=== PATIENT | male | born 1975 | race Caucasian/White ===

== ENCOUNTER 2020-09-13 22:38 | Emergency (ER) | payer OTHER, SELFPAY ==
--- NOTE | ~2020-09-13 | XR_ITS ---
EXAMINATION: XR CHEST CLINICAL INFORMATION: Chest pain COMPARISON: Chest CT 12/05/2014, chest x-ray 12/18/2012. TECHNIQUE: 2 views of the chest were obtained. FINDINGS: There is hazy opacity at the left lung base partially obscuring the left hemidiaphragm. There is a prominent epicardial fat pad in this location and some lingular atelectasis on the prior chest CT 12/05/2014. The loss of definition of the heart border is new from the prior chest x-ray 12/18/2012. A subtle pneumonia is possible. No pleural effusion or pneumothorax. Normal heart size. Asymmetric elevation of the right hemidiaphragm, present previously as well. XR/XR chest 2V IMPRESSION: Subtle increased left base opacity could represent a subtle pneumonia.
[2020-09-13 22:42] VITALS: BP 150/84; BP 185/97; PULSE 125; RESP 18; TEMP 37.4; O2SAT 97; O2SAT 99; BMI 26.6
--- NOTE | 2020-09-13 23:08 | ECG_ITS ---
Test Reason : HR ELEVATED Blood Pressure : / mmHG Vent. Rate : 120 BPM Atrial Rate : 120 BPM P-R Int : 130 ms QRS Dur : 084 ms QT Int : 306 ms P-R-T Axes : 058 075 036 degrees QTc Int : 432 ms Sinus tachycardia Possible Left atrial enlargement Borderline ECG When compared with ECG of 02-NOV-2019 00:07, No significant change was found Referred By: Marko Whiting Electronically Signed By:PARK RANDHAWA MD
--- NOTE | 2020-09-13 23:12 | ED_ITS ---
HPI - General Adult General Chief complaint: General Medical Stated complaint: NAUSEA,BLOATING,ETOH Time Seen by Provider: 09/13/20 22:40 Source: patient Mode of arrival: EMS Limitations: no limitations History of Present Illness HPI narrative: 45-year-old male who presents emergency department for evaluation of nausea, vomiting and high blood sugar. The patient states that he ate a bag of potato chips about 1-1/2 hour prior to coming to the emergency department. He states that after eating the potato chips he developed abdominal pain. He to his umbilical area when he describes the pain. States the pain is a burning sensation which is constant and is for of 10 at its worst. The patient had associated nausea but no vomiting. He also states he developed chest pain which again does drives as a burning sensation. Points to his mid sternal area when asked to localize the chest pain. States the pain was constant but has not resolved and was 6/10 at its worst. He denied any pain in his neck, jaw , back or arms. He states that he had shaking chills but did not have a fever. He denied cough, shortness of breath, dyspnea on exertion. The patient's point of care glucose by the paramedics was 444. The patient states that he did drink two 24 oz beers this evening. He states that he drinks 2-3 times per week. The patient has not had a COVID-19 infection . He has not been vaccinated for COVID-19. Please note: The patient was brought to the emergency department by paramedics. The paramedics insert an IV and then flush the IV catheter. 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 I did discuss this with my patient and he has agreed to HIV testing which was ordered as the HIV AV/Ag exposure Related Data Allergies Allergy/AdvReac Type Severity Reaction Status Date / Time No Known Allergies Allergy Unverified 02/07/20 15:03 [No Known Allergies*] Review of Systems Review of Systems: Yes all other systems are reviewed and are negative FOR[facility]LY [facility], LATER [facility] Past Medical History FOR[facility], LAT[facility] Narrative: Patient has a history of diabetes mellitus controlled with oral agents, hypertension not on medications. He denies any abdominal surgical procedures. He is a former smoker and stops 10 years prior, has a a year pack history. He does drink alcohol 2-3 times per week and did drink 24 oz beers x2 prior to coming to the emergency department he denies drug use. Social History Social History Advance Directives: No Physical Exam Vital Signs: Vital Signs: Last Vital Signs Temp 99.4 F 09/13/20 22:42 Pulse 125 H 09/13/20 22:42 Resp 18 09/13/20 22:42 BP 150/84 H 09/13/20 22:42 Pulse Ox 97 09/13/20 22:42 Body Mass Index 26.6 Const: General: cooperative and healthy appearing Nutritional Appearance: overweight Orientation/consciousness: oriented to person and oriented to place Limitations: no limitations HENMT: Head: Yes normal to inspection, Yes normocephalic and Yes atraumatic Ears: external ears normal General nose exam: Normal external nose present Face and sinus: Yes normal facial exam Mouth: Normal oral and palatal mucosa present Throat: Yes posterior oropharynx normal Eyes: Periorbital: periorbital findings normal Eyelids: Yes eyelids normal Conjunctivae: conjunctivae normal Sclerae: sclerae normal Corneas: corneas normal Pupils: Equal, round and reactive pupils present Direct Ophthalmoscopy: normal light reflex Neck: Neck: Yes full ROM, Yes no lymphadenopathy, Yes no meningeal signs, Yes trachea midline and Yes supple Chest: Chest palpation & inspection: normal inspection of the chest and normal palpation of entire chest wall Resp: Effort & Inspection: normal respiratory effort and able to speak in complete sentences Auscultation: clear to auscultation bilaterally Cardio: Rate: regular rate Rhythm: regular rhythm Heart sounds: S1 normal heart sound present, S2 normal heart sound present and no murmurs GI: Inspection: Yes normal to inspection Palpation (GI): Soft to palpation, nontender, no guarding, not rigid and No hepatosplenomegaly present Auscultation: normal bowel sounds : General: Yes no CVA tenderness Back/Spine/Pelvis: Back: no CVA tenderness Cervical Spine: normal cervical lordosis Thoracic/Lumbar Spine: thoracic and lumbar spine normal to inspection Skin: Lesions: no lesions Rashes: no rashes Wounds: no wounds Neuro: General: oriented to person, oriented to place and no meningeal signs Cranial nerves: Yes CN's II-XII intact bilaterally and Yes Equal, round and reactive pupils present Cognition (Neuro): normal cognition Motor exam (neuro): 5/5 motor strength present throughout Extrem: General: Yes normal to inspection and Yes full ROM Psych: Appearance: well kempt Mental Status: mental status grossly normal Speech and movement: Normal speech and movement present Affect: normal affect Attitude: cooperative Thought process: Normal thought process present Thought content: Normal thought content present Course Course Course Narrative: 45-year-old male who presents emergency department for evaluation abdominal pain, nausea, chest pain and elevated glucose. Vital signs revealed elevated glucose 150/84 and an elevated pulse of 125. Patient low-grade fever of 99.4 with a normal respiratory rate and normal O2 saturation. His physical examination revealed no abdominal tenderness and no chest wall tenderness. Point of care glucose in the emergency department was greater than 500. I ordered a CBC, CMP, lipase, urinalysis. Patient was ordered to get normal saline IV x2 L and regular insulin 10 units IV. 0130: The patient's laboratory evaluation revealed a normal CBC. The patient's bicarb was slightly low at 21. Patient's glucose was elevated at 579. Urinalysis was negative, COVID-19 was negative. Chest x-ray was interpreted by the radiologist as patchy infiltrate at the left base. Given the patient's clinical presentation and my review of the x-ray, I do not think that the patient has pneumonia and I did discuss this with him. The patient's glucose did improve with the above treatment and repeat point of care glucose was 242. Patient is feeling better. He will be discharged home. He was advised to stay on a low carb diet, to follow his glucose 3 times a day for the next week and follow-up with his PCP to discuss further management of his diabetes. I did inform him that his HIV test was negative. Medical Decision Making Lab Data Result diagrams: 09/13/20 23:26 09/13/20 23:14 Labs: Lab Results 09/13/20 09/13/20 09/13/20 Range/Units 22:57 23:14 23:14 WBC (4.8-10.8) X10*3/uL RBC (4.60-5.80) X10*6/uL Hgb (14.0-18.0) g/dl Hct (42-52) % MCV (80-98) fL MCH (27.0-33.0) pg MCHC (31.0-36.0) g/dl RDW (11.0-16.0) % Plt Count (160-400) X10*3/uL MPV (9.4-12.4) fL Immature Gran % (Auto) (0.0-0.4) % Neut % (Auto) (45-73) % Lymph % (Auto) (20-40) % [place] % (Auto) (2-11) % Eos % (Auto) (0-4) % Baso % (Auto) (0-2) % Lymph # (Auto) (1.2-4.9) X10*3/uL [place] # (Auto) (0.1-1.2) X10*3/uL Eos # (Auto) (0.0-0.4) X10*3/uL Baso # (Auto) (0.0-0.2) X10*3/uL Abs Immat Gran (auto) (0.00-0.03) X10*3/uL Absolute Neuts (auto) (2.0-8.3) X10*3/uL Absolute Nucleated RBC (0.0-0.012) X10*3/uL Nucleated RBC % (auto) (0.0-0.2) /100WBC Sodium 138 (135-145) mmol/L Potassium 4.8 (3.3-5.1) mmol/L Chloride 101 (96-108) mmol/L Carbon Dioxide 21 L (22-29) mmol/L Anion Gap 21 H (12-20) BUN 11 (9-16) mg/dL Creatinine 1.09 (0.5-1.4) mg/dL Estim Creat Clear Calc 89.2 Estimated GFR > 60 POC Glucose 514 H* (60-115) mg/dL Random Glucose 579 H* (60-115) mg/dL Calcium 9.2 (8.4-10.2) mg/dL Total Bilirubin 1.3 H (0.0-1.0) mg/dL AST 19 (5-37) U/L ALT 32 (0-40) U/L Alkaline Phosphatase 77 (39-117) U/L Troponin I High Sens 3.6 (<3.5-35.0) ng/L Total Protein 7.0 (6.5-8.0) g/dL Albumin 4.2 (3.5-5.0) g/dL Lipase 59 (8-78) U/L Urine Color Urine Appearance Urine pH (5.0-8.0) Ur Specific Henniker (1.005-1.025) Urine Protein (NEG-TRACE) MG/DL Urine Glucose (UA) (NEG) MG/DL Urine Ketones (NEG) MG/DL Urine Blood (NEG) Urine Nitrite (NEG) Ur Leukocyte Esterase (NEG) Urine RBC (0) /HPF Urine WBC (0-4) /HPF Ur Squamous Epith Cells /LPF Urine Bacteria /LPF Urine Mucus /LPF COVID-19 (ARLENE) (Negative) COVID-19 Clin Com HIV 1&2 Ab/P24 Ag 4thGn (Nonreactive) 09/13/20 09/13/20 09/13/20 Range/Units 23:14 23:16 23:26 WBC 5.2 (4.8-10.8) X10*3/uL RBC 5.49 (4.60-5.80) X10*6/uL Hgb 16.4 (14.0-18.0) g/dl Hct 46.0 (42-52) % MCV 83.8 (80-98) fL MCH 29.9 (27.0-33.0) pg MCHC 35.7 (31.0-36.0) g/dl RDW 12.7 (11.0-16.0) % Plt Count 305 (160-400) X10*3/uL MPV 11.0 (9.4-12.4) fL Immature Gran % (Auto) 0.2 (0.0-0.4) % Neut % (Auto) 70.5 (45-73) % Lymph % (Auto) 20.9 (20-40) % [place] % (Auto) 6.6 (2-11) % Eos % (Auto) 1.0 (0-4) % Baso % (Auto) 0.8 (0-2) % Lymph # (Auto) 1.1 L (1.2-4.9) X10*3/uL [place] # (Auto) 0.3 (0.1-1.2) X10*3/uL Eos # (Auto) 0.1 (0.0-0.4) X10*3/uL Baso # (Auto) 0.0 (0.0-0.2) X10*3/uL Abs Immat Gran (auto) 0.01 (0.00-0.03) X10*3/uL Absolute Neuts (auto) 3.6 (2.0-8.3) X10*3/uL Absolute Nucleated RBC 0.000 (0.0-0.012) X10*3/uL Nucleated RBC % (auto) 0.0 (0.0-0.2) /100WBC Sodium (135-145) mmol/L Potassium (3.3-5.1) mmol/L Chloride (96-108) mmol/L Carbon Dioxide (22-29) mmol/L Anion Gap (12-20) BUN (9-16) mg/dL Creatinine (0.5-1.4) mg/dL Estim Creat Clear Calc Estimated GFR POC Glucose (60-115) mg/dL Random Glucose (60-115) mg/dL Calcium (8.4-10.2) mg/dL Total Bilirubin (0.0-1.0) mg/dL AST (5-37) U/L ALT (0-40) U/L Alkaline Phosphatase (39-117) U/L Troponin I High Sens (<3.5-35.0) ng/L Total Protein (6.5-8.0) g/dL Albumin (3.5-5.0) g/dL Lipase (8-78) U/L Urine Color STRAW Urine Appearance CLEAR Urine pH 5.5 (5.0-8.0) Ur Specific Henniker 1.010 (1.005-1.025) Urine Protein NEG (NEG-TRACE) MG/DL Urine Glucose (UA) >=1000 H (NEG) MG/DL Urine Ketones 5 (NEG) MG/DL Urine Blood NEG (NEG) Urine Nitrite NEG (NEG) Ur Leukocyte Esterase NEG (NEG) Urine RBC 0 (0) /HPF Urine WBC 0 (0-4) /HPF Ur Squamous Epith Cells TRACE /LPF Urine Bacteria NONE /LPF Urine Mucus TRACE /LPF COVID-19 (ARLENE) (Negative) COVID-19 Clin Com HIV 1&2 Ab/P24 Ag 4thGn Nonreactive (Nonreactive) 09/13/20 09/14/20 Range/Units 23:45 01:05 WBC (4.8-10.8) X10*3/uL RBC (4.60-5.80) X10*6/uL Hgb (14.0-18.0) g/dl Hct (42-52) % MCV (80-98) fL MCH (27.0-33.0) pg MCHC (31.0-36.0) g/dl RDW (11.0-16.0) % Plt Count (160-400) X10*3/uL MPV (9.4-12.4) fL Immature Gran % (Auto) (0.0-0.4) % Neut % (Auto) (45-73) % Lymph % (Auto) (20-40) % [place] % (Auto) (2-11) % Eos % (Auto) (0-4) % Baso % (Auto) (0-2) % Lymph # (Auto) (1.2-4.9) X10*3/uL [place] # (Auto) (0.1-1.2) X10*3/uL Eos # (Auto) (0.0-0.4) X10*3/uL Baso # (Auto) (0.0-0.2) X10*3/uL Abs Immat Gran (auto) (0.00-0.03) X10*3/uL Absolute Neuts (auto) (2.0-8.3) X10*3/uL Absolute Nucleated RBC (0.0-0.012) X10*3/uL Nucleated RBC % (auto) (0.0-0.2) /100WBC Sodium (135-145) mmol/L Potassium (3.3-5.1) mmol/L Chloride (96-108) mmol/L Carbon Dioxide (22-29) mmol/L Anion Gap (12-20) BUN (9-16) mg/dL Creatinine (0.5-1.4) mg/dL Estim Creat Clear Calc Estimated GFR POC Glucose 242 H (60-115) mg/dL Random Glucose (60-115) mg/dL Calcium (8.4-10.2) mg/dL Total Bilirubin (0.0-1.0) mg/dL AST (5-37) U/L ALT (0-40) U/L Alkaline Phosphatase (39-117) U/L Troponin I High Sens (<3.5-35.0) ng/L Total Protein (6.5-8.0) g/dL Albumin (3.5-5.0) g/dL Lipase (8-78) U/L Urine Color Urine Appearance Urine pH (5.0-8.0) Ur Specific Henniker (1.005-1.025) Urine Protein (NEG-TRACE) MG/DL Urine Glucose (UA) (NEG) MG/DL Urine Ketones (NEG) MG/DL Urine Blood (NEG) Urine Nitrite (NEG) Ur Leukocyte Esterase (NEG) Urine RBC (0) /HPF Urine WBC (0-4) /HPF Ur Squamous Epith Cells /LPF Urine Bacteria /LPF Urine Mucus /LPF COVID-19 (ARLENE) Negative (Negative) COVID-19 Clin Com See Note HIV 1&2 Ab/P24 Ag 4thGn (Nonreactive) Discharge Plan Discharge Clinical Impression: Acute hyperglycemia, Acute dehydration Patient Disposition: Home, Self-Care Instructions: Diabetic Hyperglycemia (ED) Additional Instructions: Your laboratory evaluation was unremarkable except for high glucose (blood sugar) of 579. You received 2 L of normal saline IV and 10 units of regular insulin IV. Your repeat point of care glucose improved to 242. Your HIV test was negative. Your COVID-19 test was negative. You need to stay on a low-carbohydrate diet. Continue taking medications as prescribed by your doctor. You should record your blood sugar/glucose 3 times a day for the next week and discuss these readings with your doctor. Follow-up with your doctor in 2 days. Please return to the emergency department if your symptoms get worse or if you develop any symptoms that are concerning to you.
[2020-09-13] MEDS: 0.9 % Sodium Chloride 1,000 ML 999 ML IV ×2 (23:17→23:32)
[2020-09-13 23:30] LABS: Glucose Urine UA >=1000 MG/DL (NEG); Leukocyte Esterase Urine NEG (NEG); Nitrite Urine NEG (NEG); PH 5.5 (5.0-8.0); Urine Blood NEG (NEG); Urine Ketones 5 MG/DL (NEG); Urine Protein NEG (NEG-TRACE)
[2020-09-13] MEDS: Insulin Regular, Human 100 UNIT/ML 3 ML VIAL 10 UNIT IVPUSH (23:31)
[2020-09-13 23:34] LABS: Basophils Percent Auto 0.8 % (0-2); Eosinophils Absolute Auto 0.1 X10*3/uL (0.0-0.4); Hemoglobin 16.4 g/dl (14.0-18.0); Imm Gran Abs Auto 0.01 X10*3/uL (0.00-0.03); Imm Gran Pct Auto 0.2 % (0.0-0.4); Lymphocytes Absolute Auto 1.1 X10*3/uL (1.2-4.9); Lymphocytes Percent Auto 20.9 % (20-40); Mean Corpuscular HGB Conc 35.7 g/dl (31.0-36.0); Mean Corpuscular Hemoglobin 29.9 pg (27.0-33.0); Mean Corpuscular Volume 83.8 fL (80-98); Monocytes Absolute Auto 0.3 X10*3/uL (0.1-1.2); Monocytes Percent Auto 6.6 % (2-11); Neutrophils Absolute Auto 3.6 X10*3/uL (2.0-8.3); Neutrophils Percent Auto 70.5 % (45-73); Platelet Count 305 X10*3/uL (160-400); Red Blood Count 5.49 X10*6/uL (4.60-5.80); Red Cell Distribution Width 12.7 % (11.0-16.0); White Blood Count 5.2 X10*3/uL (4.8-10.8)
[2020-09-13 23:39] LABS: Appearance Urine CLEAR; Color Urine STRAW
[2020-09-13 23:49] LABS: Mucus Urine TRACE /LPF; RBC Urine 0 /HPF (0); Squamous Epithelial Cell Urine TRACE /LPF; WBC Urine 0 /HPF (0-4)
[2020-09-13 23:49] LABS: Troponin-I High Sensitivity 3.6 ng/L (<3.5-35.0)
[2020-09-13 23:52] LABS: Alanine Aminotransferase 32 U/L (0-40); Albumin Level 4.2 g/dL (3.5-5.0); Alkaline Phosphatase 77 U/L (39-117); Anion Gap 21 (12-20); Aspartate Amino Transferase 19 U/L (5-37); Bilirubin Total 1.3 mg/dL (0.0-1.0); Blood Urea Nitrogen 11 mg/dL (9-16); Calcium 9.2 mg/dL (8.4-10.2); Carbon Dioxide 21 mmol/L (22-29); Chloride 101 mmol/L (96-108); Creatinine Clr Calc Pharmacy 89.2; Estimated Glomerular Filt Rate > 60; Glucose Random 579 mg/dL (60-115); Lipase 59 U/L (8-78); Potassium 4.8 mmol/L (3.3-5.1); Sodium 138 mmol/L (135-145)
[2020-09-14 00:07] LABS: COVID-19 Test Negative (Negative); IDNOW Serial# 9DD0AD1C
[2020-09-14 00:30] LABS: HIV AB/AG Nonreactive (Nonreactive); HIV Num 1 0.07 S/CO (0.00-0.99)
[2020-09-14 00:37] LABS: MANUAL DIFF FLAG NO
--- NOTE | 2020-09-14 01:08 | PC.NURSE ---
RECHECK POC - 242 AWARE.
[2020-09-14 01:10] LABS: Glucose, Whole Blood 242 mg/dL (60-115)
[2020-09-14 01:10] LABS: Glucose, Whole Blood 514 mg/dL (60-115)
== END 2020-09-14 01:48 | disposition home or self-care (01) ==
PROVIDERS: Emergency Provider Emergency Medicine Emergency Medical Services
DX: E11.65 Type 2 diabetes mellitus with hyperglycemia (principal); E86.0 Dehydration; R11.2 Nausea with vomiting, unspecified; Z20.822 Contact with and (suspected) exposure to COVID-19; I10 Essential (primary) hypertension
CPT/HCPCS: 36415; 71046; 80053; 81001; 82947; 83690; 84484; 85025; 87635; 93005; 96361; 96374; 99284

== ENCOUNTER 2020-10-06 18:29 | Emergency (ER) | payer OTHER, SELFPAY ==
[2020-10-06 20:23] VITALS: BP 139/75; PULSE 101; RESP 20; TEMP 37.2; O2SAT 97; BMI 25.8
--- NOTE | 2020-10-06 21:06 | ED.MALEGU ---
HPI - Male Genitourinary General Chief complaint: Urogenital-Male Stated complaint: ? std Time Seen by Provider: 10/06/20 21:05 Source: patient Mode of arrival: ambulatory Limitations: no limitations History of Present Illness MD Complaint: dysuria and possible STD exposure Onset (ago): day(s) (4) Radiation: penis Severity: mild Quality: burning Relieving factors: none Exacerbating factors: urination Context: new sexual partner Associated symptoms: Reports discharge and dysuria Related Data Previous Rx's Medication Instructions Recorded doxycycline hyclate 100 mg PO BID 10 Days #20 cap 10/06/20 mupirocin 1 appl TOPICAL BID 7 Days #15 g 10/06/20 Allergies Allergy/AdvReac Type Severity Reaction Status Date / Time No Known Allergies Allergy Verified 10/06/20 20:22 [No Known Allergies*] Review of Systems Review of Systems: Constitutional : No Fever, No Chills, Cardiovascular : No Chest Pain, No SOB Respiratory : No Dyspnea Gastrointestinal : No abdominal pain : pos discharge, pos dysuria Musculoskeletal : No Joint Swelling Skin : No rash, no skin laceration Neuro : No Weakness, No Numbness Psych : No SI/HI PMFSH Past Medical History Attestation statement: The following information was validated with the patient. Medical History Diabetes Social History Social History (Updated 10/06/20 @ 21:20 by Yareli Garcia DO) Smoking Status: Unknown if ever smoked Use of substances other than those prescribed or required for medical reasons: No Advance Directives: No Advance Directives Information Provided: Yes Physical Exam Vital Signs: Vital Signs: Last Vital Signs Temp 99.0 F 10/06/20 20:23 Pulse 101 H 10/06/20 20:23 Resp 20 10/06/20 20:23 BP 139/75 10/06/20 20:23 Pulse Ox 97 10/06/20 20:23 Body Mass Index 25.8 Appearance: Alert. Oriented X3. No acute distress. Eyes: Pupils equal, round and reactive to light. ENT: Pharynx normal. Neck: Normal inspection. Neck supple. CVS: Normal heart rate and rhythm. Pulses normal. Respiratory: No respiratory distress. Breath sounds normal. Abdomen: Soft and nontender. : no rash noted, yellow drainage noted, no erythema Skin: Skin warm and dry. Normal skin color. Normal skin turgor. Extremities: No lower extremity edema. No calf ttp Neuro: Oriented X 3. No motor deficit. No sensory deficit. MDM - Male Genitourinary MDM Narrative Medical decision making narrative: 45 yo male new sexual partner but used condoms now has dysuria and purulence likely STI - no systemic symptoms, will obtain UA, G+C, give rocephin and doxy PO - follow up with PCP Discharge Plan Discharge Clinical Impression: Possible exposure to STD Patient Disposition: Home, Self-Care Instructions: Sexually Transmitted Diseases (ED) Additional Instructions: return to ED for any worsening symptoms or concerns you are being treated for gonorrhea and chlamydia, no sex x 10 days, contact your partners Prescriptions: New doxycycline hyclate 100 mg capsule 100 mg PO BID 10 Days Qty: 20 RF: 0 mupirocin 2 % ointment 1 appl topical BID 7 Days Qty: 15 RF: 0 Referrals: Physician,Unknown [Primary Care Provider] - 2 days (if not better) Stand Alone Forms: Work/School Release
[2020-10-06 21:30] LABS: Appearance Urine CLEAR; Color Urine YELLOW; Glucose Urine UA >=1000 MG/DL (NEG); Leukocyte Esterase Urine NEG (NEG); Nitrite Urine NEG (NEG); Specific Gravity - Urine 1.015 (1.005-1.025); Urine Blood 2+ (NEG); Urine Ketones NEG (NEG); Urine Protein NEG (NEG-TRACE)
[2020-10-06] MEDS: cefTRIAXone sodium 500 MG, Lidocaine HCl 1 % MPF 1 ML IM (21:37)
[2020-10-06 21:44] LABS: Squamous Epithelial Cell Urine TRACE /LPF
[2020-10-07 05:47] LABS: CT PCR NOT DETECTED (Not Detect.); NG PCR DETECTED (Not Detect.)
== END 2020-10-06 22:13 | disposition home or self-care (01) ==
PROVIDERS: Emergency Provider Emergency Medicine
DX: R30.0 Dysuria (principal); Z20.2 Contact with and (suspected) exposure to infections with a predominantly sexual mode of transmission; Z79.899 Other long term (current) drug therapy
CPT/HCPCS: 81001; 87491; 87591; 99284; J0696

== ENCOUNTER 2021-02-02 04:22 | Emergency (ER) | payer OTHER, SELFPAY ==
[2021-02-02 04:27] VITALS: BP 154/91; PULSE 113; RESP 18; TEMP 37.1; O2SAT 96; BMI 29.8
[2021-02-02 04:59] LABS: MANUAL DIFF FLAG NO
[2021-02-02 05:11] LABS: COVID-19 Test Negative (Negative)
[2021-02-02 05:18] LABS: Basophils Absolute Auto 0.1 X10*3/uL (0.0-0.2); Basophils Percent Auto 0.7 % (0-2); Eosinophils Absolute Auto 0.1 X10*3/uL (0.0-0.4); Eosinophils Percent Auto 1.7 % (0-4); Hematocrit 47.6 % (42-52); Hemoglobin 17.8 g/dl (14.0-18.0); Imm Gran Abs Auto 0.02 X10*3/uL (0.00-0.03); Imm Gran Pct Auto 0.2 % (0.0-0.4); Lymphocytes Absolute Auto 2.9 X10*3/uL (1.2-4.9); Lymphocytes Percent Auto 34.7 % (20-40); Mean Corpuscular HGB Conc 37.4 g/dl (31.0-36.0); Mean Corpuscular Hemoglobin 30.7 pg (27.0-33.0); Mean Corpuscular Volume 82.2 fL (80-98); Mean Platelet Volume 11.2 fL (9.4-12.4); Monocytes Absolute Auto 0.4 X10*3/uL (0.1-1.2); Monocytes Percent Auto 5.2 % (2-11); Neutrophils Absolute Auto 4.8 X10*3/uL (2.0-8.3); Neutrophils Percent Auto 57.5 % (45-73); Platelet Count 285 X10*3/uL (160-400); Red Blood Count 5.79 X10*6/uL (4.60-5.80); Red Cell Distribution Width 12.4 % (11.0-16.0); White Blood Count 8.3 X10*3/uL (4.8-10.8)
[2021-02-02 05:30] LABS: Amphetamine Screen Urine Not Detected (Not Detect); Barbiturates, Urine Not Detected (Not Detect); Benzodiazepines Screen Urine Not Detected (Not Detect); Cannabinoid Screen Urine Not Detected (Not Detect); Cocaine Screen Urine Not Detected (Not Detect); Fentanyl, urine Not Detected (Not Detect); Opiate Screen Urine Not Detected (Not Detect); Phencyclidine Screen Urine Not Detected (Not Detect)
[2021-02-02 05:34] LABS: Anion Gap 25 (12-20); Blood Urea Nitrogen 12 mg/dL (9-16); Calcium 10.2 mg/dL (8.4-10.2); Carbon Dioxide 16 mmol/L (22-29); Chloride 101 mmol/L (96-108); Creatinine Clr Calc Pharmacy 147.8; Estimated Glomerular Filt Rate > 60; Glucose Random 272 mg/dL (60-115); Potassium 4.4 mmol/L (3.3-5.1); Sodium 138 mmol/L (135-145)
[2021-02-02 05:35] LABS: Ethanol 219 mg/dL
--- NOTE | 2021-02-02 05:40 | PC.NURSE ---
Patient in bed appears sleeping, BAL at 0450 was 219, patient is not yet seen by the provider, patient is not on any medication at this time, will continue to monitor.
--- NOTE | 2021-02-02 07:06 | PC.NURSE ---
patient remains asleep at present with even regular respirations. patient appears in no distress.
--- NOTE | 2021-02-02 07:46 | ED.PSYCH ---
HPI - Psych General Chief Complaint: Psychiatric Symptoms <Christine Lowery MD - Last Filed: 02/02/21 07:52> Stated Complaint: SECTION 12 BY CPD FOR SI STATEMENTS <Christine Lowery MD - Last Filed: 02/02/21 07:52> Time Seen by Provider: 02/02/21 07:39 <Christine Lowery MD - Last Filed: 02/02/21 07:52> Source: patient <Christine Lowery MD - Last Filed: 02/02/21 07:52> Mode of arrival: ambulatory <Christine Lowery MD - Last Filed: 02/02/21 07:52> Limitations: no limitations <Christine Lowery MD - Last Filed: 02/02/21 07:52> History of Present Illness HPI Narrative: Patient comes emergency room complaining of suicidal ideation. Patient states that he was drunk earlier this morning, had a strong suicidal thought, no specific plan. Patient was brought to the emergency room on a Section 12, by police. By the time I saw the patient in the morning, the patient states that he is no longer suicidal, states it was something that crosses might while he was intoxicated. At this time, patient denies SI or HI <Christine Lowery MD - Last Filed: 02/02/21 07:52> Related Data Home Medications: Previous Rx's Medication Instructions Recorded doxycycline hyclate 100 mg capsule 100 mg PO BID 10 Days #20 cap 10/06/20 mupirocin 2 % topical ointment 1 appl TOPICAL BID 7 Days #15 g 10/06/20 <Christine Lowery MD - Last Filed: 02/02/21 07:52> Allergies/Adverse Reactions: Allergies Allergy/AdvReac Type Severity Reaction Status Date / Time No Known Allergies Allergy Verified 10/06/20 20:22 [No Known Allergies*] <Christine Lowery MD - Last Filed: 02/02/21 07:52> Review of Systems Review of Systems: Constitutional : No Weight loss, No Fever, No Chills, No Night Sweats, No Fatigue, No Malaise ENT/Mouth : No Hearing loss, No Ear Pain, No Nasal Congestion, No Sinus Pain, No Hoarseness, No sore throat, No Rhinorrhea, No Swallowing Difficulty Eyes: No Eye Pain, No Swelling, No Redness, No Foreign Body, No Discharge, No Vision Changes Cardiovascular : No Chest Pain, No SOB, No Dyspnea on Exertion, No Orthopnea, No Edema, No Palpitations Respiratory : No Cough, No Sputum, No Wheezing, No Smoke Exposure, No Dyspnea Gastrointestinal : No Nausea, No Vomiting, No Diarrhea, No Constipation, No abdominal Pain, No Hematochezia, No Melena Genitourinary : no irregular bleeding, No Dysuria, No Urinary Frequency, No Hematuria, No Urinary Incontinence, No Urgency, No Flank Pain, No Urinary Flow Changes, No Hesitancy Musculoskeletal : No joint pain, No Myalgias, No Joint Swelling Skin : No Skin Lesions, No rash Neuro : No Weakness, No Numbness, No Paresthesias, No Loss of Consciousness, No Dizziness, No Headache Psych : Previously suicidal and intoxicated now sober no longer suicidal or homicidal Heme/Lymph: No Bruising, No Bleeding,No Lymphadenopathy Endocrine : No Polyuria, No Polydipsia, No Temperature Intolerance <Christine Lowery MD - Last Filed: 02/02/21 07:52> [facility] Past Medical History Medical History: Medical History Diabetes <Christine Lowery MD - Last Filed: 02/02/21 07:52> Social History Social History: Social History (Updated 10/06/20 @ 21:20 by Yareli Garcia DO) Advance Directives: No Healthcare Proxy: No Guardian: No <Christine Lowery MD - Last Filed: 02/02/21 07:52> Physical Exam Vital Signs: Vital Signs: Last Vital Signs Temp 98.7 F 02/02/21 04:27 Pulse 113 H 02/02/21 04:27 Resp 18 02/02/21 04:27 BP 154/91 H 02/02/21 04:27 Pulse Ox 96 02/02/21 04:27 Body Mass Index 29.8 <Christine Lowery MD - Last Filed: 02/02/21 07:52> Vital Signs: Last Vital Signs Temp 98.7 F 02/02/21 04:27 Pulse 113 H 02/02/21 04:27 Resp 18 02/02/21 04:27 BP 154/91 H 02/02/21 04:27 Pulse Ox 96 02/02/21 04:27 Body Mass Index 29.8 <CRIS Arana - Last Filed: 02/02/21 11:50> Const: Other: Appearance: Alert. Oriented X3. No acute distress. Eyes: Pupils equal, round and reactive to light. ENT: Pharynx normal. Neck: Normal inspection. Neck supple. No lymph nodes noted. No crepitus CVS: Normal heart rate and rhythm. Pulses normal. Normal S1 and S2 Respiratory: No respiratory distress. Breath sounds normal. No Wheezing. No rales Abdomen: Soft and nontender. No rigidity. No distention. good BS x4 Skin: Skin warm and dry. Normal skin color. Normal skin turgor. Extremities: No lower extremity edema. No Lacerations. No Rash Neuro: Oriented X 3. No motor deficit. No sensory deficit. Moving all extermities. No slurred speech. <Christine Lowery MD - Last Filed: 02/02/21 07:52> Course Course Course Narrative: Patient is stable, physician observation started at 07:50, [facility] consult pending. <Christine Lowery MD - Last Filed: 02/02/21 07:52> Reevaluation(s) Reevaluation #1: Discussed with crisis, patient is safe to go home, will be discharged and given follow-up crisis information. <CRIS Arana - Last Filed: 02/02/21 11:50> MDM - Psych Lab Data Result diagrams: : 02/02/21 04:50 02/02/21 04:50 <Christine Lowery MD - Last Filed: 02/02/21 07:52> Labs: Lab Results 02/02/21 02/02/21 02/02/21 Range/Units 04:50 04:50 04:50 WBC 8.3 (4.8-10.8) X10*3/uL RBC 5.79 (4.60-5.80) X10*6/uL Hgb 17.8 (14.0-18.0) g/dl Hct 47.6 (42-52) % MCV 82.2 (80-98) fL MCH 30.7 (27.0-33.0) pg MCHC 37.4 H (31.0-36.0) g/dl RDW 12.4 (11.0-16.0) % Plt Count 285 (160-400) X10*3/uL MPV 11.2 (9.4-12.4) fL Immature Gran % (Auto) 0.2 (0.0-0.4) % Neut % (Auto) 57.5 (45-73) % Lymph % (Auto) 34.7 (20-40) % [place] % (Auto) 5.2 (2-11) % Eos % (Auto) 1.7 (0-4) % Baso % (Auto) 0.7 (0-2) % Lymph # (Auto) 2.9 (1.2-4.9) X10*3/uL [place] # (Auto) 0.4 (0.1-1.2) X10*3/uL Eos # (Auto) 0.1 (0.0-0.4) X10*3/uL Baso # (Auto) 0.1 (0.0-0.2) X10*3/uL Abs Immat Gran (auto) 0.02 (0.00-0.03) X10*3/uL Absolute Neuts (auto) 4.8 (2.0-8.3) X10*3/uL Absolute Nucleated RBC 0.000 (0.0-0.012) X10*3/uL Nucleated RBC % (auto) 0.0 (0.0-0.2) /100WBC Sodium 138 (135-145) mmol/L Potassium 4.4 (3.3-5.1) mmol/L Chloride 101 (96-108) mmol/L Carbon Dioxide 16 L (22-29) mmol/L Anion Gap 25 H (12-20) BUN 12 (9-16) mg/dL Creatinine 0.78 (0.5-1.4) mg/dL Estim Creat Clear Calc 147.8 Estimated GFR > 60 Random Glucose 272 H D (60-115) mg/dL Calcium 10.2 D (8.4-10.2) mg/dL Urine Color Urine Appearance Urine pH (5.0-8.0) Ur Specific [place] (1.005-1.025) Urine Protein (NEG-TRACE) MG/DL Urine Glucose (UA) (NEG) MG/DL Urine Ketones (NEG) MG/DL Urine Blood (NEG) Urine Nitrite (NEG) Ur Leukocyte Esterase (NEG) Urine RBC (0) /HPF Urine WBC (0-4) /HPF Ur Squamous Epith Cells /LPF Urine Bacteria /LPF Urine Opiates Screen (Not Detect) Urine Fentanyl Screen (Not Detect) Ur Barbiturates Screen (Not Detect) Ur Phencyclidine Scrn (Not Detect) Ur Amphetamines Screen (Not Detect) U Benzodiazepines Scrn (Not Detect) Urine Cocaine Screen (Not Detect) U Marijuana (THC) Screen (Not Detect) Ethyl Alcohol mg/dL COVID-19 (ARLENE) Negative (Negative) COVID-19 Clin Com See Note 02/02/21 02/02/21 02/02/21 Range/Units 04:50 04:50 10:16 WBC (4.8-10.8) X10*3/uL RBC (4.60-5.80) X10*6/uL Hgb (14.0-18.0) g/dl Hct (42-52) % MCV (80-98) fL MCH (27.0-33.0) pg MCHC (31.0-36.0) g/dl RDW (11.0-16.0) % Plt Count (160-400) X10*3/uL MPV (9.4-12.4) fL Immature Gran % (Auto) (0.0-0.4) % Neut % (Auto) (45-73) % Lymph % (Auto) (20-40) % [place] % (Auto) (2-11) % Eos % (Auto) (0-4) % Baso % (Auto) (0-2) % Lymph # (Auto) (1.2-4.9) X10*3/uL [place] # (Auto) (0.1-1.2) X10*3/uL Eos # (Auto) (0.0-0.4) X10*3/uL Baso # (Auto) (0.0-0.2) X10*3/uL Abs Immat Gran (auto) (0.00-0.03) X10*3/uL Absolute Neuts (auto) (2.0-8.3) X10*3/uL Absolute Nucleated RBC (0.0-0.012) X10*3/uL Nucleated RBC % (auto) (0.0-0.2) /100WBC Sodium (135-145) mmol/L Potassium (3.3-5.1) mmol/L Chloride (96-108) mmol/L Carbon Dioxide (22-29) mmol/L Anion Gap (12-20) BUN (9-16) mg/dL Creatinine (0.5-1.4) mg/dL Estim Creat Clear Calc Estimated GFR Random Glucose (60-115) mg/dL Calcium (8.4-10.2) mg/dL Urine Color YELLOW Urine Appearance CLEAR Urine pH 5.5 (5.0-8.0) Ur Specific [place] >= 1.030 H (1.005-1.025) Urine Protein NEG (NEG-TRACE) MG/DL Urine Glucose (UA) >=1000 H (NEG) MG/DL Urine Ketones 40 (NEG) MG/DL Urine Blood NEG (NEG) Urine Nitrite NEG (NEG) Ur Leukocyte Esterase NEG (NEG) Urine RBC 0-2 (0) /HPF Urine WBC 0-2 (0-4) /HPF Ur Squamous Epith Cells TRACE /LPF Urine Bacteria NONE /LPF Urine Opiates Screen Not Detected (Not Detect) Urine Fentanyl Screen Not Detected (Not Detect) Ur Barbiturates Screen Not Detected (Not Detect) Ur Phencyclidine Scrn Not Detected (Not Detect) Ur Amphetamines Screen Not Detected (Not Detect) U Benzodiazepines Scrn Not Detected (Not Detect) Urine Cocaine Screen Not Detected (Not Detect) U Marijuana (THC) Screen Not Detected (Not Detect) Ethyl Alcohol 219 mg/dL COVID-19 (ARLENE) (Negative) COVID-19 Clin Com 02/02/21 Range/Units 10:16 WBC (4.8-10.8) X10*3/uL RBC (4.60-5.80) X10*6/uL Hgb (14.0-18.0) g/dl Hct (42-52) % MCV (80-98) fL MCH (27.0-33.0) pg MCHC (31.0-36.0) g/dl RDW (11.0-16.0) % Plt Count (160-400) X10*3/uL MPV (9.4-12.4) fL Immature Gran % (Auto) (0.0-0.4) % Neut % (Auto) (45-73) % Lymph % (Auto) (20-40) % [place] % (Auto) (2-11) % Eos % (Auto) (0-4) % Baso % (Auto) (0-2) % Lymph # (Auto) (1.2-4.9) X10*3/uL [place] # (Auto) (0.1-1.2) X10*3/uL Eos # (Auto) (0.0-0.4) X10*3/uL Baso # (Auto) (0.0-0.2) X10*3/uL Abs Immat Gran (auto) (0.00-0.03) X10*3/uL Absolute Neuts (auto) (2.0-8.3) X10*3/uL Absolute Nucleated RBC (0.0-0.012) X10*3/uL Nucleated RBC % (auto) (0.0-0.2) /100WBC Sodium (135-145) mmol/L Potassium (3.3-5.1) mmol/L Chloride (96-108) mmol/L Carbon Dioxide (22-29) mmol/L Anion Gap (12-20) BUN (9-16) mg/dL Creatinine (0.5-1.4) mg/dL Estim Creat Clear Calc Estimated GFR Random Glucose (60-115) mg/dL Calcium (8.4-10.2) mg/dL Urine Color Urine Appearance Urine pH (5.0-8.0) Ur Specific [place] (1.005-1.025) Urine Protein (NEG-TRACE) MG/DL Urine Glucose (UA) (NEG) MG/DL Urine Ketones (NEG) MG/DL Urine Blood (NEG) Urine Nitrite (NEG) Ur Leukocyte Esterase (NEG) Urine RBC (0) /HPF Urine WBC (0-4) /HPF Ur Squamous Epith Cells /LPF Urine Bacteria /LPF Urine Opiates Screen Not Detected (Not Detect) Urine Fentanyl Screen Not Detected (Not Detect) Ur Barbiturates Screen Not Detected (Not Detect) Ur Phencyclidine Scrn Not Detected (Not Detect) Ur Amphetamines Screen Not Detected (Not Detect) U Benzodiazepines Scrn Not Detected (Not Detect) Urine Cocaine Screen Not Detected (Not Detect) U Marijuana (THC) Screen Not Detected (Not Detect) Ethyl Alcohol mg/dL COVID-19 ([facility]LENE) (Negative) COVID-19 Clin Com <Christine Lowery, MD - Last Filed: 02/02/21 07:52> Lab Results 02/02/21 02/02/21 02/02/21 Range/Units 04:50 04:50 04:50 WBC 8.3 (4.8-10.8) X10*3/uL RBC 5.79 (4.60-5.80) X10*6/uL Hgb 17.8 (14.0-18.0) g/dl Hct 47.6 (42-52) % MCV 82.2 (80-98) fL MCH 30.7 (27.0-33.0) pg MCHC 37.4 H (31.0-36.0) g/dl RDW 12.4 (11.0-16.0) % Plt Count 285 (160-400) X10*3/uL MPV 11.2 (9.4-12.4) fL Immature Gran % (Auto) 0.2 (0.0-0.4) % Neut % (Auto) 57.5 (45-73) % Lymph % (Auto) 34.7 (20-40) % [place] % (Auto) 5.2 (2-11) % Eos % (Auto) 1.7 (0-4) % Baso % (Auto) 0.7 (0-2) % Lymph # (Auto) 2.9 (1.2-4.9) X10*3/uL [place] # (Auto) 0.4 (0.1-1.2) X10*3/uL Eos # (Auto) 0.1 (0.0-0.4) X10*3/uL Baso # (Auto) 0.1 (0.0-0.2) X10*3/uL Abs Immat Gran (auto) 0.02 (0.00-0.03) X10*3/uL Absolute Neuts (auto) 4.8 (2.0-8.3) X10*3/uL Absolute Nucleated RBC 0.000 (0.0-0.012) X10*3/uL Nucleated RBC % (auto) 0.0 (0.0-0.2) /100WBC Sodium 138 (135-145) mmol/L Potassium 4.4 (3.3-5.1) mmol/L Chloride 101 (96-108) mmol/L Carbon Dioxide 16 L (22-29) mmol/L Anion Gap 25 H (12-20) BUN 12 (9-16) mg/dL Creatinine 0.78 (0.5-1.4) mg/dL Estim Creat Clear Calc 147.8 Estimated GFR > 60 Random Glucose 272 H D (60-115) mg/dL Calcium 10.2 D (8.4-10.2) mg/dL Urine Color Urine Appearance Urine pH (5.0-8.0) Ur Specific [place] (1.005-1.025) Urine Protein (NEG-TRACE) MG/DL Urine Glucose (UA) (NEG) MG/DL Urine Ketones (NEG) MG/DL Urine Blood (NEG) Urine Nitrite (NEG) Ur Leukocyte Esterase (NEG) Urine RBC (0) /HPF Urine WBC (0-4) /HPF Ur Squamous Epith Cells /LPF Urine Bacteria /LPF Urine Opiates Screen (Not Detect) Urine Fentanyl Screen (Not Detect) Ur Barbiturates Screen (Not Detect) Ur Phencyclidine Scrn (Not Detect) Ur Amphetamines Screen (Not Detect) U Benzodiazepines Scrn (Not Detect) Urine Cocaine Screen (Not Detect) U Marijuana (THC) Screen (Not Detect) Ethyl Alcohol mg/dL COVID-19 ([facility]LENE) Negative (Negative) COVID-19 Clin Com See Note 02/02/21 02/02/21 02/02/21 Range/Units 04:50 04:50 10:16 WBC (4.8-10.8) X10*3/uL RBC (4.60-5.80) X10*6/uL Hgb (14.0-18.0) g/dl Hct (42-52) % MCV (80-98) fL MCH (27.0-33.0) pg MCHC (31.0-36.0) g/dl RDW (11.0-16.0) % Plt Count (160-400) X10*3/uL MPV (9.4-12.4) fL Immature Gran % (Auto) (0.0-0.4) % Neut % (Auto) (45-73) % Lymph % (Auto) (20-40) % [place] % (Auto) (2-11) % Eos % (Auto) (0-4) % Baso % (Auto) (0-2) % Lymph # (Auto) (1.2-4.9) X10*3/uL [place] # (Auto) (0.1-1.2) X10*3/uL Eos # (Auto) (0.0-0.4) X10*3/uL Baso # (Auto) (0.0-0.2) X10*3/uL Abs Immat Gran (auto) (0.00-0.03) X10*3/uL Absolute Neuts (auto) (2.0-8.3) X10*3/uL Absolute Nucleated RBC (0.0-0.012) X10*3/uL Nucleated RBC % (auto) (0.0-0.2) /100WBC Sodium (135-145) mmol/L Potassium (3.3-5.1) mmol/L Chloride (96-108) mmol/L Carbon Dioxide (22-29) mmol/L Anion Gap (12-20) BUN (9-16) mg/dL Creatinine (0.5-1.4) mg/dL Estim Creat Clear Calc Estimated GFR Random Glucose (60-115) mg/dL Calcium (8.4-10.2) mg/dL Urine Color YELLOW Urine Appearance CLEAR Urine pH 5.5 (5.0-8.0) Ur Specific [place] >= 1.030 H (1.005-1.025) Urine Protein NEG (NEG-TRACE) MG/DL Urine Glucose (UA) >=1000 H (NEG) MG/DL Urine Ketones 40 (NEG) MG/DL Urine Blood NEG (NEG) Urine Nitrite NEG (NEG) Ur Leukocyte Esterase NEG (NEG) Urine RBC 0-2 (0) /HPF Urine WBC 0-2 (0-4) /HPF Ur Squamous Epith Cells TRACE /LPF Urine Bacteria NONE /LPF Urine Opiates Screen Not Detected (Not Detect) Urine Fentanyl Screen Not Detected (Not Detect) Ur Barbiturates Screen Not Detected (Not Detect) Ur Phencyclidine Scrn Not Detected (Not Detect) Ur Amphetamines Screen Not Detected (Not Detect) U Benzodiazepines Scrn Not Detected (Not Detect) Urine Cocaine Screen Not Detected (Not Detect) U Marijuana (THC) Screen Not Detected (Not Detect) Ethyl Alcohol 219 mg/dL COVID-19 ([facility]LENE) (Negative) COVID-19 Clin Com 02/02/21 Range/Units 10:16 WBC (4.8-10.8) X10*3/uL RBC (4.60-5.80) X10*6/uL Hgb (14.0-18.0) g/dl Hct (42-52) % MCV (80-98) fL MCH (27.0-33.0) pg MCHC (31.0-36.0) g/dl RDW (11.0-16.0) % Plt Count (160-400) X10*3/uL MPV (9.4-12.4) fL Immature Gran % (Auto) (0.0-0.4) % Neut % (Auto) (45-73) % Lymph % (Auto) (20-40) % [place] % (Auto) (2-11) % Eos % (Auto) (0-4) % Baso % (Auto) (0-2) % Lymph # (Auto) (1.2-4.9) X10*3/uL [place] # (Auto) (0.1-1.2) X10*3/uL Eos # (Auto) (0.0-0.4) X10*3/uL Baso # (Auto) (0.0-0.2) X10*3/uL Abs Immat Gran (auto) (0.00-0.03) X10*3/uL Absolute Neuts (auto) (2.0-8.3) X10*3/uL Absolute Nucleated RBC (0.0-0.012) X10*3/uL Nucleated RBC % (auto) (0.0-0.2) /100WBC Sodium (135-145) mmol/L Potassium (3.3-5.1) mmol/L Chloride (96-108) mmol/L Carbon Dioxide (22-29) mmol/L Anion Gap (12-20) BUN (9-16) mg/dL Creatinine (0.5-1.4) mg/dL Estim Creat Clear Calc Estimated GFR Random Glucose (60-115) mg/dL Calcium (8.4-10.2) mg/dL Urine Color Urine Appearance Urine pH (5.0-8.0) Ur Specific [place] (1.005-1.025) Urine Protein (NEG-TRACE) MG/DL Urine Glucose (UA) (NEG) MG/DL Urine Ketones (NEG) MG/DL Urine Blood (NEG) Urine Nitrite (NEG) Ur Leukocyte Esterase (NEG) Urine RBC (0) /HPF Urine WBC (0-4) /HPF Ur Squamous Epith Cells /LPF Urine Bacteria /LPF Urine Opiates Screen Not Detected (Not Detect) Urine Fentanyl Screen Not Detected (Not Detect) Ur Barbiturates Screen Not Detected (Not Detect) Ur Phencyclidine Scrn Not Detected (Not Detect) Ur Amphetamines Screen Not Detected (Not Detect) U Benzodiazepines Scrn Not Detected (Not Detect) Urine Cocaine Screen Not Detected (Not Detect) U Marijuana (THC) Screen Not Detected (Not Detect) Ethyl Alcohol mg/dL COVID-19 ([facility]) (Negative) COVID-19 Clin Com <CRIS Arana - Last Filed: 02/02/21 11:50> Discharge Plan Discharge Clinical Impression: Depression Qualifiers: Depression Type: unspecified Qualified Code(s): F32.9 - Major depressive disorder, single episode, unspecified <Christine Lowery MD - Last Filed: 02/02/21 07:52> Patient Disposition: Home, Self-Care <Christine Lowery MD - Last Filed: 02/02/21 07:52> Instructions: Depression (ED) <Christine Lowery MD - Last Filed: 02/02/21 07:52> Additional Instructions: Please call the crisis information you were given Please return to the emergency room if you have any thoughts of self-harm, any thoughts of suicide, any thoughts of hurting anyone else, any hallucinations. <Christine Lowery MD - Last Filed: 02/02/21 07:52> Prescriptions: No Action doxycycline hyclate 100 mg capsule 100 mg PO BID 10 Days Qty: 20 RF: 0 mupirocin 2 % ointment 1 appl topical BID 7 Days Qty: 15 RF: 0 <Christine Lowery MD - Last Filed: 02/02/21 07:52>
[2021-02-02 10:29] LABS: Appearance Urine CLEAR; Color Urine YELLOW; Glucose Urine UA >=1000 MG/DL (NEG); Leukocyte Esterase Urine NEG (NEG); Nitrite Urine NEG (NEG); PH 5.5 (5.0-8.0); Specific Gravity - Urine >= 1.030 (1.005-1.025); Urine Blood NEG (NEG); Urine Ketones 40 MG/DL (NEG); Urine Protein NEG (NEG-TRACE)
[2021-02-02 10:39] LABS: RBC Urine 0-2 /HPF (0); Squamous Epithelial Cell Urine TRACE /LPF; WBC Urine 0-2 /HPF (0-4)
[2021-02-02 10:47] LABS: Amphetamine Screen Urine Not Detected (Not Detect); Barbiturates, Urine Not Detected (Not Detect); Benzodiazepines Screen Urine Not Detected (Not Detect); Cannabinoid Screen Urine Not Detected (Not Detect); Cocaine Screen Urine Not Detected (Not Detect); Fentanyl, urine Not Detected (Not Detect); Opiate Screen Urine Not Detected (Not Detect); Phencyclidine Screen Urine Not Detected (Not Detect)
== END 2021-02-02 12:12 | disposition home or self-care (01) ==
PROVIDERS: Student in an Organized Health Care Education/Training Program; Emergency Provider Emergency Medicine
DX: F33.1 Major depressive disorder, recurrent, moderate (principal); R45.851 Suicidal ideations; Z20.822 Contact with and (suspected) exposure to COVID-19; Z79.899 Other long term (current) drug therapy
CPT/HCPCS: 36415; 80048; 80307; 81001; 82077; 85025; 87635; 99283; 99284

== ENCOUNTER 2021-07-05 08:42 | Emergency (ER) | payer OTHER, SELFPAY ==
[2021-07-05 08:55] VITALS: BP 123/74; PULSE 110; RESP 19; TEMP 36.1; O2SAT 98
--- NOTE | 2021-07-05 08:59 | ED_ITS ---
HPI - Psych General Chief Complaint: Psychiatric Symptoms Stated Complaint: SI W/PLAN TO HANG SELF FROM TREE W/ROPE Time Seen by Provider: 07/05/21 08:54 Source: patient Mode of arrival: EMS Limitations: no limitations History of Present Illness HPI Narrative: patient comes to the emergency room via ambulance complaining of suicidal ideation. Patient states that he drank more than 6 weeks beers and a pt of vodk a this morning. Patient states that he would either hang himself from a tree with a rope or slash his left wrist. Patient has been evaluated in the emergency room for suicidal ideation. Related Data Previous Rx's Medication Instructions Recorded doxycycline hyclate 100 mg capsule 100 mg PO BID 10 Days #20 cap 10/06/20 mupirocin 2 % topical ointment 1 appl TOPICAL BID 7 Days #15 g 10/06/20 Allergies Allergy/AdvReac Type Severity Reaction Status Date / Time No Known Allergies Allergy Verified 10/06/20 20:22 [No Known Allergies*] Review of Systems Review of Systems: Constitutional : No Weight loss, No Fever, No Chills, No Night Sweats, No Fatigue, No Malaise ENT/Mouth : No Hearing loss, No Ear Pain, No Nasal Congestion, No Sinus Pain, No Hoarseness, No sore throat, No Rhinorrhea, No Swallowing Difficulty Eyes: No Eye Pain, No Swelling, No Redness, No Foreign Body, No Discharge, No Vision Changes Cardiovascular : No Chest Pain, No SOB, No Dyspnea on Exertion, No Orthopnea, No Edema, No Palpitations Respiratory : No Cough, No Sputum, No Wheezing, No Smoke Exposure, No Dyspnea Gastrointestinal : No Nausea, No Vomiting, No Diarrhea, No Constipation, No abdominal Pain, No Hematochezia, No Melena Genitourinary : no irregular bleeding, No Dysuria, No Urinary Frequency, No Hematuria, No Urinary Incontinence, No Urgency, No Flank Pain, No Urinary Flow Changes, No Hesitancy Musculoskeletal : No joint pain, No Myalgias, No Joint Swelling Skin : No Skin Lesions, No rash Neuro : No Weakness, No Numbness, No Paresthesias, No Loss of Consciousness, No Dizziness, No Headache Psych : Complaining of suicidal ideation Heme/Lymph: No Bruising, No Bleeding,No Lymphadenopathy Endocrine : No Polyuria, No Polydipsia, No Temperature Intolerance [facility] Past Medical History Medical History (Updated 07/05/21 @ 13:39 by Christine Lowery MD) Alcohol abuse Diabetes Suicidal ideation Social History Social History (Updated 10/06/20 @ 21:20 by Yareli Garcia DO) Alcohol intake: current Patient Tobacco Use Status: Never used Tobacco Use of substances other than those prescribed or required for medical reasons: No Advance Directives: No Advance Directives Information Provided: No Physical Exam Vital Signs: Vital Signs: Last Vital Signs Temp 97 F 07/05/21 08:55 Pulse 110 H 07/05/21 11:02 Resp 18 07/05/21 11:02 BP 128/68 07/05/21 11:02 Pulse Ox 95 07/05/21 11:02 BMI result Body Mass Index 30.0 Const: Other: Appearance: Alert. Oriented X3. No acute distress. patient is intoxicated but still able to talk and function. Eyes: Pupils equal, round and reactive to light. ENT: Pharynx normal. Neck: Normal inspection. Neck supple. No lymph nodes noted. No crepitus CVS: Normal heart rate and rhythm. Pulses normal. Normal S1 and S2 Respiratory: No respiratory distress. Breath sounds normal. No Wheezing. No rales Abdomen: Soft and nontender. No rigidity. No distention. Skin: Skin warm and dry. Normal skin color. Normal skin turgor. Extremities: No lower extremity edema. Moves all extremities Neuro: cranial nerves 2-12 grossly intact,Oriented X 3. No motor deficit. No sensory deficit. Moving all extermities. slurred/ stuttering speech psych: Calm, cooperative, intoxicated Course Course Course Narrative: patient remains awake, alert, very talkative. Labs pending. when the alcohol levels are appropriate, [facility] come to evaluate the patient. Physician Observation started at 09:36 patient declined to be seen by our recovery manager or being sent to detox. 13:38 patient was evaluated by [facility]. Patient states that he is not suicidal, not homicidal. Patient states that he was intoxicated this morning and made those statements but patient would not hurt himself. Patient has had similar presentations in the past where in he is suicidal only while he is intoxicated. At this time, patient is sober, ambulates by himself, steady gait, clinically sober. MDM - Psych Lab Data Result diagrams: 07/05/21 09:22 02/13/22 09:22 Labs: Lab Results 07/05/21 07/05/21 07/05/21 Range/Units 09:22 09:22 09:22 WBC 7.0 (4.8-10.8) X10*3/uL RBC 6.02 H (4.60-5.80) X10*6/uL Hgb 18.3 H (14.0-18.0) g/dl Hct 50.8 (42.0-52.0) % MCV 84.4 (80.0-98.0) fL MCH 30.4 (27.0-33.0) pg MCHC 36.0 (31.0-36.0) g/dl RDW 13.7 (11.0-16.0) % Plt Count 292 (160-400) X10*3/uL MPV 10.8 (9.4-12.4) fL Immature Gran % (Auto) 0.4 (0.0-0.4) % Neut % (Auto) 60.3 (45-73) % Lymph % (Auto) 31.3 (20-40) % [place] % (Auto) 5.4 (2-11) % Eos % (Auto) 2.0 (0-4) % Baso % (Auto) 0.6 (0-2) % Lymph # (Auto) 2.2 (1.2-4.9) X10*3/uL [place] # (Auto) 0.4 (0.1-1.2) X10*3/uL Eos # (Auto) 0.1 (0.0-0.4) X10*3/uL Baso # (Auto) 0.0 (0.0-0.2) X10*3/uL Abs Immat Gran (auto) 0.03 (0.00-0.03) X10*3/uL Absolute Neuts (auto) 4.2 (2.0-8.3) x10*3/uL Absolute Nucleated RBC 0.000 (0.0-0.012) X10*3/uL Nucleated RBC % (auto) 0.0 (0.0-0.2) /100WBC Sodium 141 (135-145) mmol/L Potassium 4.4 (3.3-5.1) mmol/L Chloride 105 (96-108) mmol/L Carbon Dioxide 19 L (22-29) mmol/L Anion Gap 21 H (12-20) BUN 10 (9-16) mg/dL Creatinine 0.72 (0.5-1.4) mg/dL Estim Creat Clear Calc 149.9 Estimated GFR > 60 Random Glucose 120 H D (60-115) mg/dL Calcium 9.6 (8.4-10.2) mg/dL Total Bilirubin 1.4 H (0.0-1.0) mg/dL Direct Bilirubin 0.4 (0.0-0.5) mg/dL AST 22 (5-37) U/L ALT 38 (0-40) U/L Alkaline Phosphatase 55 D (39-117) U/L Total Protein 7.8 (6.5-8.0) g/dL Albumin 4.7 (3.5-5.0) g/dL Ethyl Alcohol 231 mg/dL Discharge Plan Discharge Clinical Impression: Alcohol intoxication Patient Disposition: Home, Self-Care Instructions: Alcohol Intoxication (ED) Additional Instructions: Please follow-up with your primary care physician tomorrow. If you have any worsening or new symptoms, please return to the emergency room or call 911 Prescriptions: No Action doxycycline hyclate 100 mg capsule 100 mg PO BID 10 Days Qty: 20 0RF mupirocin 2 % ointment 1 appl topical BID 7 Days Qty: 15 0RF
[2021-07-05 09:27] LABS: MANUAL DIFF FLAG NO
[2021-07-05 09:30] LABS: Basophils Percent Auto 0.6 % (0-2); Eosinophils Absolute Auto 0.1 X10*3/uL (0.0-0.4); Hematocrit 50.8 % (42.0-52.0); Hemoglobin 18.3 g/dl (14.0-18.0); Imm Gran Abs Auto 0.03 X10*3/uL (0.00-0.03); Imm Gran Pct Auto 0.4 % (0.0-0.4); Lymphocytes Absolute Auto 2.2 X10*3/uL (1.2-4.9); Lymphocytes Percent Auto 31.3 % (20-40); Mean Corpuscular Hemoglobin 30.4 pg (27.0-33.0); Mean Corpuscular Volume 84.4 fL (80.0-98.0); Mean Platelet Volume 10.8 fL (9.4-12.4); Monocytes Absolute Auto 0.4 X10*3/uL (0.1-1.2); Monocytes Percent Auto 5.4 % (2-11); Neutrophils Absolute Auto 4.2 x10*3/uL (2.0-8.3); Neutrophils Percent Auto 60.3 % (45-73); Platelet Count 292 X10*3/uL (160-400); Red Blood Count 6.02 X10*6/uL (4.60-5.80); Red Cell Distribution Width 13.7 % (11.0-16.0)
[2021-07-05 09:47] LABS: Alanine Aminotransferase 38 U/L (0-40); Albumin Level 4.7 g/dL (3.5-5.0); Alkaline Phosphatase 55 U/L (39-117); Anion Gap 21 (12-20); Aspartate Amino Transferase 22 U/L (5-37); Bilirubin Direct 0.4 mg/dL (0.0-0.5); Bilirubin Total 1.4 mg/dL (0.0-1.0); Blood Urea Nitrogen 10 mg/dL (9-16); Calcium 9.6 mg/dL (8.4-10.2); Carbon Dioxide 19 mmol/L (22-29); Chloride 105 mmol/L (96-108); Creatinine Clr Calc Pharmacy 149.9; Estimated Glomerular Filt Rate > 60; Glucose Random 120 mg/dL (60-115); Potassium 4.4 mmol/L (3.3-5.1); Sodium 141 mmol/L (135-145); Total Protein 7.8 g/dL (6.5-8.0)
[2021-07-05 09:50] LABS: Ethanol 231 mg/dL
--- NOTE | 2021-07-05 10:44 | MHC.CARE ---
Pt will be clinically appropriate for assessment and/or consult at 1pm.
[2021-07-05 11:02] VITALS: BP 128/68; PULSE 110; RESP 18; O2SAT 95
--- NOTE | 2021-07-05 11:06 | PC.NURSE ---
pt is calm and cooperative, reports drinking 6 beers and a couple shots today, but states that he does not drink daily, denies si/hi at this time Milly will refer the pt to sergei electronically for this rn
--- NOTE | 2021-07-05 11:44 | MHC.CARE ---
Carlos Eduardo brito
[2021-07-05 13:53] VITALS: BP 138/69; PULSE 110; RESP 15; TEMP 36.1; O2SAT 94
--- NOTE | 2021-07-05 14:17 | PC.NURSE ---
bhn at bedside
[2021-07-05 14:47] VITALS: BP 138/74; PULSE 109; RESP 18; TEMP 35.9; O2SAT 92
== END 2021-07-05 14:59 | disposition home or self-care (01) ==
PROVIDERS: Emergency Provider Emergency Medicine
DX: F33.1 Major depressive disorder, recurrent, moderate (principal); R45.851 Suicidal ideations; F10.129 Alcohol abuse with intoxication, unspecified; Y90.7 Blood alcohol level of 200-239 mg/100 ml; Z79.899 Other long term (current) drug therapy; Z71.41 Alcohol abuse counseling and surveillance of alcoholic
CPT/HCPCS: 36415; 80048; 80076; 82077; 85025; 99284

== ENCOUNTER 2021-07-17 19:20 | Inpatient (IN) | payer OTHER, SELFPAY ==
--- NOTE | 2021-07-17 | ECG_ITS ---
Test Reason : OVERDOSE Blood Pressure : / mmHG Vent. Rate : 093 BPM Atrial Rate : 093 BPM P-R Int : 146 ms QRS Dur : 090 ms QT Int : 340 ms P-R-T Axes : 057 071 032 degrees QTc Int : 422 ms Normal sinus rhythm Normal ECG When compared with ECG of 13-SEP-2020 23:26, No significant change was found Referred By: Jami Andrews Electronically Signed By:BO PERDOMO
[2021-07-17 19:27] VITALS: BP 145/83; PULSE 113; RESP 18; TEMP 37.4; O2SAT 97; BMI 25.8
--- NOTE | 2021-07-17 19:42 | ED.PSYCH ---
HPI - Psych General Chief Complaint: Psychiatric Symptoms Stated Complaint: SI Time Seen by Provider: 07/17/21 23:36 Source: patient and EMS Mode of arrival: EMS Limitations: no limitations History of Present Illness HPI Narrative: 46-year-old male presents via EMS for suicidal ideation and worsening depression. Reports to have drank large quantities of alcohol and took an unknown amount of Jardiance. MD complaint: suicidal ideation and alcohol abuse Onset (ago): unknown Duration: constant History of same: Yes Relieving factors: none Exacerbating factors: alcohol Context: recent alcohol abuse Associated psychiatric symptoms: depression and suicidal ideation Associated symptoms: denies other symptoms Treatments prior to arrival: placed on mental health hold If self harm: admits thoughts of self harm Related Data Home Medications Medication Instructions Recorded Confirmed atorvastatin 20 mg tablet 1 tab PO DAILY 07/17/21 07/17/21 citalopram 40 mg tablet 1 tab PO DAILY 07/17/21 07/17/21 empagliflozin 10 mg tablet 1 tab PO QAM 07/17/21 07/17/21 (Jardiance) Allergies Allergy/AdvReac Type Severity Reaction Status Date / Time No Known Allergies Allergy Verified 10/06/20 20:22 [No Known Allergies*] Review of Systems Review of Systems: Constitutional: No Fever, No Chills ENT/Mouth: No Ear Pain, No Nasal Congestion, No sore throat Eyes: No Eye Pain, No Swelling, No Redness Cardiovascular: No Chest Pain, No SOB Respiratory: No Cough, No Sputum, No Dyspnea Gastrointestinal: No Nausea, No Vomiting, No Diarrhea, No Hematochezia, No Melena Genitourinary: No Dysuria, No Urinary Frequency, No Hematuria Musculoskeletal: No Myalgias Skin: No Skin Lesions, No rash Neuro: No Weakness, No Numbness, No Paresthesias, No Dizziness, No Headache Psych: positive Anxiety, positive Depression, positive SI Heme/Lymph: No Lymphadenopathy Endocrine: No Polyuria, No Polydipsia Yes all other systems are reviewed and are negative [facility] Past Medical History Attestation statement: The following information was validated with the patient. Source: old records reviewed Medical History Alcohol abuse Diabetes Suicidal ideation Social History Social History Alcohol intake: current Patient Tobacco Use Status: Never used Tobacco Advance Directives: No Advance Directives Information Provided: No Physical Exam Vital Signs: Vital Signs: Last Vital Signs Temp 98.6 F 07/17/21 21:44 Pulse 97 07/17/21 22:49 Resp 18 07/17/21 22:49 BP 110/76 07/17/21 22:49 Pulse Ox 98 07/17/21 22:49 BMI result Body Mass Index 25.8 Appearance: Alert. Oriented X3. Moderate emotional distress. Acute alcohol intoxication Eyes: Pupils equal, round and reactive to light. EOMI. No nystagmus. Sclerae nonicteric. ENT: Pharynx normal. Moist mucous membranes. Neck: Normal inspection. Neck supple. CVS: Normal heart rate and rhythm. Pulses normal. Respiratory: No respiratory distress. Breath sounds normal. Abdomen: Soft and nontender. Skin: Skin warm and dry. Normal skin color. Normal skin turgor. Extremities: No lower extremity edema. Gait well-balanced well coordinated. Neuro: No motor deficit. No sensory deficit. Cranial nerves 2-12 intact. Course Course Course Narrative: 46-year-old male presents via EMS for alcohol intoxication, suicidal ideation, and ingestion of unknown amount of Jardiance. Patient is on a Section 12. Last Jardiance refill was May of 2021, and patient still had multiple tablets of Jardiance left in his prescription bottle. Will call out to poison for suspected Jardiance overdose. Will order labs, and crisis consult. 23:19 section 12 bed search. ETOH 253. Blood sugars continue to remain stable. Medically cleared. Physician observation started at this time. MDM - Psych Differential Diagnosis Differential diagnosis: Likely acute psychosis, suicidal ideation, depression, drug-induced psychotic disorder, substance abuse and alcohol intoxication Medical Records Attestation: I reviewed the patient's medical records. Lab Data Attestation: I reviewed the patient's lab results. Result diagrams: 07/17/21 20:07 07/17/21 20:07 Labs: Lab Results 07/17/21 07/17/21 07/17/21 Range/Units 19:39 19:40 19:40 WBC (4.8-10.8) X10*3/uL RBC (4.60-5.80) X10*6/uL Hgb (14.0-18.0) g/dl Hct (42.0-52.0) % MCV (80.0-98.0) fL MCH (27.0-33.0) pg MCHC (31.0-36.0) g/dl RDW (11.0-16.0) % Plt Count (160-400) X10*3/uL MPV (9.4-12.4) fL Immature Gran % (Auto) (0.0-0.4) % Neut % (Auto) (45-73) % Lymph % (Auto) (20-40) % [place] % (Auto) (2-11) % Eos % (Auto) (0-4) % Baso % (Auto) (0-2) % Lymph # (Auto) (1.2-4.9) X10*3/uL [place] # (Auto) (0.1-1.2) X10*3/uL Eos # (Auto) (0.0-0.4) X10*3/uL Baso # (Auto) (0.0-0.2) X10*3/uL Abs Immat Gran (auto) (0.00-0.03) X10*3/uL Absolute Neuts (auto) (2.0-8.3) x10*3/uL Absolute Nucleated RBC (0.0-0.012) X10*3/uL Nucleated RBC % (auto) (0.0-0.2) /100WBC Sodium (135-145) mmol/L Potassium (3.3-5.1) mmol/L Chloride (96-108) mmol/L Carbon Dioxide (22-29) mmol/L Anion Gap (12-20) BUN (9-16) mg/dL Creatinine (0.5-1.4) mg/dL Estim Creat Clear Calc Estimated GFR POC Glucose (60-115) mg/dL Random Glucose (60-115) mg/dL Calcium (8.4-10.2) mg/dL Magnesium (1.6-2.6) mg/dL Total Bilirubin (0.0-1.0) mg/dL Direct Bilirubin (0.0-0.5) mg/dL AST (5-37) U/L ALT (0-40) U/L Alkaline Phosphatase (39-117) U/L Troponin I High Sens (<3.5-35.0) ng/L Total Protein (6.5-8.0) g/dL Albumin (3.5-5.0) g/dL Urine Color YELLOW Urine Appearance CLEAR Urine pH 5.5 (5.0-8.0) Ur Specific [place] <= 1.005 (1.005-1.025) Urine Protein NEG (NEG-TRACE) MG/DL Urine Glucose (UA) >=1000 H (NEG) MG/DL Urine Ketones 5 (NEG) MG/DL Urine Blood NEG (NEG) Urine Nitrite NEG (NEG) Ur Leukocyte Esterase NEG (NEG) Urine RBC 0 (0) /HPF Urine WBC 0-2 (0-4) /HPF Ur Squamous Epith Cells TRACE /LPF Urine Bacteria NONE /LPF Salicylates (15-30) mg/dL Urine Opiates Screen Not Detected (Not Detect) Urine Fentanyl Screen Not Detected (Not Detect) Acetaminophen (<30) mcg/mL Ur Barbiturates Screen Not Detected (Not Detect) Ur Phencyclidine Scrn Not Detected (Not Detect) Ur Amphetamines Screen Not Detected (Not Detect) U Benzodiazepines Scrn Not Detected (Not Detect) Urine Cocaine Screen Not Detected (Not Detect) U Marijuana (THC) Screen Not Detected (Not Detect) Ethyl Alcohol mg/dL COVID-19 (ARLENE) Negative (Negative) COVID-19 Clin Com See Note 07/17/21 07/17/21 07/17/21 Range/Units 19:40 20:07 20:07 WBC 7.6 (4.8-10.8) X10*3/uL RBC 5.90 H (4.60-5.80) X10*6/uL Hgb 17.9 (14.0-18.0) g/dl Hct 49.7 (42.0-52.0) % MCV 84.2 (80.0-98.0) fL MCH 30.3 (27.0-33.0) pg MCHC 36.0 (31.0-36.0) g/dl RDW 13.4 (11.0-16.0) % Plt Count 313 (160-400) X10*3/uL MPV 10.7 (9.4-12.4) fL Immature Gran % (Auto) 0.4 (0.0-0.4) % Neut % (Auto) 64.2 (45-73) % Lymph % (Auto) 27.5 (20-40) % [place] % (Auto) 5.9 (2-11) % Eos % (Auto) 1.5 (0-4) % Baso % (Auto) 0.5 (0-2) % Lymph # (Auto) 2.1 (1.2-4.9) X10*3/uL [place] # (Auto) 0.5 (0.1-1.2) X10*3/uL Eos # (Auto) 0.1 (0.0-0.4) X10*3/uL Baso # (Auto) 0.0 (0.0-0.2) X10*3/uL Abs Immat Gran (auto) 0.03 (0.00-0.03) X10*3/uL Absolute Neuts (auto) 4.9 (2.0-8.3) x10*3/uL Absolute Nucleated RBC 0.000 (0.0-0.012) X10*3/uL Nucleated RBC % (auto) 0.0 (0.0-0.2) /100WBC Sodium (135-145) mmol/L Potassium (3.3-5.1) mmol/L Chloride (96-108) mmol/L Carbon Dioxide (22-29) mmol/L Anion Gap (12-20) BUN (9-16) mg/dL Creatinine (0.5-1.4) mg/dL Estim Creat Clear Calc Estimated GFR POC Glucose 175 H (60-115) mg/dL Random Glucose (60-115) mg/dL Calcium (8.4-10.2) mg/dL Magnesium (1.6-2.6) mg/dL Total Bilirubin (0.0-1.0) mg/dL Direct Bilirubin (0.0-0.5) mg/dL AST (5-37) U/L ALT (0-40) U/L Alkaline Phosphatase (39-117) U/L Troponin I High Sens < 3.5 (<3.5-35.0) ng/L Total Protein (6.5-8.0) g/dL Albumin (3.5-5.0) g/dL Urine Color Urine Appearance Urine pH (5.0-8.0) Ur Specific [place] (1.005-1.025) Urine Protein (NEG-TRACE) MG/DL Urine Glucose (UA) (NEG) MG/DL Urine Ketones (NEG) MG/DL Urine Blood (NEG) Urine Nitrite (NEG) Ur Leukocyte Esterase (NEG) Urine RBC (0) /HPF Urine WBC (0-4) /HPF Ur Squamous Epith Cells /LPF Urine Bacteria /LPF Salicylates (15-30) mg/dL Urine Opiates Screen (Not Detect) Urine Fentanyl Screen (Not Detect) Acetaminophen (<30) mcg/mL Ur Barbiturates Screen (Not Detect) Ur Phencyclidine Scrn (Not Detect) Ur Amphetamines Screen (Not Detect) U Benzodiazepines Scrn (Not Detect) Urine Cocaine Screen (Not Detect) U Marijuana (THC) Screen (Not Detect) Ethyl Alcohol mg/dL COVID-19 (ARLENE) (Negative) COVID-19 Clin Com 07/17/21 07/17/21 07/17/21 Range/Units 20:07 20:07 21:54 WBC (4.8-10.8) X10*3/uL RBC (4.60-5.80) X10*6/uL Hgb (14.0-18.0) g/dl Hct (42.0-52.0) % MCV (80.0-98.0) fL MCH (27.0-33.0) pg MCHC (31.0-36.0) g/dl RDW (11.0-16.0) % Plt Count (160-400) X10*3/uL MPV (9.4-12.4) fL Immature Gran % (Auto) (0.0-0.4) % Neut % (Auto) (45-73) % Lymph % (Auto) (20-40) % [place] % (Auto) (2-11) % Eos % (Auto) (0-4) % Baso % (Auto) (0-2) % Lymph # (Auto) (1.2-4.9) X10*3/uL [place] # (Auto) (0.1-1.2) X10*3/uL Eos # (Auto) (0.0-0.4) X10*3/uL Baso # (Auto) (0.0-0.2) X10*3/uL Abs Immat Gran (auto) (0.00-0.03) X10*3/uL Absolute Neuts (auto) (2.0-8.3) x10*3/uL Absolute Nucleated RBC (0.0-0.012) X10*3/uL Nucleated RBC % (auto) (0.0-0.2) /100WBC Sodium 142 (135-145) mmol/L Potassium 4.1 (3.3-5.1) mmol/L Chloride 105 (96-108) mmol/L Carbon Dioxide 21 L (22-29) mmol/L Anion Gap 20 (12-20) BUN 10 (9-16) mg/dL Creatinine 0.83 (0.5-1.4) mg/dL Estim Creat Clear Calc 116.0 Estimated GFR > 60 POC Glucose 141 H (60-115) mg/dL Random Glucose 157 H (60-115) mg/dL Calcium 9.6 (8.4-10.2) mg/dL Magnesium 2.1 (1.6-2.6) mg/dL Total Bilirubin 2.1 H (0.0-1.0) mg/dL Direct Bilirubin 0.6 H (0.0-0.5) mg/dL AST 16 (5-37) U/L ALT 36 (0-40) U/L Alkaline Phosphatase 56 (39-117) U/L Troponin I High Sens (<3.5-35.0) ng/L Total Protein 7.5 (6.5-8.0) g/dL Albumin 4.7 (3.5-5.0) g/dL Urine Color Urine Appearance Urine pH (5.0-8.0) Ur Specific [place] (1.005-1.025) Urine Protein (NEG-TRACE) MG/DL Urine Glucose (UA) (NEG) MG/DL Urine Ketones (NEG) MG/DL Urine Blood (NEG) Urine Nitrite (NEG) Ur Leukocyte Esterase (NEG) Urine RBC (0) /HPF Urine WBC (0-4) /HPF Ur Squamous Epith Cells /LPF Urine Bacteria /LPF Salicylates < 5.0 L (15-30) mg/dL Urine Opiates Screen (Not Detect) Urine Fentanyl Screen (Not Detect) Acetaminophen < 1 (<30) mcg/mL Ur Barbiturates Screen (Not Detect) Ur Phencyclidine Scrn (Not Detect) Ur Amphetamines Screen (Not Detect) U Benzodiazepines Scrn (Not Detect) Urine Cocaine Screen (Not Detect) U Marijuana (THC) Screen (Not Detect) Ethyl Alcohol 253 mg/dL COVID-19 (ARLENE) (Negative) COVID-19 Clin Com 07/17/21 Range/Units 23:55 WBC (4.8-10.8) X10*3/uL RBC (4.60-5.80) X10*6/uL Hgb (14.0-18.0) g/dl Hct (42.0-52.0) % MCV (80.0-98.0) fL MCH (27.0-33.0) pg MCHC (31.0-36.0) g/dl RDW (11.0-16.0) % Plt Count (160-400) X10*3/uL MPV (9.4-12.4) fL Immature Gran % (Auto) (0.0-0.4) % Neut % (Auto) (45-73) % Lymph % (Auto) (20-40) % [place] % (Auto) (2-11) % Eos % (Auto) (0-4) % Baso % (Auto) (0-2) % Lymph # (Auto) (1.2-4.9) X10*3/uL [place] # (Auto) (0.1-1.2) X10*3/uL Eos # (Auto) (0.0-0.4) X10*3/uL Baso # (Auto) (0.0-0.2) X10*3/uL Abs Immat Gran (auto) (0.00-0.03) X10*3/uL Absolute Neuts (auto) (2.0-8.3) x10*3/uL Absolute Nucleated RBC (0.0-0.012) X10*3/uL Nucleated RBC % (auto) (0.0-0.2) /100WBC Sodium (135-145) mmol/L Potassium (3.3-5.1) mmol/L Chloride (96-108) mmol/L Carbon Dioxide (22-29) mmol/L Anion Gap (12-20) BUN (9-16) mg/dL Creatinine (0.5-1.4) mg/dL Estim Creat Clear Calc Estimated GFR POC Glucose 174 H (60-115) mg/dL Random Glucose (60-115) mg/dL Calcium (8.4-10.2) mg/dL Magnesium (1.6-2.6) mg/dL Total Bilirubin (0.0-1.0) mg/dL Direct Bilirubin (0.0-0.5) mg/dL AST (5-37) U/L ALT (0-40) U/L Alkaline Phosphatase (39-117) U/L Troponin I High Sens (<3.5-35.0) ng/L Total Protein (6.5-8.0) g/dL Albumin (3.5-5.0) g/dL Urine Color Urine Appearance Urine pH (5.0-8.0) Ur Specific [place] (1.005-1.025) Urine Protein (NEG-TRACE) MG/DL Urine Glucose (UA) (NEG) MG/DL Urine Ketones (NEG) MG/DL Urine Blood (NEG) Urine Nitrite (NEG) Ur Leukocyte Esterase (NEG) Urine RBC (0) /HPF Urine WBC (0-4) /HPF Ur Squamous Epith Cells /LPF Urine Bacteria /LPF Salicylates (15-30) mg/dL Urine Opiates Screen (Not Detect) Urine Fentanyl Screen (Not Detect) Acetaminophen (<30) mcg/mL Ur Barbiturates Screen (Not Detect) Ur Phencyclidine Scrn (Not Detect) Ur Amphetamines Screen (Not Detect) U Benzodiazepines Scrn (Not Detect) Urine Cocaine Screen (Not Detect) U Marijuana (THC) Screen (Not Detect) Ethyl Alcohol mg/dL COVID-19 (ARLENE) (Negative) COVID-19 Clin Com ECG Data Attestation: I personally reviewed and interpreted this ECG as follows: ECG interpretation date: 07/17/21 ECG interpretation time: 19:59 Prior ECG tracings: available for review Interpretation: Vent. rate 93 BPM SC interval 146 ms QRS duration 90 ms QT/QTc 340/422 ms P-R-T axes 57 71 32 Normal sinus rhythm Normal ECG When compared with ECG of 13-SEP-2020 23:26, No significant change was found Discharge Plan Discharge Clinical Impression: Suicidal ideation, Alcohol intoxication Patient Disposition: Still a Patient Prescriptions: No Action atorvastatin 20 mg tablet 1 tab PO DAILY 0RF citalopram 40 mg tablet 1 tab PO DAILY 0RF Jardiance 10 mg tablet 1 tab PO QAM 0RF
[2021-07-17 19:44] LABS: Glucose, Whole Blood 175 mg/dL (60-115)
[2021-07-17 19:48] LABS: Appearance Urine CLEAR; Color Urine YELLOW; Glucose Urine UA >=1000 MG/DL (NEG); Leukocyte Esterase Urine NEG (NEG); Nitrite Urine NEG (NEG); PH 5.5 (5.0-8.0); Specific Gravity - Urine <= 1.005 (1.005-1.025); Urine Blood NEG (NEG); Urine Ketones 5 MG/DL (NEG); Urine Protein NEG (NEG-TRACE)
[2021-07-17 19:57] LABS: RBC Urine 0 /HPF (0); Squamous Epithelial Cell Urine TRACE /LPF; WBC Urine 0-2 /HPF (0-4)
[2021-07-17 20:03] LABS: Amphetamine Screen Urine Not Detected (Not Detect); Barbiturates, Urine Not Detected (Not Detect); Benzodiazepines Screen Urine Not Detected (Not Detect); Cannabinoid Screen Urine Not Detected (Not Detect); Cocaine Screen Urine Not Detected (Not Detect); Fentanyl, urine Not Detected (Not Detect); Opiate Screen Urine Not Detected (Not Detect); Phencyclidine Screen Urine Not Detected (Not Detect)
[2021-07-17 20:03] LABS: COVID-19 Test Negative (Negative); IDNOW Serial# 16C4AD1C
[2021-07-17 20:15] LABS: MANUAL DIFF FLAG NO
[2021-07-17 20:16] LABS: Basophils Percent Auto 0.5 % (0-2); Eosinophils Absolute Auto 0.1 X10*3/uL (0.0-0.4); Eosinophils Percent Auto 1.5 % (0-4); Hematocrit 49.7 % (42.0-52.0); Hemoglobin 17.9 g/dl (14.0-18.0); Imm Gran Abs Auto 0.03 X10*3/uL (0.00-0.03); Imm Gran Pct Auto 0.4 % (0.0-0.4); Lymphocytes Absolute Auto 2.1 X10*3/uL (1.2-4.9); Lymphocytes Percent Auto 27.5 % (20-40); Mean Corpuscular Hemoglobin 30.3 pg (27.0-33.0); Mean Corpuscular Volume 84.2 fL (80.0-98.0); Mean Platelet Volume 10.7 fL (9.4-12.4); Monocytes Absolute Auto 0.5 X10*3/uL (0.1-1.2); Monocytes Percent Auto 5.9 % (2-11); Neutrophils Absolute Auto 4.9 x10*3/uL (2.0-8.3); Neutrophils Percent Auto 64.2 % (45-73); Platelet Count 313 X10*3/uL (160-400); Red Cell Distribution Width 13.4 % (11.0-16.0); White Blood Count 7.6 X10*3/uL (4.8-10.8)
[2021-07-17 20:41] LABS: Troponin-I High Sensitivity < 3.5 ng/L (<3.5-35.0)
[2021-07-17 21:44] VITALS: BP 92/52; PULSE 87; RESP 16; TEMP 37; O2SAT 98
[2021-07-17 21:47] LABS: Ethanol 253 mg/dL
[2021-07-17 21:59] LABS: Glucose, Whole Blood 141 mg/dL (60-115)
[2021-07-17 22:25] LABS: Acetaminophen LAB < 1 mcg/mL (<30); Alanine Aminotransferase 36 U/L (0-40); Albumin Level 4.7 g/dL (3.5-5.0); Alkaline Phosphatase 56 U/L (39-117); Anion Gap 20 (12-20); Aspartate Amino Transferase 16 U/L (5-37); Bilirubin Direct 0.6 mg/dL (0.0-0.5); Bilirubin Total 2.1 mg/dL (0.0-1.0); Blood Urea Nitrogen 10 mg/dL (9-16); Calcium 9.6 mg/dL (8.4-10.2); Carbon Dioxide 21 mmol/L (22-29); Chloride 105 mmol/L (96-108); Estimated Glomerular Filt Rate > 60; Glucose Random 157 mg/dL (60-115); Magnesium 2.1 mg/dL (1.6-2.6); Potassium 4.1 mmol/L (3.3-5.1); Salicylate < 5.0 mg/dL (15-30); Sodium 142 mmol/L (135-145); Total Protein 7.5 g/dL (6.5-8.0)
[2021-07-17 22:49] VITALS: BP 110/76; PULSE 97; RESP 18; O2SAT 98
--- NOTE | 2021-07-17 23:09 | PC.NURSE ---
Patient is currently sleeping, poison control called two times, updated lab results and EKG, POC was 175 @ 1940 and was 141 @ 2154, provider updated, VSS, coherent, hydrating well, [facility] referral completed/confirmed pending evaluation, will continue to monitor.
[2021-07-18] LABS: Glucose, Whole Blood 174 mg/dL (60-115)
--- NOTE | 2021-07-18 05:50 | PC.NURSE ---
Patient slept though the night, no distress observed/reported, VSS, behavior appropriate, med rec completed/provider approved/MAR updated, N referral completed/confirmed, pending evaluation in AM, poison control informed/cleared, will continue to monitor.
[2021-07-18 06:04] VITALS: BP 126/75; PULSE 89; RESP 17; TEMP 37; O2SAT 97
[2021-07-18 06:09] LABS: Glucose, Whole Blood 131 mg/dL (60-115)
--- NOTE | 2021-07-18 07:10 | PC.NURSE ---
patient appears to remain asleep at present respirations are even and unlabored patient appears in no distress.
[2021-07-18] MEDS: Escitalopram Oxalate 20 MG TABLET PO (10:25)
[2021-07-18] MEDS: Atorvastatin Calcium 20 MG TABLET PO (10:25)
[2021-07-18 16:02] VITALS: BP 145/87; PULSE 91; RESP 18; TEMP 37.1; O2SAT 97
[2021-07-19 02:00] VITALS: BP 113/72; PULSE 69; RESP 17; TEMP 36.9; O2SAT 98
--- NOTE | 2021-07-19 06:04 | PC.NURSE ---
Patient slept though the night, no distress observed/reported, VSS, behavior appropriate, medication compliant, disposition section 12 inpatient bed search, will continue to monitor.
--- NOTE | 2021-07-19 07:18 | PC.NURSE ---
patient appears to remain asleep respirations are even and unlabored, patient appears in no distress
[2021-07-19] MEDS: Escitalopram Oxalate 20 MG TABLET PO (11:12)
[2021-07-19] MEDS: Atorvastatin Calcium 20 MG TABLET PO (11:12)
--- NOTE | 2021-07-19 14:28 | HE.PHANOTE ---
PT OWN MED - JARDIANCE Asked Tasneem if patient has own Jardiance with him as this medication is not on formulary. Patient does not have his medication with him and unsure if he even has any left. Patient states noone has a sanchez to his apartment.
[2021-07-19 17:20] VITALS: BP 151/95; PULSE 95; RESP 18; TEMP 36.9; O2SAT 96
[2021-07-20 03:25] VITALS: BP 119/75; PULSE 75; RESP 17; TEMP 36; O2SAT 97
--- NOTE | 2021-07-20 05:50 | PC.NURSE ---
Patient slept though the night, no distress observed/reported, VSS, behavior appropriate, medication compliant, disposition section 12 inpatient bed search, no update on bed search, will continue to monitor
--- NOTE | 2021-07-20 07:02 | PC.NURSE ---
patient at beginning of shift appeared to remain asleep now awake eating breakfast, respirations are even and unlabored patient appears in no distress.
[2021-07-20] MEDS: Atorvastatin Calcium 20 MG TABLET PO (11:39)
[2021-07-20] MEDS: Escitalopram Oxalate 20 MG TABLET PO (11:39)
[2021-07-20 11:58] LABS: COVID-19 Test Negative (Negative)
[2021-07-20 12:37] LABS: Glucose, Whole Blood 306 mg/dL (60-115)
--- NOTE | 2021-07-20 15:09 | PC.NURSE ---
Nurse to nurse given to m3 RN patient being transferred to room 324-2.
--- NOTE | 2021-07-20 15:27 | PC.NURSE ---
PATIENT ALERT AND ORIENTED X 4 VERBALIZED UNDERSTANDING OF NEED FOR ADMISSION ESCORTED TO M3 VIA WHEELCHAIR AND M3 AND [facility] POD STAFF. PATIENT WAS ESCORTED WITH BELONGINGS AND PAPERWORK.
[2021-07-20 15:30] VITALS: BP 128/77; PULSE 90; RESP 17; TEMP 36.2; O2SAT 97
--- NOTE | 2021-07-20 17:02 | PC.ADMIT ---
PT admitted [place] [facility] [place] conditional voluntary with a diagnosis of major depressive disorder. PT reports that he was drinking more than usual and overdosed on his diabetic medication. Per crisis eval pt took at least 10 tabs of juardiance with the intent of killing himself. Pt reports feeling happy at this time that the suicide attempt was unsuccessful. Pt reports that he usually only drinks 1-2x per month and does not usually drink as much as he did on the day he attempted to overdose. Pt reports a recent stressor is that he has a court date for next month, pt declined to discuss court date. Per crisis eval pt attempted to cut his wrists with a plastic utensil and was seen in the emergency room prior to that for SI. During admission pt is calm and cooperative, denies SI and states that he is unsure of why he is inpatient. Pt tox screen was negative, bal was 253. 15 minute safety checks initiated for safety.
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
[2021-07-20 22:37] VITALS: BP 118/74; PULSE 89; RESP 18; TEMP 36.2; O2SAT 96
[2021-07-21 07:50] LABS: Alanine Aminotransferase 30 U/L (0-40); Albumin Level 4.3 g/dL (3.5-5.0); Alkaline Phosphatase 52 U/L (39-117); Anion Gap 13 (12-20); Aspartate Amino Transferase 13 U/L (5-37); Bilirubin Total 2.4 mg/dL (0.0-1.0); Blood Urea Nitrogen 14 mg/dL (9-16); Calcium 9.7 mg/dL (8.4-10.2); Carbon Dioxide 30 mmol/L (22-29); Chloride 101 mmol/L (96-108); Cholesterol 193 mg/dL; Creatinine Clr Calc Pharmacy 117.4; Estimated Glomerular Filt Rate > 60; Glucose Fasting 233 mg/dL (60-99); HDL Cholesterol 42 mg/dL; LDL Cholesterol Calculated 121 mg/dl; Potassium 4.2 mmol/L (3.3-5.1); Sodium 140 mmol/L (135-145); Total Protein 6.9 g/dL (6.5-8.0); Triglycerides 153 mg/dL
[2021-07-21 07:58] LABS: Estimated Average Glucose 157 mg/dL; Hemoglobin A1c % 7.1 %
[2021-07-21 08:48] VITALS: BP 117/60; PULSE 73; RESP 18; TEMP 35.8; O2SAT 98
[2021-07-21 08:51] LABS: Glucose, Whole Blood 247 mg/dL (60-115)
[2021-07-21] MEDS: Escitalopram Oxalate 20 MG TABLET PO (09:20)
[2021-07-21] MEDS: Atorvastatin Calcium 20 MG TABLET PO (09:20)
[2021-07-21 20:10] VITALS: BP 129/72; PULSE 99; RESP 18; TEMP 36.9; O2SAT 96
[2021-07-21 21:14] LABS: Glucose, Whole Blood 364 mg/dL (60-115)
[2021-07-21] MEDS: Insulin Lispro 100 UNIT/ML 3 ML VIAL SUBCUT (21:55)
--- NOTE | 2021-07-21 22:32 | HO.PSYCHPN ---
Subjective Subjective Date of Service: 07/21/21 Reason For Visit: Suicide attempt Interim History: pt reports he is feeling better with medication changes. he is not interested in any additional medications presently. he was encouraged to consider neuroleptics to address paranoia/delusions. he reported he would consider such medications; haldol was specifically mentioned to pt. he states he is eating well, sleeping well, and getting along with others well. good mood, no complaints, no safety concerns. per staff, no notable issues since admission. Mental Status Exam Mental Status Exam Narrative: A&O. In hospital attire, hair unkempt despite showering, overweight. Good eye contact, attentive. No Tics or Tremors. No abnormal involuntary movements. Calm, cooperative, engaged. Non-pressured speech, spontaneous with regular rate and rhythm, normal volume and prosody. No prolonged speech latency or dysarthria. Mood is ?good,? affect is euthymic/congruent. Currently denies SI/SIB/HI upon inquiry (reports MRE of SI was about 6 days ago). Denies A/VH. presents with paranoid, persecutory delusional thought content. Thoughts are concrete, rigid. Appears to have cognitive impairment/ possible TBI/ developmental delay. Insight/ Judgment limited. Diagnostics Vital Signs (24Hr): Vital Signs - 24 hr 07/20/21 22:37 07/21/21 08:48 07/21/21 20:10 Temperature 97.2 F 96.5 F L 98.5 F Pulse Rate 89 73 99 Respiratory Rate 18 18 18 Blood Pressure 118/74 117/60 129/72 Pulse Oximetry 96 98 96 BMI result Body Mass Index 25.8 Labs Results: 07/17/21 20:07 07/21/21 07:20 Labs: Laboratory Results - last 48 hr 07/20/21 07/20/21 07/21/21 11:30 12:33 07:20 Sodium 140 Potassium 4.2 Chloride 101 Carbon Dioxide 30 H Anion Gap 13 BUN 14 Creatinine 0.82 Estim Creat Clear Calc 117.4 Estimated GFR > 60 POC Glucose 306 H Fasting Glucose 233 H Estimat Average Glucose Hemoglobin A1c % Calcium 9.7 Total Bilirubin 2.4 H AST 13 ALT 30 Alkaline Phosphatase 52 Total Protein 6.9 Albumin 4.3 Triglycerides 153 Cholesterol 193 LDL Cholesterol, Calc 121 HDL Cholesterol 42 COVID-19 (ARLENE) Negative COVID-19 Clin Com See Note 03/01/22 03/01/22 03/01/22 07:20 08:47 21:09 Sodium Potassium Chloride Carbon Dioxide Anion Gap BUN Creatinine Estim Creat Clear Calc Estimated GFR POC Glucose 247 H 364 H* Fasting Glucose Estimat Average Glucose 157 Hemoglobin A1c % 7.1 Calcium Total Bilirubin AST ALT Alkaline Phosphatase Total Protein Albumin Triglycerides Cholesterol LDL Cholesterol, Calc HDL Cholesterol COVID-19 (ARLENE) COVID-19 Clin Com Medications Medications Current Medications Acetaminophen (Acetaminophen 325 Mg Tablet) 650 mg PO Q6H PRN PRN Reason: Headache/Pain Mild Scale (1-3) Al Hydroxide/Mg Hydroxide (Magnesium Hydrox/Alum Hydrox 30 Ml Oral.Susp) 30 ml PO Q6H PRN PRN Reason: Heartburn/Nausea Atorvastatin Calcium (Atorvastatin Calcium 20 Mg Tablet) 20 mg PO DAILY [facility] Last Admin: 07/21/21 09:20 Dose: 20 mg Documented by: Dextrose (Dextrose 50 % 25 Gm/50 Ml Syringe) 25 gm IVPUSH Q15M PRN; Protocol PRN Reason: per Hypoglycemia Standing Ord. Escitalopram Oxalate (Escitalopram Oxalate 20 Mg Tablet) 20 mg PO DAILY [facility] Last Admin: 07/21/21 09:20 Dose: 20 mg Documented by: Glucose (Glucose Gel 15 Gm Gel..Gram.) 15 gm PO Q15M PRN; Protocol PRN Reason: per Hypoglycemia Standing Ord. Hydroxyzine HCl (Hydroxyzine Hcl 25 Mg Tablet) 25 mg PO BEDTIME PRN PRN Reason: Anxiety Insulin Human Lispro (Insulin Lispro 100 Unit/Ml 3 Ml Vial) 0 unit SUBCUT QIDACHS [facility]; Protocol Stop: 07/22/21 21:25 Magnesium Hydroxide (Milk Of Magnesia 30 Ml Oral.Susp) 30 ml PO DAILY PRN PRN Reason: Constipation Non-Formulary Medication (Empagliflozin [Jardiance]) 1 tab PO QAM [facility] Trazodone HCl (Trazodone Hcl 50 Mg Tablet) 50 mg PO BEDTIME PRN PRN Reason: Insomnia Allergies Allergies Allergy/AdvReac Type Severity Reaction Status Date / Time No Known Allergies Allergy Verified 10/06/20 20:22 [No Known Allergies*] Assessment & Plan Assessment & Plan (1) Alcohol use disorder, mild, abuse: Status: Acute Code(s): F10.10 - Alcohol abuse, uncomplicated (2) MDD (major depressive disorder), recurrent episode, moderate: Status: Acute Code(s): F33.1 - Major depressive disorder, recurrent, moderate (3) TBI (traumatic brain injury): Status: Acute Code(s): S06.9X9A - Unspecified intracranial injury with loss of consciousness of unspecified duration, initial encounter Plan Amos is a 46 y.o. male who carries a dx of MDD, recurrent, I would also add AUD, TBI. He presented to [facility] 07/17/21 via EMS due to SI, OD attempt on unknown amount of his own Jardiance (at least 10 tabs), and alcohol intoxication. Pt has a hx of presenting to crisis multiple times with similar presentation, however often recants SI and is sent back home to f/u with OP providers. He is endorsing persecutory paranoid thought process against [place] housing, neighbor, and police- unclear if this is due to cognitive impairment/ TBI vs psychotic process. Plan: Pt was switched to lexapro 20 mg from celexa 40 mg while in the ED. He reports he feels this medication is more effective for him and he does not want further med adjustments. Would benefit from OP med management, as he has a therapist but not a psych provider. May also benefit from mood stabilizing medication. Would also benefit from recovery team services, as he is minimizing binge drinking behavior. Monitor response to medications. Monitor for safety in the milieu. Discharge on stabilization. Patient seen. Chart reviewed. Discussed with team. Obtain collateral contact info?as needed I spent __25____ minutes with the patient and/or on the patient floor today, greater than?50% of which was spent counseling/coordinating care. Reason for contiued inpatient stay Substantial Risk for: harm to self, inability to function and rapid decompensation
[2021-07-22 08:40] VITALS: BP 120/66; PULSE 79; RESP 16; O2SAT 97
[2021-07-22] MEDS: Escitalopram Oxalate 20 MG TABLET PO (08:41)
[2021-07-22] MEDS: Atorvastatin Calcium 20 MG TABLET PO (08:41)
[2021-07-22 08:57] LABS: Glucose, Whole Blood 238 mg/dL (60-115)
[2021-07-22] MEDS: Insulin Lispro 100 UNIT/ML 3 ML VIAL SUBCUT ×3 (09:01→18:14)
[2021-07-22 13:00] LABS: Glucose, Whole Blood 257 mg/dL (60-115)
--- NOTE | 2021-07-22 17:25 | HO.PSYCHPN ---
Subjective Subjective Date of Service: 07/22/21 Reason For Visit: Suicide attempt Interim History: Patient seen and discussed with team. Pt started on insulin protocol, jardiance not on formularly. Patient evaluated this today and upon interview he reports lexapro seems to be working, I might as well go with it. Does not want further med adjustments or trial on neuroleptic, saying if it aint broken, dont fix it. He attributes his depression to situational stress, built up stress. Discussed eviction and says he is not sure where he will go, wants to put in applications for other subsidized housing. Sleeping well, eating well. Says he feels safe. Denies alcohol cravings. Denies paranoid thoughts, saying there's only one person who doesnt like me, and i'm trying to get away from her. In the milieu, patient is safe and appropriate in behavior. Denies SI/SIB/HI upon inquiry. Denies irritability or assaultive ideation. Says he feels safe. Medication Compliance: Yes Side effects from medications: No Attending Groups: Yes Review of Systems Acute medical concerns: No Medical Review of Systems: unchanged Mental Status Exam Mental Status Exam Narrative: A&O. In hospital attire, hair unkempt despite showering, overweight. Good eye contact, attentive. No Tics or Tremors. No abnormal involuntary movements. Calm, cooperative, engaged. Non-pressured speech, spontaneous with regular rate and rhythm, normal volume and prosody. No prolonged speech latency or dysarthria. Mood is ?better,? affect is euthymic/congruent. Currently denies SI/SIB/HI upon inquiry (reports MRE of SI was about 6 days ago). Denies A/VH.? presents with paranoid, persecutory delusional thought content. Thoughts are concrete, rigid. Appears to have cognitive impairment/ possible TBI/ developmental delay. Insight/ Judgment limited. Diagnostics Vital Signs (24Hr): Vital Signs - 24 hr 07/21/21 20:10 07/22/21 08:40 Temperature 98.5 F Pulse Rate 99 79 Respiratory Rate 18 16 Blood Pressure 129/72 120/66 Pulse Oximetry 96 97 BMI result Body Mass Index 25.8 Labs Results: 07/17/21 20:07 07/21/21 07:20 Labs: Laboratory Results - last 48 hr 03/06/1307/21/21 07/21/21 07:20 07:20 08:47 Sodium 140 Potassium 4.2 Chloride 101 Carbon Dioxide 30 H Anion Gap 13 BUN 14 Creatinine 0.82 Estim Creat Clear Calc 117.4 Estimated GFR > 60 POC Glucose 247 H Fasting Glucose 233 H Estimat Average Glucose 157 Hemoglobin A1c % 7.1 Calcium 9.7 Total Bilirubin 2.4 H AST 13 ALT 30 Alkaline Phosphatase 52 Total Protein 6.9 Albumin 4.3 Triglycerides 153 Cholesterol 193 LDL Cholesterol, Calc 121 HDL Cholesterol 42 07/21/21 07/22/21 07/22/21 21:09 08:54 12:56 Sodium Potassium Chloride Carbon Dioxide Anion Gap BUN Creatinine Estim Creat Clear Calc Estimated GFR POC Glucose 364 H* 238 H 257 H Fasting Glucose Estimat Average Glucose Hemoglobin A1c % Calcium Total Bilirubin AST ALT Alkaline Phosphatase Total Protein Albumin Triglycerides Cholesterol LDL Cholesterol, Calc HDL Cholesterol Medications Medications Current Medications Acetaminophen (Acetaminophen 325 Mg Tablet) 650 mg PO Q6H PRN PRN Reason: Headache/Pain Mild Scale (1-3) Al Hydroxide/Mg Hydroxide (Magnesium Hydrox/Alum Hydrox 30 Ml Oral.Susp) 30 ml PO Q6H PRN PRN Reason: Heartburn/Nausea Atorvastatin Calcium (Atorvastatin Calcium 20 Mg Tablet) 20 mg PO DAILY [facility] Last Admin: 07/22/21 08:41 Dose: 20 mg Documented by: Dextrose (Dextrose 50 % 25 Gm/50 Ml Syringe) 25 gm IVPUSH Q15M PRN; Protocol PRN Reason: per Hypoglycemia Standing Ord. Escitalopram Oxalate (Escitalopram Oxalate 20 Mg Tablet) 20 mg PO DAILY [facility] Last Admin: 07/22/21 08:41 Dose: 20 mg Documented by: Glucose (Glucose Gel 15 Gm Gel..Gram.) 15 gm PO Q15M PRN; Protocol PRN Reason: per Hypoglycemia Standing Ord. Hydroxyzine HCl (Hydroxyzine Hcl 25 Mg Tablet) 25 mg PO BEDTIME PRN PRN Reason: Anxiety Insulin Human Lispro (Insulin Lispro 100 Unit/Ml 3 Ml Vial) 0 unit SUBCUT QIDACHS [facility]; Protocol Stop: 07/22/21 21:25 Last Admin: 07/22/21 13:04 Dose: 8 unit Documented by: Magnesium Hydroxide (Milk Of Magnesia 30 Ml Oral.Susp) 30 ml PO DAILY PRN PRN Reason: Constipation Non-Formulary Medication (Empagliflozin [Jardiance]) 1 tab PO QAM [facility]JWINDER Trazodone HCl (Trazodone Hcl 50 Mg Tablet) 50 mg PO BEDTIME PRN PRN Reason: Insomnia Allergies Allergies Allergy/AdvReac Type Severity Reaction Status Date / Time No Known Allergies Allergy Verified 10/06/20 20:22 [No Known Allergies*] Assessment & Plan Assessment & Plan (1) Alcohol use disorder, mild, abuse: Status: Acute Code(s): F10.10 - Alcohol abuse, uncomplicated (2) MDD (major depressive disorder), recurrent episode, moderate: Status: Acute Code(s): F33.1 - Major depressive disorder, recurrent, moderate (3) TBI (traumatic brain injury): Status: Acute Code(s): S06.9X9A - Unspecified intracranial injury with loss of consciousness of unspecified duration, initial encounter Plan Amos is a 46 y.o. male who carries a dx of MDD, recurrent, I would also add AUD, TBI. He presented to [facility] 07/17/21 via EMS due to SI, OD attempt on unknown amount of his own Jardiance (at least 10 tabs), and alcohol intoxication. Pt has a hx of presenting to crisis multiple times with similar presentation, however often recants SI and is sent back home to f/u with OP providers. He is endorsing persecutory paranoid thought process against [place] housing, neighbor, and police- unclear if this is due to cognitive impairment/ TBI vs psychotic process. Plan: Pt was switched to lexapro 20 mg from celexa 40 mg while in the ED. He reports he feels this medication is more effective for him and he does not want further med adjustments. Would benefit from OP med management, as he has a therapist but not a psych provider. May also benefit from mood stabilizing medication. Would also benefit from recovery team services, as he is minimizing binge drinking behavior. 07/22: No medication changes, pt is reporting benefit and says he feels safe, denies having questions or concerns. Monitor response to medications. Monitor for safety in the milieu. Discharge on stabilization. Patient seen. Chart reviewed. Discussed with team. Obtain collateral contact info?as needed I spent minutes with the patient and/or on the patient floor today, greater than?50% of which was spent counseling/coordinating care. Patient educated on: diagnosis, medication risk/benefits and therapeutic strategies Reason for contiued inpatient stay Substantial Risk for: med/psych decompensation
[2021-07-22 18:10] LABS: Glucose, Whole Blood 393 mg/dL (60-115)
--- NOTE | 2021-07-22 18:15 | PC.NURSE ---
PT POC 393, provider notified. Pt given 12 units per sliding scale. Will recheck POC in 1 hour
[2021-07-22 20:04] LABS: Glucose, Whole Blood 464 mg/dL (60-115)
[2021-07-22] MEDS: Insulin Lispro 100 UNIT/ML 3 ML VIAL 10 UNIT SUBCUT (20:13)
[2021-07-22 20:53] VITALS: BP 126/72; PULSE 105; RESP 18; TEMP 35.9; O2SAT 95
--- NOTE | 2021-07-22 20:55 | PC.NURSE ---
Patient given 1 time dose of Lispro insulin.
[2021-07-22 22:03] LABS: Glucose, Whole Blood 268 mg/dL (60-115)
[2021-07-23 08:45] VITALS: BP 121/73; PULSE 91; RESP 17; TEMP 36.4; O2SAT 98
[2021-07-23] MEDS: Atorvastatin Calcium 20 MG TABLET PO (08:47)
[2021-07-23] MEDS: Escitalopram Oxalate 20 MG TABLET PO (08:47)
[2021-07-23 09:02] LABS: Glucose, Whole Blood 260 mg/dL (60-115)
[2021-07-23 12:54] LABS: Glucose, Whole Blood 284 mg/dL (60-115)
[2021-07-23] MEDS: metFORMIN HCl 1,000 MG TABLET 1000 MG PO ×2 (13:07→17:55)
[2021-07-23 14:44] VITALS: BMI 28.6
[2021-07-23 17:50] LABS: Glucose, Whole Blood 238 mg/dL (60-115)
[2021-07-23] MEDS: glipiZIDE XL 5 MG TAB.ER.24 PO (17:55)
[2021-07-23] MEDS: Insulin Lispro 100 UNIT/ML 3 ML VIAL SUBCUT ×2 (17:56→22:35)
--- NOTE | 2021-07-23 21:36 | HO.PSYCHPN ---
Subjective Subjective Date of Service: 07/23/21 Reason For Visit: Suicide attempt Interim History: Patient seen and discussed with team. Patient evaluated this today and upon interview he reports he has plans to return to his apartment. Today he went to groups, kept busy. Continues to report positive benefit on lexapro, its definitely working. Mood is better. Sleep is always good. Denies SI/SIB. He is future oriented, has date scheduled with his gf. In the milieu, patient is safe and appropriate in behavior. Denies SI/SIB/HI upon inquiry. Denies irritability or assaultive ideation. Says he feels safe. Medication Compliance: Yes Side effects from medications: No Attending Groups: Yes Review of Systems Acute medical concerns: No Medical Review of Systems: unchanged Mental Status Exam Mental Status Exam Narrative: A&O. In hospital attire, hair unkempt despite showering, overweight. Good eye contact, attentive. No Tics or Tremors. No abnormal involuntary movements. Calm, cooperative, engaged. Non-pressured speech, spontaneous with regular rate and rhythm, normal volume and prosody. No prolonged speech latency or dysarthria. Mood is ?good,? affect is euthymic/congruent. Currently denies SI/SIB/HI upon inquiry (reports MRE of SI was about 6 days ago). Denies A/VH.? presents with paranoid, persecutory delusional thought content. Thoughts are concrete, rigid. Appears to have cognitive impairment/ possible TBI/ developmental delay. Insight/ Judgment limited. Diagnostics Vital Signs (24Hr): Vital Signs - 24 hr 07/23/21 08:45 Temperature 97.6 F Pulse Rate 91 Respiratory Rate 17 Blood Pressure 121/73 Pulse Oximetry 98 BMI result Body Mass Index 28.6 Labs Results: 07/17/21 20:07 07/21/21 07:20 Labs: Laboratory Results - last 48 hr 07/22/21 07/22/21 07/22/21 08:54 12:56 18:06 POC Glucose 238 H 257 H 393 H* 07/22/21 07/22/21 07/23/21 19:58 21:59 08:58 POC Glucose 464 H* 268 H 260 H 07/23/21 07/23/21 12:48 17:47 POC Glucose 284 H 238 H Medications Medications Current Medications Acetaminophen (Acetaminophen 325 Mg Tablet) 650 mg PO Q6H PRN PRN Reason: Headache/Pain Mild Scale (1-3) Al Hydroxide/Mg Hydroxide (Magnesium Hydrox/Alum Hydrox 30 Ml Oral.Susp) 30 ml PO Q6H PRN PRN Reason: Heartburn/Nausea Atorvastatin Calcium (Atorvastatin Calcium 20 Mg Tablet) 20 mg PO DAILY [facility] Last Admin: 07/23/21 08:47 Dose: 20 mg Documented by: Dextrose (Dextrose 50 % 25 Gm/50 Ml Syringe) 25 gm IVPUSH Q15M PRN; Protocol PRN Reason: per Hypoglycemia Standing Ord. Escitalopram Oxalate (Escitalopram Oxalate 20 Mg Tablet) 20 mg PO DAILY [facility] Last Admin: 07/23/21 08:47 Dose: 20 mg Documented by: Glipizide (Glipizide Xl 5 Mg Tab.Er.24) 5 mg PO DAILY@1700 [facility] Last Admin: 07/23/21 17:55 Dose: 5 mg Documented by: Glucose (Glucose Gel 15 Gm Gel..Gram.) 15 gm PO Q15M PRN; Protocol PRN Reason: per Hypoglycemia Standing Ord. Hydroxyzine HCl (Hydroxyzine Hcl 25 Mg Tablet) 25 mg PO BEDTIME PRN PRN Reason: Anxiety Insulin Human Lispro (Insulin Lispro 100 Unit/Ml 3 Ml Vial) 0 unit SUBCUT QIDACHS [facility]; Protocol Last Admin: 07/23/21 17:56 Dose: 4 unit Documented by: Magnesium Hydroxide (Milk Of Magnesia 30 Ml Oral.Susp) 30 ml PO DAILY PRN PRN Reason: Constipation Metformin HCl (Metformin Hcl 1,000 Mg Tablet) 1,000 mg PO BIDWM [facility] Last Admin: 07/23/21 17:55 Dose: 1,000 mg Documented by: Trazodone HCl (Trazodone Hcl 50 Mg Tablet) 50 mg PO BEDTIME PRN PRN Reason: Insomnia Allergies Allergies Allergy/AdvReac Type Severity Reaction Status Date / Time No Known Allergies Allergy Verified 10/06/20 20:22 [No Known Allergies*] Assessment & Plan Assessment & Plan (1) Alcohol use disorder, mild, abuse: Status: Acute Code(s): F10.10 - Alcohol abuse, uncomplicated (2) MDD (major depressive disorder), recurrent episode, moderate: Status: Acute Code(s): F33.1 - Major depressive disorder, recurrent, moderate (3) TBI (traumatic brain injury): Status: Acute Code(s): S06.9X9A - Unspecified intracranial injury with loss of consciousness of unspecified duration, initial encounter Plan Amos is a 46 y.o. male who carries a dx of MDD, recurrent, I would also add AUD, TBI. He presented to [facility] ED 07/17/21 via EMS due to SI, OD attempt on unknown amount of his own Jardiance (at least 10 tabs), and alcohol intoxication. Pt has a hx of presenting to crisis multiple times with similar presentation, however often recants SI and is sent back home to f/u with OP providers. He is endorsing persecutory paranoid thought process against [place] housing, neighbor, and police- unclear if this is due to cognitive impairment/ TBI vs psychotic process. Plan: Pt was switched to lexapro 20 mg from celexa 40 mg while in the ED. He reports he feels this medication is more effective for him and he does not want further med adjustments. Would benefit from OP med management, as he has a therapist but not a psych provider. May also benefit from mood stabilizing medication. Would also benefit from recovery team services, as he is minimizing binge drinking behavior. 07/22: No medication changes, pt is reporting benefit and says he feels safe, denies having questions or concerns. 07/23: Pt reports mood stability, future oriented and preparing for discharge Monitor response to medications. Monitor for safety in the milieu. Discharge on stabilization. Patient seen. Chart reviewed. Discussed with team. Obtain collateral contact info?as needed I spent minutes with the patient and/or on the patient floor today, greater than?50% of which was spent counseling/coordinating care. Patient educated on: diagnosis, medication risk/benefits and therapeutic strategies Reason for contiued inpatient stay Substantial Risk for: med/psych decompensation
[2021-07-23 22:00] VITALS: BP 132/76; PULSE 100; RESP 16; TEMP 36.4; O2SAT 98
[2021-07-24 04:47] LABS: Glucose, Whole Blood 335 mg/dL (60-115)
[2021-07-24 06:26] LABS: Glucose, Whole Blood 225 mg/dL (60-115)
[2021-07-24 08:59] LABS: Glucose, Whole Blood 220 mg/dL (60-115)
[2021-07-24] MEDS: Insulin Lispro 100 UNIT/ML 3 ML VIAL SUBCUT ×2 (09:11→13:02)
[2021-07-24] MEDS: Atorvastatin Calcium 20 MG TABLET PO (09:12)
[2021-07-24] MEDS: metFORMIN HCl 1,000 MG TABLET 1000 MG PO (09:12)
[2021-07-24] MEDS: Escitalopram Oxalate 20 MG TABLET PO (09:12)
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
[2021-07-24 11:58] LABS: Glucose, Whole Blood 292 mg/dL (60-115)
== END 2021-07-24 13:48 | disposition home or self-care (01) | DRG 885 ==
LOC: HO.ED 07-18 13:49 → HO.PADLT16 07-20 14:58
PROVIDERS: Nurse Practitioner Family; Physician Assistant Medical; Admitting Provider Psychiatry & Neurology Psychiatry; Emergency Provider Internal Medicine; Visit Provider Psychiatry & Neurology Psychiatry
DX: F33.1 Major depressive disorder, recurrent, moderate (principal); R45.851 Suicidal ideations; E11.9 Type 2 diabetes mellitus without complications; F10.129 Alcohol abuse with intoxication, unspecified; Y90.8 Blood alcohol level of 240 mg/100 ml or more; Z20.822 Contact with and (suspected) exposure to COVID-19; Z87.820 Personal history of traumatic brain injury; Z79.84 Long term (current) use of oral hypoglycemic drugs; Z79.899 Other long term (current) drug therapy
CPT/HCPCS: 36415; 80048; 80053; 80061; 80076; 80143; 80179; 80307; 81001; 82077; 82947; 83036; 83735; 84484; 85025; 87635; 93005; 99285

== ENCOUNTER 2021-09-27 02:42 | Emergency (ER) | payer OTHER, SELFPAY ==
[2021-09-27 02:50] VITALS: BP 178/99; PULSE 116; RESP 20; TEMP 36.8; O2SAT 98; BMI 29.5
[2021-09-27 03:25] LABS: Appearance Urine CLEAR; Color Urine YELLOW; Glucose Urine UA >=1000 MG/DL (NEG); Leukocyte Esterase Urine NEG (NEG); Nitrite Urine NEG (NEG); Specific Gravity - Urine <= 1.005 (1.005-1.025); Urine Blood NEG (NEG); Urine Ketones 15 MG/DL (NEG); Urine Protein NEG (NEG-TRACE)
--- NOTE | 2021-09-27 03:28 | ED_ITS ---
HPI - Psych General Chief Complaint: ETOH/Substance Use Stated Complaint: Crisis Time Seen by Provider: 09/27/21 03:16 Source: patient Mode of arrival: EMS Limitations: no limitations History of Present Illness HPI Narrative: 46-year-old male who was brought to emergency department by ambulance for evaluation of alcohol intoxication and suicidal ideation. The patient states that he was drinking beer this evening. He states the drink at least 7 beers. The patient states that he then had a sudden thought to hurt himself. He states that he wanted to injure himself with scissors or by hanging himself. He dec ided not to act on this are urge and called the police for help. The patient was then transported to the emergency department for evaluation. The patient was recently treated for major depression by our psychiatric service and discharged on 07/24/2021. He was discharged on Lexapro. The patient believes that this medication was helping him but he states that he has run out of this medication and has not been taking it for at least 2 weeks. He states that he has been compliant with his diabetes medicines. He denied being ill in any way prior to coming to the emergency department today. Related Data Home Medications Medication Instructions Recorded Confirmed empagliflozin 10 mg tablet 1 tab PO QAM 07/17/21 09/27/21 (Jardiance) sildenafil 100 mg tablet 0.5 tab PO DAILY PRN 09/27/21 09/27/21 Previous Rx's Medication Instructions Recorded atorvastatin 20 mg tablet 1 tab PO DAILY 30 Days #30 tab 07/24/21 escitalopram oxalate 20 mg tablet 20 mg PO DAILY 30 Days #30 tab 07/24/21 (Lexapro) glipizide 5 mg tablet, extended 5 mg PO DAILY@1700 30 Days #30 tab 07/24/21 release 24 hr metformin 1,000 mg tablet 1,000 mg PO BIDWM 30 Days #60 tab 07/24/21 Allergies Allergy/AdvReac Type Severity Reaction Status Date / Time No Known Allergies Allergy Verified 10/06/20 20:22 [No Known Allergies*] Review of Systems Review of Systems: Yes all other systems are reviewed and are negative PMFSH Past Medical History PMFSH Narrative: Social history. The patient states that he is a former tobacco user and quit 20 years prior. He does drink alcohol and he states that he drinks at least once a week. He does admit to drinking 7 beers today prior to coming to the emergency department. He denies drug use. Medical History Alcohol abuse Alcohol use disorder, mild, abuse Diabetes MDD (major depressive disorder), recurrent episode, moderate Suicidal ideation TBI (traumatic brain injury) Social History Social History Household Members: None Housing: Apartment Do you presently have visiting nurse or other home services: No Alcohol intake: current Patient Tobacco Use Status: Former Tobacco user Advance Directives: No service: No Sexual orientation: Don't Know Physical Exam Vital Signs: Vital Signs: Last Vital Signs Temp 98.2 F 09/27/21 02:50 Pulse 116 H 09/27/21 02:50 Resp 20 09/27/21 02:50 BP 178/99 H 09/27/21 02:50 Pulse Ox 98 09/27/21 02:50 BMI result Body Mass Index 29.5 Const: Other: Awake, alert, male patient, he does appear to be acutely intoxicated, he is cooperative, he answers all questions appropriately. HEENT: Head: Yes normal to inspection, Yes normocephalic and Yes atraumatic Ears: external ears normal General nose exam: Normal external nose present Face and sinus: Yes normal facial exam Mouth: Normal oral and palatal mucosa present Throat: Yes posterior oropharynx normal Eyes: General: appearance normal, both eyes and all related structures Pupils: Equal, round and reactive pupils present Neck: Neck: Yes normal visual inspection, Yes no lymphadenopathy, Yes trachea midline and Yes supple Chest: Chest palpation & inspection: normal inspection of the chest and normal palpation of entire chest wall Resp: Effort & Inspection: normal respiratory effort and able to speak in complete sentences Auscultation: clear to auscultation bilaterally Cardio: Rate: regular rate Rhythm: regular rhythm Heart sounds: S1 normal heart sound present, S2 normal heart sound present and no murmurs GI: Inspection: Yes normal to inspection Palpation (GI): Soft to palpation, nontender and no guarding Auscultation: normal bowel sounds : General: Yes no CVA tenderness Back/Spine/Pelvis: Back: no CVA tenderness Skin: General skin exam: no rashes or lesions noted Neuro: Cranial nerves: Yes CN's II-XII intact bilaterally and Yes Equal, round and reactive pupils present Cognition (Neuro): normal cognition Motor exam (neuro): 5/5 motor strength present throughout Extrem: General: Yes normal to inspection Psych: Appearance: grossly normal Speech and movement: Normal speech and movement present Affect: normal affect Attitude: cooperative Thought process: Normal thought process present Thought content: Suicidality present and no homicidality Course Course Course Narrative: 46-year-old male with a history of depression and diabetes [facility] acute alcohol intoxication and suicidal ideation. The patient states that he wanted to either hang himself or injure himself with scissors but did not act on these urges. Instead, he called the police who then had the patient was transferred on a Section 12 for psychiatric evaluation. Patient's vital signs revealed hypertension with a blood pressure of 178/99 and tachycardia with a pulse of 116. I did order laboratory evaluation to include CBC, BMP, liver panel, blood alcohol level, urine drug screen, magnesium, Tylenol salicylate levels, urinalysis and COVID-19. The patient will need to be evaluated by our Behavioral crisis team. 0634: Laboratory evaluation: CBC was normal. Serum glucose elevated 428. UA normal. Urine toxicology negative for salicylates and acetaminophen. Blood ETOH elevated 197. COVID-19 negative. The patient's elevated glucose is most likely secondary to noncompliance withhis medications and dehydration. Patient was treated with normal saline IV x2 L and regular insulin 5 units IV. I will order the [facility]'s outpatient medication regimen which includes glipizide, Jardiance, and metformin . We will check point of care glucose t.i.d. before meals and at night. At this time I believe the patient is medically cleared for crisis evaluation. 0634: Start physician observation: The patient needs observation for management of his blood glucose and monitoring for his suicidal ideation until he can be evaluated by our crisis team. The patient's examination revealed awake alert male who is in no distress, lungs clear to auscultation, heart regular rate rhythm, abdomen soft nontender, neurologic exam nonfocal MDM - Psych Lab Data Result diagrams: 09/27/21 03:27 09/27/21 03:27 Labs: Lab Results 05/08/22 05/08/22 05/08/22 Range/Units 03:11 03:11 03:14 WBC (4.8-10.8) X10*3/uL RBC (4.60-5.80) X10*6/uL Hgb (14.0-18.0) g/dl Hct (42.0-52.0) % MCV (80.0-98.0) fL MCH (27.0-33.0) pg MCHC (31.0-36.0) g/dl RDW (11.0-16.0) % Plt Count (160-400) X10*3/uL MPV (9.4-12.4) fL Immature Gran % (Auto) (0.0-0.4) % Neut % (Auto) (45-73) % Lymph % (Auto) (20-40) % [place] % (Auto) (2-11) % Eos % (Auto) (0-4) % Baso % (Auto) (0-2) % Lymph # (Auto) (1.2-4.9) X10*3/uL [place] # (Auto) (0.1-1.2) X10*3/uL Eos # (Auto) (0.0-0.4) X10*3/uL Baso # (Auto) (0.0-0.2) X10*3/uL Abs Immat Gran (auto) (0.00-0.03) X10*3/uL Absolute Neuts (auto) (2.0-8.3) x10*3/uL Absolute Nucleated RBC (0.0-0.012) X10*3/uL Nucleated RBC % (auto) (0.0-0.2) /100WBC Sodium (135-145) mmol/L Potassium (3.3-5.1) mmol/L Chloride (96-108) mmol/L Carbon Dioxide (22-29) mmol/L Anion Gap (12-20) BUN (9-16) mg/dL Creatinine (0.5-1.4) mg/dL Estim Creat Clear Calc Estimated GFR POC Glucose (60-115) mg/dL Random Glucose (60-115) mg/dL Calcium (8.4-10.2) mg/dL Magnesium (1.6-2.6) mg/dL Total Bilirubin (0.0-1.0) mg/dL Direct Bilirubin (0.0-0.5) mg/dL AST (5-37) U/L ALT (0-40) U/L Alkaline Phosphatase (39-117) U/L Total Protein (6.5-8.0) g/dL Albumin (3.5-5.0) g/dL Urine Color YELLOW Urine Appearance CLEAR Urine pH 6.0 (5.0-8.0) Ur Specific [place] <= 1.005 (1.005-1.025) Urine Protein NEG (NEG-TRACE) MG/DL Urine Glucose (UA) >=1000 H (NEG) MG/DL Urine Ketones 15 (NEG) MG/DL Urine Blood NEG (NEG) Urine Nitrite NEG (NEG) Ur Leukocyte Esterase NEG (NEG) Urine RBC 0-2 (0) /HPF Urine WBC 0-2 (0-4) /HPF Ur Squamous Epith Cells TRACE /LPF Urine Bacteria TRACE /LPF Salicylates (15-30) mg/dL Urine Opiates Screen Not Detected (Not Detect) Urine Fentanyl Screen Not Detected (Not Detect) Acetaminophen (<30) mcg/mL Ur Barbiturates Screen Not Detected (Not Detect) Ur Phencyclidine Scrn Not Detected (Not Detect) Ur Amphetamines Screen Not Detected (Not Detect) U Benzodiazepines Scrn Not Detected (Not Detect) Urine Cocaine Screen Not Detected (Not Detect) U Marijuana (THC) Screen Not Detected (Not Detect) Ethyl Alcohol mg/dL COVID-19 (ARLENE) Negative (Negative) COVID-19 Clin Com See Note 09/27/21 09/27/21 09/27/21 Range/Units 03:27 03:27 03:27 WBC 7.2 (4.8-10.8) X10*3/uL RBC 5.81 H (4.60-5.80) X10*6/uL Hgb 17.5 (14.0-18.0) g/dl Hct 48.5 (42.0-52.0) % MCV 83.5 (80.0-98.0) fL MCH 30.1 (27.0-33.0) pg MCHC 36.1 H (31.0-36.0) g/dl RDW 12.5 (11.0-16.0) % Plt Count 287 (160-400) X10*3/uL MPV 10.6 (9.4-12.4) fL Immature Gran % (Auto) 0.3 (0.0-0.4) % Neut % (Auto) 69.7 (45-73) % Lymph % (Auto) 21.7 (20-40) % [place] % (Auto) 5.4 (2-11) % Eos % (Auto) 2.2 (0-4) % Baso % (Auto) 0.7 (0-2) % Lymph # (Auto) 1.6 (1.2-4.9) X10*3/uL [place] # (Auto) 0.4 (0.1-1.2) X10*3/uL Eos # (Auto) 0.2 (0.0-0.4) X10*3/uL Baso # (Auto) 0.1 (0.0-0.2) X10*3/uL Abs Immat Gran (auto) 0.02 (0.00-0.03) X10*3/uL Absolute Neuts (auto) 5.0 (2.0-8.3) x10*3/uL Absolute Nucleated RBC 0.000 (0.0-0.012) X10*3/uL Nucleated RBC % (auto) 0.0 (0.0-0.2) /100WBC Sodium 136 (135-145) mmol/L Potassium 4.3 (3.3-5.1) mmol/L Chloride 104 (96-108) mmol/L Carbon Dioxide 16 L (22-29) mmol/L Anion Gap 20 (12-20) BUN 10 (9-16) mg/dL Creatinine 0.85 (0.5-1.4) mg/dL Estim Creat Clear Calc 122.1 Estimated GFR > 60 POC Glucose (60-115) mg/dL Random Glucose 428 H* (60-115) mg/dL Calcium 9.6 (8.4-10.2) mg/dL Magnesium 1.9 (1.6-2.6) mg/dL Total Bilirubin 1.0 (0.0-1.0) mg/dL Direct Bilirubin 0.3 (0.0-0.5) mg/dL AST 14 (5-37) U/L ALT 27 (0-40) U/L Alkaline Phosphatase 76 D (39-117) U/L Total Protein 7.8 (6.5-8.0) g/dL Albumin 4.5 (3.5-5.0) g/dL Urine Color Urine Appearance Urine pH (5.0-8.0) Ur Specific [place] (1.005-1.025) Urine Protein (NEG-TRACE) MG/DL Urine Glucose (UA) (NEG) MG/DL Urine Ketones (NEG) MG/DL Urine Blood (NEG) Urine Nitrite (NEG) Ur Leukocyte Esterase (NEG) Urine RBC (0) /HPF Urine WBC (0-4) /HPF Ur Squamous Epith Cells /LPF Urine Bacteria /LPF Salicylates < 5.0 L (15-30) mg/dL Urine Opiates Screen (Not Detect) Urine Fentanyl Screen (Not Detect) Acetaminophen < 1 (<30) mcg/mL Ur Barbiturates Screen (Not Detect) Ur Phencyclidine Scrn (Not Detect) Ur Amphetamines Screen (Not Detect) U Benzodiazepines Scrn (Not Detect) Urine Cocaine Screen (Not Detect) U Marijuana (THC) Screen (Not Detect) Ethyl Alcohol 197 mg/dL COVID-19 (ARLENE) (Negative) COVID-19 Clin Com 09/27/21 Range/Units 05:19 WBC (4.8-10.8) X10*3/uL RBC (4.60-5.80) X10*6/uL Hgb (14.0-18.0) g/dl Hct (42.0-52.0) % MCV (80.0-98.0) fL MCH (27.0-33.0) pg MCHC (31.0-36.0) g/dl RDW (11.0-16.0) % Plt Count (160-400) X10*3/uL MPV (9.4-12.4) fL Immature Gran % (Auto) (0.0-0.4) % Neut % (Auto) (45-73) % Lymph % (Auto) (20-40) % [place] % (Auto) (2-11) % Eos % (Auto) (0-4) % Baso % (Auto) (0-2) % Lymph # (Auto) (1.2-4.9) X10*3/uL [place] # (Auto) (0.1-1.2) X10*3/uL Eos # (Auto) (0.0-0.4) X10*3/uL Baso # (Auto) (0.0-0.2) X10*3/uL Abs Immat Gran (auto) (0.00-0.03) X10*3/uL Absolute Neuts (auto) (2.0-8.3) x10*3/uL Absolute Nucleated RBC (0.0-0.012) X10*3/uL Nucleated RBC % (auto) (0.0-0.2) /100WBC Sodium (135-145) mmol/L Potassium (3.3-5.1) mmol/L Chloride (96-108) mmol/L Carbon Dioxide (22-29) mmol/L Anion Gap (12-20) BUN (9-16) mg/dL Creatinine (0.5-1.4) mg/dL Estim Creat Clear Calc Estimated GFR POC Glucose 380 H* (60-115) mg/dL Random Glucose (60-115) mg/dL Calcium (8.4-10.2) mg/dL Magnesium (1.6-2.6) mg/dL Total Bilirubin (0.0-1.0) mg/dL Direct Bilirubin (0.0-0.5) mg/dL AST (5-37) U/L ALT (0-40) U/L Alkaline Phosphatase (39-117) U/L Total Protein (6.5-8.0) g/dL Albumin (3.5-5.0) g/dL Urine Color Urine Appearance Urine pH (5.0-8.0) Ur Specific [place] (1.005-1.025) Urine Protein (NEG-TRACE) MG/DL Urine Glucose (UA) (NEG) MG/DL Urine Ketones (NEG) MG/DL Urine Blood (NEG) Urine Nitrite (NEG) Ur Leukocyte Esterase (NEG) Urine RBC (0) /HPF Urine WBC (0-4) /HPF Ur Squamous Epith Cells /LPF Urine Bacteria /LPF Salicylates (15-30) mg/dL Urine Opiates Screen (Not Detect) Urine Fentanyl Screen (Not Detect) Acetaminophen (<30) mcg/mL Ur Barbiturates Screen (Not Detect) Ur Phencyclidine Scrn (Not Detect) Ur Amphetamines Screen (Not Detect) U Benzodiazepines Scrn (Not Detect) Urine Cocaine Screen (Not Detect) U Marijuana (THC) Screen (Not Detect) Ethyl Alcohol mg/dL COVID-19 (ARLENE) (Negative) COVID-19 Clin Com Discharge Plan Discharge Clinical Impression: Depression, Alcohol intoxication, Depression with suicidal ideation, Acute hyperglycemia, Noncompliance Patient Disposition: Still a Patient Prescriptions: No Action Jardiance 10 mg tablet 1 tab PO QAM 0RF glipizide 5 mg Tablet Extended Release 24 Hr 5 mg PO DAILY@1700 30 Days Qty: 30 0RF metformin 1,000 mg Tablet 1,000 mg PO BIDWM 30 Days Qty: 60 0RF escitalopram oxalate [Lexapro] 20 mg tablet 20 mg PO DAILY 30 Days Qty: 30 0RF atorvastatin 20 mg tablet 1 tab PO DAILY 30 Days Qty: 30 0RF sildenafil 100 mg tablet 0.5 tab PO DAILY PRN (Reason: Sexual Activity) 0RF
[2021-09-27 03:31] LABS: Bacteria Urine TRACE /LPF; RBC Urine 0-2 /HPF (0); Squamous Epithelial Cell Urine TRACE /LPF; WBC Urine 0-2 /HPF (0-4)
[2021-09-27 03:31] LABS: MANUAL DIFF FLAG NO
[2021-09-27 03:33] LABS: Basophils Absolute Auto 0.1 X10*3/uL (0.0-0.2); Basophils Percent Auto 0.7 % (0-2); Eosinophils Absolute Auto 0.2 X10*3/uL (0.0-0.4); Eosinophils Percent Auto 2.2 % (0-4); Hematocrit 48.5 % (42.0-52.0); Hemoglobin 17.5 g/dl (14.0-18.0); Imm Gran Abs Auto 0.02 X10*3/uL (0.00-0.03); Imm Gran Pct Auto 0.3 % (0.0-0.4); Lymphocytes Absolute Auto 1.6 X10*3/uL (1.2-4.9); Lymphocytes Percent Auto 21.7 % (20-40); Mean Corpuscular HGB Conc 36.1 g/dl (31.0-36.0); Mean Corpuscular Hemoglobin 30.1 pg (27.0-33.0); Mean Corpuscular Volume 83.5 fL (80.0-98.0); Mean Platelet Volume 10.6 fL (9.4-12.4); Monocytes Absolute Auto 0.4 X10*3/uL (0.1-1.2); Monocytes Percent Auto 5.4 % (2-11); Neutrophils Percent Auto 69.7 % (45-73); Platelet Count 287 X10*3/uL (160-400); Red Blood Count 5.81 X10*6/uL (4.60-5.80); Red Cell Distribution Width 12.5 % (11.0-16.0); White Blood Count 7.2 X10*3/uL (4.8-10.8)
[2021-09-27 03:40] LABS: Amphetamine Screen Urine Not Detected (Not Detect); Barbiturates, Urine Not Detected (Not Detect); Benzodiazepines Screen Urine Not Detected (Not Detect); Cannabinoid Screen Urine Not Detected (Not Detect); Cocaine Screen Urine Not Detected (Not Detect); Fentanyl, urine Not Detected (Not Detect); Opiate Screen Urine Not Detected (Not Detect); Phencyclidine Screen Urine Not Detected (Not Detect)
[2021-09-27 03:45] LABS: COVID-19 Test Negative (Negative)
[2021-09-27 04:01] LABS: Ethanol 197 mg/dL
[2021-09-27 04:09] LABS: Alanine Aminotransferase 27 U/L (0-40); Albumin Level 4.5 g/dL (3.5-5.0); Alkaline Phosphatase 76 U/L (39-117); Anion Gap 20 (12-20); Aspartate Amino Transferase 14 U/L (5-37); Bilirubin Direct 0.3 mg/dL (0.0-0.5); Blood Urea Nitrogen 10 mg/dL (9-16); Calcium 9.6 mg/dL (8.4-10.2); Carbon Dioxide 16 mmol/L (22-29); Chloride 104 mmol/L (96-108); Creatinine Clr Calc Pharmacy 122.1; Estimated Glomerular Filt Rate > 60; Glucose Random 428 mg/dL (60-115); Magnesium 1.9 mg/dL (1.6-2.6); Potassium 4.3 mmol/L (3.3-5.1); Sodium 136 mmol/L (135-145); Total Protein 7.8 g/dL (6.5-8.0)
[2021-09-27 04:17] LABS: Acetaminophen LAB < 1 mcg/mL (<30); Salicylate < 5.0 mg/dL (15-30)
[2021-09-27] MEDS: 0.9 % Sodium Chloride 1,000 ML 999 ML IV ×2 (04:35→05:31)
[2021-09-27 05:22] LABS: Glucose, Whole Blood 380 mg/dL (60-115)
--- NOTE | 2021-09-27 05:25 | PC.NURSE ---
RN was notify of PT POC of 380
[2021-09-27] MEDS: Insulin Regular, Human 100 UNIT/ML 3 ML VIAL IVPUSH (05:31)
--- NOTE | 2021-09-27 05:34 | PC.NURSE ---
Patient blood sugar was 428 at 0327, provider notified/ordered NS 1000 ml x 2, administered as ordered, F/U POC at 0519 was 380, humalin 5 units administered intravenously, patient tolerated well, patient slept well, N referral completed/confirmed/pending ETA, no distress observed/reported, behavior appropriate and non concerning, med rec completed/pending provider's approval, will continue to monitor.
--- NOTE | 2021-09-27 06:18 | PC.NURSE ---
Patient slept through the night, no distress observed/reported, patient is not a crises patient, denied SI/HI/AVH, behavior pleasant, plan for patient is to discharge in the morning when marie out, VSS, will continue to monitor
--- NOTE | 2021-09-27 07:05 | PC.NURSE ---
patient appears to remain asleep at present respirations are even and unlabored patient appears in no distress
--- NOTE | 2021-09-27 08:07 | PC.NURSE ---
patient appears to remain at rest at present respirations are even and unlabored patient appears in no distress.
[2021-09-27] MEDS: metFORMIN HCl 1,000 MG TABLET 1000 MG PO (09:24)
[2021-09-27] MEDS: Empagliflozin 10 MG TABLET PO (09:24)
[2021-09-27] MEDS: Escitalopram Oxalate 20 MG TABLET PO (09:24)
[2021-09-27] MEDS: Atorvastatin Calcium 20 MG TABLET PO (09:24)
[2021-09-27 10:33] VITALS: BP 127/64; PULSE 81; TEMP 36.7; O2SAT 97
== END 2021-09-27 10:52 | disposition home or self-care (01) ==
PROVIDERS: Emergency Provider Emergency Medicine Emergency Medical Services
DX: F33.1 Major depressive disorder, recurrent, moderate (principal); R45.851 Suicidal ideations; F10.129 Alcohol abuse with intoxication, unspecified; Y90.6 Blood alcohol level of 120-199 mg/100 ml; Z79.899 Other long term (current) drug therapy; Z20.822 Contact with and (suspected) exposure to COVID-19; Z71.41 Alcohol abuse counseling and surveillance of alcoholic; Z87.891 Personal history of nicotine dependence
CPT/HCPCS: 36415; 80048; 80076; 80143; 80179; 80307; 81001; 82077; 82947; 83735; 85025; 87635; 96361; 96374; 99284

== ENCOUNTER 2021-11-27 01:07 | Emergency (ER) | payer OTHER, SELFPAY ==
[2021-11-27 01:13] VITALS: BP 133/76; PULSE 102; RESP 18; TEMP 36.8; O2SAT 92; BMI 26.5
[2021-11-27 01:26] VITALS: BP 133/76; PULSE 102; RESP 18; TEMP 36.8; O2SAT 92
[2021-11-27 01:35] LABS: Glucose, Whole Blood 260 mg/dL (60-115)
--- NOTE | 2021-11-27 01:46 | ED.PSYCH ---
HPI - Psych General Chief Complaint: Psychiatric Symptoms Stated Complaint: SECT 12,SI Time Seen by Provider: 11/27/21 01:46 Source: patient Mode of arrival: EMS History of Present Illness HPI Narrative: 46-year-old male with history of diabetes, depression who states he missed a couple doses of his antidepressant medications as well as decided to drink some alcohol. Patient states he then began having suicidal thoughts but denies any specific plan at this time. Patient otherwise denies any fever, chills, nausea, vomiting. Patient denies AVH. Related Data Home Medications Medication Instructions Recorded Confirmed empagliflozin 10 mg tablet 1 tab PO QAM 07/17/21 11/27/21 (Jardiance) Previous Rx's Medication Instructions Recorded atorvastatin 20 mg tablet 1 tab PO DAILY 30 days #30 tabs 07/24/21 escitalopram oxalate 20 mg tablet 20 mg PO DAILY 30 days #30 tabs 07/24/21 (Lexapro) glipizide 5 mg tablet, extended 5 mg PO DAILY@1700 30 days #30 tabs 07/24/21 release 24 hr metformin 1,000 mg tablet 1,000 mg PO BIDWM 30 days #60 tabs 07/24/21 Allergies Allergy/AdvReac Type Severity Reaction Status Date / Time No Known Allergies Allergy Verified 10/06/20 20:22 [No Known Allergies*] Review of Systems Review of Systems: Pertinent positives and negatives as stated in HPI 10 point review of systems is otherwise negative. COUNTS INCLUDE 234 BEDS AT THE [facility] Past Medical History Source: nursing notes reviewed Medical History Alcohol abuse Alcohol use disorder, mild, abuse Diabetes MDD (major depressive disorder), recurrent episode, moderate Suicidal ideation TBI (traumatic brain injury) Social History Social History Household Members: None Housing: Apartment Do you presently have visiting nurse or other home services: No Alcohol intake: current Patient Tobacco Use Status: Former Tobacco user service: No Sexual orientation: Don't Know Physical Exam Vital Signs: Vital Signs: Last Vital Signs Temp 98.2 F 11/27/21 01:26 Pulse 102 H 11/27/21 01:26 Resp 18 11/27/21 01:26 BP 133/76 11/27/21 01:26 Pulse Ox 92 11/27/21 01:26 O2 Del Method 07/08/22 01:26 BMI result Body Mass Index 26.5 VITAL SIGNS: Reviewed. GENERAL: Well developed, well nourished, in no acute distress. HEAD: Normocephalic/atraumatic EYES: PERRLA, EOMI EARS: Ext canals without abnormality NOSE: Nares patent bilateral OROPHARYNX: no oral lesions noted, posterior pharynx clear LUNGS: Normal breath sounds. No adventitious sounds or accessory muscle use. SpO2<92> CARDIOVASCULAR: Regular rate and rhythm without noted murmurs ABDOMEN: Soft, non-tender, non-distended with bowel sounds. NEUROLOGIC: Alert and oriented x 4. Strength and sensation to light touch were grossly intact x 4, cranial nerves 2-12 are grossly intact. PSYCH: Depressed affect Course Course Course Narrative: 46-year-old male with history and clinical presentation consistent with poor recent medication compliance in combination with alcohol intoxication which is likely led him to feel depressed and exhibit suicidal ideation without a specific plan. Patient reports good compliance with his diabetic medications and POC-260 without clinical evidence to suggest DKA. Awaiting lab work, although patient is otherwise medically cleared for further evaluation by the behavioral team. Reevaluation(s) Reevaluation #1: Patient placed in physician observation because the patient needed more time for completion of lab work and evaluation by the behavioral team. At the time observation was started the patient's vital signs were stable, patient is alert and oriented but slightly agitated, neuro: Nonfocal, CV RRR, lungs clear Time: 02:10 [facility] - Psych Lab Data Labs: Lab Results 11/27/21 11/27/21 Range/Units 01:23 01:48 POC Glucose 260 H (60-115) mg/dL Urine Color YELLOW Urine Appearance CLEAR Urine pH 5.5 (5.0-8.0) Ur Specific [place] 1.020 (1.005-1.025) Urine Protein 2+ H (NEG-TRACE) MG/DL Urine Glucose (UA) >=1000 H (NEG) MG/DL Urine Ketones 15 (NEG) MG/DL Urine Blood NEG (NEG) Urine Nitrite NEG (NEG) Ur Leukocyte Esterase NEG (NEG) Discharge Plan Discharge Clinical Impression: Depression, Suicidal ideation, Diabetes Patient Disposition: Still a Patient Prescriptions: No Action Jardiance 10 mg tablet 1 tab PO QAM glipizide 5 mg Tablet Extended Release 24 Hr 5 mg PO DAILY@1700 30 Days Qty: 30 0RF metformin 1,000 mg Tablet 1,000 mg PO BIDWM 30 Days Qty: 60 0RF escitalopram oxalate [Lexapro] 20 mg tablet 20 mg PO DAILY 30 Days Qty: 30 0RF atorvastatin 20 mg tablet 1 tab PO DAILY 30 Days Qty: 30 0RF
[2021-11-27 01:56] LABS: Appearance Urine CLEAR; Color Urine YELLOW; Glucose Urine UA >=1000 MG/DL (NEG); Leukocyte Esterase Urine NEG (NEG); Nitrite Urine NEG (NEG); PH 5.5 (5.0-8.0); Urine Blood NEG (NEG); Urine Ketones 15 MG/DL (NEG); Urine Protein 2+ MG/DL (NEG-TRACE)
[2021-11-27 02:07] LABS: Amphetamine Screen Urine Not Detected (Not Detect); Barbiturates, Urine Not Detected (Not Detect); Benzodiazepines Screen Urine Not Detected (Not Detect); Cannabinoid Screen Urine Not Detected (Not Detect); Cocaine Screen Urine Not Detected (Not Detect); Fentanyl, urine Not Detected (Not Detect); Mucus Urine TRACE /LPF; Opiate Screen Urine Not Detected (Not Detect); Phencyclidine Screen Urine Not Detected (Not Detect); RBC Urine 0 /HPF (0); Squamous Epithelial Cell Urine TRACE /LPF; WBC Urine 0-2 /HPF (0-4)
[2021-11-27 02:10] LABS: COVID-19 Test Negative (Negative)
[2021-11-27 02:17] LABS: MANUAL DIFF FLAG NO
[2021-11-27 02:18] LABS: Basophils Percent Auto 0.5 % (0-2); Eosinophils Absolute Auto 0.1 X10*3/uL (0.0-0.4); Eosinophils Percent Auto 1.8 % (0-4); Hematocrit 48.6 % (42.0-52.0); Hemoglobin 17.6 g/dl (14.0-18.0); Imm Gran Abs Auto 0.02 X10*3/uL (0.00-0.03); Imm Gran Pct Auto 0.3 % (0.0-0.4); Lymphocytes Absolute Auto 1.9 X10*3/uL (1.2-4.9); Mean Corpuscular HGB Conc 36.2 g/dl (31.0-36.0); Mean Corpuscular Hemoglobin 30.1 pg (27.0-33.0); Mean Corpuscular Volume 83.1 fL (80.0-98.0); Mean Platelet Volume 10.6 fL (9.4-12.4); Monocytes Absolute Auto 0.4 X10*3/uL (0.1-1.2); Monocytes Percent Auto 5.2 % (2-11); Neutrophils Absolute Auto 4.8 x10*3/uL (2.0-8.3); Neutrophils Percent Auto 66.2 % (45-73); Platelet Count 254 X10*3/uL (160-400); Red Blood Count 5.85 X10*6/uL (4.60-5.80); Red Cell Distribution Width 12.2 % (11.0-16.0); White Blood Count 7.3 X10*3/uL (4.8-10.8)
[2021-11-27 02:39] LABS: Anion Gap 19 (12-20); Blood Urea Nitrogen 11 mg/dL (9-16); Calcium 8.9 mg/dL (8.4-10.2); Carbon Dioxide 19 mmol/L (22-29); Chloride 104 mmol/L (96-108); Creatinine Clr Calc Pharmacy 121.9; Estimated Glomerular Filt Rate > 60; Ethanol 166 mg/dL; Glucose Random 293 mg/dL (60-115); Sodium 138 mmol/L (135-145)
[2021-11-27 03:17] LABS: Acetone, serum QL Negative (Negative)
--- NOTE | 2021-11-27 06:21 | PC.NURSE ---
Patient slept through the night, no distress observed/reported, behavior appropriate, engaged well with BHN, disposition follow with current provider, patient agreed, med rec completed?mar active, VSS, will continue to monitor.
--- NOTE | 2021-11-27 07:09 | PC.NURSE ---
patient appears to remain asleep at present resapirations are even and unlabored patient appears in no distress
[2021-11-27] MEDS: Escitalopram Oxalate 20 MG TABLET PO (09:12)
[2021-11-27] MEDS: metFORMIN HCl 1,000 MG TABLET 1000 MG PO (09:12)
[2021-11-27] MEDS: Empagliflozin 10 MG TABLET PO (09:13)
== END 2021-11-27 09:42 | disposition home or self-care (01) ==
PROVIDERS: Emergency Provider Student in an Organized Health Care Education/Training Program
DX: F32.A Depression, unspecified (principal); R45.851 Suicidal ideations; E11.9 Type 2 diabetes mellitus without complications; Z87.820 Personal history of traumatic brain injury; Z79.899 Other long term (current) drug therapy
CPT/HCPCS: 36415; 80048; 80307; 81001; 82009; 82077; 82947; 85025; 87635; 99284

== ENCOUNTER 2022-06-03 07:57 | Emergency (ER) | payer OTHER, SELFPAY ==
[2022-06-03 08:03] VITALS: BP 144/88; PULSE 115; RESP 20; TEMP 36.7; O2SAT 95; BMI 28.7
[2022-06-03 09:03] LABS: MANUAL DIFF FLAG NO
[2022-06-03 09:08] LABS: Basophils Absolute Auto 0.1 X10*3/uL (0.0-0.2); Basophils Percent Auto 0.6 % (0-2); Eosinophils Absolute Auto 0.1 X10*3/uL (0.0-0.4); Eosinophils Percent Auto 1.2 % (0-4); Hematocrit 51.9 % (42.0-52.0); Hemoglobin 18.4 g/dl (14.0-18.0); Imm Gran Abs Auto 0.02 X10*3/uL (0.00-0.03); Imm Gran Pct Auto 0.2 % (0.0-0.4); Lymphocytes Absolute Auto 2.6 X10*3/uL (1.2-4.9); Lymphocytes Percent Auto 32.2 % (20-40); Mean Corpuscular HGB Conc 35.5 g/dl (31.0-36.0); Mean Corpuscular Hemoglobin 29.7 pg (27.0-33.0); Mean Corpuscular Volume 83.8 fL (80.0-98.0); Mean Platelet Volume 10.4 fL (9.4-12.4); Monocytes Absolute Auto 0.3 X10*3/uL (0.1-1.2); Neutrophils Absolute Auto 4.9 x10*3/uL (2.0-8.3); Neutrophils Percent Auto 61.8 % (45-73); Platelet Count 327 X10*3/uL (160-400); Red Blood Count 6.19 X10*6/uL (4.60-5.80); Red Cell Distribution Width 12.8 % (11.0-16.0)
[2022-06-03 09:14] LABS: Appearance Urine Clear; Color Urine Yellow; Glucose Urine UA >=1000 mg/dL (Negative); Leukocyte Esterase Urine Negative (Negative); Nitrite Urine Negative (Negative); PH 5.5 (5.0-9.0); Specific Gravity - Urine 1.015 (1.005-1.025); UMIC TRIGGER UACC YES; Urine Blood Negative (Negative); Urine Ketones 15 mg/dL (Negative); Urine Protein Trace mg/dL (Neg-Trace)
[2022-06-03 09:21] LABS: Alanine Aminotransferase 42 U/L (0-40); Albumin Level 4.4 g/dL (3.5-5.0); Alkaline Phosphatase 85 U/L (39-117); Anion Gap 18 (12-20); Aspartate Amino Transferase 19 U/L (5-37); Bilirubin Total 1.2 mg/dL (0.0-1.0); Blood Urea Nitrogen 12 mg/dL (9-16); Calcium 10.2 mg/dL (8.4-10.2); Carbon Dioxide 23 mmol/L (22-29); Chloride 102 mmol/L (96-108); Creatinine Clr Calc Pharmacy 122.8; Estimated Glomerular Filt Rate > 60; Ethanol 238 mg/dL; Glucose Random 247 mg/dL (60-115); Potassium 3.9 mmol/L (3.3-5.1); Sodium 139 mmol/L (135-145); Total Protein 7.6 g/dL (6.5-8.0)
[2022-06-03 09:22] LABS: Bacteria Urine None Seen (None Seen); RBC Urine 0-2 /HPF (0-2); Squamous Epithelial Cell Urine 0-2 /HPF (0-2); WBC Urine 0-5 /HPF (0-5)
[2022-06-03 09:22] LABS: COVID-19 Test Negative (Negative); IDNOW Serial# 55D5AD1C; IDNOW Serial# 9DB6401D; Influenza A Negative (Negative); Influenza B2 Negative (Negative)
[2022-06-03 09:23] LABS: Amphetamine Screen Urine Not Detected (Not Detect); Barbiturates, Urine Not Detected (Not Detect); Benzodiazepines Screen Urine Not Detected (Not Detect); Cannabinoid Screen Urine Not Detected (Not Detect); Cocaine Screen Urine Not Detected (Not Detect); Fentanyl, urine Not Detected (Not Detect); Opiate Screen Urine Not Detected (Not Detect); Phencyclidine Screen Urine Not Detected (Not Detect)
--- NOTE | 2022-06-03 09:51 | ED_ITS ---
HPI - Alcohol General Chief Complaint: ETOH/Substance Use Stated Complaint: ETOH USE,ABD PAIN,AMB ON SCENE PER EMS Time Seen by Provider: 06/03/22 08:00 Source: patient Mode of arrival: EMS History of Present Illness HPI narrative: 46-year-old male brought in by EMS at his request ever he consumed half a pt of vodka but denies drinking every day and does not think that he is an alcoholic but states that when he drinks alcohol he has a tendency to have increased feelings of wanting to harm himself by cutting his wrists. He denies any overt feelings of suicidal ideation at this time, has not seen his therapist in 10 days but states he has a very good relationship with his therapist and says that she helps a lot. Related Data Home Medications Medication Instructions Recorded Confirmed empagliflozin 10 mg tablet 1 tab PO QAM 07/17/21 11/27/21 (Jardiance) Previous Rx's Medication Instructions Recorded atorvastatin 20 mg tablet 1 tab PO DAILY 30 days #30 tabs 07/24/21 escitalopram oxalate 20 mg tablet 20 mg PO DAILY 30 days #30 tabs 07/24/21 (Lexapro) glipizide 5 mg tablet, extended 5 mg PO DAILY@1700 30 days #30 tabs 07/24/21 release 24 hr metformin 1,000 mg tablet 1,000 mg PO BIDWM 30 days #60 tabs 07/24/21 Allergies Allergy/AdvReac Type Severity Reaction Status Date / Time No Known Allergies Allergy Verified 10/06/20 20:22 [No Known Allergies*] Review of Systems Review of Systems: Pertinent positives and negatives as stated in HPI PMFSH Past Medical History Source: nursing notes reviewed Medical History Alcohol abuse Alcohol use disorder, mild, abuse Diabetes MDD (major depressive disorder), recurrent episode, moderate Suicidal ideation TBI (traumatic brain injury) Social History Social History Household Members: None Housing: Apartment Do you presently have visiting nurse or other home services: No Alcohol intake: current Alcohol type: hard liquor Patient Tobacco Use Status: Former Tobacco user Advance Directives: No Advance Directives Information Provided: No service: No Sexual orientation: Don't Know Physical Exam ED Vital Signs: Vital Signs - 24 hr 06/03/22 08:03 06/03/22 11:12 Temperature 98.0 F 97.6 F Pulse Rate 115 H 99 Respiratory Rate 20 13 Blood Pressure 144/88 H 134/63 Pulse Oximetry 95 93 Oxygen Delivery Method Room Air Room Air BMI result Body Mass Index 28.7 VITAL SIGNS: Reviewed. GENERAL: Well developed, well nourished, in no acute distress. HEAD: Normocephalic/atraumatic EYES: PERRLA, EOMI EARS: Ext canals without abnormality OROPHARYNX: no oral lesions noted, posterior pharynx clear LUNGS: Normal breath sounds. No adventitious sounds or accessory muscle use. SpO2<95> CARDIOVASCULAR: Regular rate and rhythm without noted murmurs ABDOMEN: Soft, non-tender, non-distended with bowel sounds. MUSCULOSKELETAL: No tenderness, deformities, or effusions noted on gross inspection. EXTREMITIES: No cyanosis, clubbing or edema. SKIN: Inspection of the skin reveals no rashes NEUROLOGIC: Alert and oriented x 4. Strength and sensation to light touch were grossly intact x 4, slurred speech secondary to alcohol intoxication. PSYCH: Vague suicidal thoughts Medical Decision Making Medical Decision Making MDM Narrative: 46-year-old male who comes in with alcohol intoxication and had good insight as he understands that typically when he is drinking significant amounts of alcohol he begins to have increased thoughts of suicidal ideation with stronger inclination to follow through with cutting his wrists. Patient states that he knows this and so he called EMS. He otherwise has no acute constitutional complaints. 1000: I reviewed the workup and my interpretation is this patient has alcohol intoxication without history of withdrawal symptoms such as seizures, although he does have vague SI he denies intent to follow through and that is 1 of the reasons which brought him to the emergency room. On review of electrolyte/renal function there are no acute findings and patient will be observed until clinically stable for discharge and will be re-evaluated for any SI at that time. 1630: I consulted the care team who evaluated the patient and agrees that patient is safe for discharge to home, he does exhibit good insight and no longer is having any feelings of suicidal ideation or thoughts of self-harm. He continues to declined detox and has good outpatient resources. He is clinically sober and ambulates with a steady gait and is otherwise safe for discharge to home. Differential Diagnosis Differential Diagnoses: The differential diagnosis associated with the presentation includes Please see the discussion above Consult Healthcare Provider Management of the patient was discussed with: Intelligence Operations Specialist 1452: I consult with the care team for evaluation of patient and his vague SI symptoms. Lab Data MDM Lab Attestation statement: I reviewed the patient's lab results. See the discussion above 06/03/22 08:57 06/03/22 08:57 Labs: Lab Results 06/03/22 06/03/22 06/03/22 Range/Units 08:57 08:57 08:57 WBC 8.0 (4.8-10.8) X10*3/uL RBC 6.19 H (4.60-5.80) X10*6/uL Hgb 18.4 H (14.0-18.0) g/dl Hct 51.9 (42.0-52.0) % MCV 83.8 (80.0-98.0) fL MCH 29.7 (27.0-33.0) pg MCHC 35.5 (31.0-36.0) g/dl RDW 12.8 (11.0-16.0) % Plt Count 327 D (160-400) X10*3/uL MPV 10.4 (9.4-12.4) fL Immature Gran % (Auto) 0.2 (0.0-0.4) % Neut % (Auto) 61.8 (45-73) % Lymph % (Auto) 32.2 (20-40) % [place] % (Auto) 4.0 (2-11) % Eos % (Auto) 1.2 (0-4) % Baso % (Auto) 0.6 (0-2) % Lymph # (Auto) 2.6 (1.2-4.9) X10*3/uL [place] # (Auto) 0.3 (0.1-1.2) X10*3/uL Eos # (Auto) 0.1 (0.0-0.4) X10*3/uL Baso # (Auto) 0.1 (0.0-0.2) X10*3/uL Abs Immat Gran (auto) 0.02 (0.00-0.03) X10*3/uL Absolute Neuts (auto) 4.9 (2.0-8.3) x10*3/uL Absolute Nucleated RBC 0.000 (0.0-0.012) X10*3/uL Nucleated RBC % (auto) 0.0 (0.0-0.2) /100WBC Sodium 139 (135-145) mmol/L Potassium 3.9 (3.3-5.1) mmol/L Chloride 102 (96-108) mmol/L Carbon Dioxide 23 (22-29) mmol/L Anion Gap 18 (12-20) BUN 12 (9-16) mg/dL Creatinine 0.86 (0.5-1.4) mg/dL Estim Creat Clear Calc 122.8 Estimated GFR > 60 Random Glucose 247 H (60-115) mg/dL Calcium 10.2 D (8.4-10.2) mg/dL Total Bilirubin 1.2 H (0.0-1.0) mg/dL AST 19 (5-37) U/L ALT 42 H (0-40) U/L Alkaline Phosphatase 85 (39-117) U/L Total Protein 7.6 (6.5-8.0) g/dL Albumin 4.4 (3.5-5.0) g/dL Urine Color Urine Appearance Urine pH (5.0-9.0) Ur Specific [place] (1.005-1.025) Urine Protein (Neg-Trace) mg/dL Urine Glucose (UA) (Negative) mg/dL Urine Ketones (Negative) mg/dL Urine Blood (Negative) Urine Nitrite (Negative) Ur Leukocyte Esterase (Negative) Urine RBC (0-2) /HPF Urine WBC (0-5) /HPF Ur Squamous Epith Cells (0-2) /HPF Urine Bacteria (None Seen) Hyaline Casts (0-2) /LPF Urine Opiates Screen (Not Detect) Urine Fentanyl Screen (Not Detect) Ur Barbiturates Screen (Not Detect) Ur Phencyclidine Scrn (Not Detect) Ur Amphetamines Screen (Not Detect) U Benzodiazepines Scrn (Not Detect) Urine Cocaine Screen (Not Detect) U Marijuana (THC) Screen (Not Detect) Ethyl Alcohol 238 mg/dL COVID-19 (ARLENE) Negative (Negative) COVID-19 Clin Com See Note Influenza Type A (FANTA) (Negative) Influenza Type B (FANTA) (Negative) Influenza A & B Note 06/03/22 06/03/22 06/03/22 Range/Units 08:57 09:05 09:05 WBC (4.8-10.8) X10*3/uL RBC (4.60-5.80) X10*6/uL Hgb (14.0-18.0) g/dl Hct (42.0-52.0) % MCV (80.0-98.0) fL MCH (27.0-33.0) pg MCHC (31.0-36.0) g/dl RDW (11.0-16.0) % Plt Count (160-400) X10*3/uL MPV (9.4-12.4) fL Immature Gran % (Auto) (0.0-0.4) % Neut % (Auto) (45-73) % Lymph % (Auto) (20-40) % [place] % (Auto) (2-11) % Eos % (Auto) (0-4) % Baso % (Auto) (0-2) % Lymph # (Auto) (1.2-4.9) X10*3/uL [place] # (Auto) (0.1-1.2) X10*3/uL Eos # (Auto) (0.0-0.4) X10*3/uL Baso # (Auto) (0.0-0.2) X10*3/uL Abs Immat Gran (auto) (0.00-0.03) X10*3/uL Absolute Neuts (auto) (2.0-8.3) x10*3/uL Absolute Nucleated RBC (0.0-0.012) X10*3/uL Nucleated RBC % (auto) (0.0-0.2) /100WBC Sodium (135-145) mmol/L Potassium (3.3-5.1) mmol/L Chloride (96-108) mmol/L Carbon Dioxide (22-29) mmol/L Anion Gap (12-20) BUN (9-16) mg/dL Creatinine (0.5-1.4) mg/dL Estim Creat Clear Calc Estimated GFR Random Glucose (60-115) mg/dL Calcium (8.4-10.2) mg/dL Total Bilirubin (0.0-1.0) mg/dL AST (5-37) U/L ALT (0-40) U/L Alkaline Phosphatase (39-117) U/L Total Protein (6.5-8.0) g/dL Albumin (3.5-5.0) g/dL Urine Color Yellow Urine Appearance Clear Urine pH 5.5 (5.0-9.0) Ur Specific [place] 1.015 (1.005-1.025) Urine Protein Trace (Neg-Trace) mg/dL Urine Glucose (UA) >=1000 H (Negative) mg/dL Urine Ketones 15 (Negative) mg/dL Urine Blood Negative (Negative) Urine Nitrite Negative (Negative) Ur Leukocyte Esterase Negative (Negative) Urine RBC 0-2 (0-2) /HPF Urine WBC 0-5 (0-5) /HPF Ur Squamous Epith Cells 0-2 (0-2) /HPF Urine Bacteria None Seen (None Seen) Hyaline Casts 3-5 (0-2) /LPF Urine Opiates Screen Not Detected (Not Detect) Urine Fentanyl Screen Not Detected (Not Detect) Ur Barbiturates Screen Not Detected (Not Detect) Ur Phencyclidine Scrn Not Detected (Not Detect) Ur Amphetamines Screen Not Detected (Not Detect) U Benzodiazepines Scrn Not Detected (Not Detect) Urine Cocaine Screen Not Detected (Not Detect) U Marijuana (THC) Screen Not Detected (Not Detect) Ethyl Alcohol mg/dL COVID-19 (ARLENE) (Negative) COVID-19 Clin Com Influenza Type A (FANTA) Negative (Negative) Influenza Type B (FANTA) Negative (Negative) Influenza A & B Note See Note External Record Review External record reviewed: Outpatient record and Prior outpatient labs Discharge Plan Discharge Clinical Impression: Alcoholic intoxication, Depression Patient Disposition: Home, Self-Care Instructions: Alcohol Intoxication (ED), Depression (ED) Additional Instructions: 1. Resume all home medications as prescribed. 2. Please follow-up with your therapist at your earliest convenience and do not hesitate to return to the emergency room if you have any thoughts of self-harm. Return to the ER for any worsening symptoms. Prescriptions: No Action Jardiance 10 mg tablet 1 tab PO QAM glipizide 5 mg Tablet Extended Release 24 Hr 5 mg PO DAILY@1700 30 Days Qty: 30 0RF metformin 1,000 mg Tablet 1,000 mg PO BIDWM 30 Days Qty: 60 0RF escitalopram oxalate [Lexapro] 20 mg tablet 20 mg PO DAILY 30 Days Qty: 30 0RF atorvastatin 20 mg tablet 1 tab PO DAILY 30 Days Qty: 30 0RF Interventions: [place]-Suicide Risk Severity Scale Last Done: 06/03/22 08:09
[2022-06-03 11:12] VITALS: BP 134/63; PULSE 99; RESP 13; TEMP 36.4; O2SAT 93
--- NOTE | 2022-06-03 11:51 | MHC.RECOVRN ---
Late entry- Briefly met with pt this morning (0815) in ED22 to inquire regarding desire for ATS. Pt difficult to engage regarding substance use due to intoxication, however, declines ATS at this time. Pt denied SI to t/w.
--- NOTE | 2022-06-04 10:02 | HO.SUDE ---
CARE team called [facility] for follow, message left on voice mail and waiting for return phone call.
--- NOTE | 2022-06-04 18:48 | MHC.CARE ---
CARE Team spoke with pt to check in and see how he is doing today. Pt reports that he is doing much better today He declined additional support.
== END 2022-06-03 18:20 | disposition home or self-care (01) ==
PROVIDERS: Emergency Provider Student in an Organized Health Care Education/Training Program
DX: F10.220 Alcohol dependence with intoxication, uncomplicated (principal); Y90.7 Blood alcohol level of 200-239 mg/100 ml; F33.9 Major depressive disorder, recurrent, unspecified; Z20.822 Contact with and (suspected) exposure to COVID-19; Z87.891 Personal history of nicotine dependence; Z87.820 Personal history of traumatic brain injury; Z79.84 Long term (current) use of oral hypoglycemic drugs; Z79.899 Other long term (current) drug therapy; Z79.02 Long term (current) use of antithrombotics/antiplatelets
CPT/HCPCS: 36415; 80053; 80307; 81001; 82077; 85025; 87502; 87635; 99284; S9485

== ENCOUNTER 2022-07-10 17:05 | Emergency (ER) | payer OTHER, SELFPAY ==
[2022-07-10 17:13] VITALS: BP 155/95; PULSE 102; RESP 16; TEMP 36.9; O2SAT 97; BMI 39.4
--- NOTE | 2022-07-10 17:27 | ED.ALCOHOL ---
HPI - Alcohol General Chief Complaint: ETOH/Substance Use Stated Complaint: SI/ ETOH Time Seen by Provider: 07/10/22 17:18 Source: patient and EMS Mode of arrival: EMS Limitations: no limitations History of Present Illness HPI narrative: 47-year-old male history of alcohol abuse patient admitted to drinking alcohol today appear to be intoxicated during the interview, patient feel suicidal by cutting his wrist, patient during the interview with pleasant and cooperative and talkative. Declined any visual or auditory hallucination. Related Data Home Medications Medication Instructions Recorded Confirmed empagliflozin 10 mg tablet 1 tab PO QAM 07/17/21 11/27/21 (Jardiance) Previous Rx's Medication Instructions Recorded atorvastatin 20 mg tablet 1 tab PO DAILY 30 days #30 tabs 07/24/21 escitalopram oxalate 20 mg tablet 20 mg PO DAILY 30 days #30 tabs 07/24/21 (Lexapro) glipizide 5 mg tablet, extended 5 mg PO DAILY@1700 30 days #30 tabs 07/24/21 release 24 hr metformin 1,000 mg tablet 1,000 mg PO BIDWM 30 days #60 tabs 07/24/21 Allergies Allergy/AdvReac Type Severity Reaction Status Date / Time No Known Allergies Allergy Verified 10/06/20 20:22 [No Known Allergies*] Review of Systems Review of Systems: All other systems are reviewed and are negative Constitutional: Reports as per HPI and Reports no additional constitutional complaints Eyes: Reports as per HPI and Reports no additional eye complaints Reports system reviewed and no additional complaints, except as documented Cardiovascular: Reports as per HPI and Reports no additional cardiovascular complaints Respiratory: Reports as per HPI and Reports no additional respiratory complaints Gastrointestinal: Reports as per HPI and Reports no additional gastrointestinal complaints Genitourinary: Reports no additional female genitourinary complaints Musculoskeletal: Reports no additional musculoskeletal complaints Skin/Breast: Reports system reviewed and no additional complaints, except as docu Psychiatric: Reports no additional psychiatric complaints Endocrine: Reports no additional endocrine complaints Hematologic/Lymphatic: Reports no additional hematologic/lymphatic complaints Allergic/Immunologic: Reports no additional allergic/immunologic complaints Reports system reviewed and no additional complaints, except as documented and Reports Abnormal speech present [facility] Past Medical History Medical History Alcohol abuse Alcohol use disorder, mild, abuse Diabetes MDD (major depressive disorder), recurrent episode, moderate Suicidal ideation TBI (traumatic brain injury) Social History Social History Household Members: None Housing: Apartment Do you presently have visiting nurse or other home services: No Alcohol intake: current Alcohol type: hard liquor Patient Tobacco Use Status: Former Tobacco user Advance Directives: No Advance Directives Information Provided: No service: No Sexual orientation: Don't Know Physical Exam ED Vital Signs: Vital Signs - 24 hr 07/10/22 17:13 07/10/22 17:59 07/10/22 21:37 Temperature 98.4 F 98.0 F Pulse Rate 102 H 89 Respiratory Rate 16 16 16 Blood Pressure 155/95 H 116/59 L Pulse Oximetry 97 95 Oxygen Delivery Method Room Air Room Air BMI result Body Mass Index 39.4 Vital signs have been reviewed as appeared to be correct. Blood pressure elevated. Heart rate elevated. Respiration rate normal. Temperature normal. Oxygen saturation normal. Appearance: Alert. Oriented X3. No acute distress. Head: Normal external exam. Normocephalic. Atraumatic. No Wolf signs noted. No raccoon eyes noted Eyes: PERRLA. EOMI. Conjunctiva and sclera normal. Eyelids normal. ENT: TM's Normal. Pharynx normal. Uvula midline. Moist mucous membranes. No trismus noted. No drooling noted. No muffled voice noted. Neck: Normal inspection. Neck supple. FROM. No adenopathy. Thyroid Normal. No meningeal signs. No neck mass noted. CVS: Normal heart rate and rhythm. Heart sound normal. No murmurs noted. Pulses normal throughout. Respiratory: No respiratory distress. Painless inspiration. Breath sounds normal. No wheezes/rales/rhonchi noted. Chest nontender. No accessory muscle usage noted or decreased air movement noted. Abdomen: Soft and nontender. Bowel sounds normal in all 4 quadrants. No distention noted. No organomegaly noted. No visible injury noted. Back: No CVA tenderness. Full range of motion noted. Skin: Skin warm and dry. Normal skin color. Normal skin turgor. No rashes/lesions/lacerations noted. Extremities: No lower extremity edema. Extremities exhibit normal range of motion. Extremities nontender. Neuro: Oriented X 3. Cranial nerve exam: II-XII are grossly intact No motor deficit. No sensory deficit. Reflexes normal. Patient Orientation: Person, Place, Time and Situation, okay hygiene and grooming. Fair eye contact, attentive, no tics or tremors. Level of Consciousness: Awake, Appropriate and Alert Patient Behavior: Appropriate, Guarded, Cooperative and Anxious Mood Description: Constricted, Blunted and Apprehensive Affect Description: Constricted, Blunted and Apprehensive Patient Cognition Impaired: No Ability to Follow Directions: Excellent Speech Pattern: Clear, Appropriate and Spontaneous Speech, nonpressured, spontaneous with regular rate and rhythm, normal volume and prosody. No dysarthria. Memory Description: Intact, Immediate Intact and Short Term Intact Hallucinations: None Delusions: Not Present Thought Process: Intact Thought Content: positive for Intact, positive for Logical, report feeling Suicidal Ideation by cutting his wrist. and denies Homicidal Ideation. Depressive Symptoms: Not present. Judgement and Insight: Limited but adequate. Course Reevaluation(s) Reevaluation #1: Physician observation started now awaiting for care team evaluation and dispo accordingly. Time: 00:56 Medical Decision Making Differential Diagnosis Differential Diagnoses: The differential diagnosis associated with the presentation includes (Alcohol intoxication, depression, SI, medical clearance.) Lab Data MDM Lab Attestation statement: I reviewed the patient's lab results. 07/10/22 17:51 07/10/22 17:51 Labs: Lab Results 07/10/22 07/10/22 07/10/22 Range/Units 17:22 17:51 17:51 WBC 8.0 (4.8-10.8) X10*3/uL RBC 5.93 H (4.60-5.80) X10*6/uL Hgb 17.9 (14.0-18.0) g/dl Hct 49.3 (42.0-52.0) % MCV 83.1 (80.0-98.0) fL MCH 30.2 (27.0-33.0) pg MCHC 36.3 H (31.0-36.0) g/dl RDW 12.2 (11.0-16.0) % Plt Count 254 (160-400) X10*3/uL MPV 11.3 (9.4-12.4) fL Immature Gran % (Auto) 0.5 H (0.0-0.4) % Neut % (Auto) 66.5 (45-73) % Lymph % (Auto) 26.1 (20-40) % [place] % (Auto) 5.1 (2-11) % Eos % (Auto) 1.3 (0-4) % Baso % (Auto) 0.5 (0-2) % Lymph # (Auto) 2.1 (1.2-4.9) X10*3/uL [place] # (Auto) 0.4 (0.1-1.2) X10*3/uL Eos # (Auto) 0.1 (0.0-0.4) X10*3/uL Baso # (Auto) 0.0 (0.0-0.2) X10*3/uL Abs Immat Gran (auto) 0.04 H (0.00-0.03) X10*3/uL Absolute Neuts (auto) 5.3 (2.0-8.3) x10*3/uL Absolute Nucleated RBC 0.000 (0.0-0.012) X10*3/uL Nucleated RBC % (auto) 0.0 (0.0-0.2) /100WBC Sodium 141 (135-145) mmol/L Potassium 3.9 (3.3-5.1) mmol/L Chloride 108 (96-108) mmol/L Carbon Dioxide 15 L (22-29) mmol/L Anion Gap 22 H (12-20) BUN 11 (9-16) mg/dL Creatinine 0.76 (0.5-1.4) mg/dL Estim Creat Clear Calc 160.9 Estimated GFR > 60 Random Glucose 187 H (60-115) mg/dL Calcium 8.8 D (8.4-10.2) mg/dL Total Bilirubin 1.9 H (0.0-1.0) mg/dL Direct Bilirubin 0.3 (0.0-0.5) mg/dL AST 17 (5-37) U/L ALT 29 (0-40) U/L Alkaline Phosphatase 69 (39-117) U/L Total Protein 7.2 (6.5-8.0) g/dL Albumin 4.5 (3.5-5.0) g/dL Lipase 24 (8-78) U/L Urine Color Yellow Urine Appearance Clear Urine pH 5.5 (5.0-9.0) Ur Specific [place] <= 1.005 (1.005-1.025) Urine Protein Negative (Neg-Trace) mg/dL Urine Glucose (UA) >=1000 H (Negative) mg/dL Urine Ketones Trace (Negative) mg/dL Urine Blood Negative (Negative) Urine Nitrite Negative (Negative) Ur Leukocyte Esterase Negative (Negative) Urine RBC 0-2 (0-2) /HPF Urine WBC 0-5 (0-5) /HPF Ur Squamous Epith Cells 0-2 (0-2) /HPF Urine Bacteria None Seen (None Seen) Hyaline Casts 0-2 (0-2) /LPF Ethyl Alcohol mg/dL 07/10/22 Range/Units 17:51 WBC (4.8-10.8) X10*3/uL RBC (4.60-5.80) X10*6/uL Hgb (14.0-18.0) g/dl Hct (42.0-52.0) % MCV (80.0-98.0) fL MCH (27.0-33.0) pg MCHC (31.0-36.0) g/dl RDW (11.0-16.0) % Plt Count (160-400) X10*3/uL MPV (9.4-12.4) fL Immature Gran % (Auto) (0.0-0.4) % Neut % (Auto) (45-73) % Lymph % (Auto) (20-40) % [place] % (Auto) (2-11) % Eos % (Auto) (0-4) % Baso % (Auto) (0-2) % Lymph # (Auto) (1.2-4.9) X10*3/uL [place] # (Auto) (0.1-1.2) X10*3/uL Eos # (Auto) (0.0-0.4) X10*3/uL Baso # (Auto) (0.0-0.2) X10*3/uL Abs Immat Gran (auto) (0.00-0.03) X10*3/uL Absolute Neuts (auto) (2.0-8.3) x10*3/uL Absolute Nucleated RBC (0.0-0.012) X10*3/uL Nucleated RBC % (auto) (0.0-0.2) /100WBC Sodium (135-145) mmol/L Potassium (3.3-5.1) mmol/L Chloride (96-108) mmol/L Carbon Dioxide (22-29) mmol/L Anion Gap (12-20) BUN (9-16) mg/dL Creatinine (0.5-1.4) mg/dL Estim Creat Clear Calc Estimated GFR Random Glucose (60-115) mg/dL Calcium (8.4-10.2) mg/dL Total Bilirubin (0.0-1.0) mg/dL Direct Bilirubin (0.0-0.5) mg/dL AST (5-37) U/L ALT (0-40) U/L Alkaline Phosphatase (39-117) U/L Total Protein (6.5-8.0) g/dL Albumin (3.5-5.0) g/dL Lipase (8-78) U/L Urine Color Urine Appearance Urine pH (5.0-9.0) Ur Specific [place] (1.005-1.025) Urine Protein (Neg-Trace) mg/dL Urine Glucose (UA) (Negative) mg/dL Urine Ketones (Negative) mg/dL Urine Blood (Negative) Urine Nitrite (Negative) Ur Leukocyte Esterase (Negative) Urine RBC (0-2) /HPF Urine WBC (0-5) /HPF Ur Squamous Epith Cells (0-2) /HPF Urine Bacteria (None Seen) Hyaline Casts (0-2) /LPF Ethyl Alcohol 235 mg/dL Discharge Plan Discharge Clinical Impression: Alcoholic intoxication, Depression Patient Disposition: Still a Patient Prescriptions: No Action Jardiance 10 mg tablet 1 tab PO QAM glipizide 5 mg Tablet Extended Release 24 Hr 5 mg PO DAILY@1700 30 Days Qty: 30 0RF metformin 1,000 mg Tablet 1,000 mg PO BIDWM 30 Days Qty: 60 0RF escitalopram oxalate [Lexapro] 20 mg tablet 20 mg PO DAILY 30 Days Qty: 30 0RF atorvastatin 20 mg tablet 1 tab PO DAILY 30 Days Qty: 30 0RF Interventions: [place]-Suicide Risk Severity Scale Last Done: 07/10/22 17:59
[2022-07-10 17:31] LABS: Appearance Urine Clear; Color Urine Yellow; Glucose Urine UA >=1000 mg/dL (Negative); Leukocyte Esterase Urine Negative (Negative); Nitrite Urine Negative (Negative); PH 5.5 (5.0-9.0); Specific Gravity - Urine <= 1.005 (1.005-1.025); UMIC TRIGGER UACC YES; Urine Blood Negative (Negative); Urine Ketones Trace mg/dL (Negative); Urine Protein Negative (Neg-Trace)
[2022-07-10 17:59] VITALS: RESP 16
[2022-07-10 17:59] LABS: MANUAL DIFF FLAG NO
[2022-07-10 18:09] LABS: Basophils Percent Auto 0.5 % (0-2); Eosinophils Absolute Auto 0.1 X10*3/uL (0.0-0.4); Eosinophils Percent Auto 1.3 % (0-4); Hematocrit 49.3 % (42.0-52.0); Hemoglobin 17.9 g/dl (14.0-18.0); Imm Gran Abs Auto 0.04 X10*3/uL (0.00-0.03); Imm Gran Pct Auto 0.5 % (0.0-0.4); Lymphocytes Absolute Auto 2.1 X10*3/uL (1.2-4.9); Lymphocytes Percent Auto 26.1 % (20-40); Mean Corpuscular HGB Conc 36.3 g/dl (31.0-36.0); Mean Corpuscular Hemoglobin 30.2 pg (27.0-33.0); Mean Corpuscular Volume 83.1 fL (80.0-98.0); Mean Platelet Volume 11.3 fL (9.4-12.4); Monocytes Absolute Auto 0.4 X10*3/uL (0.1-1.2); Monocytes Percent Auto 5.1 % (2-11); Neutrophils Absolute Auto 5.3 x10*3/uL (2.0-8.3); Neutrophils Percent Auto 66.5 % (45-73); Platelet Count 254 X10*3/uL (160-400); Red Blood Count 5.93 X10*6/uL (4.60-5.80); Red Cell Distribution Width 12.2 % (11.0-16.0)
[2022-07-10 18:10] LABS: Bacteria Urine None Seen (None Seen); Hyaline Casts Urine 0-2 /LPF (0-2); RBC Urine 0-2 /HPF (0-2); Squamous Epithelial Cell Urine 0-2 /HPF (0-2); WBC Urine 0-5 /HPF (0-5)
[2022-07-10 18:14] LABS: Ethanol 235 mg/dL
--- NOTE | 2022-07-10 18:24 | PC.NURSE ---
Alert and oriented, resp even and unlabored. Pt reports feeling depressed over the loss of his cat who passed around [place] last year. States he has a therapist that he regularly follows up with and has an appointment with her this coming Tuesday. Resting comfortably in bed, offering no complaints.
[2022-07-10 18:31] LABS: Alanine Aminotransferase 29 U/L (0-40); Albumin Level 4.5 g/dL (3.5-5.0); Alkaline Phosphatase 69 U/L (39-117); Anion Gap 22 (12-20); Aspartate Amino Transferase 17 U/L (5-37); Bilirubin Direct 0.3 mg/dL (0.0-0.5); Bilirubin Total 1.9 mg/dL (0.0-1.0); Blood Urea Nitrogen 11 mg/dL (9-16); Calcium 8.8 mg/dL (8.4-10.2); Carbon Dioxide 15 mmol/L (22-29); Chloride 108 mmol/L (96-108); Creatinine Clr Calc Pharmacy 160.9; Estimated Glomerular Filt Rate > 60; Glucose Random 187 mg/dL (60-115); Lipase 24 U/L (8-78); Potassium 3.9 mmol/L (3.3-5.1); Sodium 141 mmol/L (135-145); Total Protein 7.2 g/dL (6.5-8.0)
--- NOTE | 2022-07-10 18:32 | PC.NURSE ---
Dinner tray provided for pt.
--- NOTE | 2022-07-10 18:58 | MHC.RECOVSUP ---
? Reason for consult:Recovery Support o Current location: ED6 o Identified substance use concern:Possible AUD ? ? Additional information: Consult with Provider before entry. Pt. states he doesn't have any issues with alcohol at this time.
--- NOTE | 2022-07-10 19:08 | PC.NURSE ---
assumed care of pt no apparent distress resting quietly while watching tv
[2022-07-10 21:37] VITALS: BP 116/59; PULSE 89; RESP 16; TEMP 36.7; O2SAT 95
--- NOTE | 2022-07-11 01:20 | PC.NURSE ---
notified Dr Jurado of [facility] score 0
[2022-07-11 01:52] LABS: Amphetamine Screen Urine Not Detected (Not Detect); Barbiturates, Urine Not Detected (Not Detect); Benzodiazepines Screen Urine Not Detected (Not Detect); Cannabinoid Screen Urine Not Detected (Not Detect); Cocaine Screen Urine Not Detected (Not Detect); Fentanyl, urine Not Detected (Not Detect); Opiate Screen Urine Not Detected (Not Detect); Phencyclidine Screen Urine Not Detected (Not Detect)
[2022-07-11 06:32] VITALS: BP 122/64; PULSE 72; RESP 14; TEMP 36.4; O2SAT 94
--- NOTE | 2022-07-11 06:37 | PC.NURSE ---
pt resting quietly while watching tv, requested a sandwich and denisse afshan- provided
--- NOTE | 2022-07-11 07:57 | PC.NURSE ---
CIWA assessed on pt. pt at this time denies SI/HI. asked about AVH - pt stating If I say yes do I get to stay here longer? . pt reports having services at home that he uses when he needs . he appears superficially bright, sarcastic. he is cooperative and alert and oriented. resting in bed at this time, waiting to see CARE team.
[2022-07-11 12:40] VITALS: BP 154/91; PULSE 85; RESP 16; TEMP 36.7; O2SAT 97
[2022-07-11 15:02] VITALS: BP 145/81; PULSE 78; RESP 16; TEMP 36.7; O2SAT 96
== END 2022-07-11 16:04 | disposition home or self-care (01) ==
PROVIDERS: Emergency Provider Emergency Medicine
DX: F10.220 Alcohol dependence with intoxication, uncomplicated (principal); Y90.7 Blood alcohol level of 200-239 mg/100 ml; F32.9 Major depressive disorder, single episode, unspecified; R45.851 Suicidal ideations; E11.9 Type 2 diabetes mellitus without complications; Z87.820 Personal history of traumatic brain injury; Z79.84 Long term (current) use of oral hypoglycemic drugs; Z79.02 Long term (current) use of antithrombotics/antiplatelets; Z79.899 Other long term (current) drug therapy
CPT/HCPCS: 36415; 80048; 80076; 80307; 81001; 82077; 83690; 85025; 99285

== ENCOUNTER 2022-08-02 04:36 | Emergency (ER) | payer OTHER, SELFPAY ==
[2022-08-02 04:45] VITALS: BP 110/69; BP 142/78; PULSE 114; PULSE 130; RESP 16; TEMP 37.2; O2SAT 95; BMI 25.8
--- NOTE | 2022-08-02 04:55 | PC.NURSE ---
Security at bedside for changeover.
--- NOTE | 2022-08-02 05:25 | ED_ITS ---
HPI - Psych General Chief Complaint: Psychiatric Symptoms Stated Complaint: SEC 12,SI,CALM/COOP,ETOH USE PER EMS Time Seen by Provider: 08/02/22 05:20 Source: patient and EMS Mode of arrival: EMS Limitations: other (Intoxication) History of Present Illness HPI Narrative: Patient comes to the emergency room complaining sessile ideation. Patient states that he would hang himself. Patient reported that he drank alcohol prior to arrival. Patient was Section 12 by police department and patient was brought to the emergency room. Patient denies any chest pain shortness of breath, no URI or UTI symptoms. Patient states that he ran out of medications 2 days ago. Patient states that he was supposed to follow-up with his therapist and he overslept for his appointment Related Data Home Medications Medication Instructions Recorded Confirmed empagliflozin 10 mg tablet 1 tab PO QAM 07/17/21 11/27/21 (Jardiance) Previous Rx's Medication Instructions Recorded atorvastatin 20 mg tablet 1 tab PO DAILY 30 days #30 tabs 07/24/21 escitalopram oxalate 20 mg tablet 20 mg PO DAILY 30 days #30 tabs 07/24/21 (Lexapro) glipizide 5 mg tablet, extended 5 mg PO DAILY@1700 30 days #30 tabs 07/24/21 release 24 hr metformin 1,000 mg tablet 1,000 mg PO BIDWM 30 days #60 tabs 07/24/21 Allergies Allergy/AdvReac Type Severity Reaction Status Date / Time No Known Allergies Allergy Verified 10/06/20 20:22 [No Known Allergies*] Review of Systems Review of Systems: Constitutional : No Weight loss, No Fever, No Chills, No Night Sweats, No Fatigue, No Malaise ENT/Mouth : No Hearing loss, No Ear Pain, No Nasal Congestion, No Sinus Pain, No Hoarseness, No sore throat, No Rhinorrhea, No Swallowing Difficulty Eyes: No Eye Pain, No Swelling, No Redness, No Foreign Body, No Discharge, No Vision Changes Cardiovascular : No Chest Pain, No SOB, No Dyspnea on Exertion, No Orthopnea, No Edema, No Palpitations Respiratory : No Cough, No Sputum, No Wheezing, No Smoke Exposure, No Dyspnea Gastrointestinal : No Nausea, No Vomiting, No Diarrhea, No Constipation, No abdominal Pain, No Hematochezia, No Melena Genitourinary : no irregular bleeding, No Dysuria, No Urinary Frequency, No Hematuria, No Urinary Incontinence, No Urgency, No Flank Pain, No Urinary Flow Changes, No Hesitancy Musculoskeletal : No joint pain, No Myalgias, No Joint Swelling Skin : No Skin Lesions, No rash Neuro : No Weakness, No Numbness, No Paresthesias, No Loss of Consciousness, No Dizziness, No Headache Psych : No anxiety, complaining of depression, suicidal ideation, no homicidal ideation, admits to drinking alcohol prior to arrival Heme/Lymph: No Bruising, No Bleeding,No Lymphadenopathy Endocrine : No Polyuria, No Polydipsia, No Temperature Intolerance [facility] Past Medical History Medical History Alcohol abuse Alcohol use disorder, mild, abuse Diabetes MDD (major depressive disorder), recurrent episode, moderate Suicidal ideation TBI (traumatic brain injury) Social History Social History Household Members: None Housing: Apartment Do you presently have visiting nurse or other home services: No Alcohol intake: current Alcohol type: hard liquor Patient Tobacco Use Status: Former Tobacco user service: No Sexual orientation: Don't Know Physical Exam Vital Signs: Vital Signs: Last Vital Signs Temp 99.0 F 08/02/22 04:45 Pulse 114 H 08/02/22 04:45 Resp 16 08/02/22 04:45 BP 110/69 08/02/22 04:45 Pulse Ox 95 08/02/22 04:45 O2 Del Method 08/02/22 04:45 BMI result Body Mass Index 25.8 Const: Other: Appearance: Alert. Oriented X3. No acute distress. Intoxicated but coherent Eyes: Pupils equal, round and reactive to light. ENT: Pharynx normal. Neck: Normal inspection. Neck supple. No lymph nodes noted. No crepitus CVS: Normal heart rate and rhythm. Pulses normal. Normal S1 and S2 Respiratory: No respiratory distress. Breath sounds normal. No Wheezing. No rales Abdomen: Soft and nontender. No rigidity. No distention. Skin: Skin warm and dry. Normal skin color. Normal skin turgor. Extremities: No lower extremity edema. No Lacerations. No Rash Neuro: Oriented X 3. No motor deficit. No sensory deficit. Moving all extremities. No slurred speech. CN 2 through 12 grossly intact Psych: calm, cooperative, normal affect Course Course Course Narrative: -basic labs pending -care team consult pending -physician observation started at 05:30 -sign-out given to Dr. Gar Discharge Plan Discharge Clinical Impression: Alcohol intoxication, Suicidal ideation Patient Disposition: Still a Patient Prescriptions: No Action Jardiance 10 mg tablet 1 tab PO QAM glipizide 5 mg Tablet Extended Release 24 Hr 5 mg PO DAILY@1700 30 Days Qty: 30 0RF metformin 1,000 mg Tablet 1,000 mg PO BIDWM 30 Days Qty: 60 0RF escitalopram oxalate [Lexapro] 20 mg tablet 20 mg PO DAILY 30 Days Qty: 30 0RF atorvastatin 20 mg tablet 1 tab PO DAILY 30 Days Qty: 30 0RF
[2022-08-02 06:10] LABS: MANUAL DIFF FLAG NO
[2022-08-02 06:14] LABS: Glucose, Whole Blood 269 mg/dL (60-115)
[2022-08-02 06:14] LABS: Basophils Percent Auto 0.5 % (0-2); Eosinophils Absolute Auto 0.1 X10*3/uL (0.0-0.4); Eosinophils Percent Auto 2.1 % (0-4); Hematocrit 46.5 % (42.0-52.0); Hemoglobin 17.1 g/dl (14.0-18.0); Imm Gran Abs Auto 0.02 X10*3/uL (0.00-0.03); Imm Gran Pct Auto 0.3 % (0.0-0.4); Lymphocytes Absolute Auto 1.9 X10*3/uL (1.2-4.9); Lymphocytes Percent Auto 31.3 % (20-40); Mean Corpuscular HGB Conc 36.8 g/dl (31.0-36.0); Mean Corpuscular Hemoglobin 30.6 pg (27.0-33.0); Mean Corpuscular Volume 83.2 fL (80.0-98.0); Mean Platelet Volume 10.7 fL (9.4-12.4); Monocytes Absolute Auto 0.3 X10*3/uL (0.1-1.2); Monocytes Percent Auto 4.7 % (2-11); Neutrophils Absolute Auto 3.7 x10*3/uL (2.0-8.3); Neutrophils Percent Auto 61.1 % (45-73); Platelet Count 288 X10*3/uL (160-400); Red Blood Count 5.59 X10*6/uL (4.60-5.80); Red Cell Distribution Width 12.5 % (11.0-16.0); White Blood Count 6.1 X10*3/uL (4.8-10.8)
[2022-08-02 06:16] VITALS: BP 110/54; PULSE 105; RESP 18; TEMP 36.8; O2SAT 93
[2022-08-02 06:25] LABS: COVID-19 Test Negative (Negative); IDNOW Serial# 6674DD1D
[2022-08-02 06:31] LABS: Alanine Aminotransferase 32 U/L (0-40); Albumin Level 4.1 g/dL (3.5-5.0); Alkaline Phosphatase 65 U/L (39-117); Anion Gap 23 (12-20); Aspartate Amino Transferase 15 U/L (5-37); Bilirubin Direct 0.4 mg/dL (0.0-0.5); Bilirubin Total 2.1 mg/dL (0.0-1.0); Blood Urea Nitrogen 8 mg/dL (9-16); Calcium 9.1 mg/dL (8.4-10.2); Carbon Dioxide 18 mmol/L (22-29); Chloride 101 mmol/L (96-108); Creatinine Clr Calc Pharmacy 136.1; Estimated Glomerular Filt Rate > 60; Ethanol 181 mg/dL; Sodium 138 mmol/L (135-145)
[2022-08-02 06:35] LABS: Glucose Random 359 mg/dL (60-115)
[2022-08-02 07:17] VITALS: BP 114/60; PULSE 97; RESP 16; TEMP 37.4; O2SAT 95
[2022-08-02 07:18] LABS: Glucose, Whole Blood 329 mg/dL (60-115)
--- NOTE | 2022-08-02 07:38 | PC.NURSE ---
pt is a/o x 4 no sob/yevgeniy noted speaks in full sentences. denies any si/hi. 1:1 sitter at bedside. pt aware of plan of care.
[2022-08-02 09:15] VITALS: BP 132/67; PULSE 102; RESP 13; TEMP 37.6; O2SAT 94
[2022-08-02 09:42] LABS: Amphetamine Screen Urine Not Detected (Not Detect); Barbiturates, Urine Not Detected (Not Detect); Benzodiazepines Screen Urine Not Detected (Not Detect); Cannabinoid Screen Urine Not Detected (Not Detect); Cocaine Screen Urine Not Detected (Not Detect); Fentanyl, urine Not Detected (Not Detect); Opiate Screen Urine Not Detected (Not Detect); Phencyclidine Screen Urine Not Detected (Not Detect)
--- NOTE | 2022-08-02 10:36 | PHA.MEDREC ---
Pharmacy Consult ? Medication Reconciliation Pharmacy has completed the medication reconciliation. Pt poor historian, he was able to name some meds but I asked about them not being filled for quite some time. Admits to being nonadherent. Will continue as patient stated
[2022-08-02 11:39] VITALS: BP 128/72; PULSE 90; RESP 12; TEMP 37.1; O2SAT 97
[2022-08-02] MEDS: metFORMIN HCl 1,000 MG TABLET 1000 MG PO (11:41)
[2022-08-02] MEDS: Escitalopram Oxalate 20 MG TABLET PO (11:41)
[2022-08-02] MEDS: Atorvastatin Calcium 20 MG TABLET PO (11:41)
[2022-08-02] MEDS: Empagliflozin 10 MG TABLET PO (11:41)
[2022-08-02 13:30] VITALS: BP 133/85; PULSE 106; RESP 12; O2SAT 98
== END 2022-08-02 13:33 | disposition home or self-care (01) ==
PROVIDERS: Emergency Provider Emergency Medicine
DX: F33.1 Major depressive disorder, recurrent, moderate (principal); F10.229 Alcohol dependence with intoxication, unspecified; R45.851 Suicidal ideations; E11.9 Type 2 diabetes mellitus without complications; Y90.8 Blood alcohol level of 240 mg/100 ml or more; Z87.891 Personal history of nicotine dependence; Z20.822 Contact with and (suspected) exposure to COVID-19; Z20.828 Contact with and (suspected) exposure to other viral communicable diseases; Z79.899 Other long term (current) drug therapy; Z79.4 Long term (current) use of insulin
CPT/HCPCS: 80048; 80076; 80307; 82077; 82947; 85025; 87635; 99285; S9485

== ENCOUNTER 2022-10-15 03:33 | Emergency (ER) | payer OTHER, SELFPAY ==
[2022-10-15 03:40] VITALS: BP 157/83; PULSE 107; RESP 18; TEMP 36.8; O2SAT 96; BMI 28.7
--- NOTE | 2022-10-15 03:49 | PC.NURSE ---
Pt changed into hospital attire, and sitter initiated.
--- NOTE | 2022-10-15 03:50 | ED.PSYCH ---
HPI - Psych General Chief Complaint: Psychiatric Symptoms Stated Complaint: SI Time Seen by Provider: 10/15/22 03:36 Source: patient and EMS Mode of arrival: EMS Limitations: other (Intoxicated) History of Present Illness HPI Narrative: Patient comes to the emergency room via ambulance for alcohol intoxication, suicidal ideation. Patient was Section 12 by police department, patient said to the police that he wanted to cut his wrist to end his life. Related Data Home Medications Medication Instructions Recorded Confirmed empagliflozin 10 mg tablet 1 tab PO QAM 07/17/21 10/15/22 (Jardiance) bupropion HCl 150 mg 24 hr tablet, 150 mg PO QAM 10/15/22 10/15/22 extended release Previous Rx's Medication Instructions Recorded atorvastatin 20 mg tablet 1 tab PO DAILY 30 days #30 tabs 07/24/21 escitalopram oxalate 20 mg tablet 20 mg PO DAILY 30 days #30 tabs 07/24/21 (Lexapro) glipizide 5 mg tablet, extended 5 mg PO DAILY@1700 30 days #30 tabs 07/24/21 release 24 hr metformin 1,000 mg tablet 1,000 mg PO BIDWM 30 days #60 tabs 07/24/21 Allergies Allergy/AdvReac Type Severity Reaction Status Date / Time No Known Allergies Allergy Verified 10/15/22 03:40 [No Known Allergies*] Review of Systems Review of Systems: Constitutional : No Weight loss, No Fever, No Chills, No Night Sweats, No Fatigue, No Malaise ENT/Mouth : No Hearing loss, No Ear Pain, No Nasal Congestion, No Sinus Pain, No Hoarseness, No sore throat, No Rhinorrhea, No Swallowing Difficulty Eyes: No Eye Pain, No Swelling, No Redness, No Foreign Body, No Discharge, No Vision Changes Cardiovascular : No Chest Pain, No SOB, No Dyspnea on Exertion, No Orthopnea, No Edema, No Palpitations Respiratory : No Cough, No Sputum, No Wheezing, No Smoke Exposure, No Dyspnea Gastrointestinal : No Nausea, No Vomiting, No Diarrhea, No Constipation, No abdominal Pain, No Hematochezia, No Melena Genitourinary : no irregular bleeding, No Dysuria, No Urinary Frequency, No Hematuria, No Urinary Incontinence, No Urgency, No Flank Pain, No Urinary Flow Changes, No Hesitancy Musculoskeletal : No joint pain, No Myalgias, No Joint Swelling Skin : No Skin Lesions, No rash Neuro : No Weakness, No Numbness, No Paresthesias, No Loss of Consciousness, No Dizziness, No Headache Psych : Complaining of suicidal ideation, admits to drinking alcohol Heme/Lymph: No Bruising, No Bleeding,No Lymphadenopathy Endocrine : No Polyuria, No Polydipsia, No Temperature Intolerance PMFSH Past Medical History Medical History Alcohol abuse Alcohol use disorder, mild, abuse Diabetes MDD (major depressive disorder), recurrent episode, moderate Suicidal ideation TBI (traumatic brain injury) Social History Social History Household Members: None Housing: Apartment Do you presently have visiting nurse or other home services: No Alcohol intake: never Patient Tobacco Use Status: Former Tobacco user Advance Directives: No Advance Directives Information Provided: Yes service: No Sexual orientation: Don't Know Physical Exam Vital Signs: Vital Signs: Last Vital Signs Temp 97.9 F 10/15/22 07:20 Pulse 103 H 10/15/22 13:50 Resp 16 10/15/22 13:50 BP 137/71 10/15/22 13:50 Pulse Ox 94 10/15/22 13:50 O2 Del Method Room Air 10/15/22 13:50 BMI result Body Mass Index 28.7 Const: Other: Appearance: Alert. Oriented X3. No acute distress. Intoxicated Eyes: Pupils equal, round and reactive to light. ENT: Pharynx normal. Neck: Normal inspection. Neck supple. No lymph nodes noted. No crepitus CVS: Normal heart rate and rhythm. Pulses normal. Normal S1 and S2 Respiratory: No respiratory distress. Breath sounds normal. No Wheezing. No rales Abdomen: Soft and nontender. No rigidity. No distention. Skin: Skin warm and dry. Normal skin color. Normal skin turgor. Extremities: No lower extremity edema. No Lacerations. No Rash Neuro: Oriented X 3. No motor deficit. No sensory deficit. Moving all extremities. No slurred speech. CN 2 through 12 grossly intact Psych: calm, cooperative, intoxicated, very talkative Course Course Course Narrative: -intoxicated, calm and cooperative -labs pending -care team consult pending -patient on a Section 12 it was started by police department -Physician observations started at 03:50 10/15/22--0709--physician observation continued. Mildly tachycardic. Labs reviewed. Pending CARE team evaluation -[id number]--patient was evaluated by CARE team and cleared for discharge. No evidence of ETOH withdrawal at this time, ambulating steady, tolerating p.o. Medical Decision Making Lab Data 10/15/22 10:44 10/15/22 10:44 Labs: Lab Results 10/15/22 10/15/22 10/15/22 Range/Units 04:01 04:01 04:02 WBC (4.8-10.8) X10*3/uL RBC (4.60-5.80) X10*6/uL Hgb (14.0-18.0) g/dl Hct (42.0-52.0) % MCV (80.0-98.0) fL MCH (27.0-33.0) pg MCHC (31.0-36.0) g/dl RDW (11.0-16.0) % Plt Count (160-400) X10*3/uL MPV (9.4-12.4) fL Immature Gran % (Auto) (0.0-0.4) % Neut % (Auto) (45-73) % Lymph % (Auto) (20-40) % [place] % (Auto) (2-11) % Eos % (Auto) (0-4) % Baso % (Auto) (0-2) % Lymph # (Auto) (1.2-4.9) X10*3/uL [place] # (Auto) (0.1-1.2) X10*3/uL Eos # (Auto) (0.0-0.4) X10*3/uL Baso # (Auto) (0.0-0.2) X10*3/uL Abs Immat Gran (auto) (0.00-0.03) X10*3/uL Absolute Neuts (auto) (2.0-8.3) x10*3/uL Absolute Nucleated RBC (0.0-0.012) X10*3/uL Nucleated RBC % (auto) (0.0-0.2) /100WBC Sodium (135-145) mmol/L Potassium (3.3-5.1) mmol/L Chloride (96-108) mmol/L Carbon Dioxide (22-29) mmol/L Anion Gap (12-20) BUN (9-16) mg/dL Creatinine (0.5-1.4) mg/dL Estim Creat Clear Calc Estimated GFR Random Glucose (60-115) mg/dL Calcium (8.4-10.2) mg/dL Total Bilirubin (0.0-1.0) mg/dL AST (5-37) U/L ALT (0-40) U/L Alkaline Phosphatase (39-117) U/L Total Protein (6.5-8.0) g/dL Albumin (3.5-5.0) g/dL Urine Color Urine Appearance Urine pH (5.0-9.0) Ur Specific [place] (1.005-1.025) Urine Protein (Neg-Trace) mg/dL Urine Glucose (UA) (Negative) mg/dL Urine Ketones (Negative) mg/dL Urine Blood (Negative) Urine Nitrite (Negative) Ur Leukocyte Esterase (Negative) Urine RBC (0-2) /HPF Urine WBC (0-5) /HPF Ur Squamous Epith Cells (0-2) /HPF Urine Bacteria (None Seen) Hyaline Casts (0-2) /LPF Urine Opiates Screen Not Detected (Not Detect) Urine Fentanyl Screen Not Detected (Not Detect) Ur Barbiturates Screen Not Detected (Not Detect) Ur Phencyclidine Scrn Not Detected (Not Detect) Ur Amphetamines Screen Not Detected (Not Detect) U Benzodiazepines Scrn Not Detected (Not Detect) Urine Cocaine Screen Not Detected (Not Detect) U Marijuana (THC) Screen Not Detected (Not Detect) Ethyl Alcohol 275 mg/dL COVID-19 (ARLENE) Negative (Negative) COVID-19 Clin Com See Note 10/15/22 10/15/22 10/15/22 Range/Units 08:06 10:44 10:44 WBC 5.1 (4.8-10.8) X10*3/uL RBC 5.69 (4.60-5.80) X10*6/uL Hgb 17.4 (14.0-18.0) g/dl Hct 48.0 (42.0-52.0) % MCV 84.4 (80.0-98.0) fL MCH 30.6 (27.0-33.0) pg MCHC 36.3 H (31.0-36.0) g/dl RDW 12.3 (11.0-16.0) % Plt Count 276 (160-400) X10*3/uL MPV 10.5 (9.4-12.4) fL Immature Gran % (Auto) 0.2 (0.0-0.4) % Neut % (Auto) 60.6 (45-73) % Lymph % (Auto) 29.8 (20-40) % [place] % (Auto) 7.2 (2-11) % Eos % (Auto) 1.4 (0-4) % Baso % (Auto) 0.8 (0-2) % Lymph # (Auto) 1.5 (1.2-4.9) X10*3/uL [place] # (Auto) 0.4 (0.1-1.2) X10*3/uL Eos # (Auto) 0.1 (0.0-0.4) X10*3/uL Baso # (Auto) 0.0 (0.0-0.2) X10*3/uL Abs Immat Gran (auto) 0.01 (0.00-0.03) X10*3/uL Absolute Neuts (auto) 3.1 (2.0-8.3) x10*3/uL Absolute Nucleated RBC 0.000 (0.0-0.012) X10*3/uL Nucleated RBC % (auto) 0.0 (0.0-0.2) /100WBC Sodium 139 (135-145) mmol/L Potassium 4.4 (3.3-5.1) mmol/L Chloride 105 (96-108) mmol/L Carbon Dioxide 19 L (22-29) mmol/L Anion Gap 19 (12-20) BUN 9 (9-16) mg/dL Creatinine 0.77 (0.5-1.4) mg/dL Estim Creat Clear Calc 135.7 Estimated GFR > 60 Random Glucose 332 H (60-115) mg/dL Calcium 9.4 (8.4-10.2) mg/dL Total Bilirubin 2.4 H (0.0-1.0) mg/dL AST 15 (5-37) U/L ALT 30 (0-40) U/L Alkaline Phosphatase 60 (39-117) U/L Total Protein 7.1 (6.5-8.0) g/dL Albumin 4.2 (3.5-5.0) g/dL Urine Color Yellow Urine Appearance Clear Urine pH 5.5 (5.0-9.0) Ur Specific [place] >= 1.030 H (1.005-1.025) Urine Protein Negative (Neg-Trace) mg/dL Urine Glucose (UA) >=1000 H (Negative) mg/dL Urine Ketones 15 (Negative) mg/dL Urine Blood Negative (Negative) Urine Nitrite Negative (Negative) Ur Leukocyte Esterase Negative (Negative) Urine RBC 0-2 (0-2) /HPF Urine WBC 6-10 (0-5) /HPF Ur Squamous Epith Cells 0-2 (0-2) /HPF Urine Bacteria None Seen (None Seen) Hyaline Casts 0-2 (0-2) /LPF Urine Opiates Screen (Not Detect) Urine Fentanyl Screen (Not Detect) Ur Barbiturates Screen (Not Detect) Ur Phencyclidine Scrn (Not Detect) Ur Amphetamines Screen (Not Detect) U Benzodiazepines Scrn (Not Detect) Urine Cocaine Screen (Not Detect) U Marijuana (THC) Screen (Not Detect) Ethyl Alcohol mg/dL COVID-19 (ARLENE) (Negative) COVID-19 Clin Com Discharge Plan Discharge Clinical Impression: Suicidal ideation, Alcohol intoxication Patient Disposition: Still a Patient Prescriptions: No Action Jardiance 10 mg tablet 1 tab PO QAM glipizide 5 mg Tablet Extended Release 24 Hr 5 mg PO DAILY@1700 30 Days Qty: 30 0RF metformin 1,000 mg Tablet 1,000 mg PO BIDWM 30 Days Qty: 60 0RF escitalopram oxalate [Lexapro] 20 mg tablet 20 mg PO DAILY 30 Days Qty: 30 0RF atorvastatin 20 mg tablet 1 tab PO DAILY 30 Days Qty: 30 0RF bupropion HCl 150 mg tablet extended release 24 hr 150 mg PO QAM Interventions: [place]-Suicide Risk Severity Scale Last Done: 10/15/22 05:24
[2022-10-15 04:22] LABS: COVID-19 Test Negative (Negative); IDNOW Serial# 6674DD1D
[2022-10-15 04:23] LABS: Amphetamine Screen Urine Not Detected (Not Detect); Barbiturates, Urine Not Detected (Not Detect); Benzodiazepines Screen Urine Not Detected (Not Detect); Cannabinoid Screen Urine Not Detected (Not Detect); Cocaine Screen Urine Not Detected (Not Detect); Fentanyl, urine Not Detected (Not Detect); Opiate Screen Urine Not Detected (Not Detect); Phencyclidine Screen Urine Not Detected (Not Detect)
[2022-10-15 04:28] LABS: Ethanol 275 mg/dL
[2022-10-15 05:53] VITALS: RESP 18
[2022-10-15 07:20] VITALS: BP 128/76; PULSE 96; RESP 18; TEMP 36.6; O2SAT 94
--- NOTE | 2022-10-15 07:22 | PC.NURSE ---
Resumed care of this patient, he denies having thoughts are cutting this morning, stating he has had SI thoughts before but never had a plan, 1:[address], pharmacy at bedside to review medications
--- NOTE | 2022-10-15 07:32 | PHA.MEDREC ---
Pharmacy Consult ? Medication Reconciliation Pharmacy has completed the medication reconciliation. patient states he is still taking the glipizide, Jardiance, and metformin but doesn't match claim history
[2022-10-15 08:14] LABS: Appearance Urine Clear; Color Urine Yellow; Glucose Urine UA >=1000 mg/dL (Negative); Leukocyte Esterase Urine Negative (Negative); Nitrite Urine Negative (Negative); PH 5.5 (5.0-9.0); Specific Gravity - Urine >= 1.030 (1.005-1.025); UMIC TRIGGER UA YES; Urine Blood Negative (Negative); Urine Ketones 15 mg/dL (Negative); Urine Protein Negative (Neg-Trace)
[2022-10-15 08:27] LABS: Bacteria Urine None Seen (None Seen); Hyaline Casts Urine 0-2 /LPF (0-2); RBC Urine 0-2 /HPF (0-2); Squamous Epithelial Cell Urine 0-2 /HPF (0-2)
[2022-10-15 09:36] VITALS: BP 129/69; PULSE 91; RESP 16; O2SAT 93
[2022-10-15 10:47] LABS: MANUAL DIFF FLAG NO
[2022-10-15 10:51] LABS: Basophils Percent Auto 0.8 % (0-2); Eosinophils Absolute Auto 0.1 X10*3/uL (0.0-0.4); Eosinophils Percent Auto 1.4 % (0-4); Hemoglobin 17.4 g/dl (14.0-18.0); Imm Gran Abs Auto 0.01 X10*3/uL (0.00-0.03); Imm Gran Pct Auto 0.2 % (0.0-0.4); Lymphocytes Absolute Auto 1.5 X10*3/uL (1.2-4.9); Lymphocytes Percent Auto 29.8 % (20-40); Mean Corpuscular HGB Conc 36.3 g/dl (31.0-36.0); Mean Corpuscular Hemoglobin 30.6 pg (27.0-33.0); Mean Corpuscular Volume 84.4 fL (80.0-98.0); Mean Platelet Volume 10.5 fL (9.4-12.4); Monocytes Absolute Auto 0.4 X10*3/uL (0.1-1.2); Monocytes Percent Auto 7.2 % (2-11); Neutrophils Absolute Auto 3.1 x10*3/uL (2.0-8.3); Neutrophils Percent Auto 60.6 % (45-73); Platelet Count 276 X10*3/uL (160-400); Red Blood Count 5.69 X10*6/uL (4.60-5.80); Red Cell Distribution Width 12.3 % (11.0-16.0); White Blood Count 5.1 X10*3/uL (4.8-10.8)
[2022-10-15 11:06] LABS: Alanine Aminotransferase 30 U/L (0-40); Albumin Level 4.2 g/dL (3.5-5.0); Alkaline Phosphatase 60 U/L (39-117); Anion Gap 19 (12-20); Aspartate Amino Transferase 15 U/L (5-37); Bilirubin Total 2.4 mg/dL (0.0-1.0); Blood Urea Nitrogen 9 mg/dL (9-16); Calcium 9.4 mg/dL (8.4-10.2); Carbon Dioxide 19 mmol/L (22-29); Chloride 105 mmol/L (96-108); Creatinine Clr Calc Pharmacy 135.7; Estimated Glomerular Filt Rate > 60; Glucose Random 332 mg/dL (60-115); Potassium 4.4 mmol/L (3.3-5.1); Sodium 139 mmol/L (135-145); Total Protein 7.1 g/dL (6.5-8.0)
[2022-10-15 13:50] VITALS: BP 137/71; PULSE 103; RESP 16; O2SAT 94
== END 2022-10-15 14:28 | disposition home or self-care (01) ==
PROVIDERS: Emergency Provider Emergency Medicine
DX: R45.851 Suicidal ideations (principal); F10.120 Alcohol abuse with intoxication, uncomplicated; Y90.8 Blood alcohol level of 240 mg/100 ml or more; R00.0 Tachycardia, unspecified; Z20.822 Contact with and (suspected) exposure to COVID-19; E11.9 Type 2 diabetes mellitus without complications; F32.9 Major depressive disorder, single episode, unspecified; Z87.820 Personal history of traumatic brain injury; Z87.891 Personal history of nicotine dependence; Z79.02 Long term (current) use of antithrombotics/antiplatelets; Z79.84 Long term (current) use of oral hypoglycemic drugs; Z79.899 Other long term (current) drug therapy
CPT/HCPCS: 36415; 80053; 80307; 81001; 85025; 87635; 99285; S9485

== ENCOUNTER 2022-10-19 14:05 | Inpatient (IN) | payer OTHER, SELFPAY ==
[2022-10-19 14:18] VITALS: BP 126/88; BP 142/80; PULSE 108; PULSE 120; RESP 18; TEMP 35.8; O2SAT 100; O2SAT 97; BMI 25.8
--- NOTE | 2022-10-19 14:32 | ED_ITS ---
HPI - Psych General Chief Complaint: Psychiatric Symptoms Stated Complaint: CRISIS,SI Time Seen by Provider: 10/19/22 14:27 Source: patient Mode of arrival: EMS Limitations: no limitations History of Present Illness HPI Narrative: Patient comes to the emergency room via ambulance. Patient states that he called 911 because he is feeling like he is having ?psychotic break down? patient states that he is feeling suicidal, decided to come to the hospital before feeling truly suicidal. Patient states that he would like to be admitted for a few days. Denies homicidal ideation. Jesus complaints. Related Data Home Medications Medication Instructions Recorded Confirmed empagliflozin 10 mg tablet 1 tab PO QAM 07/17/21 10/19/22 (Jardiance) bupropion HCl 150 mg 24 hr tablet, 150 mg PO QAM 10/15/22 10/19/22 extended release glipizide 5 mg tablet, extended 5 mg PO DAILY@1200 10/19/22 10/19/22 release 24 hr metformin 1,000 mg tablet 1,000 mg PO BID 10/19/22 10/19/22 Previous Rx's Medication Instructions Recorded atorvastatin 20 mg tablet 1 tab PO DAILY 30 days #30 tabs 07/24/21 escitalopram oxalate 20 mg tablet 20 mg PO DAILY 30 days #30 tabs 07/24/21 (Lexapro) Allergies Allergy/AdvReac Type Severity Reaction Status Date / Time No Known Allergies Allergy Verified 10/19/22 15:48 [No Known Allergies*] Review of Systems Review of Systems: Constitutional : No Weight loss, No Fever, No Chills, No Night Sweats, No Fatigue, No Malaise ENT/Mouth : No Hearing loss, No Ear Pain, No Nasal Congestion, No Sinus Pain, No Hoarseness, No sore throat, No Rhinorrhea, No Swallowing Difficulty Eyes: No Eye Pain, No Swelling, No Redness, No Foreign Body, No Discharge, No Vision Changes Cardiovascular : No Chest Pain, No SOB, No Dyspnea on Exertion, No Orthopnea, No Edema, No Palpitations Respiratory : No Cough, No Sputum, No Wheezing, No Smoke Exposure, No Dyspnea Gastrointestinal : No Nausea, No Vomiting, No Diarrhea, No Constipation, No abdominal Pain, No Hematochezia, No Melena Genitourinary : no irregular bleeding, No Dysuria, No Urinary Frequency, No Hematuria, No Urinary Incontinence, No Urgency, No Flank Pain, No Urinary Flow Changes, No Hesitancy Musculoskeletal : No joint pain, No Myalgias, No Joint Swelling Skin : No Skin Lesions, No rash Neuro : No Weakness, No Numbness, No Paresthesias, No Loss of Consciousness, No Dizziness, No Headache Psych : No Anxiety/Panic, complaining of suicidal thoughts, admits to drinking alcohol, denies HI Heme/Lymph: No Bruising, No Bleeding,No Lymphadenopathy Endocrine : No Polyuria, No Polydipsia, No Temperature Intolerance [facility] Past Medical History Medical History Alcohol abuse Alcohol use disorder, mild, abuse Diabetes MDD (major depressive disorder), recurrent episode, moderate Suicidal ideation TBI (traumatic brain injury) Social History Social History Household Members: None Housing: Apartment Do you presently have visiting nurse or other home services: No Alcohol intake: current Alcohol intake frequency: a few times a month Alcohol type: other Patient Tobacco Use Status: Former Tobacco user Smoked in Last 30 Days: No Use of substances other than those prescribed or required for medical reasons: Yes Substance Use Type: Marijuana Substance Use Frequency: Chronic Longstanding Last Used Substance: Unknown Any prior treatment program specific to substance use: No Advance Directives: No Advance Directives Information Provided: No service: No Sexual orientation: Don't Know Physical Exam Vital Signs: Vital Signs: Last Vital Signs Temp 96.4 F L 10/19/22 14:18 Pulse 120 H 10/19/22 14:18 Resp 18 10/19/22 14:18 BP 126/88 10/19/22 14:18 Pulse Ox 97 10/19/22 14:18 O2 Del Method Room Air 10/19/22 16:29 BMI result Body Mass Index 25.8 Const: Other: Appearance: Alert. Oriented X3. No acute distress. Eyes: Pupils equal, round and reactive to light. ENT: Pharynx normal. Neck: Normal inspection. Neck supple. No lymph nodes noted. No crepitus CVS: Normal heart rate and rhythm. Pulses normal. Normal S1 and S2 Respiratory: No respiratory distress. Breath sounds normal. No Wheezing. No rales Abdomen: Soft and nontender. No rigidity. No distention. Skin: Skin warm and dry. Normal skin color. Normal skin turgor. Extremities: No lower extremity edema. No Lacerations. No Rash Neuro: Oriented X 3. No motor deficit. No sensory deficit. Moving all extremities. No slurred speech. CN 2 through 12 grossly intact Psych: calm, cooperative, normal affect Course Course Course Narrative: -labs pending -care team consult pending -physician observations started at 14:33 Medical Decision Making Medical Decision Making MDM Narrative: -patient's glucose 392 Lab Data 10/19/22 15:39 10/19/22 15:39 Labs: Lab Results 10/19/22 10/19/22 Range/Units 14:37 15:39 WBC 6.2 (4.8-10.8) X10*3/uL RBC 5.84 H (4.60-5.80) X10*6/uL Hgb 18.4 H (14.0-18.0) g/dl Hct 49.7 (42.0-52.0) % MCV 85.1 (80.0-98.0) fL MCH 31.5 (27.0-33.0) pg MCHC 37.0 H (31.0-36.0) g/dl RDW 12.0 (11.0-16.0) % Plt Count 301 (160-400) X10*3/uL MPV 10.7 (9.4-12.4) fL Immature Gran % (Auto) 0.3 (0.0-0.4) % Neut % (Auto) 61.1 (45-73) % Lymph % (Auto) 30.0 (20-40) % [place] % (Auto) 6.9 (2-11) % Eos % (Auto) 1.1 (0-4) % Baso % (Auto) 0.6 (0-2) % Lymph # (Auto) 1.9 (1.2-4.9) X10*3/uL [place] # (Auto) 0.4 (0.1-1.2) X10*3/uL Eos # (Auto) 0.1 (0.0-0.4) X10*3/uL Baso # (Auto) 0.0 (0.0-0.2) X10*3/uL Abs Immat Gran (auto) 0.02 (0.00-0.03) X10*3/uL Absolute Neuts (auto) 3.8 (2.0-8.3) x10*3/uL Absolute Nucleated RBC 0.000 (0.0-0.012) X10*3/uL Nucleated RBC % (auto) 0.0 (0.0-0.2) /100WBC Urine Opiates Screen Not Detected (Not Detect) Urine Fentanyl Screen Not Detected (Not Detect) Ur Barbiturates Screen Not Detected (Not Detect) Ur Phencyclidine Scrn Not Detected (Not Detect) Ur Amphetamines Screen Not Detected (Not Detect) U Benzodiazepines Scrn Not Detected (Not Detect) Urine Cocaine Screen Not Detected (Not Detect) U Marijuana (THC) Screen Not Detected (Not Detect) Discharge Plan Discharge Clinical Impression: Suicidal ideation, Alcohol abuse Patient Disposition: Still a Patient Prescriptions: No Action Jardiance 10 mg tablet 1 tab PO QAM escitalopram oxalate [Lexapro] 20 mg tablet 20 mg PO DAILY 30 Days Qty: 30 0RF atorvastatin 20 mg tablet 1 tab PO DAILY 30 Days Qty: 30 0RF glipizide 5 mg tablet extended release 24hr 5 mg PO DAILY@1200 metformin 1,000 mg tablet 1,000 mg PO BID bupropion HCl 150 mg tablet extended release 24 hr 150 mg PO QAM Interventions: [place]-Suicide Risk Severity Scale Last Done: 10/19/22 16:26
[2022-10-19 15:18] LABS: Amphetamine Screen Urine Not Detected (Not Detect); Barbiturates, Urine Not Detected (Not Detect); Benzodiazepines Screen Urine Not Detected (Not Detect); Cannabinoid Screen Urine Not Detected (Not Detect); Cocaine Screen Urine Not Detected (Not Detect); Fentanyl, urine Not Detected (Not Detect); Opiate Screen Urine Not Detected (Not Detect); Phencyclidine Screen Urine Not Detected (Not Detect)
[2022-10-19 15:52] LABS: MANUAL DIFF FLAG NO
[2022-10-19 15:56] LABS: Basophils Percent Auto 0.6 % (0-2); Eosinophils Absolute Auto 0.1 X10*3/uL (0.0-0.4); Eosinophils Percent Auto 1.1 % (0-4); Hematocrit 49.7 % (42.0-52.0); Hemoglobin 18.4 g/dl (14.0-18.0); Imm Gran Abs Auto 0.02 X10*3/uL (0.00-0.03); Imm Gran Pct Auto 0.3 % (0.0-0.4); Lymphocytes Absolute Auto 1.9 X10*3/uL (1.2-4.9); Mean Corpuscular Hemoglobin 31.5 pg (27.0-33.0); Mean Corpuscular Volume 85.1 fL (80.0-98.0); Mean Platelet Volume 10.7 fL (9.4-12.4); Monocytes Absolute Auto 0.4 X10*3/uL (0.1-1.2); Monocytes Percent Auto 6.9 % (2-11); Neutrophils Absolute Auto 3.8 x10*3/uL (2.0-8.3); Neutrophils Percent Auto 61.1 % (45-73); Platelet Count 301 X10*3/uL (160-400); Red Blood Count 5.84 X10*6/uL (4.60-5.80); White Blood Count 6.2 X10*3/uL (4.8-10.8)
[2022-10-19 16:33] LABS: Alanine Aminotransferase 35 U/L (0-40); Albumin Level 4.8 g/dL (3.5-5.0); Alkaline Phosphatase 65 U/L (39-117); Anion Gap 19 (12-20); Aspartate Amino Transferase 19 U/L (5-37); Bilirubin Direct 0.7 mg/dL (0.0-0.5); Bilirubin Total 3.5 mg/dL (0.0-1.0); Blood Urea Nitrogen 7 mg/dL (9-16); Calcium 9.8 mg/dL (8.4-10.2); Carbon Dioxide 23 mmol/L (22-29); Chloride 101 mmol/L (96-108); Creatinine Clr Calc Pharmacy 98.2; Estimated Glomerular Filt Rate > 60; Ethanol 151 mg/dL; Glucose Random 392 mg/dL (60-115); Magnesium 1.9 mg/dL (1.6-2.6); Potassium 4.5 mmol/L (3.3-5.1); Sodium 138 mmol/L (135-145); Total Protein 7.8 g/dL (6.5-8.0)
[2022-10-19 17:18] LABS: COVID-19 Test Negative (Negative); IDNOW Serial# 08D9AD1C
[2022-10-19] MEDS: Atorvastatin Calcium 20 MG TABLET PO (19:18)
[2022-10-19] MEDS: metFORMIN HCl 1,000 MG TABLET 1000 MG PO (19:18)
[2022-10-19] MEDS: Escitalopram Oxalate 20 MG TABLET PO (19:18)
[2022-10-19 19:22] LABS: Glucose, Whole Blood 357 mg/dL (60-115)
[2022-10-19] MEDS: Empagliflozin 10 MG TABLET PO (19:40)
[2022-10-19] MEDS: glipiZIDE XL 5 MG TAB.ER.24 PO (19:40)
[2022-10-20 03:30] VITALS: BP 152/93; PULSE 87; RESP 18; TEMP 36.8; O2SAT 97
--- NOTE | 2022-10-20 05:14 | PC.NURSE ---
Patient's repeat POC was 357 @ 1853, patient is not on any insulin but PO antidiabetic meds/med rec completed/ provider notified/ ordered to administer po meds/Metformin 1000 mg + Jardiance 10 mg + Glipizide 5 mg administered at 1940, patient slept through the night, no distress observed/reported, encourage PO fluids, patient engaged well with care team, disposition is section 12 inpatient bed search, behavior non concerning, medication compliant, VSS, will continue to monitor.
[2022-10-20 05:56] LABS: Glucose, Whole Blood 289 mg/dL (60-115)
--- NOTE | 2022-10-20 07:00 | PC.NURSE ---
patient appears to remain asleep at present respirations are even and unlabored patient appears in no distress
[2022-10-20] MEDS: Atorvastatin Calcium 20 MG TABLET PO (08:14)
[2022-10-20] MEDS: metFORMIN HCl 1,000 MG TABLET 1000 MG PO ×2 (08:14→18:22)
[2022-10-20] MEDS: buPROPion HCl XL 150 MG TAB.ER.24H PO (08:14)
[2022-10-20] MEDS: Escitalopram Oxalate 20 MG TABLET PO (08:14)
--- NOTE | 2022-10-20 14:17 | PC.NURSE ---
Nurse to Nurse given to ANJALI JAY on M3.
[2022-10-20 14:19] VITALS: BP 127/78; PULSE 81; RESP 16; TEMP 36.3; O2SAT 99
[2022-10-20 17:20] VITALS: BP 134/76; PULSE 83; RESP 18; TEMP 36.3; O2SAT 98
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
--- NOTE | 2022-10-20 22:53 | PC.NURSE ---
review of ER documentation-has elevated POC. no POC oredered at this time. refused when request to have POC taken. is on metformin.
[2022-10-21 08:39] LABS: Glucose, Whole Blood 365 mg/dL (60-115)
[2022-10-21] MEDS: buPROPion HCl XL 150 MG TAB.ER.24H PO (08:44)
[2022-10-21] MEDS: Escitalopram Oxalate 20 MG TABLET PO (08:45)
[2022-10-21] MEDS: metFORMIN HCl 1,000 MG TABLET 1000 MG PO ×2 (08:45→16:08)
[2022-10-21] MEDS: Atorvastatin Calcium 20 MG TABLET PO (08:45)
[2022-10-21] MEDS: Empagliflozin 10 MG TABLET PO (08:45)
[2022-10-21 10:00] VITALS: BP 154/77; PULSE 97; RESP 18; TEMP 36.7; O2SAT 98
[2022-10-21 10:09] LABS: Estimated Average Glucose 186 mg/dL; Hemoglobin A1c % 8.1 %
[2022-10-21 12:06] LABS: Alanine Aminotransferase 29 U/L (0-40); Albumin Level 4.4 g/dL (3.5-5.0); Alkaline Phosphatase 63 U/L (39-117); Anion Gap 18 (12-20); Aspartate Amino Transferase 11 U/L (5-37); Bilirubin Total 2.2 mg/dL (0.0-1.0); Blood Urea Nitrogen 12 mg/dL (9-16); Calcium 9.7 mg/dL (8.4-10.2); Carbon Dioxide 25 mmol/L (22-29); Chloride 95 mmol/L (96-108); Cholesterol 216 mg/dL; Creatinine Clr Calc Pharmacy 105.8; Estimated Glomerular Filt Rate > 60; Glucose Fasting 393 mg/dL (60-99); HDL Cholesterol 39 mg/dL; LDL Cholesterol Calculated 130 mg/dl; Potassium 4.8 mmol/L (3.3-5.1); Sodium 133 mmol/L (135-145); Total Protein 7.2 g/dL (6.5-8.0); Triglycerides 236 mg/dL
[2022-10-21] MEDS: glipiZIDE XL 5 MG TAB.ER.24 PO (12:20)
[2022-10-21 12:33] LABS: Folate 16.5 ng/mL (> or = 4.0); Free T4 (Free Thyroxine) 0.97 ng/dL (0.71-1.85); Thyroid Stimulating Hormone 1.34 uIU/mL (0.32-4.0); Vitamin B12 358 pg/mL (200-900)
[2022-10-21 13:15] VITALS: BMI 27.9
[2022-10-21 13:30] VITALS: BP 145/71; PULSE 93; O2SAT 99
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
[2022-10-21 21:45] VITALS: BP 122/75; PULSE 80; RESP 18; TEMP 36.2; O2SAT 97
[2022-10-21 21:50] LABS: Glucose, Whole Blood 247 mg/dL (60-115)
[2022-10-22 08:00] VITALS: BP 135/99; PULSE 75; RESP 16; TEMP 36.3; O2SAT 99
[2022-10-22 08:21] LABS: Glucose, Whole Blood 315 mg/dL (60-115)
[2022-10-22] MEDS: Atorvastatin Calcium 20 MG TABLET PO (09:30)
[2022-10-22] MEDS: buPROPion HCl XL 150 MG TAB.ER.24H PO (09:30)
[2022-10-22] MEDS: metFORMIN HCl 1,000 MG TABLET 1000 MG PO ×2 (09:30→17:06)
[2022-10-22] MEDS: Escitalopram Oxalate 20 MG TABLET PO (09:30)
[2022-10-22] MEDS: Empagliflozin 10 MG TABLET PO (09:31)
--- NOTE | 2022-10-22 10:51 | P.PNPSI_ITS ---
Subjective Subjective Date of Service: 10/22/22 Reason For Visit: psychiatric emergency Interim History: calm, cooperative. feeling generally improved. planning for discharge on tuesday. denies safety issues. per staff, 3-day notice in. no groups. dep 2, denies anxiety. slept eves. slept until 299, then up and about. FSBS 247 at HS. 2, 1, 1 for CIWAs. Mental Status Exam Mental Status Exam Narrative: A&O. In hospital attire, hair unkempt, overweight. Good eye contact, attentive. No Tics or Tremors. No abnormal involuntary movements. Calm, cooperative, engaged. speech incr rate and amount, nml loudness and latency. No dysarthria. Mood is ?a lot better,? affect is euthymic/congruent. Currently denies SI/SIB/HI/AVH. Thoughts are concrete, rigid. Appears to have cognitive impairment/developmental delay. Insight/ Judgment limited. Diagnostics Vital Signs (24Hr): Vital Signs - 24 hr 10/21/22 13:30 10/21/22 21:45 10/22/22 08:00 Temperature 97.2 F 97.4 F Pulse Rate 93 80 75 Respiratory Rate 18 16 Blood Pressure 145/71 H 122/75 135/99 H Pulse Oximetry 99 97 99 Oxygen Delivery Method Room Air Room Air BMI result Body Mass Index 27.9 Labs 10/19/22 15:39 10/21/22 09:03 Labs: Laboratory Results - last 48 hr 10/21/22 10/21/22 10/21/22 08:35 09:03 09:03 Sodium 133 L Potassium 4.8 Chloride 95 L Carbon Dioxide 25 Anion Gap 18 BUN 12 Creatinine 0.90 Estim Creat Clear Calc 105.8 Estimated GFR > 60 POC Glucose 365 H* Fasting Glucose 393 H* Estimat Average Glucose 186 Hemoglobin A1c % 8.1 Calcium 9.7 Total Bilirubin 2.2 H AST 11 ALT 29 Alkaline Phosphatase 63 Total Protein 7.2 Albumin 4.4 Triglycerides 236 Cholesterol 216 LDL Cholesterol, Calc 130 HDL Cholesterol 39 Vitamin B12 358 Folate 16.5 TSH 1.34 Free T4 0.97 10/21/22 10/22/22 21:45 08:18 Sodium Potassium Chloride Carbon Dioxide Anion Gap BUN Creatinine Estim Creat Clear Calc Estimated GFR POC Glucose 247 H 315 H Fasting Glucose Estimat Average Glucose Hemoglobin A1c % Calcium Total Bilirubin AST ALT Alkaline Phosphatase Total Protein Albumin Triglycerides Cholesterol LDL Cholesterol, Calc HDL Cholesterol Vitamin B12 Folate TSH Free T4 Medications Medications Current Medications Acetaminophen (Acetaminophen 325 Mg Tablet) 650 mg PO Q6H PRN PRN Reason: Headache/Pain Mild Scale (1-3) Al Hydroxide/Mg Hydroxide (Magnesium Hydrox/Alum Hydrox 30 Ml Oral.Susp) 30 ml PO Q6H PRN PRN Reason: Heartburn/Nausea Atorvastatin Calcium (Atorvastatin Calcium 20 Mg Tablet) 20 mg PO DAILY [facility] Last Admin: 10/22/22 09:30 Dose: 20 mg Bupropion HCl (Bupropion Hcl Xl 150 Mg Tab.Er.24h) 150 mg PO DAILY [facility] Last Admin: 10/22/22 09:30 Dose: 150 mg Empagliflozin (Empagliflozin 10 Mg Tablet) 10 mg PO DAILY [facility] Last Admin: 10/22/22 09:31 Dose: 10 mg Escitalopram Oxalate (Escitalopram Oxalate 20 Mg Tablet) 20 mg PO DAILY [facility] Last Admin: 10/22/22 09:30 Dose: 20 mg Glipizide (Glipizide Xl 5 Mg Tab.Er.24) 5 mg PO DAILY@1200 [facility] Last Admin: 10/21/22 12:20 Dose: 5 mg Hydroxyzine HCl (Hydroxyzine Hcl 25 Mg Tablet) 25 mg PO Q6H PRN PRN Reason: Anxiety Lorazepam (Lorazepam 1 Mg Tablet) 1 mg PO Q2H PRN PRN Reason: CIWA 8-11 Lorazepam (Lorazepam 1 Mg Tablet) 2 mg PO Q2H PRN PRN Reason: CIWA 12-15 Lorazepam (Lorazepam 1 Mg Tablet) 3 mg PO Q2H PRN PRN Reason: CIWA > 15; and call Magnesium Hydroxide (Milk Of Magnesia 30 Ml Oral.Susp) 30 ml PO DAILY PRN PRN Reason: Constipation Metformin HCl (Metformin Hcl 1,000 Mg Tablet) 1,000 mg PO BIDWM [facility] Last Admin: 10/22/22 09:30 Dose: 1,000 mg Nicotine Polacrilex (Nicotine Polacrilex 2 Mg Gum) 4 mg BUCCAL Q2H PRN PRN Reason: Nicotine Cravings Trazodone HCl (Trazodone Hcl 50 Mg Tablet) 50 mg PO BEDTIME MRX1 PRN PRN Reason: Insomnia Allergies Allergies Allergy/AdvReac Type Severity Reaction Status Date / Time No Known Allergies Allergy Verified 10/19/22 15:48 [No Known Allergies*] Assessment & Plan Assessment & Plan (1) Alcohol abuse: Status: Acute Code(s): F10.10 - Alcohol abuse, uncomplicated (2) Depression: Qualifiers: Depression Type: unspecified Qualified Code(s): F32.A - Depression, unspecified Status: Inactive Code(s): F32.A - Depression, unspecified Plan 10/21: continue current medications, per pt request. allow several days respite, for reconstitution. discharge to outpt care tuesday per pt request. ativan per CIWA in the meantime as a precaution. 10/22: stable, improved. discharge tuesday. discharge instructions and order are completed. CARE team to order [employer] for pt on tuesday morning. Reason for continued inpatient stay Substantial Risk for: inability to function and rapid decompensation Time Spent With Patient Time: Total time managing care of this patient today _35___ minutes.
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
[2022-10-22 12:46] LABS: Glucose, Whole Blood 211 mg/dL (60-115)
[2022-10-22] MEDS: glipiZIDE XL 5 MG TAB.ER.24 PO (12:52)
[2022-10-22 17:13] LABS: Glucose, Whole Blood 272 mg/dL (60-115)
[2022-10-22 21:55] LABS: Glucose, Whole Blood 241 mg/dL (60-115)
[2022-10-22 22:12] VITALS: BP 122/70; PULSE 92; TEMP 36.1; O2SAT 96
[2022-10-23 08:01] VITALS: BP 154/76; PULSE 96; RESP 18; TEMP 36.3; O2SAT 98
[2022-10-23 08:14] LABS: Glucose, Whole Blood 343 mg/dL (60-115)
[2022-10-23] MEDS: metFORMIN HCl 1,000 MG TABLET 1000 MG PO ×2 (09:00→17:42)
[2022-10-23] MEDS: Atorvastatin Calcium 20 MG TABLET PO (09:00)
[2022-10-23] MEDS: buPROPion HCl XL 150 MG TAB.ER.24H PO (09:00)
[2022-10-23] MEDS: Escitalopram Oxalate 20 MG TABLET PO (09:01)
[2022-10-23] MEDS: Empagliflozin 10 MG TABLET PO (09:01)
[2022-10-23] MEDS: glipiZIDE XL 5 MG TAB.ER.24 PO (12:24)
--- NOTE | 2022-10-23 13:34 | HO.PSYCHPN ---
Subjective Subjective Date of Service: 10/23/22 Reason For Visit: psychiatric emergency Subjective Notes: Conditional Voluntary Interim History: The nursing staff reported the patient has been pleasant and cooperative, he scored 0 on the CIWA for today's in a row. He had been social but with poor hygiene. On interview the patient denies new symptoms he is excited that he is going to be discharged tomorrow. Mental Status Exam Mental Status Exam Patient Appearance: Appropriate Patient Orientation: Person and Situation Level of Consciousness: Awake and Appropriate Patient Behavior: Guarded and Passive Mood Description: Withdrawn Affect Description: Constricted Patient Cognition Impaired: Yes Ability to Follow Directions: Good Speech Pattern: Clear Hallucinations: None Delusions: Not Present Thought Process: Linear Thought Content: positive for Circumstantial Judgement: Fair Diagnostics Vital Signs (24Hr): Vital Signs - 24 hr 10/22/22 22:12 10/23/22 08:01 Temperature 96.9 F 97.4 F Pulse Rate 92 96 Respiratory Rate 18 Blood Pressure 122/70 154/76 H Pulse Oximetry 96 98 Oxygen Delivery Method Room Air Room Air BMI result Body Mass Index 27.9 Labs 10/19/22 15:39 10/21/22 09:03 Labs: Laboratory Results - last 48 hr 10/21/22 10/22/22 10/22/22 21:45 08:18 12:42 POC Glucose 247 H 315 H 211 H 10/22/22 10/22/22 10/23/22 17:05 21:49 08:11 POC Glucose 272 H 241 H 343 H Medications Medications Current Medications Acetaminophen (Acetaminophen 325 Mg Tablet) 650 mg PO Q6H PRN PRN Reason: Headache/Pain Mild Scale (1-3) Al Hydroxide/Mg Hydroxide (Magnesium Hydrox/Alum Hydrox 30 Ml Oral.Susp) 30 ml PO Q6H PRN PRN Reason: Heartburn/Nausea Atorvastatin Calcium (Atorvastatin Calcium 20 Mg Tablet) 20 mg PO DAILY [facility] Last Admin: 10/23/22 09:00 Dose: 20 mg Bupropion HCl (Bupropion Hcl Xl 150 Mg Tab.Er.24h) 150 mg PO DAILY [facility] Last Admin: 10/23/22 09:00 Dose: 150 mg Empagliflozin (Empagliflozin 10 Mg Tablet) 10 mg PO DAILY [facility] Last Admin: 10/23/22 09:01 Dose: 10 mg Escitalopram Oxalate (Escitalopram Oxalate 20 Mg Tablet) 20 mg PO DAILY [facility] Last Admin: 10/23/22 09:01 Dose: 20 mg Glipizide (Glipizide Xl 5 Mg Tab.Er.24) 5 mg PO DAILY@1200 [facility] Last Admin: 10/23/22 12:24 Dose: 5 mg Hydroxyzine HCl (Hydroxyzine Hcl 25 Mg Tablet) 25 mg PO Q6H PRN PRN Reason: Anxiety Lorazepam (Lorazepam 1 Mg Tablet) 1 mg PO Q2H PRN PRN Reason: CIWA 8-11 Lorazepam (Lorazepam 1 Mg Tablet) 2 mg PO Q2H PRN PRN Reason: CIWA 12-15 Lorazepam (Lorazepam 1 Mg Tablet) 3 mg PO Q2H PRN PRN Reason: CIWA > 15; and call Magnesium Hydroxide (Milk Of Magnesia 30 Ml Oral.Susp) 30 ml PO DAILY PRN PRN Reason: Constipation Metformin HCl (Metformin Hcl 1,000 Mg Tablet) 1,000 mg PO BIDWM [facility] Last Admin: 10/23/22 09:00 Dose: 1,000 mg Nicotine Polacrilex (Nicotine Polacrilex 2 Mg Gum) 4 mg BUCCAL Q2H PRN PRN Reason: Nicotine Cravings Trazodone HCl (Trazodone Hcl 50 Mg Tablet) 50 mg PO BEDTIME MRX1 PRN PRN Reason: Insomnia Allergies Allergies Allergy/AdvReac Type Severity Reaction Status Date / Time No Known Allergies Allergy Verified 10/19/22 15:48 [No Known Allergies*] Assessment & Plan Assessment & Plan (1) Alcohol abuse: Status: Acute Code(s): F10.10 - Alcohol abuse, uncomplicated (2) Depression: Qualifiers: Depression Type: unspecified Qualified Code(s): F32.A - Depression, unspecified Status: Inactive Code(s): F32.A - Depression, unspecified Plan 10/21: continue current medications, per pt request. allow several days respite, for reconstitution. discharge to outpt care tuesday per pt request. ativan per CIWA in the meantime as a precaution. 10/22: stable, improved. discharge tuesday. discharge instructions and order are completed. CARE team to order Lyft for pt on tuesday. 10/23 no changes, discharge tomorrow Reason for continued inpatient stay Substantial Risk for: inability to function, rapid decompensation and med/psych decompensation Time Spent With Patient Time: Total time managing care of this patient today __20__ minutes.
[2022-10-23 21:42] VITALS: BP 131/95; PULSE 91; TEMP 36.6; O2SAT 98
[2022-10-23 21:43] LABS: Glucose, Whole Blood 230 mg/dL (60-115)
[2022-10-24 08:49] LABS: Glucose, Whole Blood 198 mg/dL (60-115)
[2022-10-24 09:00] VITALS: BP 137/77; PULSE 85; RESP 16; TEMP 36.7; O2SAT 99
[2022-10-24] MEDS: buPROPion HCl XL 150 MG TAB.ER.24H PO (09:14)
[2022-10-24] MEDS: metFORMIN HCl 1,000 MG TABLET 1000 MG PO (09:14)
[2022-10-24] MEDS: Empagliflozin 10 MG TABLET PO (09:14)
[2022-10-24] MEDS: Atorvastatin Calcium 20 MG TABLET PO (09:14)
[2022-10-24] MEDS: Escitalopram Oxalate 20 MG TABLET PO (09:14)
[2022-10-24] MEDS: glipiZIDE XL 5 MG TAB.ER.24 PO (11:55)
--- NOTE | 2022-10-24 12:24 | PC.NURSE ---
Amos is alert, fully oriented, pleasant and cooperative with discharge process. He denies hallucinations and did not voice delusional thought content. He denies ideation, plan or intent to harm self or others. He verbalizes understanding that he should refrain from using alcohol to maximize benefit of prescribed medications. He verbalizes understanding of prescribed medications and upcoming appointments. He denies current physical complaint.
== END 2022-10-24 12:05 | disposition home or self-care (01) | DRG 881 ==
LOC: HO.ED 15:12 → HO.PADLT16 10-20 15:26
PROVIDERS: Admitting Provider Psychiatry & Neurology Psychiatry; Emergency Provider Emergency Medicine; Visit Provider Psychiatry & Neurology Psychiatry
DX: F32.A Depression, unspecified (principal); R45.851 Suicidal ideations; E11.9 Type 2 diabetes mellitus without complications; Y90.6 Blood alcohol level of 120-199 mg/100 ml; F10.129 Alcohol abuse with intoxication, unspecified; E66.3 Overweight; Z20.822 Contact with and (suspected) exposure to COVID-19; Z87.820 Personal history of traumatic brain injury; Z68.27 Body mass index [BMI] 27.0-27.9, adult; Z87.891 Personal history of nicotine dependence; Z79.84 Long term (current) use of oral hypoglycemic drugs; Z79.899 Other long term (current) drug therapy
CPT/HCPCS: 36415; 80048; 80053; 80061; 80076; 80307; 82607; 82746; 82947; 83036; 83735; 84439; 84443; 85025; 87635; 99285; S9485

== ENCOUNTER 2022-12-08 00:56 | Emergency (ER) | payer OTHER, SELFPAY ==
[2022-12-08 01:00] VITALS: BP 148/87; PULSE 123; RESP 18; TEMP 37.2; O2SAT 95; BMI 29.5
[2022-12-08 01:36] LABS: Appearance Urine Clear; Color Urine Yellow; Glucose Urine UA >=1000 mg/dL (Negative); Leukocyte Esterase Urine Negative (Negative); Nitrite Urine Negative (Negative); PH 5.5 (5.0-9.0); Specific Gravity - Urine 1.025 (1.005-1.025); UMIC TRIGGER UA YES; Urine Blood Negative (Negative); Urine Ketones 15 mg/dL (Negative); Urine Protein Trace mg/dL (Neg-Trace)
[2022-12-08 01:42] LABS: Bacteria Urine None Seen (None Seen); Hyaline Casts Urine 0-2 /LPF (0-2); RBC Urine 0-2 /HPF (0-2); Squamous Epithelial Cell Urine 0-2 /HPF (0-2); WBC Urine 0-5 /HPF (0-5)
[2022-12-08 01:46] LABS: Amphetamine Screen Urine Not Detected (Not Detect); Barbiturates, Urine Not Detected (Not Detect); Benzodiazepines Screen Urine Not Detected (Not Detect); Cannabinoid Screen Urine Not Detected (Not Detect); Cocaine Screen Urine Not Detected (Not Detect); Fentanyl, urine Not Detected (Not Detect); Opiate Screen Urine Not Detected (Not Detect); Phencyclidine Screen Urine Not Detected (Not Detect)
[2022-12-08 01:55] LABS: Basophils Percent Auto 0.4 % (0-2); Eosinophils Absolute Auto 0.1 X10*3/uL (0.0-0.4); Eosinophils Percent Auto 1.3 % (0-4); Hematocrit 47.8 % (42.0-52.0); Hemoglobin 17.4 g/dl (14.0-18.0); Imm Gran Abs Auto 0.03 X10*3/uL (0.00-0.03); Imm Gran Pct Auto 0.4 % (0.0-0.4); Lymphocytes Absolute Auto 1.9 X10*3/uL (1.2-4.9); Lymphocytes Percent Auto 24.9 % (20-40); MANUAL DIFF FLAG NO; Mean Corpuscular HGB Conc 36.4 g/dl (31.0-36.0); Mean Corpuscular Hemoglobin 30.9 pg (27.0-33.0); Mean Corpuscular Volume 84.8 fL (80.0-98.0); Mean Platelet Volume 11.2 fL (9.4-12.4); Monocytes Absolute Auto 0.4 X10*3/uL (0.1-1.2); Monocytes Percent Auto 4.6 % (2-11); Neutrophils Absolute Auto 5.2 x10*3/uL (2.0-8.3); Neutrophils Percent Auto 68.4 % (45-73); Platelet Count 279 X10*3/uL (160-400); Red Blood Count 5.64 X10*6/uL (4.60-5.80); Red Cell Distribution Width 12.1 % (11.0-16.0); White Blood Count 7.6 X10*3/uL (4.8-10.8)
[2022-12-08 02:12] LABS: Acetaminophen LAB < 17 mcg/mL (<30); Salicylate < 5.0 mg/dL (15-30)
--- NOTE | 2022-12-08 02:12 | ED_ITS ---
HPI - Psych General Chief Complaint: Psychiatric Symptoms Stated Complaint: ETOH and SI Time Seen by Provider: 12/08/22 01:48 Source: patient Mode of arrival: ambulatory Limitations: no limitations History of Present Illness HPI Narrative: 47-year-old male history of depression and prior inpatient psych admission for SI and alcohol intoxication. Patient drink alcohol last night typically when he drinks alcohol he feel suicidal and usually he recants his SI once he is sober. Patient has no plan to hurt himself. Patient also complaining of rash started 2 days ago on his chest and bilateral shoulder with itching, decline using any new medication or do drugs. Related Data Home Medications Medication Instructions Recorded Confirmed bupropion HCl 150 mg 24 hr tablet, 150 mg PO QAM 10/15/22 12/08/22 extended release atorvastatin 20 mg tablet 20 mg PO DAILY 12/08/22 12/08/22 empagliflozin 10 mg tablet 10 mg PO QAM 12/08/22 12/08/22 (Jardiance) glipizide 5 mg tablet, extended 5 mg PO DAILY@1200 12/08/22 12/08/22 release 24 hr metformin 1,000 mg tablet 1,000 mg PO BID 12/08/22 12/08/22 Previous Rx's Medication Instructions Recorded escitalopram oxalate 20 mg tablet 20 mg PO DAILY 30 days #30 tabs 07/24/21 (Lexapro) Allergies Allergy/AdvReac Type Severity Reaction Status Date / Time No Known Allergies Allergy Verified 10/19/22 15:48 [No Known Allergies*] Review of Systems Review of Systems: All other systems are reviewed and are negative Constitutional: Reports as per HPI and Reports no additional constitutional complaints Eyes: Reports as per HPI and Reports no additional eye complaints Reports system reviewed and no additional complaints, except as documented Cardiovascular: Reports as per HPI and Reports no additional cardiovascular complaints Respiratory: Reports as per HPI and Reports no additional respiratory complaints Gastrointestinal: Reports as per HPI and Reports no additional gastrointestinal complaints Genitourinary: Reports no additional female genitourinary complaints Musculoskeletal: Reports no additional musculoskeletal complaints Skin/Breast: Reports system reviewed and no additional complaints, except as docu Psychiatric: Reports no additional psychiatric complaints Endocrine: Reports no additional endocrine complaints Hematologic/Lymphatic: Reports no additional hematologic/lymphatic complaints Allergic/Immunologic: Reports no additional allergic/immunologic complaints Reports system reviewed and no additional complaints, except as documented and Reports Abnormal speech present PMFSH Past Medical History Medical History Alcohol abuse Alcohol use disorder, mild, abuse Depression Diabetes MDD (major depressive disorder), recurrent episode, moderate Suicidal ideation TBI (traumatic brain injury) Social History Social History Household Members: None Housing: Apartment Do you presently have visiting nurse or other home services: No Alcohol intake: current Alcohol intake frequency: a few times a month Alcohol type: other Patient Tobacco Use Status: Former Tobacco user Tobacco use type: Cigarette e-Cigarette/Vaping Use: Never Used Second Hand Smoke Exposure: No Substance Use Type: Marijuana Advance Directives: No Advance Directives Information Provided: Yes service: No Sexual orientation: Straight/Heterosexual Physical Exam Vital Signs: Vital Signs: Last Vital Signs Temp 98.9 F 12/08/22 01:00 Pulse 123 H 12/08/22 01:00 Resp 18 12/08/22 01:00 BP 148/87 H 12/08/22 01:00 Pulse Ox 95 12/08/22 01:00 O2 Del Method Room Air 12/08/22 01:00 BMI result Body Mass Index 29.5 Vital signs have been reviewed as appeared to be correct. Blood pressure normal. Heart rate normal. Respiration rate normal. Temperature normal. Oxygen saturation normal. Appearance: Alert. Oriented X3. No acute distress. Head: Normal external exam. Normocephalic. Atraumatic. No Wolf signs noted. No raccoon eyes noted Eyes: PERRLA. EOMI. Conjunctiva and sclera normal. Eyelids normal. ENT: TM's Normal. Pharynx normal. Uvula midline. Moist mucous membranes. No trismus noted. No drooling noted. No muffled voice noted. Neck: Normal inspection. Neck supple. FROM. No adenopathy. Thyroid Normal. No meningeal signs. No neck mass noted. CVS: Normal heart rate and rhythm. Heart sound normal. No murmurs noted. Pulses normal throughout. Respiratory: No respiratory distress. Painless inspiration. Breath sounds normal. No wheezes/rales/rhonchi noted. Chest nontender. No accessory muscle usage noted or decreased air movement noted. Abdomen: Soft and nontender. Bowel sounds normal in all 4 quadrants. No distention noted. No organomegaly noted. No visible injury noted. Back: No CVA tenderness. Full range of motion noted. Skin: Skin warm and dry. Normal skin color. Normal skin turgor. No rashes/lesions/lacerations noted. Extremities: No lower extremity edema. Extremities exhibit normal range of motion. Extremities nontender. Neuro: Oriented X 3. Cranial nerve exam: II-XII are grossly intact No motor deficit. No sensory deficit. Reflexes normal. Patient Orientation: Person, Place, Time and Situation, okay hygiene and grooming. Fair eye contact, attentive, no tics or tremors. Level of Consciousness: Awake, Appropriate and Alert Patient Behavior: Appropriate, Guarded, Cooperative and Anxious Mood Description: Constricted, Blunted and Apprehensive Affect Description: Constricted, Blunted and Apprehensive Patient Cognition Impaired: No Ability to Follow Directions: Excellent Speech Pattern: Clear, Appropriate and Spontaneous Speech, nonpressured, spontaneous with regular rate and rhythm, normal volume and prosody. No dys arthria. Memory Description: Intact, Immediate Intact and Short Term Intact Hallucinations: None Delusions: Not Present Thought Process: Intact Thought Content: positive for Intact, positive for Logical, admit to SI with no specific plan, denies Homicidal Ideation. Depressive Symptoms: Not present. Judgement and Insight: Limited but adequate. Course Reevaluation(s) Reevaluation #1: Feel suicidal after drinking alcohol, nonspecific rash and itching on the chest appears to be allergic, patient has type 2 diabetes on metformin/glipizide blood sugar is 300's will give extra dose of med from [place]/glipizide. I will start the patient on Benadryl p.r.n. and medical clearance to see care team. Will start physician observation in the ED. Time: 02:17 Medical Decision Making Differential Diagnosis Differential Diagnoses: The differential diagnosis associated with the presentation includes (Depression, SI, alcohol intoxication, substance abuse, allergic rashes, medical clearance.) Admission/Observation Consideration of admission/observation: Escalation of care including admission/observation considered Lab Data MDM Lab Attestation statement: I reviewed the patient's lab results. 12/08/22 01:50 12/08/22 01:50 Labs: Lab Results 12/08/22 12/08/22 12/08/22 Range/Units 01:27 01:29 01:50 WBC 7.6 (4.8-10.8) X10*3/uL RBC 5.64 (4.60-5.80) X10*6/uL Hgb 17.4 (14.0-18.0) g/dl Hct 47.8 (42.0-52.0) % MCV 84.8 (80.0-98.0) fL MCH 30.9 (27.0-33.0) pg MCHC 36.4 H (31.0-36.0) g/dl RDW 12.1 (11.0-16.0) % Plt Count 279 (160-400) X10*3/uL MPV 11.2 (9.4-12.4) fL Immature Gran % (Auto) 0.4 (0.0-0.4) % Neut % (Auto) 68.4 (45-73) % Lymph % (Auto) 24.9 (20-40) % [place] % (Auto) 4.6 (2-11) % Eos % (Auto) 1.3 (0-4) % Baso % (Auto) 0.4 (0-2) % Lymph # (Auto) 1.9 (1.2-4.9) X10*3/uL [place] # (Auto) 0.4 (0.1-1.2) X10*3/uL Eos # (Auto) 0.1 (0.0-0.4) X10*3/uL Baso # (Auto) 0.0 (0.0-0.2) X10*3/uL Abs Immat Gran (auto) 0.03 (0.00-0.03) X10*3/uL Absolute Neuts (auto) 5.2 (2.0-8.3) x10*3/uL Absolute Nucleated RBC 0.000 (0.0-0.012) X10*3/uL Nucleated RBC % (auto) 0.0 (0.0-0.2) /100WBC Urine Color Yellow Urine Appearance Clear Urine pH 5.5 (5.0-9.0) Ur Specific [place] 1.025 (1.005-1.025) Urine Protein Trace (Neg-Trace) mg/dL Urine Glucose (UA) >=1000 H (Negative) mg/dL Urine Ketones 15 (Negative) mg/dL Urine Blood Negative (Negative) Urine Nitrite Negative (Negative) Ur Leukocyte Esterase Negative (Negative) Urine RBC 0-2 (0-2) /HPF Urine WBC 0-5 (0-5) /HPF Ur Squamous Epith Cells 0-2 (0-2) /HPF Urine Bacteria None Seen (None Seen) Hyaline Casts 0-2 (0-2) /LPF Urine Opiates Screen Not Detected (Not Detect) Urine Fentanyl Screen Not Detected (Not Detect) Ur Barbiturates Screen Not Detected (Not Detect) Ur Phencyclidine Scrn Not Detected (Not Detect) Ur Amphetamines Screen Not Detected (Not Detect) U Benzodiazepines Scrn Not Detected (Not Detect) Urine Cocaine Screen Not Detected (Not Detect) U Marijuana (THC) Screen Not Detected (Not Detect) Discharge Plan Discharge Clinical Impression: Alcohol intoxication, Suicidal ideation, Hyperglycemia Patient Disposition: Still a Patient Prescriptions: No Action escitalopram oxalate [Lexapro] 20 mg tablet 20 mg PO DAILY 30 Days Qty: 30 0RF bupropion HCl 150 mg tablet extended release 24 hr 150 mg PO QAM atorvastatin 20 mg tablet 20 mg PO DAILY glipizide 5 mg Tablet Extended Release 24hr 5 mg PO DAILY@1200 metformin 1,000 mg Tablet 1,000 mg PO BID Jardiance 10 mg Tablet 10 mg PO QAM
[2022-12-08 02:14] LABS: Alanine Aminotransferase 26 U/L (0-40); Albumin Level 4.4 g/dL (3.5-5.0); Anion Gap 20 (12-20); Aspartate Amino Transferase 14 U/L (5-37); Bilirubin Total 1.4 mg/dL (0.0-1.0); Blood Urea Nitrogen 10 mg/dL (9-16); Calcium 9.8 mg/dL (8.4-10.2); Carbon Dioxide 19 mmol/L (22-29); Chloride 103 mmol/L (96-108); Creatinine Clr Calc Pharmacy 131.7; Estimated Glomerular Filt Rate > 60; Ethanol 178 mg/dL; Glucose Random 377 mg/dL (60-115); Sodium 138 mmol/L (135-145); Total Protein 7.7 g/dL (6.5-8.0)
[2022-12-08 02:23] LABS: Alkaline Phosphatase 67 U/L (39-117)
[2022-12-08] MEDS: glipiZIDE 5 MG TABLET PO (02:45)
[2022-12-08] MEDS: diphenhydrAMINE HCL 25 MG CAPSULE 50 MG PO (02:45)
[2022-12-08] MEDS: metFORMIN HCl 1,000 MG TABLET 1000 MG PO ×3 (02:45→21:28)
--- NOTE | 2022-12-08 06:29 | PC.NURSE ---
Patient slept through the night, no distress observed/reported, behavior non concerning, Blood sugar @ 0150 317, provider notified ordered Glipizide 5 mg and Metformin 1000 mg administered as ordered at 0245, patient is not on insulin, med rec completed/pending provider's approval, care consult ordered/pending evaluation, VSS, will continue to monitor.
[2022-12-08] MEDS: buPROPion HCl XL 150 MG TAB.ER.24H PO (08:47)
[2022-12-08] MEDS: Escitalopram Oxalate 20 MG TABLET PO (08:47)
[2022-12-08] MEDS: Empagliflozin 10 MG TABLET PO (09:58)
[2022-12-08] MEDS: glipiZIDE XL 5 MG TAB.ER.24 PO (13:06)
[2022-12-08 16:37] LABS: Glucose, Whole Blood 290 mg/dL (60-115)
[2022-12-08 20:30] VITALS: BP 147/76; PULSE 91; RESP 20; TEMP 37.3; O2SAT 96
[2022-12-08] MEDS: Atorvastatin Calcium 20 MG TABLET PO (21:28)
[2022-12-08 21:53] LABS: Glucose, Whole Blood 380 mg/dL (60-115)
--- NOTE | 2022-12-09 06:21 | PC.NURSE ---
Patient slept intermittently, periodically requesting for food, patient is hyperglycemic who has been refusing take insulin, compliant with diabetic PO medication, medication compliant, behavior non concerning, pending care consult, labs completed/resulted, VSS, will continue to monitor.
[2022-12-09 06:24] VITALS: RESP 17
[2022-12-09 08:01] LABS: Glucose, Whole Blood 267 mg/dL (60-115)
[2022-12-09] MEDS: metFORMIN HCl 1,000 MG TABLET 1000 MG PO (08:09)
[2022-12-09] MEDS: Empagliflozin 10 MG TABLET PO (08:09)
[2022-12-09] MEDS: Escitalopram Oxalate 20 MG TABLET PO (08:09)
[2022-12-09] MEDS: buPROPion HCl XL 150 MG TAB.ER.24H PO (08:09)
--- NOTE | 2022-12-09 14:32 | MHC.RECOVRN ---
This business writer met with patient, patient in ED for ETOH use/SI. Pt denies SI. This business writer reviewed addiction/recovery supports. Pt declined, pt reports does not identify as an alcoholic, pt reports drinks approximately 6 beers 1x weekly. Pt denies cravings, withdrawal. Reviewed findings with CM.
== END 2022-12-09 10:21 | disposition home or self-care (01) ==
PROVIDERS: Emergency Provider Emergency Medicine
DX: R45.851 Suicidal ideations (principal); F10.120 Alcohol abuse with intoxication, uncomplicated; Y90.6 Blood alcohol level of 120-199 mg/100 ml; F32.A Depression, unspecified; E11.65 Type 2 diabetes mellitus with hyperglycemia; F12.90 Cannabis use, unspecified, uncomplicated; Z87.820 Personal history of traumatic brain injury; Z87.891 Personal history of nicotine dependence; Z79.899 Other long term (current) drug therapy; Z79.84 Long term (current) use of oral hypoglycemic drugs
CPT/HCPCS: 36415; 80053; 80143; 80179; 80307; 81001; 82947; 85025; 99284; S9485

== ENCOUNTER 2022-12-26 22:59 | Emergency (ER) | payer OTHER, SELFPAY ==
[2022-12-26 23:11] VITALS: BP 128/85; BP 160/100; PULSE 110; PULSE 112; RESP 17; TEMP 36.7; O2SAT 98; BMI 25.8
[2022-12-26 23:57] LABS: Glucose, Whole Blood 334 mg/dL (60-115)
--- NOTE | 2022-12-27 00:33 | ED_ITS ---
HPI - Psych General Chief Complaint: Psychiatric Symptoms Stated Complaint: etoh crisis Time Seen by Provider: 12/26/22 23:30 Source: patient Mode of arrival: ambulatory Limitations: no limitations History of Present Illness HPI Narrative: 47-year-old male presents to the ED for 3 minutes for evaluation after drinking alcohol. Patient has no plan. Patient wants somewhere to stay. Related Data Home Medications Medication Instructions Recorded Confirmed bupropion HCl 150 mg 24 hr tablet, 150 mg PO QAM 10/15/22 12/27/22 extended release atorvastatin 20 mg tablet 20 mg PO DAILY 12/08/22 12/27/22 empagliflozin 10 mg tablet 10 mg PO QAM 12/08/22 12/27/22 (Jardiance) glipizide 5 mg tablet, extended 5 mg PO DAILY@1200 12/08/22 12/27/22 release 24 hr metformin 1,000 mg tablet 1,000 mg PO BID 12/08/22 12/27/22 Previous Rx's Medication Instructions Recorded escitalopram oxalate 20 mg tablet 20 mg PO DAILY 30 days #30 tabs 07/24/21 (Lexapro) Allergies Allergy/AdvReac Type Severity Reaction Status Date / Time No Known Allergies Allergy Verified 10/19/22 15:48 [No Known Allergies*] Review of Systems Review of Systems: Alcohol drinking. Suicidal Yes all other systems are reviewed and are negative PMFSH Past Medical History Medical History Alcohol abuse Alcohol use disorder, mild, abuse Depression Diabetes MDD (major depressive disorder), recurrent episode, moderate Suicidal ideation TBI (traumatic brain injury) Social History Social History Household Members: None Housing: Apartment Do you presently have visiting nurse or other home services: No Alcohol intake: current Alcohol intake frequency: a few times a month Alcohol type: other Patient Tobacco Use Status: Former Tobacco user Tobacco use type: Cigarette e-Cigarette/Vaping Use: Never Used Second Hand Smoke Exposure: No Use of substances other than those prescribed or required for medical reasons: Unknown Substance Use Type: Marijuana Advance Directives: No Advance Directives Information Provided: Yes Healthcare Proxy: No Guardian: No service: No Sexual orientation: Straight/Heterosexual Physical Exam Vital Signs: Vital Signs: Last Vital Signs Temp 98.1 F 12/26/22 23:11 Pulse 112 H 12/26/22 23:11 Resp 17 12/26/22 23:11 BP 128/85 12/26/22 23:11 O2 Del Method Room Air 12/26/22 23:11 BMI result Body Mass Index 25.8 Const: General: cooperative, healthy appearing, comfortable, no acute distress, well developed, alert, awake and Physically active Orientation/consciousness: oriented to person, oriented to place, oriented to time and patient oriented x3 HEENT: Head: Yes normal to inspection, Yes No palpable skull fracture present, Yes normocephalic, Yes atraumatic and No abrasion Eyes: General: appearance normal, both eyes and all related structures Neck: Neck: Yes normal visual inspection, Yes full ROM, Yes no lymphadenopathy, Yes no meningeal signs, Yes trachea midline, Yes supple, No anterior neck swelling and No tender Chest: Chest palpation & inspection: normal inspection of the chest and normal palpation of entire chest wall Resp: Effort & Inspection: normal respiratory effort and able to speak in complete sentences Auscultation: clear to auscultation bilaterally Cardio: Jugular venous distension: no JVD Heart sounds: S1 normal heart sound present and S2 normal heart sound present GI: Inspection: Yes normal to inspection and No abdominal wall ecchymosis Palpation (GI): Soft to palpation, not firm, nontender, no guarding and not rigid : General: No CVA tenderness and Yes no CVA tenderness Back/Spine/Pelvis: Back: no CVA tenderness, No CVA tenderness and No back tenderness Skin: General skin exam: no rashes or lesions noted, elasticity normal and turgor normal Neuro: General: oriented to person, oriented to place, oriented to time, patient oriented x3, gait normal, tone normal, moves all extremities, Normal light touch and pain sensation, no meningeal signs, no focal motor deficits, CN's II-XI intact bilaterally and normal sensation to monofilament Extrem: General: Yes normal to inspection and Yes full ROM Psych: Appearance: grossly normal, well kempt and not disheveled Course Reevaluation(s) Reevaluation #1: 12/27/2022 7 AM signed out to me by Dr Gar here for SI and alcohol abuse waiting for care team eval Time: 07:05 Reevaluation #2: 12/27/2022 1:11 PM seen by crisis cleared for d/c Time: 13:12 Medical Decision Making Medical Decision Making [facility] Narrative: 47-year-old male brought to the ED for suicide ideation after drinking alcohol. Patient has no plan. Patient will have labs drawn and be evaluated by care team in the morning. Patient pleasant. Differential Diagnosis Differential Diagnoses: The differential diagnosis associated with the presentation includes (Suicidal ideation, depression, anxiety, alcohol abuse) Admission/Observation Consideration of admission/observation: Escalation of care including admission/observation considered Consult Healthcare Provider Management of the patient was discussed with: Shelf Drier Operator (Care team) Lab Data [facility] Lab Attestation statement: I reviewed the patient's lab results. 12/27/22 01:39 12/27/22 01:39 Labs: Lab Results 12/26/22 12/27/22 12/27/22 Range/Units 23:52 01:39 01:39 WBC 6.8 (4.8-10.8) X10*3/uL RBC 5.44 (4.60-5.80) X10*6/uL Hgb 16.5 (14.0-18.0) g/dl Hct 45.5 (42.0-52.0) % MCV 83.6 (80.0-98.0) fL MCH 30.3 (27.0-33.0) pg MCHC 36.3 H (31.0-36.0) g/dl RDW 12.1 (11.0-16.0) % Plt Count 332 (160-400) X10*3/uL MPV 10.4 (9.4-12.4) fL Immature Gran % (Auto) 0.3 (0.0-0.4) % Neut % (Auto) 63.0 (45-73) % Lymph % (Auto) 30.7 (20-40) % [place] % (Auto) 3.5 (2-11) % Eos % (Auto) 1.6 (0-4) % Baso % (Auto) 0.9 (0-2) % Lymph # (Auto) 2.1 (1.2-4.9) X10*3/uL [place] # (Auto) 0.2 (0.1-1.2) X10*3/uL Eos # (Auto) 0.1 (0.0-0.4) X10*3/uL Baso # (Auto) 0.1 (0.0-0.2) X10*3/uL Abs Immat Gran (auto) 0.02 (0.00-0.03) X10*3/uL Absolute Neuts (auto) 4.3 (2.0-8.3) x10*3/uL Absolute Nucleated RBC 0.000 (0.0-0.012) X10*3/uL Nucleated RBC % (auto) 0.0 (0.0-0.2) /100WBC Sodium 141 (135-145) mmol/L Potassium 3.5 (3.3-5.1) mmol/L Chloride 105 (96-108) mmol/L Carbon Dioxide 17 L (22-29) mmol/L Anion Gap 23 H (12-20) BUN 9 (9-16) mg/dL Creatinine 0.81 (0.5-1.4) mg/dL Estim Creat Clear Calc 117.6 Estimated GFR > 60 POC Glucose 334 H (60-115) mg/dL Random Glucose 349 H (60-115) mg/dL Calcium 8.8 D (8.4-10.2) mg/dL Total Bilirubin 1.0 (0.0-1.0) mg/dL AST 14 (5-37) U/L ALT 29 (0-40) U/L Alkaline Phosphatase 62 (39-117) U/L Total Protein 7.1 (6.5-8.0) g/dL Albumin 4.1 (3.5-5.0) g/dL Urine Color Urine Appearance Urine pH (5.0-9.0) Ur Specific [place] (1.005-1.025) Urine Protein (Neg-Trace) mg/dL Urine Glucose (UA) (Negative) mg/dL Urine Ketones (Negative) mg/dL Urine Blood (Negative) Urine Nitrite (Negative) Ur Leukocyte Esterase (Negative) Urine RBC (0-2) /HPF Urine WBC (0-5) /HPF Ur Squamous Epith Cells (0-2) /HPF Urine Bacteria (None Seen) Hyaline Casts (0-2) /LPF Urine Opiates Screen (Not Detect) Urine Fentanyl Screen (Not Detect) Ur Barbiturates Screen (Not Detect) Ur Phencyclidine Scrn (Not Detect) Ur Amphetamines Screen (Not Detect) U Benzodiazepines Scrn (Not Detect) Urine Cocaine Screen (Not Detect) U Marijuana (THC) Screen (Not Detect) Ethyl Alcohol 219 mg/dL 12/27/22 12/27/22 Range/Units 09:38 09:38 WBC (4.8-10.8) X10*3/uL RBC (4.60-5.80) X10*6/uL Hgb (14.0-18.0) g/dl Hct (42.0-52.0) % MCV (80.0-98.0) fL MCH (27.0-33.0) pg MCHC (31.0-36.0) g/dl RDW (11.0-16.0) % Plt Count (160-400) X10*3/uL MPV (9.4-12.4) fL Immature Gran % (Auto) (0.0-0.4) % Neut % (Auto) (45-73) % Lymph % (Auto) (20-40) % [place] % (Auto) (2-11) % Eos % (Auto) (0-4) % Baso % (Auto) (0-2) % Lymph # (Auto) (1.2-4.9) X10*3/uL [place] # (Auto) (0.1-1.2) X10*3/uL Eos # (Auto) (0.0-0.4) X10*3/uL Baso # (Auto) (0.0-0.2) X10*3/uL Abs Immat Gran (auto) (0.00-0.03) X10*3/uL Absolute Neuts (auto) (2.0-8.3) x10*3/uL Absolute Nucleated RBC (0.0-0.012) X10*3/uL Nucleated RBC % (auto) (0.0-0.2) /100WBC Sodium (135-145) mmol/L Potassium (3.3-5.1) mmol/L Chloride (96-108) mmol/L Carbon Dioxide (22-29) mmol/L Anion Gap (12-20) BUN (9-16) mg/dL Creatinine (0.5-1.4) mg/dL Estim Creat Clear Calc Estimated GFR POC Glucose (60-115) mg/dL Random Glucose (60-115) mg/dL Calcium (8.4-10.2) mg/dL Total Bilirubin (0.0-1.0) mg/dL AST (5-37) U/L ALT (0-40) U/L Alkaline Phosphatase (39-117) U/L Total Protein (6.5-8.0) g/dL Albumin (3.5-5.0) g/dL Urine Color Yellow Urine Appearance Clear Urine pH 5.5 (5.0-9.0) Ur Specific [place] >= 1.030 H (1.005-1.025) Urine Protein Negative (Neg-Trace) mg/dL Urine Glucose (UA) >=1000 H (Negative) mg/dL Urine Ketones 40 (Negative) mg/dL Urine Blood Negative (Negative) Urine Nitrite Negative (Negative) Ur Leukocyte Esterase Negative (Negative) Urine RBC 0-2 (0-2) /HPF Urine WBC 0-5 (0-5) /HPF Ur Squamous Epith Cells 0-2 (0-2) /HPF Urine Bacteria None Seen (None Seen) Hyaline Casts 0-2 (0-2) /LPF Urine Opiates Screen Not Detected (Not Detect) Urine Fentanyl Screen Not Detected (Not Detect) Ur Barbiturates Screen Not Detected (Not Detect) Ur Phencyclidine Scrn Not Detected (Not Detect) Ur Amphetamines Screen Not Detected (Not Detect) U Benzodiazepines Scrn Not Detected (Not Detect) Urine Cocaine Screen Not Detected (Not Detect) U Marijuana (THC) Screen Not Detected (Not Detect) Ethyl Alcohol mg/dL Independent Historian Clinical information obtained from an independent historian. History obtained from or confirmed by: EMS External Record Review External record reviewed: Other (Prior ED) Discharge Plan Discharge Clinical Impression: Alcohol abuse, Depression Patient Disposition: Home, Self-Care Instructions: Depression (DC) Prescriptions: No Action escitalopram oxalate [Lexapro] 20 mg tablet 20 mg PO DAILY 30 Days Qty: 30 0RF bupropion HCl 150 mg tablet extended release 24 hr 150 mg PO QAM atorvastatin 20 mg tablet 20 mg PO DAILY glipizide 5 mg Tablet Extended Release 24hr 5 mg PO DAILY@1200 metformin 1,000 mg Tablet 1,000 mg PO BID Jardiance 10 mg Tablet 10 mg PO QAM Interventions: [place]-Suicide Risk Severity Scale Last Done: 12/27/22 08:00 Discharge Date/Time: 12/27/22 13:39
--- NOTE | 2022-12-27 00:47 | PC.NURSE ---
Pt is a 47 y/o male who presents for evaluation of SI with ETOH. Per report from EMS, pt was found at home with girlfriend and reportedly been drinking vodka all day. With PD and EMS, pt expressed SI with no specific plan, but no HI. No other complaints of pain or discomfort at this time and no reported falls/injuries. Pt is calm and cooperative on arrival at ED and pleasant and cooperative with staff. Denies any thoughts of harming himself at present. No illicit drug use today, just alcohol.
[2022-12-27 01:45] LABS: Basophils Absolute Auto 0.1 X10*3/uL (0.0-0.2); Basophils Percent Auto 0.9 % (0-2); Eosinophils Absolute Auto 0.1 X10*3/uL (0.0-0.4); Eosinophils Percent Auto 1.6 % (0-4); Hematocrit 45.5 % (42.0-52.0); Hemoglobin 16.5 g/dl (14.0-18.0); Imm Gran Abs Auto 0.02 X10*3/uL (0.00-0.03); Imm Gran Pct Auto 0.3 % (0.0-0.4); Lymphocytes Absolute Auto 2.1 X10*3/uL (1.2-4.9); Lymphocytes Percent Auto 30.7 % (20-40); MANUAL DIFF FLAG NO; Mean Corpuscular HGB Conc 36.3 g/dl (31.0-36.0); Mean Corpuscular Hemoglobin 30.3 pg (27.0-33.0); Mean Corpuscular Volume 83.6 fL (80.0-98.0); Mean Platelet Volume 10.4 fL (9.4-12.4); Monocytes Absolute Auto 0.2 X10*3/uL (0.1-1.2); Monocytes Percent Auto 3.5 % (2-11); Neutrophils Absolute Auto 4.3 x10*3/uL (2.0-8.3); Platelet Count 332 X10*3/uL (160-400); Red Blood Count 5.44 X10*6/uL (4.60-5.80); Red Cell Distribution Width 12.1 % (11.0-16.0); White Blood Count 6.8 X10*3/uL (4.8-10.8)
[2022-12-27 02:08] LABS: Alanine Aminotransferase 29 U/L (0-40); Albumin Level 4.1 g/dL (3.5-5.0); Alkaline Phosphatase 62 U/L (39-117); Anion Gap 23 (12-20); Aspartate Amino Transferase 14 U/L (5-37); Blood Urea Nitrogen 9 mg/dL (9-16); Calcium 8.8 mg/dL (8.4-10.2); Carbon Dioxide 17 mmol/L (22-29); Chloride 105 mmol/L (96-108); Creatinine Clr Calc Pharmacy 117.6; Estimated Glomerular Filt Rate > 60; Ethanol 219 mg/dL; Glucose Random 349 mg/dL (60-115); Potassium 3.5 mmol/L (3.3-5.1); Sodium 141 mmol/L (135-145); Total Protein 7.1 g/dL (6.5-8.0)
--- NOTE | 2022-12-27 04:11 | PC.NURSE ---
Pt is sleeping, appear comfortable. Easily arousable with verbal stimuli. Changes position independently in bed as desired. Will continue to monitor.
--- NOTE | 2022-12-27 07:53 | PC.NURSE ---
Alert and oriented, calm and cooperative. Ate well for breakfast. Denies pain, SI, or HI, was just having a bad night and he is feeling much better than last night. Patient aware that a urine sample is needed, does not have to go to the bathroom yet.
[2022-12-27 09:57] LABS: Amphetamine Screen Urine Not Detected (Not Detect); Barbiturates, Urine Not Detected (Not Detect); Benzodiazepines Screen Urine Not Detected (Not Detect); Cannabinoid Screen Urine Not Detected (Not Detect); Cocaine Screen Urine Not Detected (Not Detect); Fentanyl, urine Not Detected (Not Detect); Opiate Screen Urine Not Detected (Not Detect); Phencyclidine Screen Urine Not Detected (Not Detect)
[2022-12-27 10:10] LABS: Appearance Urine Clear; Color Urine Yellow; Glucose Urine UA >=1000 mg/dL (Negative); Leukocyte Esterase Urine Negative (Negative); Nitrite Urine Negative (Negative); PH 5.5 (5.0-9.0); Specific Gravity - Urine >= 1.030 (1.005-1.025); UMIC TRIGGER UACC YES; Urine Blood Negative (Negative); Urine Ketones 40 mg/dL (Negative); Urine Protein Negative (Neg-Trace)
[2022-12-27 10:32] LABS: Bacteria Urine None Seen (None Seen); Hyaline Casts Urine 0-2 /LPF (0-2); RBC Urine 0-2 /HPF (0-2); Squamous Epithelial Cell Urine 0-2 /HPF (0-2); WBC Urine 0-5 /HPF (0-5)
--- NOTE | 2022-12-27 13:15 | PC.NURSE ---
Discharge instructions reviewed with patient who verbalized understanding
== END 2022-12-27 13:39 | disposition home or self-care (01) ==
PROVIDERS: Physician Assistant; Emergency Provider Student in an Organized Health Care Education/Training Program
DX: F10.20 Alcohol dependence, uncomplicated (principal); R45.851 Suicidal ideations; Y90.7 Blood alcohol level of 200-239 mg/100 ml; Z87.891 Personal history of nicotine dependence; Z79.899 Other long term (current) drug therapy
CPT/HCPCS: 36415; 80053; 80307; 81001; 81003; 82947; 85025; 99284; S9485

== ENCOUNTER 2023-01-30 23:44 | Emergency (ER) | payer OTHER, SELFPAY ==
[2023-01-30 23:50] VITALS: BP 130/88; PULSE 109; O2SAT 98
[2023-01-31 00:04] VITALS: BP 120/71; PULSE 95; RESP 16; TEMP 37.2; O2SAT 98; BMI 25.8
--- NOTE | 2023-01-31 00:08 | PC.NURSE ---
Security at bedside for changeover. Sitter at bedside due to reports of SI.
--- NOTE | 2023-01-31 00:43 | ED_ITS ---
HPI - Psych General Chief Complaint: Psychiatric Symptoms Stated Complaint: SI Time Seen by Provider: 01/31/23 00:32 History of Present Illness HPI Narrative: Patient is a 47-year-old male present today with having suicidal thoughts. Long history of diabetes. Patient positive ETOH. Denies taking any other drugs. Patient did not have any specific plans. He did not feel safe at home and came to the ED for help. Related Data Home Medications Medication Instructions Recorded Confirmed bupropion HCl 150 mg 24 hr tablet, 150 mg PO QAM 10/15/22 12/27/22 extended release atorvastatin 20 mg tablet 20 mg PO DAILY 12/08/22 12/27/22 empagliflozin 10 mg tablet 10 mg PO QAM 12/08/22 12/27/22 (Jardiance) glipizide 5 mg tablet, extended 5 mg PO DAILY@1200 12/08/22 12/27/22 release 24 hr metformin 1,000 mg tablet 1,000 mg PO BID 12/08/22 12/27/22 Previous Rx's Medication Instructions Recorded escitalopram oxalate 20 mg tablet 20 mg PO DAILY 30 days #30 tabs 07/24/21 (Lexapro) Allergies Allergy/AdvReac Type Severity Reaction Status Date / Time No Known Allergies Allergy Verified 01/31/23 00:03 [No Known Allergies*] Review of Systems 2 Review of Systems: Positive EtOH. Positive suicidal ideation Yes all other systems are reviewed and are negative [facility] Past Medical History Attestation statement: The following information was validated with the patient. Medical History TBI (traumatic brain injury) MDD (major depressive disorder), recurrent episode, moderate Alcohol use disorder, mild, abuse Suicidal ideation Alcohol abuse Depression Diabetes Social History Social History Household Members: None Housing: Apartment Do you presently have visiting nurse or other home services: No Alcohol intake: current Alcohol intake frequency: a few times a month Alcohol type: other Patient Tobacco Use Status: Former Tobacco user Tobacco use type: Cigarette e-Cigarette/Vaping Use: Never Used Second Hand Smoke Exposure: No Substance Use Type: Marijuana Advance Directives: No Advance Directives Information Provided: Yes service: No Sexual orientation: Straight/Heterosexual Physical Exam 2 Vital Signs: Vital Signs: Last Vital Signs Temp 99 F 01/31/23 00:04 Pulse 95 01/31/23 00:04 Resp 16 01/31/23 00:04 BP 120/71 01/31/23 00:04 Pulse Ox 98 01/31/23 00:04 O2 Del Method Room Air 01/31/23 00:04 BMI result Body Mass Index 25.8 Appearance: Alert. Oriented X3. No acute distress. Eyes: Pupils equal, round and reactive to light. ENT: Pharynx normal. Neck: Normal inspection. Neck supple. No lymph nodes noted. No crepitus CVS: Normal heart rate and rhythm. Pulses normal. Normal S1 and S2 Respiratory: No respiratory distress. Breath sounds normal. No Wheezing. No rales Abdomen: Soft and nontender. No rigidity. No distention. good BS x4 Skin: Skin warm and dry. Normal skin color. Normal skin turgor. Extremities: No lower extremity edema. Neurovascular intact to all extremities. No Lacerations. No Rash Neuro: Oriented X 3. No motor deficit. No sensory deficit. Moving all extermities. No slurred speech Medical Decision Making Medical Decision Making MDM Narrative: Appear grossly intoxicated. Will get labs. Consult care team for further evaluation of patient's suicidal thoughts. Patient will get seen when he is sober. He is currently in stable condition. 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 Care team Lab Data 01/31/23 00:58 01/31/23 00:58 Labs: Lab Results 01/31/23 Range/Units 00:58 WBC 6.6 (4.8-10.8) X10*3/uL RBC 5.46 (4.60-5.80) X10*6/uL Hgb 16.8 (14.0-18.0) g/dl Hct 45.6 (42.0-52.0) % MCV 83.5 (80.0-98.0) fL MCH 30.8 (27.0-33.0) pg MCHC 36.8 H (31.0-36.0) g/dl RDW 12.3 (11.0-16.0) % Plt Count 269 (160-400) X10*3/uL MPV 10.9 (9.4-12.4) fL Immature Gran % (Auto) 0.2 (0.0-0.4) % Neut % (Auto) 61.6 (45-73) % Lymph % (Auto) 32.5 (20-40) % [place] % (Auto) 3.6 (2-11) % Eos % (Auto) 1.5 (0-4) % Baso % (Auto) 0.6 (0-2) % Lymph # (Auto) 2.1 (1.2-4.9) X10*3/uL [place] # (Auto) 0.2 (0.1-1.2) X10*3/uL Eos # (Auto) 0.1 (0.0-0.4) X10*3/uL Baso # (Auto) 0.0 (0.0-0.2) X10*3/uL Abs Immat Gran (auto) 0.01 (0.00-0.03) X10*3/uL Absolute Neuts (auto) 4.1 (2.0-8.3) x10*3/uL Absolute Nucleated RBC 0.000 (0.0-0.012) X10*3/uL Nucleated RBC % (auto) 0.0 (0.0-0.2) /100WBC Sodium 141 (135-145) mmol/L Potassium 3.7 (3.3-5.1) mmol/L Chloride 106 (96-108) mmol/L Carbon Dioxide 21 L (22-29) mmol/L Anion Gap 18 (12-20) BUN 6 L (9-16) mg/dL Creatinine 0.80 (0.5-1.4) mg/dL Estim Creat Clear Calc 119.1 Estimated GFR > 60 Random Glucose 321 H (60-115) mg/dL Calcium 8.9 (8.4-10.2) mg/dL Total Bilirubin 1.6 H (0.0-1.0) mg/dL Direct Bilirubin 0.4 (0.0-0.5) mg/dL AST 15 (5-37) U/L ALT 32 (0-40) U/L Alkaline Phosphatase 54 (39-117) U/L Total Protein 6.7 (6.5-8.0) g/dL Albumin 4.1 (3.5-5.0) g/dL Salicylates < 5.0 L (15-30) mg/dL Acetaminophen < 17 (<30) mcg/mL Ethyl Alcohol 211 mg/dL Independent Historian Clinical information obtained from an independent historian. History obtained from or confirmed by: EMS External Record Review External record reviewed: Outpatient record Patient previously seen by Psychiatry in the past Chronic Conditions Patient?s care impacted by: Diabetes Alcohol abuse Discharge Plan Discharge Clinical Impression: Alcohol abuse, Diabetes Patient Disposition: Still a Patient Prescriptions: No Action escitalopram oxalate [Lexapro] 20 mg tablet 20 mg PO DAILY 30 Days Qty: 30 0RF bupropion HCl 150 mg tablet extended release 24 hr 150 mg PO QAM atorvastatin 20 mg tablet 20 mg PO DAILY glipizide 5 mg Tablet Extended Release 24hr 5 mg PO DAILY@1200 metformin 1,000 mg Tablet 1,000 mg PO BID Jardiance 10 mg Tablet 10 mg PO QAM
[2023-01-31 01:09] LABS: Basophils Percent Auto 0.6 % (0-2); Eosinophils Absolute Auto 0.1 X10*3/uL (0.0-0.4); Eosinophils Percent Auto 1.5 % (0-4); Hematocrit 45.6 % (42.0-52.0); Hemoglobin 16.8 g/dl (14.0-18.0); Imm Gran Abs Auto 0.01 X10*3/uL (0.00-0.03); Imm Gran Pct Auto 0.2 % (0.0-0.4); Lymphocytes Absolute Auto 2.1 X10*3/uL (1.2-4.9); Lymphocytes Percent Auto 32.5 % (20-40); MANUAL DIFF FLAG NO; Mean Corpuscular HGB Conc 36.8 g/dl (31.0-36.0); Mean Corpuscular Hemoglobin 30.8 pg (27.0-33.0); Mean Corpuscular Volume 83.5 fL (80.0-98.0); Mean Platelet Volume 10.9 fL (9.4-12.4); Monocytes Absolute Auto 0.2 X10*3/uL (0.1-1.2); Monocytes Percent Auto 3.6 % (2-11); Neutrophils Absolute Auto 4.1 x10*3/uL (2.0-8.3); Neutrophils Percent Auto 61.6 % (45-73); Platelet Count 269 X10*3/uL (160-400); Red Blood Count 5.46 X10*6/uL (4.60-5.80); Red Cell Distribution Width 12.3 % (11.0-16.0); White Blood Count 6.6 X10*3/uL (4.8-10.8)
[2023-01-31 01:22] LABS: Ethanol 211 mg/dL
[2023-01-31 01:24] LABS: Alanine Aminotransferase 32 U/L (0-40); Albumin Level 4.1 g/dL (3.5-5.0); Alkaline Phosphatase 54 U/L (39-117); Anion Gap 18 (12-20); Aspartate Amino Transferase 15 U/L (5-37); Bilirubin Direct 0.4 mg/dL (0.0-0.5); Bilirubin Total 1.6 mg/dL (0.0-1.0); Blood Urea Nitrogen 6 mg/dL (9-16); Calcium 8.9 mg/dL (8.4-10.2); Carbon Dioxide 21 mmol/L (22-29); Chloride 106 mmol/L (96-108); Creatinine Clr Calc Pharmacy 119.1; Estimated Glomerular Filt Rate > 60; Glucose Random 321 mg/dL (60-115); Potassium 3.7 mmol/L (3.3-5.1); Sodium 141 mmol/L (135-145); Total Protein 6.7 g/dL (6.5-8.0)
[2023-01-31 01:36] LABS: Acetaminophen LAB < 17 mcg/mL (<30); Salicylate < 5.0 mg/dL (15-30)
[2023-01-31 04:17] VITALS: BP 121/72; PULSE 83; RESP 16; TEMP 37.2; O2SAT 94
[2023-01-31 04:32] LABS: Appearance Urine Clear; Color Urine Yellow; Glucose Urine UA >=1000 mg/dL (Negative); Leukocyte Esterase Urine Negative (Negative); Nitrite Urine Negative (Negative); PH 5.5 (5.0-9.0); Specific Gravity - Urine >= 1.030 (1.005-1.025); UMIC TRIGGER UACC YES; Urine Blood Negative (Negative); Urine Ketones 15 mg/dL (Negative); Urine Protein Negative (Neg-Trace)
[2023-01-31 04:34] LABS: Bacteria Urine None Seen (None Seen); Hyaline Casts Urine 0-2 /LPF (0-2); RBC Urine 0-2 /HPF (0-2); Squamous Epithelial Cell Urine 0-2 /HPF (0-2); WBC Urine 0-5 /HPF (0-5)
[2023-01-31 04:42] LABS: Amphetamine Screen Urine Not Detected (Not Detect); Barbiturates, Urine Not Detected (Not Detect); Benzodiazepines Screen Urine Not Detected (Not Detect); Cannabinoid Screen Urine Not Detected (Not Detect); Cocaine Screen Urine Not Detected (Not Detect); Fentanyl, urine Not Detected (Not Detect); Opiate Screen Urine Not Detected (Not Detect); Phencyclidine Screen Urine Not Detected (Not Detect)
[2023-01-31 07:15] VITALS: BP 118/64; PULSE 84; RESP 14; TEMP 37.3; O2SAT 93
--- NOTE | 2023-01-31 07:58 | PC.NURSE ---
resting quietly in room watching tv. patient observer at bedside, no obvious signs/symptoms of distress. awaiting eval from care team.
[2023-01-31 09:38] VITALS: BP 110/64; PULSE 83; RESP 14; TEMP 37.2; O2SAT 99
--- NOTE | 2023-01-31 09:47 | MHC.CARE ---
patient seen by CARE team. He is denying SI. Plan to be d/c home. Attending Jaida Latif aware. Once patient has been discharged t/w can get patient a Lyft home.
== END 2023-01-31 12:30 | disposition home or self-care (01) ==
PROVIDERS: Emergency Provider Emergency Medicine Emergency Medical Services
DX: R45.851 Suicidal ideations (principal); F10.10 Alcohol abuse, uncomplicated; Y90.7 Blood alcohol level of 200-239 mg/100 ml; E11.9 Type 2 diabetes mellitus without complications; Z79.899 Other long term (current) drug therapy; Z87.891 Personal history of nicotine dependence; Z79.84 Long term (current) use of oral hypoglycemic drugs
CPT/HCPCS: 36415; 80048; 80076; 80143; 80179; 80307; 81001; 85025; 99284; 99285; S9485

== ENCOUNTER 2023-07-19 04:55 | Emergency (ER) | payer OTHER, SELFPAY ==
--- NOTE | ~2023-07-19 | XR_ITS ---
EXAMINATION: XR FOOT, LEFT CLINICAL INFORMATION: Blunt injury COMPARISON: None available. TECHNIQUE: AP, lateral, and oblique views of the left foot. FINDINGS: Osseous alignment is anatomic. No acute fracture is seen. Posterior calcaneal spur is noted. No significant focal soft tissue abnormality identified. XR/XR foot LT min 3V IMPRESSION: No acute findings.
[2023-07-19 05:00] VITALS: BP 133/72; BP 136/90; PULSE 86; PULSE 87; RESP 15; TEMP 36.5; O2SAT 96; O2SAT 98; BMI 27.6
--- NOTE | 2023-07-19 06:43 | ED_ITS ---
HPI - Extremity Injury (Lower) General Chief Complaint: Extremity Injury, Lower Stated Complaint: LEFT FOOT PAIN Time Seen by Provider: 07/19/23 06:38 Source: patient Mode of arrival: ambulatory Limitations: no limitations History of Present Illness HPI Narrative: 48-year-old male history of anxiety, TBI, diabetes, alcohol use disorder presenting to the emergency department for evaluation of foot pain for the past 3 days. Patient reports he may have stepped on something however unclear. He reports it has been hurting him more over the past 3 days. Patient is on his feet often. Denies fevers, chills, numbness, tingling chest pain, shortness of breath headache, vision changes, dizziness and weakness Related Data Home Medications Medication Instructions Recorded Confirmed bupropion HCl 150 mg 24 hr tablet, 150 mg PO QAM 10/15/22 12/27/22 extended release atorvastatin 20 mg tablet 20 mg PO DAILY 12/08/22 12/27/22 empagliflozin 10 mg tablet 10 mg PO QAM 12/08/22 12/27/22 (Jardiance) glipizide 5 mg tablet, extended 5 mg PO DAILY@1200 12/08/22 12/27/22 release 24 hr metformin 1,000 mg tablet 1,000 mg PO BID 12/08/22 12/27/22 Previous Rx's Medication Instructions Recorded escitalopram oxalate 20 mg tablet 20 mg PO DAILY 30 days #30 tabs 07/24/21 (Lexapro) Allergies Allergy/AdvReac Type Severity Reaction Status Date / Time No Known Allergies Allergy Verified 07/19/23 05:00 [No Known Allergies*] Review of Systems Review of Systems: Yes all other systems are reviewed and are negative PMF[facility] Past Medical History Attestation statement: The following information was validated with the patient. Source: old records reviewed and nursing notes reviewed Medical History TBI (traumatic brain injury) MDD (major depressive disorder), recurrent episode, moderate Alcohol use disorder, mild, abuse Suicidal ideation Alcohol abuse Depression Diabetes Social History Social History Household Members: None Housing: Apartment Do you presently have visiting nurse or other home services: No Unable to assess alcohol history related to: Unknown Alcohol intake: current Alcohol intake frequency: a few times a month Alcohol type: other Patient Tobacco Use Status: Former Tobacco user Tobacco use type: Cigarette e-Cigarette/Vaping Use: Never Used Second Hand Smoke Exposure: No Use of substances other than those prescribed or required for medical reasons: No Substance Use Type: Marijuana Advance Directives: No Advance Directives Information Provided: No service: No Sexual orientation: Straight/Heterosexual Physical Exam Vital Signs: Vital Signs: Last Vital Signs Temp 97.7 F 07/19/23 05:00 Pulse 87 07/19/23 05:00 Resp 15 07/19/23 05:00 BP 133/72 07/19/23 05:00 Pulse Ox 96 07/19/23 05:00 O2 Del Method Room Air 07/19/23 05:00 BMI result Body Mass Index 27.6 Vital signs stable Appearance: Alert.? Oriented X3.? No acute distress.? Head: Normocephalic, atraumatic, no step-offs or deformities Eyes: Pupils equal, round and reactive to light.? CVS: Normal heart rate and rhythm.? Pulses normal.? Respiratory: No respiratory distress.? Breath sounds normal. Skin: Skin warm and dry.? Normal skin color.? Normal skin turgor.? Extremities: No lower extremity edema.? No calf ttp. 5/5 strength to bilateral upper and lower extremities. tender thickened area of skin to the ball of the foot. With slight erythema. 2+ dorsalis pedis, anterior tibialis and posterior tibialis pulses equal bilateral Back: No midline tenderness, no C-spine tenderness, full range of motion, no CVA tenderness bilaterally Neuro: Oriented X 3.? No motor deficit.? No sensory deficit. CN 2-12 intact Course Reevaluation(s) Reevaluation #1: X-ray of left foot unremarkable. Patient to follow-up with podiatry. Gave him a phone number to call Educated patient on diagnosis and treatment plan, answered all question, patient verbalizes understanding. At this time patient will be discharged home, advised to return with new or worsening symptoms. Educated on worrisome signs and symptoms and when to return. At this time I feel comfortable discharge home. Time: 07:03 Medications Administered Discontinued Medications Generic Name Dose Route Start Last Admin Trade Name Freq PRN Reason Stop Dose Admin Diphtheria/Tetanus/Acell Pertussis 0.5 ml 07/19/23 06:47 07/19/23 06:51 Diphth,Pertus(Acell),Tet Adult 0.5 Ml Syringe IM 07/19/23 06:48 0.5 ml .ONCE ONE Administration Medical Decision Making Medical Decision Making MDM Narrative: 48-year-old diabetic male presents with pain to ball of foot times 3-4 days. May have stepped on something unclear. Physical exam with a tender thickened area of skin to the ball of the foot. With slight erythema. History and physical exam concerning for diabetic pressure callus. Low suspicion for cellulitis or osteomyelitis. No signs of neurovascular compromise or threat to limb. Plan x-ray then patient to be discharged with podiatry follow-up Differential Diagnosis Differential Diagnoses: The differential diagnosis associated with the presentation includes History and physical exam concerning for diabetic pressure callus. Low suspicion for cellulitis or osteomyelitis. No signs of neurovascular compromise or threat to limb. Admission/Observation Consideration of admission/observation: Escalation of care including admission/observation considered Unlikely Lab Data Labs: No need Independent Interpretation I performed an independent interpretation of an: Plain X-Ray (XR/XR foot LT min 3V IMPRESSION: No acute findings. ) Radiology Impression Discussion of test interpretation with radiology: [facility]. External Record Review External record reviewed: Inpatient record, Office record, Outpatient record, Prior outpatient labs, Prior outpatient radiology, Primary care record and Outside ED record Chronic Conditions Patient?s care impacted by: Diabetes and Other (Alcohol use) Social Determinants Patient?s care significantly limited by Social Determinants of Health including: Inadequate housing, Low income, Alcoholism and drug addiction in family, Problems related to primary support group, Unemployment, Problems related to employment and Other Social Determinant of Health Discharge Plan Discharge Clinical Impression: Type 1 diabetes mellitus with pressure callus Patient Disposition: Home, Self-Care Additional Instructions: Take your medications as prescribed. If you were prescribed antibiotics today, it is important that you take your medication to their entirety, do not skip any doses, do not finish them early. Follow-up with your primary care provider this week. Return to the emergency department with new or worsening symptoms. Such as fevers, chills, chest pain, shortness of breath, nausea, vomiting, dizziness, headache, vision changes, lethargy In case of emergency call 911 XR/XR foot LT min 3V IMPRESSION: No acute findings. You can use bicq-glo-icwerra corn/callus medicine Secure foot in warm water. Follow-up with podiatry. Use properly fitting shoes. Prescriptions: No Action escitalopram oxalate [Lexapro] 20 mg tablet 20 mg PO DAILY 30 Days Qty: 30 0RF bupropion HCl 150 mg tablet extended release 24 hr 150 mg PO QAM atorvastatin 20 mg tablet 20 mg PO DAILY glipizide 5 mg Tablet Extended Release 24hr 5 mg PO DAILY@1200 metformin 1,000 mg Tablet 1,000 mg PO BID Jardiance 10 mg Tablet 10 mg PO QAM Referrals: [facility] [Provider Group] - 1 day (Call today to schedule an appointment ) Stand Alone Forms: Work/School Release Interventions: ED Discharge Assessment Last Done: 07/19/23 06:54 Discharge Date/Time: 07/19/23 06:55
[2023-07-19] MEDS: Diphth,Pertus(ACell),Tet Adult 0.5 ML SYRINGE IM (06:51)
--- NOTE | 2023-07-19 06:54 | PC.NURSE ---
pt medicated per mar.
== END 2023-07-19 06:55 | disposition home or self-care (01) ==
PROVIDERS: Emergency Provider Internal Medicine; PCP General Practice
DX: S90.812A Abrasion, left foot, initial encounter (principal); L84 Corns and callosities; E10.8 Type 1 diabetes mellitus with unspecified complications; X58.XXXA Exposure to other specified factors, initial encounter; Y93.9 Activity, unspecified; Y92.9 Unspecified place or not applicable; Y99.8 Other external cause status; Z23 Encounter for immunization
CPT/HCPCS: 73630; 90471; 90715; 99284

== ENCOUNTER 2023-07-21 13:01 | Emergency (ER) | payer OTHER, SELFPAY ==
[2023-07-21 13:22] VITALS: BP 130/76; BP 130/82; PULSE 110; PULSE 113; RESP 18; TEMP 37.7; O2SAT 96; O2SAT 98; BMI 25.8
--- NOTE | 2023-07-21 13:25 | ED.GENADULT ---
HPI - General Adult General Chief complaint: Extremity Injury, Lower Stated complaint: FOOT PAIN Time Seen by Provider: 07/21/23 13:25 Source: patient, EMS and RN notes reviewed Mode of arrival: EMS Limitations: no limitations History of Present Illness HPI narrative: Patient is a 48-year-old male with history of DM, alcohol abuse, TBI, MDD presenting to the ED with complaint of left plantar foot pain. States he was seen in this ED yesterday and was advised to follow up with podiatry. He states that he called their office but did not receive a return call. Denies any drainage from the area. Denies fevers. complaint: left foot pain Onset (ago): day(s) Location: left and lower extremity Radiation: non-radiation Severity: severe Quality: aching Pain Consistency: constant Relieving factors: rest Exacerbating factors: movement Associated symptoms: denies other symptoms Treatments prior to arrival: none Related Data Home Medications Medication Instructions Recorded Confirmed bupropion HCl 150 mg 24 hr tablet, 150 mg PO QAM 10/15/22 12/27/22 extended release atorvastatin 20 mg tablet 20 mg PO DAILY 12/08/22 12/27/22 empagliflozin 10 mg tablet 10 mg PO QAM 12/08/22 12/27/22 (Jardiance) glipizide 5 mg tablet, extended 5 mg PO DAILY@1200 12/08/22 12/27/22 release 24 hr metformin 1,000 mg tablet 1,000 mg PO BID 12/08/22 12/27/22 Previous Rx's Medication Instructions Recorded escitalopram oxalate 20 mg tablet 20 mg PO DAILY 30 days #30 tabs 07/24/21 (Lexapro) cephalexin 500 mg capsule 500 mg PO QID #20 caps 07/21/23 Allergies Allergy/AdvReac Type Severity Reaction Status Date / Time No Known Allergies Allergy Verified 07/19/23 05:00 [No Known Allergies*] Review of Systems Review of Systems: As per HPI. Yes all other systems are reviewed and are negative Constitutional: Constitutional: Reports as per HPI [facility] Past Medical History Medical History TBI (traumatic brain injury) MDD (major depressive disorder), recurrent episode, moderate Alcohol use disorder, mild, abuse Suicidal ideation Alcohol abuse Depression Diabetes Social History Social History Household Members: None Housing: Apartment Do you presently have visiting nurse or other home services: No Unable to assess alcohol history related to: Unknown Alcohol intake: current Alcohol intake frequency: a few times a month Alcohol type: other Patient Tobacco Use Status: Former Tobacco user Tobacco use type: Cigarette e-Cigarette/Vaping Use: Never Used Second Hand Smoke Exposure: No Substance Use Type: Marijuana Advance Directives: No Advance Directives Information Provided: No service: No Sexual orientation: Straight/Heterosexual Physical Exam ED Vital Signs: Vital Signs - 24 hr 07/21/23 13:22 Temperature 99.9 F Pulse Rate 113 H Respiratory Rate 18 Blood Pressure 130/76 Pulse Oximetry 96 Oxygen Delivery Method Room Air BMI result Body Mass Index 25.8 Vital signs have been reviewed and appear to be correct. Blood pressure normal. Heart rate mildly tachycardic. Respiratory rate normal. Temperature normal. Oxygen saturation normal. Const General: cooperative, healthy appearing and no acute distress Orientation/consciousness: oriented to person, oriented to place, oriented to time and patient oriented x3 Limitations: no limitations HENMT Head: Yes normocephalic and Yes atraumatic Ears: external ears normal General nose exam: Normal external nose present Face and sinus: Yes face symmetric Mouth: oropharynx normal and moist mucous membranes Throat: Yes uvula midline Eyes Pupils: Equal, round and reactive pupils present Neck Neck: Yes normal visual inspection and Yes supple Resp Effort & Inspection: normal respiratory effort and able to speak in complete sentences Auscultation: clear to auscultation bilaterally Cardio Rate: regular rate Rhythm: regular rhythm Heart sounds: S1 normal heart sound present and S2 normal heart sound present GI Palpation (GI): Soft to palpation and nontender Auscultation: normoactive bowel sounds General: Yes no CVA tenderness Back/Spine/Pelvis Back: no CVA tenderness Skin General skin exam: elasticity normal and turgor normal Neuro General: oriented to person, oriented to place, oriented to time, patient oriented x3, moves all extremities, no focal motor deficits and CN's II-XI intact bilaterally Cranial nerves: Yes Equal, round and reactive pupils present Cognition (Neuro): normal cognition Extrem General: Yes full ROM, Yes no pedal edema and Yes no calf tenderness Left lower extremity: foot Details: vascular exam Details: dorsalis pedis pulse present, posterior tibial pulse present and normal capillary refill Ankle/foot/toe images: 1. callus, tenderness 2. erythema, no warmth or fluctuance Psych Mental Status: mental status grossly normal Affect: normal affect Thought process: Normal thought process present Medical Decision Making Medical Decision Making [facility] Narrative: Patient is a 48-year-old male with history of DM, alcohol abuse, TBI, MDD presenting to the ED with complaint of left plantar foot pain. On exam patient is awake, A+Ox3, VS WNL, afebrile, normal neurological exam without focal deficits, physical exam findings as above. Given reported symptoms and physical exam findings, initial differential includes diabetic pressure callous, early cellulitis. Do not suspect osteomyelitis. Will treat with short course of cephalexin given diabetes. Discussed with patient the importance of following up with podiatry. Return precautions discussed. Patient verbalized understanding of and agreement with plan. Differential Diagnosis Differential Diagnoses: The differential diagnosis associated with the presentation includes As per MDM. External Record Review External record reviewed: Inpatient record, Office record and Outpatient record Tests considered The following testing was considered but not selected: Considered x-ray, however, patient had x-ray when in the ED yesterday Prescription Management I considered prescription management with: Antibiotic Discharge Plan Discharge Clinical Impression: Type 1 diabetes mellitus with pressure callus Patient Disposition: Home, Self-Care Instructions: Foot Care for People with Diabetes (ED), Diabetes and Your Skin (ED), Diabetes Type 1: Management (ED) Additional Instructions: You were evaluated in the emergency department today with complaint of left foot pain. You are being treated with a short course of antibiotics to prevent infection. Please follow up with your primay care provider and advanced research programs director as previously instructed. Return to the emergency department with new redness, warmth, swelling, thick yellow drainage, fever 100.4F or greater, or any other concerning symptoms. Prescriptions: New cephalexin 500 mg capsule 500 mg PO QID Qty: 20 0RF No Action escitalopram oxalate [Lexapro] 20 mg tablet 20 mg PO DAILY 30 Days Qty: 30 0RF bupropion HCl 150 mg tablet extended release 24 hr 150 mg PO QAM atorvastatin 20 mg tablet 20 mg PO DAILY glipizide 5 mg Tablet Extended Release 24hr 5 mg PO DAILY@1200 metformin 1,000 mg Tablet 1,000 mg PO BID Jardiance 10 mg Tablet 10 mg PO QAM Referrals: [facility] [Provider Group]
[2023-07-21] MEDS: Ibuprofen 600 MG TABLET PO (13:51)
== END 2023-07-21 13:57 | disposition home or self-care (01) ==
PROVIDERS: Emergency Provider Emergency Medicine; PCP General Practice
DX: L84 Corns and callosities (principal); E10.9 Type 1 diabetes mellitus without complications; Z87.891 Personal history of nicotine dependence; Z79.899 Other long term (current) drug therapy; Z79.84 Long term (current) use of oral hypoglycemic drugs
CPT/HCPCS: 99283

== ENCOUNTER 2023-09-27 18:16 | Emergency (ER) | payer OTHER, SELFPAY ==
[2023-09-27 18:45] VITALS: BP 130/90; PULSE 108; O2SAT 98
[2023-09-27 19:01] VITALS: BP 117/68; PULSE 106; RESP 16; TEMP 37.3; O2SAT 93; BMI 33.4
[2023-09-27 19:09] LABS: MANUAL DIFF FLAG NO
--- NOTE | 2023-09-27 19:13 | ED.PSYCH ---
HPI - Psych General Chief Complaint: Psychiatric Symptoms Stated Complaint: ETOH, SI Time Seen by Provider: 09/27/23 18:56 Source: patient Mode of arrival: ambulatory Limitations: no limitations History of Present Illness HPI Narrative: Patient comes to the emergency room complaining of alcohol intoxication and suicidal ideation. Patient states that was aware that he was having suicidal thoughts with no specific plan, realized that he was drunk and reason safety decided to call 911 to bring him to the hospital so that we can keep an eye on him until he is sober and no longer suicidal. Patient denies HI. Patient admits to drinking alcohol prior to arrival, denies IV drug use Related Data Home Medications ?Medication ?Instructions ?Recorded ?Confirmed empagliflozin 10 mg tablet 10 mg PO QAM 12/08/22 12/27/22 (Jardiance) glipizide 5 mg tablet, extended 5 mg PO DAILY@1200 12/08/22 12/27/22 release 24 hr metformin 1,000 mg tablet 1,000 mg PO BID 12/08/22 12/27/22 Allergies Allergy/AdvReac Type Severity Reaction Status Date / Time No Known Allergies Allergy Verified 09/27/23 19:02 [No Known Allergies*] Review of Systems Review of Systems: Constitutional : No Weight loss, No Fever, No Chills, No Night Sweats, No Fatigue, No Malaise ENT/Mouth : No Hearing loss, No Ear Pain, No Nasal Congestion, No Sinus Pain, No Hoarseness, No sore throat, No Rhinorrhea, No Swallowing Difficulty Eyes: No Eye Pain, No Swelling, No Redness, No Foreign Body, No Discharge, No Vision Changes Cardiovascular : No Chest Pain, No SOB, No Dyspnea on Exertion, No Orthopnea, No Edema, No Palpitations Respiratory : No Cough, No Sputum, No Wheezing, No Smoke Exposure, No Dyspnea Gastrointestinal : No Nausea, No Vomiting, No Diarrhea, No Constipation, No abdominal Pain, No Hematochezia, No Melena Genitourinary : no irregular bleeding, No Dysuria, No Urinary Frequency, No Hematuria, No Urinary Incontinence, No Urgency, No Flank Pain, No Urinary Flow Changes, No Hesitancy Musculoskeletal : No joint pain, No Myalgias, No Joint Swelling Skin : No Skin Lesions, No rash Neuro : No Weakness, No Numbness, No Paresthesias, No Loss of Consciousness, No Dizziness, No Headache Psych : Complaining of feeling a bit anxious, depression, vague SI with no HI, admits to alcohol abuse Heme/Lymph: No Bruising, No Bleeding,No Lymphadenopathy Endocrine : No Polyuria, No Polydipsia, No Temperature Intolerance PMFSH Past Medical History Medical History TBI (traumatic brain injury) MDD (major depressive disorder), recurrent episode, moderate Alcohol use disorder, mild, abuse Suicidal ideation Alcohol abuse Depression Diabetes Social History Social History Household Members: None Housing: Apartment Do you presently have visiting nurse or other home services: No Unable to assess alcohol history related to: Unknown Alcohol intake: current Alcohol intake frequency: a few times a month Alcohol type: other Patient Tobacco Use Status: Former Tobacco user Tobacco use type: Cigarette e-Cigarette/Vaping Use: Never Used Second Hand Smoke Exposure: No Substance Use Type: Marijuana Advance Directives: No Advance Directives Information Provided: No Do you have a plan to hurt others: No Plan service: No Sexual orientation: Straight/Heterosexual Physical Exam Vital Signs: Vital Signs: Last Vital Signs Temp 97.8 F 09/27/23 23:37 Pulse 86 09/27/23 23:37 Resp 16 09/27/23 23:37 BP 129/71 09/27/23 23:37 Pulse Ox 96 09/27/23 23:37 O2 Del Method Room Air 09/27/23 23:37 BMI result Body Mass Index 33.4 Const: Other: Appearance: Alert. Oriented X3. No acute distress. Seems intoxicated Eyes: Pupils equal, round and reactive to light. ENT: Pharynx normal. Neck: Normal inspection. Neck supple. No lymph nodes noted. No crepitus CVS: Normal heart rate and rhythm. Pulses normal. Normal S1 and S2 Respiratory: No respiratory distress. Breath sounds normal. No Wheezing. No rales Abdomen: Soft and nontender. No rigidity. No distention. Skin: Skin warm and dry. Normal skin color. Normal skin turgor. Extremities: No lower extremity edema. No Lacerations. No Rash Neuro: Oriented X 3. No motor deficit. No sensory deficit. Moving all extremities. No slurred speech. CN 2 through 12 grossly intact Psych: calm, cooperative, normal affect Course Course Course Narrative: -all of patient's labs pending -care team consult pending -physician observation started at 19:16 Medical Decision Making Medical Decision Making [facility] Narrative: - Differential Diagnosis Differential Diagnoses: The differential diagnosis associated with the presentation includes (Suicidal ideation, anxiety, depression, alcohol abuse, polysubstance abuse) Admission/Observation Consideration of admission/observation: Escalation of care including admission/observation considered (There waiting for patient to become clinically sober so the care team can talk to him and determine his disposition) Lab Data 09/27/23 18:52 09/27/23 18:52 Labs: Lab Results 09/27/23 Range/Units 18:52 WBC 7.9 (4.8-10.8) X10*3/uL RBC 5.97 H (4.60-5.80) X10*6/uL Hgb 18.1 H (14.0-18.0) g/dl Hct 48.6 (42.0-52.0) % MCV 81.4 (80.0-98.0) fL MCH 30.3 (27.0-33.0) pg MCHC 37.2 H (31.0-36.0) g/dl RDW 12.6 (11.0-16.0) % Plt Count 362 D (160-400) X10*3/uL MPV 10.6 (9.4-12.4) fL Immature Gran % (Auto) 0.3 (0.0-0.4) % Neut % (Auto) 67.5 (45-73) % Lymph % (Auto) 27.1 (20-40) % [place] % (Auto) 3.4 (2-11) % Eos % (Auto) 0.8 (0-4) % Baso % (Auto) 0.9 (0-2) % Lymph # (Auto) 2.1 (1.2-4.9) X10*3/uL [place] # (Auto) 0.3 (0.1-1.2) X10*3/uL Eos # (Auto) 0.1 (0.0-0.4) X10*3/uL Baso # (Auto) 0.1 (0.0-0.2) X10*3/uL Abs Immat Gran (auto) 0.02 (0.00-0.03) X10*3/uL Absolute Neuts (auto) 5.3 (2.0-8.3) x10*3/uL Absolute Nucleated RBC 0.000 (0.0-0.012) X10*3/uL Nucleated RBC % (auto) 0.0 (0.0-0.2) /100WBC Sodium 141 (135-145) mmol/L Potassium 4.1 (3.3-5.1) mmol/L Chloride 106 (96-108) mmol/L Carbon Dioxide 20 L (22-29) mmol/L Anion Gap 19 (12-20) BUN 10 (9-16) mg/dL Creatinine 0.80 (0.5-1.4) mg/dL Estim Creat Clear Calc 130.7 Estimated GFR > 60 Random Glucose 285 H (60-115) mg/dL Calcium 9.6 D (8.4-10.2) mg/dL Total Bilirubin 2.0 H (0.0-1.0) mg/dL AST 16 (5-37) U/L ALT 28 (0-40) U/L Alkaline Phosphatase 74 (39-117) U/L Total Protein 8.0 (6.5-8.0) g/dL Albumin 4.7 (3.5-5.0) g/dL Urine Color Yellow Urine Appearance Clear Urine pH 6.0 (5.0-9.0) Ur Specific [place] <= 1.005 (1.005-1.025) Urine Protein Negative (Neg-Trace) mg/dL Urine Glucose (UA) >=1000 H (Negative) mg/dL Urine Ketones Trace (Negative) mg/dL Urine Blood Negative (Negative) Urine Nitrite Negative (Negative) Ur Leukocyte Esterase Negative (Negative) Urine RBC 0-2 (0-2) /HPF Urine WBC 0-5 (0-5) /HPF Ur Squamous Epith Cells 0-2 (0-2) /HPF Urine Bacteria None Seen (None Seen) Hyaline Casts 0-2 (0-2) /LPF Urine Opiates Screen Not Detected (Not Detect) Ur Buprenorphine Scrn Not Detected (Not Detect) ng/mL Ur Oxycodone Screen Not Detected (Not Detect) ng/mL Urine Methadone Screen Not Detected (Not Detect) ng/mL Urine Fentanyl Screen Not Detected (Not Detect) Ur Barbiturates Screen Not Detected (Not Detect) Ur Phencyclidine Scrn Not Detected (Not Detect) Ur Amphetamines Screen Not Detected (Not Detect) U Benzodiazepines Scrn Not Detected (Not Detect) Urine Cocaine Screen Not Detected (Not Detect) U Marijuana (THC) Screen Not Detected (Not Detect) Ethyl Alcohol 251 mg/dL COVID-19 (ARLENE) Negative (Negative) COVID-19 Clin Com See Note Discharge Plan Discharge Clinical Impression: Alcohol abuse, Suicidal ideation Patient Disposition: Still a Patient Prescriptions: No Action glipizide 5 mg Tablet Extended Release 24hr 5 mg PO DAILY@1200 metformin 1,000 mg Tablet 1,000 mg PO BID Jardiance 10 mg Tablet 10 mg PO QAM Interventions: [place]-Suicide Risk Severity Scale Last Done: 09/28/23 00:31 Print Language: Slovenian
[2023-09-27 19:15] LABS: Appearance Urine Clear; Basophils Absolute Auto 0.1 X10*3/uL (0.0-0.2); Basophils Percent Auto 0.9 % (0-2); Color Urine Yellow; Eosinophils Absolute Auto 0.1 X10*3/uL (0.0-0.4); Eosinophils Percent Auto 0.8 % (0-4); Glucose Urine UA >=1000 mg/dL (Negative); Hematocrit 48.6 % (42.0-52.0); Hemoglobin 18.1 g/dl (14.0-18.0); Imm Gran Abs Auto 0.02 X10*3/uL (0.00-0.03); Imm Gran Pct Auto 0.3 % (0.0-0.4); Leukocyte Esterase Urine Negative (Negative); Lymphocytes Absolute Auto 2.1 X10*3/uL (1.2-4.9); Lymphocytes Percent Auto 27.1 % (20-40); Mean Corpuscular HGB Conc 37.2 g/dl (31.0-36.0); Mean Corpuscular Hemoglobin 30.3 pg (27.0-33.0); Mean Corpuscular Volume 81.4 fL (80.0-98.0); Mean Platelet Volume 10.6 fL (9.4-12.4); Monocytes Absolute Auto 0.3 X10*3/uL (0.1-1.2); Monocytes Percent Auto 3.4 % (2-11); Neutrophils Absolute Auto 5.3 x10*3/uL (2.0-8.3); Neutrophils Percent Auto 67.5 % (45-73); Nitrite Urine Negative (Negative); Platelet Count 362 X10*3/uL (160-400); Red Blood Count 5.97 X10*6/uL (4.60-5.80); Red Cell Distribution Width 12.6 % (11.0-16.0); Specific Gravity - Urine <= 1.005 (1.005-1.025); UMIC TRIGGER UACC YES; Urine Blood Negative (Negative); Urine Ketones Trace mg/dL (Negative); Urine Protein Negative (Neg-Trace); White Blood Count 7.9 X10*3/uL (4.8-10.8)
[2023-09-27 19:20] LABS: Bacteria Urine None Seen (None Seen); Hyaline Casts Urine 0-2 /LPF (0-2); RBC Urine 0-2 /HPF (0-2); Squamous Epithelial Cell Urine 0-2 /HPF (0-2); WBC Urine 0-5 /HPF (0-5)
[2023-09-27 19:25] LABS: Amphetamine Screen Urine Not Detected (Not Detect); Barbiturates, Urine Not Detected (Not Detect); Benzodiazepines Screen Urine Not Detected (Not Detect); Buprenorphine Scr Not Detected (Not Detect); Cannabinoid Screen Urine Not Detected (Not Detect); Cocaine Screen Urine Not Detected (Not Detect); Fentanyl, urine Not Detected (Not Detect); Methadone Screen, Urine Not Detected (Not Detect); Opiate Screen Urine Not Detected (Not Detect); Oxycodone Screen Urine Not Detected (Not Detect); Phencyclidine Screen Urine Not Detected (Not Detect)
[2023-09-27 19:26] LABS: Alanine Aminotransferase 28 U/L (0-40); Albumin Level 4.7 g/dL (3.5-5.0); Alkaline Phosphatase 74 U/L (39-117); Anion Gap 19 (12-20); Aspartate Amino Transferase 16 U/L (5-37); Blood Urea Nitrogen 10 mg/dL (9-16); COVID-19 Test Negative (Negative); Calcium 9.6 mg/dL (8.4-10.2); Carbon Dioxide 20 mmol/L (22-29); Chloride 106 mmol/L (96-108); Creatinine Clr Calc Pharmacy 130.7; Estimated Glomerular Filt Rate > 60; Ethanol 251 mg/dL; Glucose Random 285 mg/dL (60-115); IDNOW Serial# 58CA691E; Potassium 4.1 mmol/L (3.3-5.1); Sodium 141 mmol/L (135-145)
--- NOTE | 2023-09-27 20:03 | PC.NURSE ---
patient appears to remain at rest at present respirations are even and unlabored patient appears in no distress
[2023-09-27 23:37] VITALS: BP 129/71; PULSE 86; RESP 16; TEMP 36.6; O2SAT 96
--- NOTE | 2023-09-28 05:17 | PC.NURSE ---
Pt sleeping at the bedside. No apparent distress noted. Breaths are even regular and unlabored with equal chest rises. Monitoring is ongoing.
--- NOTE | 2023-09-28 07:34 | PC.NURSE ---
Assumed care of patient at 0645. Patient is observed sleeping in their bed. No signs of distress observed. Breathing is equal and unlabored. Will continue plan of care.
[2023-09-28 07:58] VITALS: BP 132/74; PULSE 70; RESP 18; TEMP 36.6; O2SAT 98
[2023-09-28 09:45] VITALS: BP 132/74; PULSE 70; RESP 18; TEMP 36.6; O2SAT 98
== END 2023-09-28 09:57 | disposition home or self-care (01) ==
PROVIDERS: Emergency Medicine; Emergency Provider Emergency Medicine; PCP General Practice
DX: R45.851 Suicidal ideations (principal); F10.10 Alcohol abuse, uncomplicated; Y90.8 Blood alcohol level of 240 mg/100 ml or more; E11.9 Type 2 diabetes mellitus without complications; Z11.52 Encounter for screening for COVID-19
CPT/HCPCS: 80053; 80307; 81001; 85025; 87635; 99284; S9485

== ENCOUNTER 2023-10-07 21:30 | Emergency (ER) | payer OTHER, SELFPAY ==
[2023-10-07 21:50] VITALS: BP 143/79; BP 144/88; PULSE 92; RESP 18; TEMP 36.8; O2SAT 98; O2SAT 99; BMI 57.2
[2023-10-07 21:50] LABS: Glucose, Whole Blood 265 mg/dL (60-115)
[2023-10-07 22:04] VITALS: BP 142/79; PULSE 92; RESP 18; TEMP 36.8; O2SAT 99
--- NOTE | 2023-10-07 22:12 | ED.PSYCH ---
HPI - Psych General Chief Complaint: Psychiatric Symptoms Stated Complaint: PD called to scene, ETOH and SI, hx diabetes Time Seen by Provider: 10/07/23 21:58 Source: patient Mode of arrival: EMS Limitations: no limitations History of Present Illness HPI Narrative: Patient history of depression followed by psychiatrist and therapist been feeling increasingly depressed as he missing his mother patient diabetic not taking his metformin had few drinks and did not feel safe and came to the ER no plan no hallucination /delusion Related Data Home Medications ?Medication ?Instructions ?Recorded ?Confirmed empagliflozin 10 mg tablet 10 mg PO QAM 12/08/22 12/27/22 (Jardiance) glipizide 5 mg tablet, extended 5 mg PO DAILY@1200 12/08/22 12/27/22 release 24 hr metformin 1,000 mg tablet 1,000 mg PO BID 12/08/22 12/27/22 Allergies Allergy/AdvReac Type Severity Reaction Status Date / Time No Known Allergies Allergy Verified 10/07/23 21:54 [No Known Allergies*] Review of Systems Review of Systems: Yes all other systems are reviewed and are negative [facility] Past Medical History Medical History TBI (traumatic brain injury) MDD (major depressive disorder), recurrent episode, moderate Alcohol use disorder, mild, abuse Suicidal ideation Alcohol abuse Depression Diabetes Social History Social History Household Members: None Housing: Apartment Do you presently have visiting nurse or other home services: No Unable to assess alcohol history related to: Unknown Alcohol intake: current Alcohol intake frequency: a few times a month Alcohol type: other Patient Tobacco Use Status: Former Tobacco user Tobacco use type: Cigarette e-Cigarette/Vaping Use: Never Used Second Hand Smoke Exposure: No Substance Use Type: Marijuana Advance Directives: No Advance Directives Information Provided: No service: No Sexual orientation: Straight/Heterosexual Physical Exam Vital Signs: Vital Signs: Last Vital Signs Temp 98.2 F 10/07/23 22:04 Pulse 92 10/07/23 22:04 Resp 18 10/07/23 22:04 BP 142/79 H 10/07/23 22:04 Pulse Ox 99 10/07/23 22:04 O2 Del Method Room Air 10/07/23 22:04 BMI result Body Mass Index 57.2 Appearance: Alert. Oriented X3. No acute distress. etoh+ Eyes: PERRLA, No Nystagmus ENT: Pharynx normal. Oral Mucosa moist AT NC Neck: Normal inspection. Neck supple. CVS: Normal heart rate and rhythm. Pulses normal. Respiratory: No respiratory distress. Equal air entry bilateral, no wheezing/rales/rhonchi Abdomen: Soft and nontender. Bowel sounds are present, no mass palpable, no CVA tenderness Skin: Skin warm and dry. Normal skin color. Normal skin turgor. Extremities: No lower extremity edema. No calf tenderness psych: Feel depressed and suicidal without any plan Neuro: Oriented X 3. No motor deficit. No sensory deficit.No cerebellar signs , cranial nerves II-XII intact Medical Decision Making Medical Decision Making MDM Narrative: Patient has increased depression SI feeling will get care team evaluation Lab Data [facility] Lab Attestation statement: I reviewed the patient's lab results. Labs: Lab Results 10/07/23 10/07/23 Range/Units 21:46 22:29 POC Glucose 265 H (60-115) mg/dL Urine Color Yellow Urine Appearance Clear Urine pH 6.0 (5.0-9.0) Ur Specific [place] <= 1.005 (1.005-1.025) Urine Protein Negative (Neg-Trace) mg/dL Urine Glucose (UA) >=1000 H (Negative) mg/dL Urine Ketones Negative (Negative) mg/dL Urine Blood Negative (Negative) Urine Nitrite Negative (Negative) Ur Leukocyte Esterase Negative (Negative) Urine RBC 0-2 (0-2) /HPF Urine WBC 0-5 (0-5) /HPF Ur Squamous Epith Cells 0-2 (0-2) /HPF Urine Bacteria None Seen (None Seen) Hyaline Casts 0-2 (0-2) /LPF Urine Opiates Screen Not Detected (Not Detect) Ur Buprenorphine Scrn Not Detected (Not Detect) ng/mL Ur Oxycodone Screen Not Detected (Not Detect) ng/mL Urine Methadone Screen Not Detected (Not Detect) ng/mL Urine Fentanyl Screen Not Detected (Not Detect) Ur Barbiturates Screen Not Detected (Not Detect) Ur Phencyclidine Scrn Not Detected (Not Detect) Ur Amphetamines Screen Not Detected (Not Detect) U Benzodiazepines Scrn Not Detected (Not Detect) Urine Cocaine Screen Not Detected (Not Detect) U Marijuana (THC) Screen Not Detected (Not Detect) Discharge Plan Discharge Clinical Impression: Depression, Suicidal ideation Patient Disposition: Still a Patient Prescriptions: No Action glipizide 5 mg Tablet Extended Release 24hr 5 mg PO DAILY@1200 metformin 1,000 mg Tablet 1,000 mg PO BID Jardiance 10 mg Tablet 10 mg PO QAM Print Language: Occitan
--- NOTE | 2023-10-07 22:31 | PC.NURSE ---
PT refusing labs, cursing at staff, demanding water right away.
[2023-10-07 22:38] LABS: Appearance Urine Clear; Color Urine Yellow; Glucose Urine UA >=1000 mg/dL (Negative); Leukocyte Esterase Urine Negative (Negative); Nitrite Urine Negative (Negative); Specific Gravity - Urine <= 1.005 (1.005-1.025); UMIC TRIGGER UACC YES; Urine Blood Negative (Negative); Urine Ketones Negative (Negative); Urine Protein Negative (Neg-Trace)
[2023-10-07 22:51] LABS: Amphetamine Screen Urine Not Detected (Not Detect); Barbiturates, Urine Not Detected (Not Detect); Benzodiazepines Screen Urine Not Detected (Not Detect); Buprenorphine Scr Not Detected (Not Detect); Cannabinoid Screen Urine Not Detected (Not Detect); Cocaine Screen Urine Not Detected (Not Detect); Fentanyl, urine Not Detected (Not Detect); Methadone Screen, Urine Not Detected (Not Detect); Opiate Screen Urine Not Detected (Not Detect); Oxycodone Screen Urine Not Detected (Not Detect); Phencyclidine Screen Urine Not Detected (Not Detect)
[2023-10-07 22:55] LABS: Bacteria Urine None Seen (None Seen); Hyaline Casts Urine 0-2 /LPF (0-2); RBC Urine 0-2 /HPF (0-2); Squamous Epithelial Cell Urine 0-2 /HPF (0-2); WBC Urine 0-5 /HPF (0-5)
[2023-10-08 04:16] VITALS: BP 153/80; PULSE 92; RESP 17; TEMP 36.8; O2SAT 98
--- NOTE | 2023-10-08 05:28 | PC.NURSE ---
Pt continuing to refusing labs and assessments. States he has an appointment Tuesday and that he better be let out before then.
[2023-10-08 06:19] LABS: Glucose, Whole Blood 269 mg/dL (60-115)
[2023-10-08 06:20] LABS: MANUAL DIFF FLAG NO
[2023-10-08 06:21] LABS: Basophils Absolute Auto 0.1 X10*3/uL (0.0-0.2); Basophils Percent Auto 0.9 % (0-2); Eosinophils Absolute Auto 0.1 X10*3/uL (0.0-0.4); Eosinophils Percent Auto 1.4 % (0-4); Hematocrit 49.9 % (42.0-52.0); Hemoglobin 17.9 g/dl (14.0-18.0); Imm Gran Abs Auto 0.01 X10*3/uL (0.00-0.03); Imm Gran Pct Auto 0.2 % (0.0-0.4); Lymphocytes Absolute Auto 1.8 X10*3/uL (1.2-4.9); Lymphocytes Percent Auto 31.6 % (20-40); Mean Corpuscular HGB Conc 35.9 g/dl (31.0-36.0); Mean Corpuscular Hemoglobin 30.2 pg (27.0-33.0); Mean Corpuscular Volume 84.1 fL (80.0-98.0); Mean Platelet Volume 10.5 fL (9.4-12.4); Monocytes Absolute Auto 0.4 X10*3/uL (0.1-1.2); Monocytes Percent Auto 6.7 % (2-11); Neutrophils Absolute Auto 3.5 x10*3/uL (2.0-8.3); Neutrophils Percent Auto 59.2 % (45-73); Platelet Count 283 X10*3/uL (160-400); Red Blood Count 5.93 X10*6/uL (4.60-5.80); Red Cell Distribution Width 12.8 % (11.0-16.0); White Blood Count 5.8 X10*3/uL (4.8-10.8)
[2023-10-08 06:35] LABS: Alanine Aminotransferase 31 U/L (0-40); Albumin Level 4.4 g/dL (3.5-5.0); Alkaline Phosphatase 74 U/L (39-117); Anion Gap 19 (12-20); Aspartate Amino Transferase 15 U/L (5-37); Bilirubin Total 1.6 mg/dL (0.0-1.0); Blood Urea Nitrogen 9 mg/dL (9-16); Calcium 9.6 mg/dL (8.4-10.2); Carbon Dioxide 22 mmol/L (22-29); Chloride 102 mmol/L (96-108); Creatinine Clr Calc Pharmacy 180.8; Estimated Glomerular Filt Rate > 60; Ethanol < 10 mg/dL; Glucose Random 301 mg/dL (60-115); Potassium 4.1 mmol/L (3.3-5.1); Sodium 139 mmol/L (135-145); Total Protein 7.5 g/dL (6.5-8.0)
[2023-10-08] MEDS: metFORMIN HCl 1,000 MG TABLET 1000 MG PO (07:10)
[2023-10-08 08:54] VITALS: BP 153/80; PULSE 92; RESP 17; TEMP 36.8; O2SAT 98
== END 2023-10-08 09:07 | disposition home or self-care (01) ==
PROVIDERS: Emergency Provider Internal Medicine
DX: F33.1 Major depressive disorder, recurrent, moderate (principal); R45.851 Suicidal ideations; F32.A Depression, unspecified; E11.9 Type 2 diabetes mellitus without complications; Z87.820 Personal history of traumatic brain injury; F10.10 Alcohol abuse, uncomplicated; Y90.0 Blood alcohol level of less than 20 mg/100 ml; E66.9 Obesity, unspecified; Z68.43 Body mass index [BMI] 50.0-59.9, adult; Z87.891 Personal history of nicotine dependence; Z79.84 Long term (current) use of oral hypoglycemic drugs; Z79.899 Other long term (current) drug therapy
CPT/HCPCS: 36415; 80053; 80307; 81001; 82947; 85025; 99284; 99285; S9485

== ENCOUNTER 2023-11-01 10:21 | Outpatient (REF) | payer OTHER, SELFPAY ==
[2023-11-01 12:01] LABS: HIV AB/AG Nonreactive (Nonreactive); HIV Num 1 0.05 S/CO (0.00-0.99); ~HepC Num1 0.06 S/CO (0.00-0.79); ~Hepatitis C Antibody Nonreactive (Nonreactive)
[2023-11-01 12:11] LABS: Microalbum/Creatinine Ratio Ur 11.3 ug/mg cr (<30)
[2023-11-01 12:49] LABS: Anion Gap 14 (12-20); Blood Urea Nitrogen 15 mg/dL (9-16); Calcium 9.5 mg/dL (8.4-10.2); Carbon Dioxide 26 mmol/L (22-29); Chloride 97 mmol/L (96-108); Estimated Glomerular Filt Rate > 60; Potassium 4.2 mmol/L (3.3-5.1); Sodium 133 mmol/L (135-145)
[2023-11-01 12:50] LABS: Alanine Aminotransferase 31 U/L (0-40); Albumin Level 4.5 g/dL (3.5-5.0); Alkaline Phosphatase 73 U/L (39-117); Aspartate Amino Transferase 15 U/L (5-37); Bilirubin Total 1.9 mg/dL (0.0-1.0); Cholesterol 347 mg/dL (<200); HDL Cholesterol 46 mg/dL (>40); Total Protein 7.6 g/dL (6.5-8.0); Triglycerides 454 mg/dL (<150)
[2023-11-01 13:16] LABS: Glucose Random 458 mg/dL (60-115)
[2023-11-01 14:40] LABS: CT PCR NOT DETECTED (Not Detect.); NG PCR NOT DETECTED (Not Detect.)
[2023-11-03 09:48] LABS: RPR Rapid Plasma Reagin NON-REACTIVE (NON-REACTIVE)
== END 2023-11-01 10:22 | disposition home or self-care (01) ==
LOC: HO.HHCL 10:21
PROVIDERS: Visit Provider General Practice
DX: E11.9 Type 2 diabetes mellitus without complications (principal); Z11.3 Encounter for screening for infections with a predominantly sexual mode of transmission
CPT/HCPCS: 0353U; 36415; 80053; 80061; 82043; 82570; 86592; 86803; 87389

== ENCOUNTER 2023-12-16 22:47 | Emergency (ER) | payer OTHER, SELFPAY ==
[2023-12-16 23:01] VITALS: BP 142/90; PULSE 130
[2023-12-16 23:02] VITALS: BP 135/79; PULSE 113; RESP 14; TEMP 36.7; O2SAT 98
[2023-12-16 23:05] VITALS: BMI 26.5
--- NOTE | 2023-12-16 23:21 | ED.GENADULT ---
HPI - General Adult General Chief complaint: ETOH/Substance Use Stated complaint: ETOH, SI w/ no plan Time Seen by Provider: 12/16/23 23:10 Source: patient Mode of arrival: ambulatory Limitations: no limitations History of Present Illness ED Provider: joyce MARTIN narrative: Patient has been drinking liquor since the age of 15 patient has locked himself out of his house called [facility] for assistance Does not want to go to detox no other substance abuse denies any depression or suicidal ideation Related Data Home Medications ?Medication ?Instructions ?Recorded ?Confirmed empagliflozin 10 mg tablet 10 mg PO QAM 12/08/22 12/27/22 (Jardiance) glipizide 5 mg tablet, extended 5 mg PO DAILY@1200 12/08/22 12/27/22 release 24 hr metformin 1,000 mg tablet 1,000 mg PO BID 12/08/22 12/27/22 Allergies Allergy/AdvReac Type Severity Reaction Status Date / Time No Known Allergies Allergy Verified 12/16/23 23:12 [No Known Allergies*] Review of Systems Review of Systems: Yes all other systems are reviewed and are negative PMFSH Past Medical History Medical History TBI (traumatic brain injury) MDD (major depressive disorder), recurrent episode, moderate Alcohol use disorder, mild, abuse Suicidal ideation Alcohol abuse Depression Diabetes Social History Social History Household Members: None Housing: Apartment Do you presently have visiting nurse or other home services: No Unable to assess alcohol history related to: Unknown Alcohol intake: current Alcohol intake frequency: 3 or more drinks per day Alcohol type: beer and hard liquor Patient Tobacco Use Status: Former Tobacco user Tobacco use type: Cigarette Smoked in Last 30 Days: Yes e-Cigarette/Vaping Use: Never Used Second Hand Smoke Exposure: No Use of substances other than those prescribed or required for medical reasons: No Substance Use Type: Marijuana Advance Directives: No Advance Directives Information Provided: No Do you have a plan to hurt others: No Plan service: No Sexual orientation: Straight/Heterosexual Physical Exam ED Vital Signs: Vital Signs - 24 hr 12/16/23 23:02 Temperature 98.0 F Pulse Rate 113 H Respiratory Rate 14 Blood Pressure 135/79 Pulse Oximetry 98 Oxygen Delivery Method Room Air BMI result Body Mass Index 26.5 Appearance: Alert. Oriented X3. No acute distress. Intoxicated Eyes: PERRLA, No Nystagmus ENT: Pharynx normal. Oral Mucosa moist Neck: Normal inspection. Neck supple. CVS: Normal heart rate and rhythm. Pulses normal. Respiratory: No respiratory distress. Equal air entry bilateral, no wheezing/rales/rhonchi Abdomen: Soft and nontender. Bowel sounds are present, no mass palpable, no CVA tenderness Skin: Skin warm and dry. Normal skin color. Normal skin turgor. Extremities: No lower extremity edema. No calf tenderness Neuro: Oriented X 3. No motor deficit. No sensory deficit.No cerebellar signs , cranial nerves II-XII intact Medical Decision Making Medical Decision Making [facility] Narrative: Patient alcoholic refusing any how denies any significant depression or SI will evaluate him in a.m. when he is sober and DC home Lab Data [facility] Lab Attestation statement: I reviewed the patient's lab results. Labs: Lab Results 12/17/23 Range/Units 01:15 POC Glucose 311 H (60-115) mg/dL Discharge Plan Discharge Clinical Impression: Alcohol abuse, Diabetes mellitus Patient Disposition: Still a Patient Instructions: Abuse of Alcohol (ED), Type 2 Diabetes Management for Adults (ED) Additional Instructions: Stop drinking alcohol Take medication for diabetes as prescribed and follow with PCP Prescriptions: No Action glipizide 5 mg Tablet Extended Release 24hr 5 mg PO DAILY@1200 metformin 1,000 mg Tablet 1,000 mg PO BID Jardiance 10 mg Tablet 10 mg PO QAM Print Language: Cuban
[2023-12-17 01:19] LABS: Glucose, Whole Blood 311 mg/dL (60-115)
[2023-12-17] MEDS: metFORMIN HCl 1,000 MG TABLET 1000 MG PO (02:33)
[2023-12-17 06:32] VITALS: BP 154/71; PULSE 106; RESP 16; O2SAT 95
--- NOTE | 2023-12-17 07:25 | PC.NURSE ---
alert. speech clear, skin wpd, denies si, states he was just a little suicidal yesterday while he was drunk, didn't do anything or plan to do anything. has never done anything in the past. has a therapist. does not regularly drink. wants to go home and does not feel the need to talk with the CARE team.eating breakfast. sitter at bedside
[2023-12-17 07:54] LABS: Glucose, Whole Blood 295 mg/dL (60-115)
[2023-12-17 08:02] VITALS: BP 156/78; PULSE 102; RESP 19; TEMP 36.6; O2SAT 98
[2023-12-17 08:54] VITALS: BP 156/78; PULSE 102; RESP 19; TEMP 36.6; O2SAT 98
== END 2023-12-17 08:55 | disposition home or self-care (01) ==
PROVIDERS: Emergency Provider Internal Medicine
DX: F10.10 Alcohol abuse, uncomplicated (principal); E11.9 Type 2 diabetes mellitus without complications; F33.1 Major depressive disorder, recurrent, moderate; Z87.820 Personal history of traumatic brain injury; Z87.891 Personal history of nicotine dependence; Z79.84 Long term (current) use of oral hypoglycemic drugs
CPT/HCPCS: 82947; 99284

== ENCOUNTER 2024-02-24 21:40 | Emergency (ER) | payer OTHER, SELFPAY ==
[2024-02-24 21:50] VITALS: BP 126/72; BP 126/76; PULSE 107; PULSE 98; RESP 18; TEMP 37.4; O2SAT 95; O2SAT 97; BMI 25.8
[2024-02-24 22:14] LABS: MANUAL DIFF FLAG NO
[2024-02-24 22:19] LABS: Basophils Absolute Auto 0.1 X10*3/uL (0.0-0.2); Basophils Percent Auto 0.8 % (0-2); Eosinophils Absolute Auto 0.2 X10*3/uL (0.0-0.4); Eosinophils Percent Auto 1.8 % (0-4); Hemoglobin 14.7 g/dl (14.0-18.0); Imm Gran Abs Auto 0.04 X10*3/uL (0.00-0.03); Imm Gran Pct Auto 0.4 % (0.0-0.4); Lymphocytes Absolute Auto 1.9 X10*3/uL (1.2-4.9); Lymphocytes Percent Auto 18.3 % (20-40); Mean Corpuscular HGB Conc 36.8 g/dl (31.0-36.0); Mean Corpuscular Hemoglobin 31.1 pg (27.0-33.0); Mean Corpuscular Volume 84.7 fL (80.0-98.0); Mean Platelet Volume 10.3 fL (9.4-12.4); Monocytes Absolute Auto 0.8 X10*3/uL (0.1-1.2); Monocytes Percent Auto 7.5 % (2-11); Neutrophils Absolute Auto 7.2 x10*3/uL (2.0-8.3); Neutrophils Percent Auto 71.2 % (45-73); Platelet Count 368 X10*3/uL (160-400); Red Blood Count 4.72 X10*6/uL (4.60-5.80); Red Cell Distribution Width 11.6 % (11.0-16.0); White Blood Count 10.2 X10*3/uL (4.8-10.8)
[2024-02-24 22:24] LABS: Glucose, Whole Blood 391 mg/dL (60-115)
[2024-02-24 22:40] LABS: Alanine Aminotransferase 18 U/L (0-40); Albumin Level 3.8 g/dL (3.5-5.0); Alkaline Phosphatase 65 U/L (39-117); Anion Gap 16 (12-20); Aspartate Amino Transferase 9 U/L (5-37); Bilirubin Direct 0.3 mg/dL (0.0-0.5); Bilirubin Total 0.7 mg/dL (0.0-1.0); Blood Urea Nitrogen 6 mg/dL (9-16); Calcium 8.9 mg/dL (8.4-10.2); Carbon Dioxide 23 mmol/L (22-29); Chloride 102 mmol/L (96-108); Creatinine Clr Calc Pharmacy 113.6; Estimated Glomerular Filt Rate > 60; Glucose Random 419 mg/dL (60-115); Potassium 3.9 mmol/L (3.3-5.1); Sodium 137 mmol/L (135-145); Total Protein 7.2 g/dL (6.5-8.0)
--- NOTE | 2024-02-24 23:47 | ED.GENADULT ---
HPI - General Adult General Chief complaint: Nausea/Vomiting/Diarrhea Stated complaint: NAUSEA VOMITING Time Seen by Provider: 02/24/24 23:32 Source: patient Mode of arrival: ambulatory Limitations: no limitations History of Present Illness ED Provider: Dr. Christine Lowery HPI narrative: Patient comes to the emergency room complaining of ?feeling sick? patient states that he has nasal congestion, sore throat, 3 weeks of intermittent nausea vomiting and diarrhea. Patient known to be diabetic, when patient arrived patient's glucose 454. Patient states that he is compliant with his medications, takes Januvia, metformin and glipizide. Patient denies chest pain. Denies abdominal pain or hematuria/dysuria. Patient states that he has slowed down drinking alcohol, drinks less, today had about 2 oz of alcohol approximately 9 hours ago. Related Data Home Medications ?Medication ?Instructions ?Recorded ?Confirmed empagliflozin 10 mg tablet 10 mg PO QAM 12/08/22 12/27/22 (Jardiance) glipizide 5 mg tablet, extended 5 mg PO DAILY@1200 12/08/22 12/27/22 release 24 hr metformin 1,000 mg tablet 1,000 mg PO BID 12/08/22 12/27/22 Allergies Allergy/AdvReac Type Severity Reaction Status Date / Time No Known Allergies Allergy Verified 02/24/24 21:53 [No Known Allergies*] Review of Systems Review of Systems: Constitutional : No Weight loss, No Fever, No Chills, No Night Sweats, No Fatigue, No Malaise ENT/Mouth : No Hearing loss, No Ear Pain, complaining of Nasal Congestion, No Sinus Pain, No Hoarseness, complaining of sore throat, No Rhinorrhea, No Swallowing Difficulty Eyes: No Eye Pain, No Swelling, No Redness, No Foreign Body, No Discharge, No Vision Changes Cardiovascular : No Chest Pain, No SOB, No Dyspnea on Exertion, No Orthopnea, No Edema, No Palpitations Respiratory : No Cough, No Sputum, No Wheezing, No Smoke Exposure, No Dyspnea Gastrointestinal : Complaining of intermittent vomiting and diarrhea, No Constipation, No abdominal Pain, No Hematochezia, No Melena Genitourinary : no irregular bleeding, No Dysuria, No Urinary Frequency, No Hematuria, No Urinary Incontinence, No Urgency, No Flank Pain, No Urinary Flow Changes, No Hesitancy Musculoskeletal : No joint pain, No Myalgias, No Joint Swelling Skin : No Skin Lesions, No rash Neuro : No Weakness, No Numbness, No Paresthesias, No Loss of Consciousness, No Dizziness, No Headache Psych : No Anxiety/Panic, No Depression, No SI/HI/AH/VH, No Social Issues, Heme/Lymph: No Bruising, No Bleeding,No Lymphadenopathy Endocrine : No Polyuria, No Polydipsia, No Temperature Intolerance [facility] Past Medical History Medical History TBI (traumatic brain injury) MDD (major depressive disorder), recurrent episode, moderate Alcohol use disorder, mild, abuse Suicidal ideation Alcohol abuse Depression Diabetes Social History Social History Household Members: None Housing: Apartment Do you presently have visiting nurse or other home services: No Unable to assess alcohol history related to: Unknown Alcohol intake: current Alcohol intake frequency: a few times a week Alcohol type: hard liquor Patient Tobacco Use Status: Former Tobacco user Tobacco use type: Cigarette Smoked in Last 30 Days: No e-Cigarette/Vaping Use: Never Used Second Hand Smoke Exposure: No Use of substances other than those prescribed or required for medical reasons: No Substance Use Type: Marijuana Advance Directives: No Advance Directives Information Provided: No Do you have a plan to hurt others: No Plan service: No Sexual orientation: Straight/Heterosexual Physical Exam ED Vital Signs: Vital Signs - 24 hr 02/24/24 21:50 Temperature 99.4 F Pulse Rate 98 Respiratory Rate 18 Blood Pressure 126/76 Pulse Oximetry 95 Oxygen Delivery Method Room Air BMI result Body Mass Index 25.8 Const Other: Appearance: Alert. Oriented X3. No acute distress. Disheveled Eyes: Pupils equal, round and reactive to light. ENT: Pharynx normal. Neck: Normal inspection. Neck supple. No lymph nodes noted. No crepitus CVS: Normal heart rate and rhythm. Pulses normal. Normal S1 and S2 Respiratory: No respiratory distress. Breath sounds normal. No Wheezing. No rales Abdomen: Soft and nontender. No rigidity. No distention. Skin: Clammy, Normal skin color. Normal skin turgor. Extremities: No lower extremity edema. No Lacerations. No Rash Neuro: Oriented X 3. No motor deficit. No sensory deficit. Moving all extremities. No slurred speech. CN 2 through 12 grossly intact Psych: calm, cooperative, normal affect Medications Administered Discontinued Medications Generic Name Dose Route Start Last Admin Trade Name Aislinn PRN Reason Stop Dose Admin Sodium Chloride 1,000 mls @ 999 mls/hr 02/24/24 23:43 02/24/24 23:56 Ns IVCONT 02/25/24 00:43 999 mls/hr .Q1H1M ONE Administration Insulin Human Regular 5 unit 02/24/24 23:43 02/25/24 00:01 Insulin Regular, Human 100 Unit/Ml 10 Ml Vial IVPUSH 02/24/24 23:44 5 unit ONCE ONE Administration Medical Decision Making Medical Decision Making [facility] Narrative: -my interpretation of labs: At baseline hematology, chemistry shows normal electrolytes, blood glucose of 419, closed anion gap, normal LFTs -patient receiving IV fluids, 5 units of insulin, serology negative for strep, influenza COVID RSV, ETOH 127 -after IV hydration and 5 units of insulin, patient's glucose improved to 260 -patient likely has a viral syndrome. -patient's vitals stable, blood pressure 126/76, pulse 98, respirations 18 -patient being discharged in stable and clinically sober condition Differential Diagnosis Differential Diagnoses: The differential diagnosis associated with the presentation includes (DKA, hyperglycemia, COVID, RSV, influenza, viral syndrome) Admission/Observation Consideration of admission/observation: Escalation of care including admission/observation considered (Given patient's symptoms and labs, admission/observation was considered) Lab Data [facility] Lab Attestation statement: I reviewed the patient's lab results. 02/24/24 22:09 02/24/24 22:09 Labs: Lab Results 02/24/24 02/24/24 02/24/24 Range/Units 22:09 22:19 23:48 WBC 10.2 (4.8-10.8) X10*3/uL RBC 4.72 D (4.60-5.80) X10*6/uL Hgb 14.7 (14.0-18.0) g/dl Hct 40.0 L (42.0-52.0) % MCV 84.7 (80.0-98.0) fL MCH 31.1 (27.0-33.0) pg MCHC 36.8 H (31.0-36.0) g/dl RDW 11.6 (11.0-16.0) % Plt Count 368 D (160-400) X10*3/uL MPV 10.3 (9.4-12.4) fL Immature Gran % (Auto) 0.4 (0.0-0.4) % Neut % (Auto) 71.2 (45-73) % Lymph % (Auto) 18.3 L (20-40) % [place] % (Auto) 7.5 (2-11) % Eos % (Auto) 1.8 (0-4) % Baso % (Auto) 0.8 (0-2) % Lymph # (Auto) 1.9 (1.2-4.9) X10*3/uL [place] # (Auto) 0.8 (0.1-1.2) X10*3/uL Eos # (Auto) 0.2 (0.0-0.4) X10*3/uL Baso # (Auto) 0.1 (0.0-0.2) X10*3/uL Abs Immat Gran (auto) 0.04 H (0.00-0.03) X10*3/uL Absolute Neuts (auto) 7.2 (2.0-8.3) x10*3/uL Absolute Nucleated RBC 0.000 (0.0-0.012) X10*3/uL Nucleated RBC % (auto) 0.0 (0.0-0.2) /100WBC Sodium 137 (135-145) mmol/L Potassium 3.9 (3.3-5.1) mmol/L Chloride 102 (96-108) mmol/L Carbon Dioxide 23 (22-29) mmol/L Anion Gap 16 (12-20) BUN 6 L (9-16) mg/dL Creatinine 0.83 (0.5-1.4) mg/dL Estim Creat Clear Calc 113.6 Estimated GFR > 60 POC Glucose 391 H* 333 H (60-115) mg/dL Random Glucose 419 H* (60-115) mg/dL Calcium 8.9 D (8.4-10.2) mg/dL Total Bilirubin 0.7 (0.0-1.0) mg/dL Direct Bilirubin 0.3 (0.0-0.5) mg/dL AST 9 (5-37) U/L ALT 18 (0-40) U/L Alkaline Phosphatase 65 (39-117) U/L Total Protein 7.2 (6.5-8.0) g/dL Albumin 3.8 (3.5-5.0) g/dL Urine Color Urine Appearance Urine pH (5.0-9.0) Ur Specific [place] (1.005-1.025) Urine Protein (Neg-Trace) mg/dL Urine Glucose (UA) (Negative) mg/dL Urine Ketones (Negative) mg/dL Urine Blood (Negative) Urine Nitrite (Negative) Ur Leukocyte Esterase (Negative) Urine RBC (0-2) /HPF Urine WBC (0-5) /HPF Ur Squamous Epith Cells (0-2) /HPF Urine Bacteria (None Seen) Hyaline Casts (0-2) /LPF Urine Opiates Screen (Not Detect) Ur Buprenorphine Scrn (Not Detect) ng/mL Ur Oxycodone Screen (Not Detect) ng/mL Urine Methadone Screen (Not Detect) ng/mL Urine Fentanyl Screen (Not Detect) Ur Barbiturates Screen (Not Detect) Ur Phencyclidine Scrn (Not Detect) Ur Amphetamines Screen (Not Detect) U Benzodiazepines Scrn (Not Detect) Urine Cocaine Screen (Not Detect) U Marijuana (THC) Screen (Not Detect) Ethyl Alcohol mg/dL Influenza Type A (PCR) (Negative) Influenza Type B (PCR) (Negative) RSV RNA Qual (PCR) (Negative) SARS-CoV-2 RNA (RT-PCR) (Negative) S. pyogenes GrpA FANTA (Negative) 02/24/24 02/24/24 02/25/24 Range/Units 23:51 23:55 01:04 WBC (4.8-10.8) X10*3/uL RBC (4.60-5.80) X10*6/uL Hgb (14.0-18.0) g/dl Hct (42.0-52.0) % MCV (80.0-98.0) fL MCH (27.0-33.0) pg MCHC (31.0-36.0) g/dl RDW (11.0-16.0) % Plt Count (160-400) X10*3/uL MPV (9.4-12.4) fL Immature Gran % (Auto) (0.0-0.4) % Neut % (Auto) (45-73) % Lymph % (Auto) (20-40) % [place] % (Auto) (2-11) % Eos % (Auto) (0-4) % Baso % (Auto) (0-2) % Lymph # (Auto) (1.2-4.9) X10*3/uL [place] # (Auto) (0.1-1.2) X10*3/uL Eos # (Auto) (0.0-0.4) X10*3/uL Baso # (Auto) (0.0-0.2) X10*3/uL Abs Immat Gran (auto) (0.00-0.03) X10*3/uL Absolute Neuts (auto) (2.0-8.3) x10*3/uL Absolute Nucleated RBC (0.0-0.012) X10*3/uL Nucleated RBC % (auto) (0.0-0.2) /100WBC Sodium (135-145) mmol/L Potassium (3.3-5.1) mmol/L Chloride (96-108) mmol/L Carbon Dioxide (22-29) mmol/L Anion Gap (12-20) BUN (9-16) mg/dL Creatinine (0.5-1.4) mg/dL Estim Creat Clear Calc Estimated GFR POC Glucose 261 H (60-115) mg/dL Random Glucose (60-115) mg/dL Calcium (8.4-10.2) mg/dL Total Bilirubin (0.0-1.0) mg/dL Direct Bilirubin (0.0-0.5) mg/dL AST (5-37) U/L ALT (0-40) U/L Alkaline Phosphatase (39-117) U/L Total Protein (6.5-8.0) g/dL Albumin (3.5-5.0) g/dL Urine Color Yellow Urine Appearance Clear Urine pH 5.5 (5.0-9.0) Ur Specific [place] 1.025 (1.005-1.025) Urine Protein Negative (Neg-Trace) mg/dL Urine Glucose (UA) >=1000 H (Negative) mg/dL Urine Ketones Trace (Negative) mg/dL Urine Blood Negative (Negative) Urine Nitrite Negative (Negative) Ur Leukocyte Esterase Negative (Negative) Urine RBC 0-2 (0-2) /HPF Urine WBC 0-5 (0-5) /HPF Ur Squamous Epith Cells 0-2 (0-2) /HPF Urine Bacteria None Seen (None Seen) Hyaline Casts 3-5 (0-2) /LPF Urine Opiates Screen Not Detected (Not Detect) Ur Buprenorphine Scrn Not Detected (Not Detect) ng/mL Ur Oxycodone Screen Not Detected (Not Detect) ng/mL Urine Methadone Screen Not Detected (Not Detect) ng/mL Urine Fentanyl Screen Not Detected (Not Detect) Ur Barbiturates Screen Not Detected (Not Detect) Ur Phencyclidine Scrn Not Detected (Not Detect) Ur Amphetamines Screen Not Detected (Not Detect) U Benzodiazepines Scrn Not Detected (Not Detect) Urine Cocaine Screen Not Detected (Not Detect) U Marijuana (THC) Screen Not Detected (Not Detect) Ethyl Alcohol 127 mg/dL Influenza Type A (PCR) NEGATIVE (Negative) Influenza Type B (PCR) NEGATIVE (Negative) RSV RNA Qual (PCR) NEGATIVE (Negative) SARS-CoV-2 RNA (RT-PCR) NEGATIVE (Negative) S. pyogenes GrpA FANTA Negative (Negative) Critical Care Time Critical Care Time Critical Care Time: Yes Total Critical Care Time: 60 Attestation: I have personally provided critical care time. Time includes review of lab data, radiology results, discussion with consultants, and monitoring for potential decompensation. Intervention performed as documented. Discharge Plan Discharge Clinical Impression: Acute viral syndrome, Hyperglycemia Patient Disposition: Home, Self-Care Instructions: Viral Syndrome (ED), Diabetic Hyperglycemia (ED) Additional Instructions: Please follow-up with your primary care physician tomorrow. If you have any worsening or new symptoms, please return to the emergency room or call 911 Prescriptions: No Action glipizide 5 mg Tablet Extended Release 24hr 5 mg PO DAILY@1200 metformin 1,000 mg Tablet 1,000 mg PO BID Jardiance 10 mg Tablet 10 mg PO QAM Print Language: Nicaraguan
[2024-02-24] MEDS: 0.9 % Sodium Chloride 1,000 ML 999 ML IVCONT (23:56)
[2024-02-25] MEDS: Insulin Regular, Human 100 UNIT/ML 10 ML VIAL IVPUSH (00:01)
[2024-02-25 00:02] LABS: Glucose, Whole Blood 333 mg/dL (60-115)
[2024-02-25 00:07] LABS: Appearance Urine Clear; Color Urine Yellow; Glucose Urine UA >=1000 mg/dL (Negative); Leukocyte Esterase Urine Negative (Negative); Nitrite Urine Negative (Negative); PH 5.5 (5.0-9.0); Specific Gravity - Urine 1.025 (1.005-1.025); UMIC TRIGGER UACC YES; Urine Blood Negative (Negative); Urine Ketones Trace mg/dL (Negative); Urine Protein Negative (Neg-Trace)
[2024-02-25 00:10] LABS: IDNOW Serial# 6674DD1D; Strep A Nucleic Acid Negative (Negative)
[2024-02-25 00:12] LABS: Bacteria Urine None Seen (None Seen); RBC Urine 0-2 /HPF (0-2); Squamous Epithelial Cell Urine 0-2 /HPF (0-2); WBC Urine 0-5 /HPF (0-5)
[2024-02-25 00:19] LABS: Amphetamine Screen Urine Not Detected (Not Detect); Barbiturates, Urine Not Detected (Not Detect); Benzodiazepines Screen Urine Not Detected (Not Detect); Buprenorphine Scr Not Detected (Not Detect); Cannabinoid Screen Urine Not Detected (Not Detect); Cocaine Screen Urine Not Detected (Not Detect); Fentanyl, urine Not Detected (Not Detect); Methadone Screen, Urine Not Detected (Not Detect); Opiate Screen Urine Not Detected (Not Detect); Oxycodone Screen Urine Not Detected (Not Detect); Phencyclidine Screen Urine Not Detected (Not Detect)
[2024-02-25 00:20] LABS: Ethanol 127 mg/dL
[2024-02-25 00:43] LABS: Influenza A PCR NEGATIVE (Negative); Influenza B PCR NEGATIVE (Negative); Resp Syncy Virus RNA Qual PCR NEGATIVE (Negative); SARS COV2 PCR INHOUSE NEGATIVE (Negative)
[2024-02-25 01:07] LABS: Glucose, Whole Blood 261 mg/dL (60-115)
[2024-02-25 01:33] VITALS: BP 124/72; PULSE 73; RESP 16; O2SAT 96
[2024-02-25 01:52] VITALS: BP 124/70; PULSE 73; RESP 16; TEMP 36.6; O2SAT 96
== END 2024-02-25 01:53 | disposition home or self-care (01) ==
PROVIDERS: Emergency Provider Emergency Medicine; PCP General Practice
DX: B34.9 Viral infection, unspecified (principal); E11.65 Type 2 diabetes mellitus with hyperglycemia; Z03.818 Encounter for observation for suspected exposure to other biological agents ruled out; R11.2 Nausea with vomiting, unspecified; Z79.84 Long term (current) use of oral hypoglycemic drugs; Z79.899 Other long term (current) drug therapy
CPT/HCPCS: 0241U; 36415; 80048; 80076; 80307; 81001; 82947; 85025; 87651; 96361; 96374; 99284; 99285

== ENCOUNTER 2024-04-04 23:09 | Emergency (ER) | payer OTHER, SELFPAY ==
--- NOTE | 2024-04-04 | ECG_ITS ---
Test Reason : cp Blood Pressure : / mmHG Vent. Rate : 104 BPM Atrial Rate : 104 BPM P-R Int : 132 ms QRS Dur : 090 ms QT Int : 334 ms P-R-T Axes : 063 087 008 degrees QTc Int : 439 ms Sinus tachycardia Otherwise normal ECG When compared with ECG of 17-JUL-2021 19:59, No significant change was found Referred By: Generic ED Physician Electronically Signed By:Heron Wesley
[2024-04-04 23:17] VITALS: BP 131/92; PULSE 102; RESP 20; TEMP 37.1; O2SAT 95; BMI 27.5
[2024-04-04 23:18] VITALS: BP 131/92; PULSE 106; RESP 18; TEMP 37.1; O2SAT 98
[2024-04-05 00:44] VITALS: BP 125/75; PULSE 89; RESP 16; TEMP 36.7; O2SAT 99
--- NOTE | 2024-04-05 00:45 | MHC.EDTECH ---
This pct assumed care of Patient at 2315 ,vitals taken ,Patient was change director into hospital attire ,by this pct and security ,all Patient belongings are locked up in [place] locker 2nd shelf ,Patient was hooked up to site monitor ,Patient was hungry ate 2 sandwiches and drank 2 cans of denisse afshan .All safety measure in Place .
--- NOTE | 2024-04-05 02:03 | PC.NURSE ---
Pt ambulated to restroom and back into room/bed with steady gait Plan of care ongoing.
[2024-04-05 02:15] LABS: Appearance Urine Clear; Color Urine Yellow; Glucose Urine UA >=1000 mg/dL (Negative); Leukocyte Esterase Urine Negative (Negative); Nitrite Urine Negative (Negative); PH 5.5 (5.0-9.0); Specific Gravity - Urine >= 1.030 (1.005-1.025); UMIC TRIGGER UACC YES; Urine Blood Negative (Negative); Urine Ketones 15 mg/dL (Negative); Urine Protein Negative (Neg-Trace)
[2024-04-05 02:26] VITALS: BP 124/71; PULSE 92; RESP 16; TEMP 36.8; O2SAT 98
--- NOTE | 2024-04-05 02:27 | MHC.EDTECH ---
0200 rounding done ,vitals taken ,Patient awake watching television ,All safety measure in Place .
--- NOTE | 2024-04-05 02:40 | MHC.EDTECH ---
Patient blood drawn and sent to lab .
[2024-04-05 02:41] LABS: MANUAL DIFF FLAG NO
[2024-04-05 02:41] LABS: Bacteria Urine None Seen (None Seen); Hyaline Casts Urine 0-2 /LPF (0-2); RBC Urine 0-2 /HPF (0-2); Squamous Epithelial Cell Urine 0-2 /HPF (0-2); WBC Urine 0-5 /HPF (0-5)
[2024-04-05 02:47] LABS: Basophils Percent Auto 0.5 % (0-2); Eosinophils Absolute Auto 0.1 X10*3/uL (0.0-0.4); Eosinophils Percent Auto 1.9 % (0-4); Hematocrit 47.2 % (42.0-52.0); Imm Gran Abs Auto 0.02 X10*3/uL (0.00-0.03); Imm Gran Pct Auto 0.4 % (0.0-0.4); Lymphocytes Absolute Auto 1.9 X10*3/uL (1.2-4.9); Lymphocytes Percent Auto 32.7 % (20-40); Mean Corpuscular Volume 83.4 fL (80.0-98.0); Mean Platelet Volume 10.6 fL (9.4-12.4); Monocytes Absolute Auto 0.3 X10*3/uL (0.1-1.2); Monocytes Percent Auto 4.6 % (2-11); Neutrophils Absolute Auto 3.4 x10*3/uL (2.0-8.3); Neutrophils Percent Auto 59.9 % (45-73); Platelet Count 308 X10*3/uL (160-400); Red Blood Count 5.66 X10*6/uL (4.60-5.80); Red Cell Distribution Width 12.2 % (11.0-16.0); White Blood Count 5.7 X10*3/uL (4.8-10.8)
[2024-04-05 02:48] LABS: Amphetamine Screen Urine Not Detected (Not Detect); Barbiturates, Urine Not Detected (Not Detect); Benzodiazepines Screen Urine Not Detected (Not Detect); Buprenorphine Scr Not Detected (Not Detect); Cannabinoid Screen Urine Not Detected (Not Detect); Cocaine Screen Urine Not Detected (Not Detect); Fentanyl, urine Not Detected (Not Detect); Methadone Screen, Urine Not Detected (Not Detect); Opiate Screen Urine Not Detected (Not Detect); Oxycodone Screen Urine Not Detected (Not Detect); Phencyclidine Screen Urine Not Detected (Not Detect)
[2024-04-05 02:57] LABS: Ethanol 122 mg/dL
[2024-04-05 03:38] VITALS: BP 133/74; PULSE 95; RESP 18; TEMP 36.8; O2SAT 97
--- NOTE | 2024-04-05 03:41 | MHC.EDTECH ---
0400 rounding and vitals done ,Patient up and ambulated independently ,void back to bed ,drank 2 cans of denisse afshan ,and continue to watch television ,All safety measure in Place .
--- NOTE | 2024-04-05 04:14 | ED_ITS ---
HPI - Psych General Chief Complaint: ETOH/Substance Use Stated Complaint: etoh, chest pain Time Seen by Provider: 04/05/24 04:05 Source: patient Mode of arrival: EMS Limitations: no limitations History of Present Illness ED Provider: Dr. Marko Whiting HPI Narrative: 48-year-old male with a history of alcohol use disorder, TBI, depression, diabetes who presents emergency department for evaluation of suicidal ideation. The patient states that he was drinking alcohol and he became depressed. He states that he then felt suicidal and he did not want to hurt himself so he called an ambulance. The nursing no reports that EMS was called for chest pain and sore throat. Patient was given 4 baby aspirin EN route to the hospital. At the time my evaluation he has no complaints and states he is feeling significantly better in his no longer suicidal and does not want to hurt anyone. Related Data Home Medications ?Medication ?Instructions ?Recorded ?Confirmed empagliflozin 10 mg tablet 10 mg PO QAM 12/08/22 12/27/22 (Jardiance) glipizide 5 mg tablet, extended 5 mg PO DAILY@1200 12/08/22 12/27/22 release 24 hr metformin 1,000 mg tablet 1,000 mg PO BID 12/08/22 12/27/22 Allergies Allergy/AdvReac Type Severity Reaction Status Date / Time No Known Allergies Allergy Verified 04/04/24 23:19 [No Known Allergies*] Review of Systems 2 Review of Systems: Yes all other systems are reviewed and are negative PMFSH Past Medical History Medical History TBI (traumatic brain injury) MDD (major depressive disorder), recurrent episode, moderate Alcohol use disorder, mild, abuse Suicidal ideation Alcohol abuse Depression Diabetes Social History Social History Household Members: None Housing: Apartment Do you presently have visiting nurse or other home services: No Unable to assess alcohol history related to: Unknown Alcohol intake: current Alcohol intake frequency: a few times a week Alcohol type: hard liquor Patient Tobacco Use Status: Former Tobacco user Tobacco use type: Cigarette e-Cigarette/Vaping Use: Never Used Second Hand Smoke Exposure: No Substance Use Type: Marijuana Advance Directives: No service: No Sexual orientation: Straight/Heterosexual Physical Exam 2 Vital Signs: Vital Signs: Last Vital Signs Temp 98.2 F 04/05/24 03:38 Pulse 95 04/05/24 03:38 Resp 18 04/05/24 03:38 BP 133/74 04/05/24 03:38 Pulse Ox 97 04/05/24 03:38 O2 Del Method Room Air 04/05/24 03:38 BMI result Body Mass Index 27.5 Vital signs were normal Exam: General: Awake, alert in no distress Head: Normocephalic, atraumatic EENT: PERRL, Lids normal, sclera normal, conjunctiva normal, nose normal , ears normal, throat without erythema or exudates Neck: Supple, no adenopathy Lung: breath sounds symmetric, no wheezing, rales or rhonchi Chest: symmetric movement, nontender Heart: regular rate and rhythm, normal S1, S2 no murmurs or rubs Abdomen: soft, non-tender, nondistended, normal bowel sounds Back: no vertebral tenderness, no CVAT Extremities: no deformities, moves all extremities symmetrically Neuro: Awake, alert, oriented, normal speech, cranial nerves intact, moves all extremities symmetrically Psych: Pleasant, cooperative Medical Decision Making Medical Decision Making MDM Narrative: 48-year-old male with a history of alcohol use disorder, TBI, depression, diabetes who presents emergency department for evaluation of suicidal ideation. Vital signs were unremarkable. Physical exam was unremarkable. Differential diagnosis: ?Includes but is not limited to suicidal ideation, homicidal ideation, depression, anxiety, alcohol intoxication, substance use Course: 04:29 My interpretation patient's laboratory evaluation as follows: CBC was normal. Ethanol level was elevated 172. Urine tox screen was negative. Patient's presentation is consistent with acute alcohol intoxication. The patient states he was no longer suicidal and does feel safe to go home therefore he will be discharged. Admission/Observation Consideration of admission/observation: Escalation of care including admission/observation considered (Yes) Lab Data [facility] Lab Attestation statement: I reviewed the patient's lab results. 04/05/24 02:38 Labs: Lab Results 04/05/24 04/05/24 Range/Units 02:10 02:38 WBC 5.7 (4.8-10.8) X10*3/uL RBC 5.66 (4.60-5.80) X10*6/uL Hgb 17.0 (14.0-18.0) g/dl Hct 47.2 (42.0-52.0) % MCV 83.4 (80.0-98.0) fL MCH 30.0 (27.0-33.0) pg MCHC 36.0 (31.0-36.0) g/dl RDW 12.2 (11.0-16.0) % Plt Count 308 (160-400) X10*3/uL MPV 10.6 (9.4-12.4) fL Immature Gran % (Auto) 0.4 (0.0-0.4) % Neut % (Auto) 59.9 (45-73) % Lymph % (Auto) 32.7 (20-40) % [place] % (Auto) 4.6 (2-11) % Eos % (Auto) 1.9 (0-4) % Baso % (Auto) 0.5 (0-2) % Lymph # (Auto) 1.9 (1.2-4.9) X10*3/uL [place] # (Auto) 0.3 (0.1-1.2) X10*3/uL Eos # (Auto) 0.1 (0.0-0.4) X10*3/uL Baso # (Auto) 0.0 (0.0-0.2) X10*3/uL Abs Immat Gran (auto) 0.02 (0.00-0.03) X10*3/uL Absolute Neuts (auto) 3.4 (2.0-8.3) x10*3/uL Absolute Nucleated RBC 0.000 (0.0-0.012) X10*3/uL Nucleated RBC % (auto) 0.0 (0.0-0.2) /100WBC Urine Color Yellow Urine Appearance Clear Urine pH 5.5 (5.0-9.0) Ur Specific [place] >= 1.030 H (1.005-1.025) Urine Protein Negative (Neg-Trace) mg/dL Urine Glucose (UA) >=1000 H (Negative) mg/dL Urine Ketones 15 (Negative) mg/dL Urine Blood Negative (Negative) Urine Nitrite Negative (Negative) Ur Leukocyte Esterase Negative (Negative) Urine RBC 0-2 (0-2) /HPF Urine WBC 0-5 (0-5) /HPF Ur Squamous Epith Cells 0-2 (0-2) /HPF Urine Bacteria None Seen (None Seen) Hyaline Casts 0-2 (0-2) /LPF Urine Opiates Screen Not Detected (Not Detect) Ur Buprenorphine Scrn Not Detected (Not Detect) ng/mL Ur Oxycodone Screen Not Detected (Not Detect) ng/mL Urine Methadone Screen Not Detected (Not Detect) ng/mL Urine Fentanyl Screen Not Detected (Not Detect) Ur Barbiturates Screen Not Detected (Not Detect) Ur Phencyclidine Scrn Not Detected (Not Detect) Ur Amphetamines Screen Not Detected (Not Detect) U Benzodiazepines Scrn Not Detected (Not Detect) Urine Cocaine Screen Not Detected (Not Detect) U Marijuana (THC) Screen Not Detected (Not Detect) Ethyl Alcohol 122 mg/dL Chronic Conditions Patient?s care impacted by: Diabetes Discharge Plan Discharge Clinical Impression: Alcohol intoxication Patient Disposition: Home, Self-Care Additional Instructions: Your alcohol level was elevated otherwise your blood work was unremarkable. Continue taking medications as prescribed by your providers If you feel like you are going to hurt yourself or hurt anyone else please return to the emergency department we can help you with these feelings. Follow-up with your doctor in 2 days. Please return to the emergency department if your symptoms get worse or if you develop any symptoms that are concerning to you. Prescriptions: No Action glipizide 5 mg Tablet Extended Release 24hr 5 mg PO DAILY@1200 metformin 1,000 mg Tablet 1,000 mg PO BID Jardiance 10 mg Tablet 10 mg PO QAM Print Language: [place]
[2024-04-05 04:40] VITALS: BP 133/74; PULSE 95; RESP 18; TEMP 36.8; O2SAT 97
== END 2024-04-05 04:56 | disposition home or self-care (01) ==
PROVIDERS: Emergency Provider Emergency Medicine Emergency Medical Services; PCP General Practice
DX: F10.129 Alcohol abuse with intoxication, unspecified (principal); Y90.6 Blood alcohol level of 120-199 mg/100 ml; R07.89 Other chest pain; R00.0 Tachycardia, unspecified; R45.851 Suicidal ideations; Z51.81 Encounter for therapeutic drug level monitoring; Z79.899 Other long term (current) drug therapy
CPT/HCPCS: 36415; 80307; 81001; 85025; 93005; 99284; 99285

== ENCOUNTER → 2024-04-04 23:17 | Outpatient (BNV) | payer OTHER, SELFPAY | PROVIDERS: Emergency Provider Emergency Medicine Emergency Medical Services; PCP General Practice; Visit Provider Internal Medicine Cardiovascular Disease | DX: R00.0 Tachycardia, unspecified (principal) | CPT/HCPCS: 93010 ==

== ENCOUNTER 2024-04-29 01:55 | Emergency (ER) | payer OTHER, SELFPAY ==
[2024-04-29 02:00] VITALS: BP 138/88; BP 149/94; PULSE 107; PULSE 82; RESP 20; TEMP 36.7; O2SAT 98; BMI 25.1
[2024-04-29 02:33] LABS: MANUAL DIFF FLAG NO
[2024-04-29 02:34] LABS: Basophils Percent Auto 0.7 % (0-2); Eosinophils Absolute Auto 0.2 X10*3/uL (0.0-0.4); Eosinophils Percent Auto 2.4 % (0-4); Hematocrit 50.3 % (42.0-52.0); Hemoglobin 18.8 g/dl (14.0-18.0); Imm Gran Abs Auto 0.03 X10*3/uL (0.00-0.03); Imm Gran Pct Auto 0.5 % (0.0-0.4); Lymphocytes Absolute Auto 2.4 X10*3/uL (1.2-4.9); Lymphocytes Percent Auto 39.5 % (20-40); Mean Corpuscular HGB Conc 37.4 g/dl (31.0-36.0); Mean Corpuscular Hemoglobin 30.4 pg (27.0-33.0); Mean Corpuscular Volume 81.3 fL (80.0-98.0); Monocytes Absolute Auto 0.3 X10*3/uL (0.1-1.2); Monocytes Percent Auto 4.4 % (2-11); Neutrophils Absolute Auto 3.2 x10*3/uL (2.0-8.3); Neutrophils Percent Auto 52.5 % (45-73); Platelet Count 306 X10*3/uL (160-400); Red Blood Count 6.19 X10*6/uL (4.60-5.80); Red Cell Distribution Width 12.2 % (11.0-16.0); White Blood Count 6.2 X10*3/uL (4.8-10.8)
[2024-04-29 03:15] LABS: Acetaminophen LAB < 3 mcg/mL (<30); Alanine Aminotransferase 31 U/L (0-40); Albumin Level 4.2 g/dL (3.5-5.0); Alkaline Phosphatase 73 U/L (39-117); Anion Gap 21 (12-20); Aspartate Amino Transferase 17 U/L (5-37); Bilirubin Total 1.5 mg/dL (0.0-1.0); Blood Urea Nitrogen 6 mg/dL (9-16); Calcium 8.9 mg/dL (8.4-10.2); Carbon Dioxide 19 mmol/L (22-29); Chloride 101 mmol/L (96-108); Creatinine Clr Calc Pharmacy 138.9; Estimated Glomerular Filt Rate > 60; Ethanol 217 mg/dL; Glucose Random 327 mg/dL (60-115); Potassium 3.9 mmol/L (3.3-5.1); Salicylate < 5.0 mg/dL (15-30); Sodium 137 mmol/L (135-145); Total Protein 7.2 g/dL (6.5-8.0)
--- NOTE | 2024-04-29 05:46 | ED_ITS ---
HPI - Psych General Chief Complaint: Psychiatric Symptoms Stated Complaint: SI/ ETOH Time Seen by Provider: 04/29/24 02:37 Source: patient Mode of arrival: EMS Limitations: no limitations History of Present Illness ED Provider: HPI Narrative: Patient's history of anxiety/alcohol use diabetic had 12 packs of beer prior to arrival and roommate called the EMS as patient was making statements of SI patient denied any SI on arrival denies any history of depression or anxiety does not take any medication Related Data Home Medications ?Medication ?Instructions ?Recorded ?Confirmed empagliflozin 10 mg tablet 10 mg PO QAM 12/08/22 12/27/22 (Jardiance) glipizide 5 mg tablet, extended 5 mg PO DAILY@1200 12/08/22 12/27/22 release 24 hr metformin 1,000 mg tablet 1,000 mg PO BID 12/08/22 12/27/22 Allergies Allergy/AdvReac Type Severity Reaction Status Date / Time No Known Allergies Allergy Verified 04/29/24 02:05 [No Known Allergies*] Review of Systems 2 Review of Systems: Yes all other systems are reviewed and are negative PMFSH Past Medical History Medical History TBI (traumatic brain injury) MDD (major depressive disorder), recurrent episode, moderate Alcohol use disorder, mild, abuse Suicidal ideation Alcohol abuse Depression Diabetes Social History Social History Household Members: None Housing: Apartment Do you presently have visiting nurse or other home services: No Unable to assess alcohol history related to: Unknown Alcohol intake: current Alcohol intake frequency: a few times a month Alcohol type: beer Patient Tobacco Use Status: Former Tobacco user Tobacco use type: Cigarette Smoked in Last 30 Days: Yes e-Cigarette/Vaping Use: Never Used Second Hand Smoke Exposure: No Use of substances other than those prescribed or required for medical reasons: No Substance Use Type: Marijuana Advance Directives: No Do you have a plan to hurt others: No Plan service: No Sexual orientation: Straight/Heterosexual Physical Exam 2 Vital Signs: Vital Signs: Last Vital Signs Temp 97.6 F 04/29/24 09:17 Pulse 80 04/29/24 09:17 Resp 14 04/29/24 09:17 BP 120/60 04/29/24 09:17 Pulse Ox 98 04/29/24 09:17 O2 Del Method Room Air 04/29/24 09:17 BMI result Body Mass Index 25.1 Appearance: Alert. Oriented X3. No acute distress. Eyes: PERRLA, No Nystagmus ENT: Pharynx normal. Oral Mucosa moist Neck: Normal inspection. Neck supple. CVS: Normal heart rate and rhythm. Pulses normal. Respiratory: No respiratory distress. Equal air entry bilateral, no wheezing/rales/rhonchi Abdomen: Soft and nontender. Bowel sounds are present, no mass palpable, no CVA tenderness Skin: Skin warm and dry. Normal skin color. Normal skin turgor. Extremities: No lower extremity edema. No calf tenderness Neuro: Oriented X 3. No motor deficit. No sensory deficit.No cerebellar signs , cranial nerves II-XII intact Medical Decision Making Medical Decision Making [facility] Narrative: Patient with alcohol use denies any SI or significant depression no prior history of same in the past does not want to be seen by therapist at this time patient was advised not to drink alcohol and follow up with PCP as needed Lab Data [facility] Lab Attestation statement: I reviewed the patient's lab results. 04/29/24 02:28 04/29/24 02:28 Labs: Lab Results 04/29/24 04/29/24 Range/Units 02:28 05:56 WBC 6.2 (4.8-10.8) X10*3/uL RBC 6.19 H (4.60-5.80) X10*6/uL Hgb 18.8 H (14.0-18.0) g/dl Hct 50.3 (42.0-52.0) % MCV 81.3 (80.0-98.0) fL MCH 30.4 (27.0-33.0) pg MCHC 37.4 H (31.0-36.0) g/dl RDW 12.2 (11.0-16.0) % Plt Count 306 (160-400) X10*3/uL MPV 10.0 (9.4-12.4) fL Immature Gran % (Auto) 0.5 H (0.0-0.4) % Neut % (Auto) 52.5 (45-73) % Lymph % (Auto) 39.5 (20-40) % [place] % (Auto) 4.4 (2-11) % Eos % (Auto) 2.4 (0-4) % Baso % (Auto) 0.7 (0-2) % Lymph # (Auto) 2.4 (1.2-4.9) X10*3/uL [place] # (Auto) 0.3 (0.1-1.2) X10*3/uL Eos # (Auto) 0.2 (0.0-0.4) X10*3/uL Baso # (Auto) 0.0 (0.0-0.2) X10*3/uL Abs Immat Gran (auto) 0.03 (0.00-0.03) X10*3/uL Absolute Neuts (auto) 3.2 (2.0-8.3) x10*3/uL Absolute Nucleated RBC 0.000 (0.0-0.012) X10*3/uL Nucleated RBC % (auto) 0.0 (0.0-0.2) /100WBC Sodium 137 (135-145) mmol/L Potassium 3.9 (3.3-5.1) mmol/L Chloride 101 (96-108) mmol/L Carbon Dioxide 19 L (22-29) mmol/L Anion Gap 21 H (12-20) BUN 6 L (9-16) mg/dL Creatinine 0.70 (0.5-1.4) mg/dL Estim Creat Clear Calc 138.9 Estimated GFR > 60 POC Glucose 296 H (60-115) mg/dL Random Glucose 327 H (60-115) mg/dL Calcium 8.9 (8.4-10.2) mg/dL Total Bilirubin 1.5 H (0.0-1.0) mg/dL AST 17 (5-37) U/L ALT 31 (0-40) U/L Alkaline Phosphatase 73 (39-117) U/L Total Protein 7.2 (6.5-8.0) g/dL Albumin 4.2 (3.5-5.0) g/dL Salicylates < 5.0 L (15-30) mg/dL Acetaminophen < 3 (<30) mcg/mL Ethyl Alcohol 217 mg/dL Discharge Plan Discharge Clinical Impression: Alcohol abuse Patient Disposition: Home, Self-Care Instructions: Abuse of Alcohol (ED) Additional Instructions: Stop drinking alcohol and follow up detox Prescriptions: No Action glipizide 5 mg Tablet Extended Release 24hr 5 mg PO DAILY@1200 metformin 1,000 mg Tablet 1,000 mg PO BID Jardiance 10 mg Tablet 10 mg PO QAM Interventions: [place]-Suicide Risk Severity Scale Last Done: 04/29/24 02:12 ED Discharge Assessment Last Done: 04/29/24 09:17 Discharge Date/Time: 04/29/24 08:30 Print Language: Japanese
[2024-04-29 05:59] LABS: Glucose, Whole Blood 296 mg/dL (60-115)
[2024-04-29 09:17] VITALS: BP 120/60; PULSE 80; RESP 14; TEMP 36.4; O2SAT 98
== END 2024-04-29 08:30 | disposition home or self-care (01) ==
PROVIDERS: Internal Medicine; Emergency Provider Emergency Medicine Emergency Medical Services
DX: F10.129 Alcohol abuse with intoxication, unspecified (principal); Y90.7 Blood alcohol level of 200-239 mg/100 ml; R45.851 Suicidal ideations; F33.1 Major depressive disorder, recurrent, moderate; F41.9 Anxiety disorder, unspecified; Z79.899 Other long term (current) drug therapy; Z51.81 Encounter for therapeutic drug level monitoring
CPT/HCPCS: 36415; 80053; 80143; 80179; 80307; 82947; 85025; 99284

== ENCOUNTER 2024-05-17 08:33 | Emergency (ER) | payer OTHER, SELFPAY ==
[2024-05-17 08:43] VITALS: BP 128/78; BP 166/88; PULSE 108; PULSE 97; RESP 16; TEMP 36.6; O2SAT 97; O2SAT 99; BMI 26.3
--- NOTE | 2024-05-17 09:04 | ED.ALCOHOL ---
HPI - Alcohol General Chief Complaint: ETOH/Substance Use Stated Complaint: ETOH USE THIS AM,DEPRESSION,CALM/COOP PER EMS Time Seen by Provider: 05/17/24 08:38 Source: patient, EMS, RN notes reviewed and old records reviewed Mode of arrival: EMS History of Present Illness ED Provider: Jaida Latif PA-C HPI narrative: 48-year-old male with a past medical history of TBI, MDD, ETOH use disorder, diabetes, presenting to the ED via EMS for ETOH intoxication and increasing depression. Admits to drinking a Liter of vodka today, last drink 06:00. Denies daily EtOH use. Denies other illicit substance use. Denies history of ETOH withdrawal, hallucinations, or seizures. States he was increasingly depressed with suicidal thoughts, however vague and denies plan or HI. Denies known injury, trauma, fall, nausea/vomiting, abdominal pain Related Data Home Medications ?Medication ?Instructions ?Recorded ?Confirmed empagliflozin 10 mg tablet 10 mg PO QAM 12/08/22 12/27/22 (Jardiance) glipizide 5 mg tablet, extended 5 mg PO DAILY@1200 12/08/22 12/27/22 release 24 hr metformin 1,000 mg tablet 1,000 mg PO BID 12/08/22 12/27/22 Allergies Allergy/AdvReac Type Severity Reaction Status Date / Time No Known Allergies Allergy Verified 05/17/24 08:45 [No Known Allergies*] Review of Systems Review of Systems: Yes all other systems are reviewed and are negative Constitutional: Constitutional: Reports as per [facility] Past Medical History Attestation statement: The following information was validated with the patient. Source: old records reviewed Medical History TBI (traumatic brain injury) MDD (major depressive disorder), recurrent episode, moderate Alcohol use disorder, mild, abuse Suicidal ideation Alcohol abuse Depression Diabetes Social History Social History Household Members: None Housing: Apartment Do you presently have visiting nurse or other home services: No Unable to assess alcohol history related to: Unknown Alcohol intake: current Alcohol intake frequency: holidays/special occasions only Alcohol type: hard liquor Patient Tobacco Use Status: Former Tobacco user Tobacco use type: Cigarette Smoked in Last 30 Days: No e-Cigarette/Vaping Use: Never Used Second Hand Smoke Exposure: No Use of substances other than those prescribed or required for medical reasons: No Substance Use Type: Marijuana Advance Directives: No Advance Directives Information Provided: No Do you have a plan to hurt others: No Plan service: No Sexual orientation: Straight/Heterosexual Physical Exam ED Vital Signs: Vital Signs - 24 hr 05/17/24 08:43 Temperature 97.9 F Pulse Rate 97 Respiratory Rate 16 Blood Pressure 128/78 Pulse Oximetry 99 Oxygen Delivery Method Room Air BMI result Body Mass Index 26.3 Const Other: + intoxicated, EtOH odor on breath General: cooperative and no acute distress Orientation/consciousness: patient oriented x3 Limitations: no limitations HENMT Head: Yes normal to inspection and Yes atraumatic Ears: hearing grossly normal bilaterally General nose exam: Normal external nose present Face and sinus: Yes normal facial exam Eyes General: appearance normal, both eyes and all related structures Pupils: Equal, round and reactive pupils present EOM: EOMs intact bilaterally Neck Neck: Yes normal visual inspection and Yes no meningeal signs Resp Effort & Inspection: normal respiratory effort and no respiratory distress Cardio Rate: regular rate GI Inspection: Yes normal to inspection Palpation (GI): Soft to palpation, nontender, no guarding and not rigid Skin Rashes: no rashes Wounds: no wounds Neuro General: patient oriented x3, tone normal, no meningeal signs and CN's II-XI intact bilaterally Cranial nerves: Yes CN's II-XII intact bilaterally and Yes Equal, round and reactive pupils present Extrem General: Yes normal to inspection Psych Thought content: Suicidality present, no hallucinations and Depressive thoughts present Course Course Course Narrative: -labs reassuring. -ethanol 253 -Physician observation initiated at 11:08 as patient needs more time to be evaluated by CARE team -[id number]-patient was evaluated by CARE team and cleared for discharge home. Denies SI/HI and is not interested in detox at this time. Patient is supplied with resources. Results discussed with patient including worrisome signs and symptoms and strict return precautions, and when to return to the emergency department. They verbalized understanding and feel safe for discharge at this time. Medical Decision Making Medical Decision Making MDM Narrative: 48-year-old male with a past medical history of TBI, MDD, ETOH use disorder, diabetes, presenting to the ED via EMS for ETOH intoxication and increasing depression. On exam vital signs stable, NAD, nontoxic appearing, EtOH odor on breath, intoxicated, no evidence of trauma, abdomen soft/nontender. Depressed. Vague suicidal ideations. No plan. Concern for ETOH intoxication increasing depression. Low suspicion for ICH or intra-abdominal pathology at this time Plan: Labs, tox screen, CARE team consult, observe and re-evaluate for clinical sobriety Please refer to course for remaining clinical decision making, interpretation of labs/imaging results, and discussions with consultants and/or family members. Differential Diagnosis Differential Diagnoses: The differential diagnosis associated with the presentation includes As above Admission/Observation Consideration of admission/observation: Escalation of care including admission/observation considered Consult Healthcare Provider Management of the patient was discussed with: Behavioral Health Provider Lab Data MDM Lab Attestation statement: I reviewed the patient's lab results. 05/17/24 09:03 05/17/24 09:03 Labs: Lab Results 05/17/24 05/17/24 Range/Units 09:03 12:23 WBC 6.1 (4.8-10.8) X10*3/uL RBC 5.76 (4.60-5.80) X10*6/uL Hgb 17.6 (14.0-18.0) g/dl Hct 47.7 (42.0-52.0) % MCV 82.8 (80.0-98.0) fL MCH 30.6 (27.0-33.0) pg MCHC 36.9 H (31.0-36.0) g/dl RDW 12.2 (11.0-16.0) % Plt Count 321 (160-400) X10*3/uL MPV 9.9 (9.4-12.4) fL Immature Gran % (Auto) 0.3 (0.0-0.4) % Neut % (Auto) 59.5 (45-73) % Lymph % (Auto) 31.7 (20-40) % [place] % (Auto) 5.9 (2-11) % Eos % (Auto) 1.6 (0-4) % Baso % (Auto) 1.0 (0-2) % Lymph # (Auto) 1.9 (1.2-4.9) X10*3/uL [place] # (Auto) 0.4 (0.1-1.2) X10*3/uL Eos # (Auto) 0.1 (0.0-0.4) X10*3/uL Baso # (Auto) 0.1 (0.0-0.2) X10*3/uL Abs Immat Gran (auto) 0.02 (0.00-0.03) X10*3/uL Absolute Neuts (auto) 3.6 (2.0-8.3) x10*3/uL Absolute Nucleated RBC 0.000 (0.0-0.012) X10*3/uL Nucleated RBC % (auto) 0.0 (0.0-0.2) /100WBC Sodium 137 (135-145) mmol/L Potassium 3.7 (3.3-5.1) mmol/L Chloride 105 (96-108) mmol/L Carbon Dioxide 22 (22-29) mmol/L Anion Gap 14 (12-20) BUN 8 L (9-16) mg/dL Creatinine 0.77 (0.5-1.4) mg/dL Estim Creat Clear Calc 122.4 Estimated GFR > 60 Random Glucose 273 H (60-115) mg/dL Calcium 8.3 L D (8.4-10.2) mg/dL Magnesium 1.8 (1.6-2.6) mg/dL Total Bilirubin 1.5 H (0.0-1.0) mg/dL Direct Bilirubin 0.3 (0.0-0.5) mg/dL AST 20 (5-37) U/L ALT 37 (0-40) U/L Alkaline Phosphatase 57 (39-117) U/L Total Protein 6.8 (6.5-8.0) g/dL Albumin 4.1 (3.5-5.0) g/dL Salicylates < 5.0 L (15-30) mg/dL Urine Opiates Screen Not Detected (Not Detect) Ur Buprenorphine Scrn Not Detected (Not Detect) ng/mL Ur Oxycodone Screen Not Detected (Not Detect) ng/mL Urine Methadone Screen Not Detected (Not Detect) ng/mL Urine Fentanyl Screen Not Detected (Not Detect) Acetaminophen < 3 (<30) mcg/mL Ur Barbiturates Screen Not Detected (Not Detect) Ur Phencyclidine Scrn Not Detected (Not Detect) Ur Amphetamines Screen Not Detected (Not Detect) U Benzodiazepines Scrn Not Detected (Not Detect) Urine Cocaine Screen Not Detected (Not Detect) U Marijuana (THC) Screen Not Detected (Not Detect) Ethyl Alcohol 253 mg/dL Radiology Impression Discussion of test interpretation with radiology: I have reviewed the radiologist's reading. Independent Historian Clinical information obtained from an independent historian. History obtained from or confirmed by: EMS External Record Review External record reviewed: Inpatient record, Office record, Outpatient record, Prior outpatient labs, Prior outpatient radiology, Primary care record and Outside ED record Tests considered The following testing was considered but not selected: As above Chronic Conditions Patient?s care impacted by: Other Social Determinants Patient?s care significantly limited by Social Determinants of Health including: Alcoholism and drug addiction in family and Other Social Determinant of Health Discharge Plan Discharge Clinical Impression: Alcoholic intoxication, Depression Patient Disposition: Still a Patient Prescriptions: No Action glipizide 5 mg Tablet Extended Release 24hr 5 mg PO DAILY@1200 metformin 1,000 mg Tablet 1,000 mg PO BID Jardiance 10 mg Tablet 10 mg PO QAM Print Language: Hungarian
[2024-05-17 09:07] LABS: MANUAL DIFF FLAG NO
[2024-05-17 09:08] LABS: Basophils Absolute Auto 0.1 X10*3/uL (0.0-0.2); Eosinophils Absolute Auto 0.1 X10*3/uL (0.0-0.4); Eosinophils Percent Auto 1.6 % (0-4); Hematocrit 47.7 % (42.0-52.0); Hemoglobin 17.6 g/dl (14.0-18.0); Imm Gran Abs Auto 0.02 X10*3/uL (0.00-0.03); Imm Gran Pct Auto 0.3 % (0.0-0.4); Lymphocytes Absolute Auto 1.9 X10*3/uL (1.2-4.9); Lymphocytes Percent Auto 31.7 % (20-40); Mean Corpuscular HGB Conc 36.9 g/dl (31.0-36.0); Mean Corpuscular Hemoglobin 30.6 pg (27.0-33.0); Mean Corpuscular Volume 82.8 fL (80.0-98.0); Mean Platelet Volume 9.9 fL (9.4-12.4); Monocytes Absolute Auto 0.4 X10*3/uL (0.1-1.2); Monocytes Percent Auto 5.9 % (2-11); Neutrophils Absolute Auto 3.6 x10*3/uL (2.0-8.3); Neutrophils Percent Auto 59.5 % (45-73); Platelet Count 321 X10*3/uL (160-400); Red Blood Count 5.76 X10*6/uL (4.60-5.80); Red Cell Distribution Width 12.2 % (11.0-16.0); White Blood Count 6.1 X10*3/uL (4.8-10.8)
[2024-05-17 09:22] LABS: Alanine Aminotransferase 37 U/L (0-40); Albumin Level 4.1 g/dL (3.5-5.0); Alkaline Phosphatase 57 U/L (39-117); Anion Gap 14 (12-20); Aspartate Amino Transferase 20 U/L (5-37); Bilirubin Direct 0.3 mg/dL (0.0-0.5); Bilirubin Total 1.5 mg/dL (0.0-1.0); Blood Urea Nitrogen 8 mg/dL (9-16); Calcium 8.3 mg/dL (8.4-10.2); Carbon Dioxide 22 mmol/L (22-29); Chloride 105 mmol/L (96-108); Creatinine Clr Calc Pharmacy 122.4; Estimated Glomerular Filt Rate > 60; Glucose Random 273 mg/dL (60-115); Magnesium 1.8 mg/dL (1.6-2.6); Potassium 3.7 mmol/L (3.3-5.1); Sodium 137 mmol/L (135-145); Total Protein 6.8 g/dL (6.5-8.0)
[2024-05-17 09:24] LABS: Acetaminophen LAB < 3 mcg/mL (<30); Salicylate < 5.0 mg/dL (15-30)
[2024-05-17 11:31] LABS: Ethanol 253 mg/dL
[2024-05-17 12:45] LABS: Amphetamine Screen Urine Not Detected (Not Detect); Barbiturates, Urine Not Detected (Not Detect); Benzodiazepines Screen Urine Not Detected (Not Detect); Buprenorphine Scr Not Detected (Not Detect); Cannabinoid Screen Urine Not Detected (Not Detect); Cocaine Screen Urine Not Detected (Not Detect); Fentanyl, urine Not Detected (Not Detect); Methadone Screen, Urine Not Detected (Not Detect); Opiate Screen Urine Not Detected (Not Detect); Oxycodone Screen Urine Not Detected (Not Detect); Phencyclidine Screen Urine Not Detected (Not Detect)
[2024-05-17 16:12] VITALS: BP 0/0; PULSE 0; RESP 0; TEMP -17.7; TEMP 0; O2SAT 0
== END 2024-05-17 16:12 | disposition home or self-care (01) ==
PROVIDERS: Physician Assistant; Emergency Provider Emergency Medicine
DX: F10.120 Alcohol abuse with intoxication, uncomplicated (principal); Y90.8 Blood alcohol level of 240 mg/100 ml or more; F32.9 Major depressive disorder, single episode, unspecified; E11.9 Type 2 diabetes mellitus without complications; Z87.820 Personal history of traumatic brain injury; Z87.891 Personal history of nicotine dependence; Z79.84 Long term (current) use of oral hypoglycemic drugs; Z79.899 Other long term (current) drug therapy
CPT/HCPCS: 36415; 80048; 80076; 80143; 80179; 80307; 83735; 85025; 99284; S9485

== ENCOUNTER 2024-06-10 18:44 | Emergency (ER) | payer OTHER, SELFPAY ==
[2024-06-10 18:55] VITALS: BP 190/110; BP 90/78; PULSE 120; PULSE 135; RESP 17; TEMP 36.6; O2SAT 98; BMI 25.8
--- NOTE | 2024-06-10 18:59 | ED_ITS ---
HPI - Alcohol General Chief Complaint: ETOH/Substance Use Stated Complaint: ETOH Time Seen by Provider: 06/10/24 18:52 Source: patient and EMS Mode of arrival: EMS Limitations: no limitations History of Present Illness ED Provider: Shana Lester APRN HPI narrative: 48-year-old male with a history of alcohol abuse presents to the ER after drinking 1/2 a bottle of vodka. Patient reports that he called EMS because he wanted to be in a safe place. Patient states when I drink alcohol I do stupid things. He denies SI, HI, hallucinations. Denies substance use. No physical complaints. Not interested in speaking to crisis or a recovery room nurse. Related Data Home Medications ?Medication ?Instructions ?Recorded ?Confirmed empagliflozin 10 mg tablet 10 mg PO QAM 12/08/22 12/27/22 (Jardiance) glipizide 5 mg tablet, extended 5 mg PO DAILY@1200 12/08/22 12/27/22 release 24 hr metformin 1,000 mg tablet 1,000 mg PO BID 12/08/22 12/27/22 Allergies Allergy/AdvReac Type Severity Reaction Status Date / Time No Known Allergies Allergy Verified 06/10/24 18:56 [No Known Allergies*] Review of Systems Review of Systems: Yes all other systems are reviewed and are negative Constitutional: Constitutional: Reports no additional constitutional complaints, Denies body ache(s), Denies chills, Denies fever(s), Denies headache(s) and Denies weakness Eyes: Eyes: Reports no additional eye complaints and Denies change in vision ENT: Reports system reviewed and no additional complaints, except as documented, Denies dizziness, Denies headache(s), Denies nasal congestion, Denies nasal discharge and Denies neck pain Cardiovascular: Cardiovascular: Reports no additional cardiovascular complaints, Denies chest pain, Denies leg edema and Denies dyspnea Respiratory: Respiratory: Reports no additional respiratory complaints, Denies cough and Denies dyspnea Gastrointestinal: Gastrointestinal: Reports no additional gastrointestinal complaints, Denies abdominal pain, Denies diarrhea, Denies nausea and Denies vomiting Genitourinary: Genitourinary: Denies urinary incontinence Musculoskeletal: Musculoskeletal: Reports no additional musculoskeletal complaints, Denies back pain, Denies arthralgias, Denies joint swelling, Denies neck pain, Denies numbness and Denies tingling Integumentary/Breasts: Skin/Breast: Reports system reviewed and no additional complaints, except as docu and Denies rash Neurologic: Reports system reviewed and no additional complaints, except as documented, Denies Abnormal speech present, Denies dizziness, Denies headache(s), Denies numbness, Denies tingling and Denies weakness PMFSH Past Medical History Attestation statement: The following information was validated with the patient. Source: old records reviewed and nursing notes reviewed Medical History TBI (traumatic brain injury) MDD (major depressive disorder), recurrent episode, moderate Alcohol use disorder, mild, abuse Suicidal ideation Alcohol abuse Depression Diabetes Social History Social History Household Members: None Housing: Apartment Do you presently have visiting nurse or other home services: No Unable to assess alcohol history related to: Unknown Alcohol intake: current Alcohol intake frequency: holidays/special occasions only Alcohol type: hard liquor Patient Tobacco Use Status: Former Tobacco user Tobacco use type: Cigarette Smoked in Last 30 Days: No e-Cigarette/Vaping Use: Never Used Second Hand Smoke Exposure: No Use of substances other than those prescribed or required for medical reasons: No Substance Use Type: Marijuana Advance Directives: No Advance Directives Information Provided: No Do you have a plan to hurt others: No Plan service: No Sexual orientation: Straight/Heterosexual Physical Exam ED Vital Signs: Vital Signs - 24 hr 06/10/24 18:55 Temperature 97.8 F Pulse Rate 120 H Respiratory Rate 17 Blood Pressure 90/78 Pulse Oximetry 98 Oxygen Delivery Method Room Air BMI result Body Mass Index 25.8 Const General: cooperative, healthy appearing, comfortable and no acute distress Orientation/consciousness: patient oriented x3 Limitations: no limitations HENMT Head: Yes normal to inspection Ears: hearing grossly normal bilaterally General nose exam: Normal external nose present Face and sinus: Yes normal facial exam Mouth: Normal oral and palatal mucosa present Throat: Yes posterior oropharynx normal Eyes General: appearance normal, both eyes and all related structures Pupils: Equal, round and reactive pupils present Neck Neck: Yes normal visual inspection Chest Chest palpation & inspection: normal inspection of the chest Resp Effort & Inspection: normal respiratory effort Auscultation: clear to auscultation bilaterally Cardio Rate: regular rate Rhythm: regular rhythm Peripheral pulses: Peripheral pulses 2+ throughout GI Inspection: Yes normal to inspection Palpation (GI): Soft to palpation and nontender Auscultation: normal bowel sounds Back/Spine/Pelvis Thoracic/Lumbar Spine: thoracic and lumbar spine normal to inspection Skin General skin exam: no rashes or lesions noted Neuro General: patient oriented x3, no focal motor deficits and normal sensation to monofilament Cranial nerves: Yes Equal, round and reactive pupils present Cognition (Neuro): normal cognition Speech: No Abnormal speech present Gait exam (Neuro): Normal gait present Motor exam (neuro): 5/5 motor strength present throughout Extrem General: Yes normal to inspection Course Course Course Narrative: 2100-Sign out to Dr Lowery pending sober re-eval Medical Decision Making Medical Decision Making MDM Narrative: 48-year-old male with a history of alcohol abuse presents to the ER after drinking 1/2 a bottle of vodka. Patient reports that he called EMS because he wanted to be in a safe place. Patient states when I drink alcohol I do stupid things. He denies SI, HI, hallucinations. Denies substance use. No physical complaints. Not interested in speaking to crisis or a recovery room nurse. No concern for acute ingestion or trauma. VSS Will give PO fluids, observe and discharge when clinically sober, placed in physician obs pending dc Differential Diagnosis Differential Diagnoses: The differential diagnosis associated with the presentation includes alcohol use Admission/Observation Consideration of admission/observation: Escalation of care including admission/observation considered Patient here with alcohol abuse. Denies daily use, withdrawals in the past and not interested in speaking to recovery or detox. No SI/HI or safety concerns requiring crisis consult. Independent Historian Clinical information obtained from an independent historian. History obtained from or confirmed by: EMS External Record Review External record reviewed: Outside ED record Tests considered The following testing was considered but not selected: No concern for acute ingestion or trauma requiring labs or imaging Chronic Conditions Patient?s care impacted by: Diabetes Social Determinants Patient?s care significantly limited by Social Determinants of Health including: Alcoholism and drug addiction in family Discharge Plan Discharge Clinical Impression: Alcohol abuse Patient Disposition: Still a Patient Instructions: Abuse of Alcohol (ED) Additional Instructions: Avoid drinking in excess Prescriptions: No Action glipizide 5 mg Tablet Extended Release 24hr 5 mg PO DAILY@1200 metformin 1,000 mg Tablet 1,000 mg PO BID Jardiance 10 mg Tablet 10 mg PO QAM Referrals: Physician,Unknown J [Primary Care Provider] - 10 days Print Language: Kinyarwanda
--- NOTE | 2024-06-10 19:05 | PC.NURSE ---
pt biba from home, a&ox3, respirations even and unlabored. pt reports he has one bottle of vodka, reported he did not want to stay home and that he wanted to feel safe at the hospital. pt denies si/hi. pt reports he has back pain but reports it is chronic. security called to bedside, pt refusing to exchange consultant at this time. Mariama [employer] aware.
--- NOTE | 2024-06-10 19:07 | PC.NURSE ---
pt noted to be on phone with 911, reports [facility] remains at bedside, provider aware.
--- NOTE | 2024-06-10 19:27 | PC.NURSE ---
pt reports he has a sober ride who is his cousin, to provide him transport home, provider aware.
--- NOTE | 2024-06-10 20:05 | PC.NURSE ---
this rn spoke with pt, pt reports he did not have a ride home. this rn spoke with pt and explained [employer] exchange administrator process, pt states you are not fucking changing me over , security and hot metal charger at bedside. pt visibly agitated.
--- NOTE | 2024-06-10 20:25 | PC.NURSE ---
pt changed over by security, pt belongings placed into [place], pt resting back in stretcher at this time.
[2024-06-10 22:23] VITALS: BP 144/78; PULSE 116; O2SAT 93
--- NOTE | 2024-06-11 04:07 | PC.NURSE ---
pt awake and alert at this time, pt ambulatory to bathroom with steady gait, no acute distress noted.
[2024-06-11 10:52] VITALS: BP 137/68; PULSE 101; RESP 16; TEMP 36.8; O2SAT 99
== END 2024-06-11 08:15 | disposition home or self-care (01) ==
PROVIDERS: Emergency Provider Internal Medicine
DX: F10.10 Alcohol abuse, uncomplicated (principal); Y90.9 Presence of alcohol in blood, level not specified; Z79.899 Other long term (current) drug therapy; Z87.891 Personal history of nicotine dependence
CPT/HCPCS: 99284

== ENCOUNTER 2024-12-04 10:48 | Emergency (ER) | payer OTHER, SELFPAY ==
--- NOTE | ~2024-12-04 | XR_ITS ---
EXAMINATION: XR SHOULDER, LEFT CLINICAL INFORMATION: pain COMPARISON: None available. TECHNIQUE: AP external rotation, Grashey, scapular Y, and axillary views of the left shoulder. FINDINGS: Normal bone mineralization. No fracture, dislocation, or suspicious bone lesion. Normal alignment. The glenohumeral joint is normal. The AC joint is normal. There is a type II acromion. No undersurface spurring. The subacromial space is preserved. Remainder of the soft tissue and bony structures appear normal. XR/XR shoulder LT min 2V IMPRESSION: Normal left shoulder. Electronically signed by: Dayday Rivas MD 12/04/2024 01:30 PM EDT
[2024-12-04 10:57] VITALS: BP 146/73; PULSE 112; RESP 16; TEMP 36.9; O2SAT 95
[2024-12-04 11:08] VITALS: BP 144/73; BP 147/92; PULSE 112; PULSE 117; RESP 18; TEMP 36.9; O2SAT 95; O2SAT 97; BMI 25.8
[2024-12-04 11:23] LABS: MANUAL DIFF FLAG NO
[2024-12-04 11:27] LABS: Hematocrit 47.0 % (42.0-52.0); Hemoglobin 17.4 g/dl (14.0-18.0); Imm Gran Abs Auto 0.03 X10*3/uL (0.00-0.03); Imm Gran Pct Auto 0.4 % (0.0-0.4); Lymphocytes Absolute Auto 1.4 X10*3/uL (1.2-4.9); Mean Corpuscular HGB Conc 37.0 g/dl (31.0-36.0); Mean Corpuscular Hemoglobin 31.2 pg (27.0-33.0); Mean Corpuscular Volume 84.2 fL (80.0-98.0); NRBC Abs Auto 0.000 X10*3/uL (0.0-0.012); NRBC Pct Auto 0.0 /100WBC (0.0-0.2); Platelet Count 283 X10*3/uL (160-400); Red Blood Count 5.58 X10*6/uL (4.60-5.80); White Blood Count 7.3 X10*3/uL (4.8-10.8)
[2024-12-04 11:39] LABS: Anion Gap 23 (12-20); Blood Urea Nitrogen 10 mg/dL (9-16); Calcium 8.7 mg/dL (8.4-10.2); Carbon Dioxide 18 mmol/L (22-29); Chloride 101 mmol/L (96-108); Creatinine Clr Calc Pharmacy 152.9; Estimated Glomerular Filt Rate > 60; Magnesium 1.9 mg/dL (1.6-2.6); Potassium 4.3 mmol/L (3.3-5.1); Sodium 138 mmol/L (135-145)
--- OUTSIDE RECORDS SUMMARY | 2024-12-04 12:43 | XMS_ITS | Encounter Summary ---
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 Name Role Phone Erica Brandon MD Primary Care Provider Mariama Hair PharmD Unavailable Encounter Details Date Type Department Care Team (Late st Contact Info) Description 10/14/2022 Abstract [facility] [address] [place] [id number] Erica Brandon MD [address] [place] [address] Social History Tobacco Use Types Packs/Day Years Used Date Smoking Tobacco: Never Assessed Sex and Gender Information Value Date Recorded Sex Assigned at Male 03/22/2022 10:22 AM EDT Legal Sex Male 10:22 AM EDT Gender Identity Male 05/21/2024 8:26 AM EST Sexual Orientation Choose not to disclose 2021 10:22 AM EDT documented as of this encounter Plan of Treatment Upcoming Encounters Date Type Department Care Team (Late st Contact Info) Description 12/04/2024 1:00 PM EDT Medication Management [facility] [address] [place] [address] Mariama Hair, PharmD [address] [place] [address] documented as of this encounter Visit Diagnoses Not on filedocumented in this encounter Care Teams [place] Auditor Relationship Specialty Start Date End Date Erica Brandon MD [address] [place] [id number] PCP - General Family Medicine 07/22/22 Mariama Hair, Destiny [address] [place] [address] [phone] Pharmacist Internal Medicine 09/26/24 documented as of this encounter
--- OUTSIDE RECORDS SUMMARY | 2024-12-04 12:43 | XMS_ITS | Clinical Summary ---
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 Active blood sugar diagnostic (iBioTouch Verio test strips) test strip 5 Active OneTouch Ultra2 Meter [facility] USE DIRECTED TO CHECK BLOOD SUGAR THREE TIMES A DAY 4 Active buPROPion XL (WELLBUTRIN XL) 150 mg 24 hr tablet TAKE 1 TABLET BY MOUTH EVERY MORNING WITH A MEAL. 3 Active escitalopram (LEXAPRO) 20 mg tablet Take 1 tablet (20 mg total) by mouth daily. 3 Active glipiZIDE (GLUCOTROL XL) 2.5 mg 24 hr tablet TAKE 1 TABLET (2.5 MG) BY MOUTH ONCE PER DAY. DO NOT CRUSH, CHEW, OR SPLIT. 4 Active lancets (iBioTouch Delica Plus Lancet) 33 gauge USE ONE LANCET VIA SKIN ROUTE TO TEST BLOOD SUGARS 3 TIMES DAILY 4 Active lisinopriL (PRINIVIL,ZEST RIL) 5 mg tablet Take 1 tablet (5 mg total) by mouth daily. 4 02/01/20 25 Active metFORMIN (GLUCOPHAGE) 1,000 mg tablet TAKE 1 TABLET (1000 MG) BY MOUTH WITH BREAKFAST AND WITH EVENING MEAL Active sildenafiL (VIAGRA) 100 mg tablet TAKE 1/2 TABLET BY MOUTH EVERY DAY NEEDED APPROXIMATELY 1 HOUR BEFORE SEXUAL ACTIVITY NEEDED. Active Januvia 50 mg tablet Take 1 tablet (50 mg total) by mouth daily. 12/30/05/21/20 Active Social History Tobacco Use Types Packs/Day Years Used Date Smoking Tobacco: Never Assessed Sex and Gender Information Value Date Recorded Sex Assigned at Not on file Legal Sex Male 2:23 PM EDT Gender Identity Not on file Sexual Orientation Not on file Last Filed Vital Signs Vital Sign Reading Time Taken Comments Blood Pressure - - Pulse - - Temperature - - Respiratory Rate - - Oxygen Saturation - - Inhaled Oxygen Concentration - - Weight 81.6 kg (180 lb) 08/14/2024 1:00 PM EDT Height 177.8 cm (5' 10 ) 06/12/2024 1:24 PM EST Body Mass Index 25.83 06/12/2024 1:24 PM EST Plan of Treatment Health Maintenance Due Date Last Done Comments Diabetes: Annual GFR (Glomerular Filtration Rate) 1976 Diabetes: Annual Foot Exam 1986 Diabetes: Annual Retina Eye Exam 1986 Hepatitis B Vaccines (1 of 3 - 19+ 3-dose series) 1995 Pneumococcal Vaccine: Pediatrics (0 to 5 Years) and At-Risk Patients (6 to 49 Years) (2 of 2 - PCV) 12/03/2015 12/02/2014 COVID-19 Vaccine (2023-2 5 season) 2024 Colorectal Cancer Screening: Colonoscopy 03/23/2024 Social Influencers of Health Screening 03/23/2024 Diabetes: Annual Urine Albumin-Creatinine Ratio (uACR) 06/13/2024 Diabetes: Blood Sugar Contro l Test (HGBA1C) 11/19/2024 05/21/2024 Influenza Vaccine (#1) 2025 Depression Screening 05/21/2025 05/21/2024 Cholesterol Screening (Lipid Panel) 10/31/2028 11/01/2023 DTaP,Tdap,and Td Vaccines (4 - Td or Tdap) 07/19/2033 07/19/2023, 02/27/2015, 04/06/2013 HIV Screening Completed 11/01/2023 Hepatitis C Screening Completed 11/01/2023 HIB Vaccines Aged Out No longer eligi ble based on patient's age to complete this topic HPV Vaccines Aged Out No longer eligi ble based on patient's age to complete this topic Hepatitis A Vaccines Aged Out No long er eligible based on patient's age to complete this topic IPV Vaccines Aged Out No longer eligi ble based on patient's age to complete this topic MMR Vaccines Aged Out No longer eligi ble based on patient's age to complete this topic Meningococcal ACWY Vaccine Aged Out N o longer eligible based on patient's age to complete this topic Meningococcal B Vaccine Aged Out No l onger eligible based on patient's age to complete this topic RSV Immunization Patients Under 20 months Aged Out No longer eligible b ased on patient's age to complete this topic Varicella Vaccines Aged Out No longer eligible based on patient's age to complete this topic Insurance MEDICAID - [place] Care Teams Nuclear Plant Operator Relationship Specialty Start Date End Date Erica Brandon MD [address] [place] [address] PCP - General Staple Cutter 08/03/24
--- NOTE | 2024-12-04 13:05 | ED.EXTPRO ---
HPI - Extremity Problem General Chief complaint: Extremity Injury, Upper Stated complaint: ARM PAIN X6M,ETOH USE PER EMS Time Seen by Provider: 12/04/24 12:45 Source: patient, RN notes reviewed and old records reviewed Mode of arrival: EMS Limitations: other (alcohol intoxication) History of Present Illness ED Provider: Beto MARTIN Narrative: 49-year-old male with past medical history significant for type 2 diabetes, alcohol abuse presents for evaluation of left shoulder pain. Patient reports the pain has been at least a month and a half. Denies any falls to the area. The pain initially started in the left side of his neck and is now progressed to his left shoulder and upper arm He denies any chest pain or shortness of breath. His pain is worse when he moves his arm The patient to drinking alcohol Last night, about 12 beers. He states that he drinks 4-6 times per month Related Data Home Medications ?Medication ?Instructions ?Recorded ?Confirmed empagliflozin 10 mg tablet 10 mg PO QAM 12/08/22 12/27/22 (Jardiance) glipizide 5 mg tablet, extended 5 mg PO DAILY@1200 12/08/22 12/27/22 release 24 hr metformin 1,000 mg tablet 1,000 mg PO BID 12/08/22 12/27/22 Allergies Allergy/AdvReac Type Severity Reaction Status Date / Time No Known Allergies (No Known Allergy Verified 12/04/24 11:14 Allergies*) Review of Systems Constitutional: Constitutional: Denies body ache(s), Denies chills, Denies fever(s) and Denies headache(s) Eyes: Eyes: Denies blurry vision and Denies exophthalmos ENT: Denies dizziness, Denies dry mouth and Denies headache(s) Cardiovascular: Cardiovascular: Denies chest pain and Denies dyspnea on exertion Respiratory: Respiratory: Denies cough and Denies dyspnea on exertion Gastrointestinal: Gastrointestinal: Denies abdominal pain, Denies nausea and Denies vomiting Musculoskeletal: Musculoskeletal: Denies back pain, Reports arthralgias, Denies joint swelling and Denies limited range of motion Integumentary/Breasts: Skin/Breast: Denies rash Neurologic: Denies dizziness and Denies headache(s) Psychiatric: Psychiatric: Denies anxiety PMFSH Past Medical History Medical History TBI (traumatic brain injury) MDD (major depressive disorder), recurrent episode, moderate Alcohol use disorder, mild, abuse Suicidal ideation Alcohol abuse Depression Diabetes Social History Social History Household Members: None Housing: Apartment Do you presently have visiting nurse or other home services: No Unable to assess alcohol history related to: Unknown Alcohol intake: current Alcohol intake frequency: a few times a week Alcohol type: beer Patient Tobacco Use Status: Former Tobacco user Tobacco use type: Cigarette Smoked in Last 30 Days: Yes e-Cigarette/Vaping Use: Never Used Second Hand Smoke Exposure: No Use of substances other than those prescribed or required for medical reasons: No Substance Use Type: Marijuana Advance Directives: No Advance Directives Information Provided: Yes Do you have a plan to hurt others: No Plan service: No Sexual orientation: Straight/Heterosexual Physical Exam Vital Signs: Vital Signs: Last Vital Signs Temp 98.1 F 12/04/24 15:20 Pulse 89 12/04/24 15:20 Resp 16 12/04/24 15:20 BP 136/78 12/04/24 15:20 Pulse Ox 97 12/04/24 15:20 O2 Del Method Room Air 12/04/24 15:20 BMI result Body Mass Index 25.8 Const: General: healthy appearing, comfortable, no acute distress, alert and awake Nutritional Appearance: well nourished Orientation/consciousness: patient oriented x3 HEENT: Head: Yes normocephalic and Yes atraumatic Eyes: Eyelids: Yes eyelids normal Conjunctivae: conjunctivae normal Sclerae: sclerae normal Corneas: corneas normal Pupils: Equal, round and reactive pupils present EOM: EOMs intact bilaterally Neck: Neck: Yes full ROM Resp: Effort & Inspection: normal respiratory effort, able to speak in complete sentences and not labored GI: Inspection: No distended Palpation (GI): Soft to palpation, not firm, nontender, no guarding and not rigid Skin: General skin exam: elasticity normal Neuro: General: patient oriented x3 Cranial nerves: Yes Equal, round and reactive pupils present and Yes Bilaterally intact EOM present Cognition (Neuro): normal cognition Extrem: Other: There was no obvious deformity to the left upper extremity. The patient has full active and passive range of motion of the shoulder and elbow. He has some tenderness globally to left shoulder mostly around the AC joint and left lateral deltoid region. There was also some trapezius muscle group tenderness. No C-spine tenderness. Course Reevaluation(s) Reevaluation #1: Patient's glucose improved to 218 after IV fluids, his VBG was reassuring, pH within normal limits. X-ray shows no concerning findings. The patient is stable for discharge Time: 15:32 Medications Administered Discontinued Medications Generic Name Dose Route Start Last Admin Trade Name Aislinn PRN Reason Stop Dose Admin Sodium Chloride 1,000 mls @ 999 mls/hr 12/04/24 11:30 12/04/24 13:06 Ns IV 12/04/24 12:30 Infused .Q1H1M RAJWINDER Infusion Sodium Chloride 1,000 mls @ 999 mls/hr 12/04/24 13:00 12/04/24 14:44 Ns IV 12/04/24 14:00 Infused .Q1H1M RAJWINDER Infusion Ketorolac Tromethamine 30 mg 12/04/24 12:59 12/04/24 13:10 Ketorolac Tromethamine 30 Mg/Ml Vial IVPUSH 12/04/24 13:00 30 mg ONCE ONE Administration Medical Decision Making Medical Decision Making MDM Narrative: 49-year-old male your left shoulder pain as well as alcohol intoxication. He reports that he does not drink as much as to. He reports drinking 4-6 times per month but admits to drinking in excess when he does. He denies any chest pain, abdominal pain, nausea vomiting. He complains of left shoulder pain in his worse with movement. The patient's initial glucose was elevated to 324, received a L of IV fluids in the repeat glucose was 244. To be ordered insulin but canceled after running of the repeat glucose. He will get a 2 L of fluid as planned. We will get an x-ray of the left shoulder. The patient's labs are reviewed, he has no leukocytosis or anemia. His MCV is within normal limits. He does not have any significant left shift. Chemistries are significant for a normal sodium, potassium and chloride. He has a CO2 of 18 with an anion gap of 23. This may be multifactorial due to alcohol abuse as well as his platelet glucose. We will get a VBG to check his PH. Renal function within normal limits. The patient's total bilirubin is elevated to 1.6 which is likely due to alcohol. He has no abdominal pain, no abdominal tenderness on exam, less likely obstructive biliary disease. Lipase is within normal limits. Differential Diagnosis Differential Diagnoses: The differential diagnosis associated with the presentation includes Shoulder pain Arthritis Calcific tendonitis Muscle strain Cervical radiculopathy Hyperglycemia DKA Alcoholic ketosis Pancreatitis Admission/Observation Consideration of admission/observation: Escalation of care including admission/observation considered Lab Data MDM Lab Attestation statement: I reviewed the patient's lab results. As above 12/04/24 11:19 12/04/24 11:19 Labs: Lab Results 12/04/24 12/04/24 12/04/24 Range/Units 11:19 13:03 13:41 WBC 7.3 (4.8-10.8) X10*3/uL RBC 5.58 (4.60-5.80) X10*6/uL Hgb 17.4 (14.0-18.0) g/dl Hct 47.0 (42.0-52.0) % MCV 84.2 (80.0-98.0) fL MCH 31.2 (27.0-33.0) pg MCHC 37.0 H (31.0-36.0) g/dl RDW 12.0 (11.0-16.0) % Plt Count 283 (160-400) X10*3/uL MPV 10.5 (9.4-12.4) fL Immature Gran % (Auto) 0.4 (0.0-0.4) % Neut % (Auto) 74.4 H (45-73) % Lymph % (Auto) 19.4 L (20-40) % Childress % (Auto) 4.2 (2-11) % Eos % (Auto) 1.1 (0-4) % Baso % (Auto) 0.5 (0-2) % Lymph # (Auto) 1.4 (1.2-4.9) X10*3/uL Childress # (Auto) 0.3 (0.1-1.2) X10*3/uL Eos # (Auto) 0.1 (0.0-0.4) X10*3/uL Baso # (Auto) 0.0 (0.0-0.2) X10*3/uL Abs Immat Gran (auto) 0.03 (0.00-0.03) X10*3/uL Absolute Neuts (auto) 5.5 (2.0-8.3) x10*3/uL Absolute Nucleated RBC 0.000 (0.0-0.012) X10*3/uL Nucleated RBC % (auto) 0.0 (0.0-0.2) /100WBC VBG pH 7.32 (7.32-7.43) VBG pCO2 41 mmHg VBG pO2 50 mmHg VBG HCO3 21 L (22-26) mmol/L VBG O2 Saturation 80.0 % VBG Base Excess -4.1 mmol/L Sodium 138 (135-145) mmol/L Potassium 4.3 (3.3-5.1) mmol/L Chloride 101 (96-108) mmol/L Carbon Dioxide 18 L (22-29) mmol/L Anion Gap 23 H (12-20) BUN 10 (9-16) mg/dL Creatinine 0.61 (0.5-1.4) mg/dL Estim Creat Clear Calc 152.9 Estimated GFR > 60 POC Glucose 244 H (60-115) mg/dL Fasting Glucose 324 H (60-99) mg/dL Calcium 8.7 (8.4-10.2) mg/dL Magnesium 1.9 (1.6-2.6) mg/dL Total Bilirubin 1.6 H (0.0-1.0) mg/dL Direct Bilirubin 0.3 (0.0-0.5) mg/dL AST 20 (5-37) U/L ALT 27 (0-40) U/L Alkaline Phosphatase 66 (39-117) U/L Total Protein 6.7 (6.5-8.0) g/dL Albumin 4.3 (3.5-5.0) g/dL Lipase 26 (8-78) U/L Ethyl Alcohol 232 mg/dL / Range/Units 15:25 WBC (4.8-10.8) X10*3/uL RBC (4.60-5.80) X10*6/uL Hgb (14.0-18.0) g/dl Hct (42.0-52.0) % MCV (80.0-98.0) fL MCH (27.0-33.0) pg MCHC (31.0-36.0) g/dl RDW (11.0-16.0) % Plt Count (160-400) X10*3/uL MPV (9.4-12.4) fL Immature Gran % (Auto) (0.0-0.4) % Neut % (Auto) (45-73) % Lymph % (Auto) (20-40) % Childress % (Auto) (2-11) % Eos % (Auto) (0-4) % Baso % (Auto) (0-2) % Lymph # (Auto) (1.2-4.9) X10*3/uL Childress # (Auto) (0.1-1.2) X10*3/uL Eos # (Auto) (0.0-0.4) X10*3/uL Baso # (Auto) (0.0-0.2) X10*3/uL Abs Immat Gran (auto) (0.00-0.03) X10*3/uL Absolute Neuts (auto) (2.0-8.3) x10*3/uL Absolute Nucleated RBC (0.0-0.012) X10*3/uL Nucleated RBC % (auto) (0.0-0.2) /100WBC VBG pH (7.32-7.43) VBG pCO2 mmHg VBG pO2 mmHg VBG HCO3 (22-26) mmol/L VBG O2 Saturation % VBG Base Excess mmol/L Sodium (135-145) mmol/L Potassium (3.3-5.1) mmol/L Chloride (96-108) mmol/L Carbon Dioxide (22-29) mmol/L Anion Gap (12-20) BUN (9-16) mg/dL Creatinine (0.5-1.4) mg/dL Estim Creat Clear Calc Estimated GFR POC Glucose 218 H (60-115) mg/dL Fasting Glucose (60-99) mg/dL Calcium (8.4-10.2) mg/dL Magnesium (1.6-2.6) mg/dL Total Bilirubin (0.0-1.0) mg/dL Direct Bilirubin (0.0-0.5) mg/dL AST (5-37) U/L ALT (0-40) U/L Alkaline Phosphatase (39-117) U/L Total Protein (6.5-8.0) g/dL Albumin (3.5-5.0) g/dL Lipase (8-78) U/L Ethyl Alcohol mg/dL Discharge Plan Discharge Clinical Impression: Acute pain of left shoulder, Alcohol abuse, Acute hyperglycemia Patient Disposition: Home, Self-Care Instructions: Abuse of Alcohol (ED), Shoulder Pain (ED), Diabetic Hyperglycemia (ED) Additional Instructions: Your workup in the ER today was reassuring. I recommend using ibuprofen or Tylenol for pain. I recommend reducing alcohol consumption. Your blood sugar was elevated today, you should follow up with your primary doctor, in the future you may require additional treatment in addition to the metformin Your x-ray did not show any concerning findings Return for new or worsening symptoms Prescriptions: No Action glipizide 5 mg Tablet Extended Release 24hr 5 mg PO DAILY@1200 metformin 1,000 mg Tablet 1,000 mg PO BID Jardiance 10 mg Tablet 10 mg PO QAM Print Language: Wolof
[2024-12-04 13:07] LABS: Alanine Aminotransferase 27 U/L (0-40); Albumin Level 4.3 g/dL (3.5-5.0); Alkaline Phosphatase 66 U/L (39-117); Aspartate Amino Transferase 20 U/L (5-37); Lipase 26 U/L (8-78); Total Protein 6.7 g/dL (6.5-8.0)
[2024-12-04 13:07] LABS: Glucose, Whole Blood 244 mg/dL (60-115)
[2024-12-04 13:44] LABS: Venous Blood Gas Refer to POC result
[2024-12-04 13:45] LABS: VBG HCO3 21 mmol/L (22-26); VBG O2 % Saturation 80.0 %
[2024-12-04 15:20] VITALS: BP 136/78; PULSE 89; RESP 16; TEMP 36.7; O2SAT 97
[2024-12-04 15:28] LABS: Glucose, Whole Blood 218 mg/dL (60-115)
[2024-12-04 16:06] VITALS: BP 136/78; PULSE 89; RESP 16; TEMP 36.7; O2SAT 97
== END 2024-12-04 16:07 | disposition home or self-care (01) ==
PROVIDERS: Physician Assistant; Emergency Provider Emergency Medicine
DX: M25.512 Pain in left shoulder (principal); M54.2 Cervicalgia; E11.65 Type 2 diabetes mellitus with hyperglycemia; F10.10 Alcohol abuse, uncomplicated; R11.0 Nausea; Y90.7 Blood alcohol level of 200-239 mg/100 ml; Z79.84 Long term (current) use of oral hypoglycemic drugs; Z79.899 Other long term (current) drug therapy; Z87.891 Personal history of nicotine dependence; Z51.81 Encounter for therapeutic drug level monitoring
CPT/HCPCS: 36415; 73030; 80048; 80076; 80307; 82803; 82947; 83690; 83735; 85025; 96361; 96374; 99284; J1885

== ENCOUNTER → 2024-12-04 12:59 | Outpatient (BNV) | payer OTHER, SELFPAY | PROVIDERS: Emergency Provider Emergency Medicine; Visit Provider Radiology Diagnostic Radiology | DX: M25.512 Pain in left shoulder (principal) | CPT/HCPCS: 73030 ==

== ENCOUNTER 2025-03-05 11:24 | Outpatient (REF) | payer OTHER, SELFPAY ==
--- OUTSIDE RECORDS SUMMARY | 2025-03-05 11:30 | XMS_ITS | Encounter Summary ---
Author Organization [employer] Address [address] [place] [address] Care Team Providers Care Funeral Home Associate Name Role Phone Erica Brandon MD Primary Care Provider [phone] Mariama Hair PharmD Unavailable [phone] Reason for Visit * Reason Comments Follow-up Diabetes Encounter Details Date Type Department Care Team ([facility] st Contact Info) Description 03/05/2025 11:30 AM EDT Office Visit [facility] [address] [place], [place] [phone] Erica Brandon MD [address] [place], [place] [phone] Mixed anxiety and depressive disorder (Primary Dx); Type 2 diabetes mellitus with hyperglycemia, without long-term current use of insulin (HCC); Primary hypertension Social History Tobacco Use Types Packs/Day Years Used Date Smoking Tobacco: Never Passive Smoke Exposure: Never Smokeless Tobacco: Never Tobacco Cessation:Counseling Given: Not Answered Comments:Quit 2012 Alcohol Use Standard Drinks/Week Comments Yes 0 (1 standard drink = 0.6 oz pure alcohol) declines to scpecify number of drinks Alcohol Answer Date Recorded How often do you have a drink containing alcohol ? 2 08/20/2024 How many drinks containing a lcohol do you have on a typical day when you are drinking? 2 08/20/2024 How often do you have six or more drinks on one occasion? 1 08/20/2024 Depression Answer Date Recorded Patient Health Questionnaire-9 Score 4 03/05/2025 Patient Health Questionnaire-9 Score 4 03/05/2025 Last PHQ-9: Questionnaire Data Not on file 1 Housing Stability Answer Date Recorded What is your housing situation today? I have malena carrasco 10/21/[address] you li ve. Do you have problems with any of the following? None of the above 10/21/2023 Food Insecurity Answer Date Recorded Within the past 12 months, y ou worried that your food would run out before you got money to buy more: Never True 10/21/2023 Within the past 12 months,th e food you bought just didn't last and you didn't have enough money to get more: Never True Transportation Answer Date Recorded In the past 12 months, has l ack of transportation kept you from medical appts, meetings, work or from getting things needed for daily living? No 10/21/2023 Intimate Partner Violence Answer Date R ecorded Within the last year, have y ou been afraid of your partner or ex-partner? 2 08/20/2024 Within the last year, have y ou been humiliated or emotionally abused in other ways by your partner or ex-partner? 2 Within the last year, have y ou been kicked, hit, slapped, or otherwise physically hurt by your partner or ex-partner? 2 08/20/2024 Within the last year, have y ou been raped or forced to have any kind of sexual activity by your partner or ex-partner? 2 08/20/2024 Utilities Answer Date Recorded In the past 12 months, has t he electric, gas, oil or water company threatened to shut off services in your home? No 10/21/2023 Depression Answer Date Recorded Patient Health Questionnaire-2 Score 2 03/05/2025 Sex and Gender Information Value Date Recorded Sex Assigned at Male 03/22/2022 10:22 AM EDT Legal Sex Male 10:22 AM EDT Gender Identity Male 05/21/2024 8:26 AM EST Sexual Orientation Choose not to disclose 2021 10:22 AM EDT documented as of this encounter Last Filed Vital Signs Vital Sign Reading Time Taken Comments Blood Pressure 122/78 03/05/2025 10:50 AM EDT Pulse 78 03/05/2025 10:50 AM EDT Temperature 36.8 C (98.2 F) 03/05/2025 10:50 AM EDT Respiratory Rate 20 03/05/2025 10:50 AM EDT Oxygen Saturation - - Inhaled Oxygen Concentration - - Weight 86.5 kg (190 lb 9.6 oz) 03/05/2025 10:50 AM EDT Height 177.8 cm (5' 10 ) 03/05/2025 10:50 AM EDT Body Mass Index 27.35 03/05/2025 10:50 AM EDT documented in this encounter Functional Status * Over the past 2 weeks, how often have you been bothered by any of the following problems? Question Answer Date of Assessment Author Patient Health Questionnaire -2 Score 2 03/05/2025 11:00 AM EDT Luciana Starks MA * Little interest or pleasure in doing things Answer Date of Assessment Author Several days 03/05/2025 11:00 AM Luciana Sharif MA * Feeling down, depressed, or hopeless Answer Date of Assessment Author Several days 03/05/2025 11:00 AM MYAT Luciana Starks MA * Trouble falling or staying asleep, or sleeping too much Answer Date of Assessment Author Several days 03/05/2025 11:00 AM Luciana Sharif MA * Feeling tired or having little energy Answer Date of Assessment Author Several days 03/05/2025 11:00 AM Luciana Sharif MA * Poor appetite or overeating Answer Date of Assessment Author Not at all 03/05/2025 11:00 AM Luciana Sharif MA * Feeling bad about yourself - or that you are a failure or have let yourself or your family down Answer Date of Assessment Author Not at all 03/05/2025 11:00 AM Luciana Sharif MA * Trouble concentrating on things, such as reading the newspaper or watching television Answer Date of Assessment Author Not at all 03/05/2025 11:00 AM Luciana Sharif MA * Moving or speaking so slowly that other people could have noticed? Or the opposite - being so fidgety or restless that you have been moving around a lot more than usual. Answer Date of Assessment Author Not at all 03/05/2025 11:00 AM Luciana Sharif MA * Thoughts that you would be better off or hurting yourself in some way Answer Date of Assessment Author Not at all 03/05/2025 11:00 AM Luciana Sharif MA * Patient Health Questionnaire-9 Score Answer Date of Assessment Author 4 03/05/2025 11:00 AM Luciana Sharif MA * How difficult have these problems made it for you to do your work, take care of things at home, or get along with other people? Answer Date of Assessment Author Not difficult at all 03/05/2025 11:00 AM EDT Luciana Palacios MA * Over the last 2 weeks, how often have you been bothered by any of the following problems? Question Answer Date of Assessment Author Feeling nervous, anxious, or on edge 1 03/05/2025 11:00 AM Luciana Sharif MA Not being able to stop or co ntrol worrying 1 03/05/2025 11:00 AM Luciana Sharif MA Worrying too much about diff erent things 1 03/05/2025 11:00 AM Luciana Sharif MA Trouble relaxing 1 03/05/2025 11:00 AM Luciana Sharif MA Being so restless that it is hard to sit still 1 03/05/2025 11:00 AM Luciana Sharif MA Becoming easily annoyed or irritable 1 03/05/2025 11:00 AM Luciana Sharif MA Feeling afraid as if somethi ng awful might happen 0 03/05/2025 11:00 AM Luciana Sharif MA MARILEE-7 Total Score 6 03/05/2025 11:00 AM Luciana Sharif MA documented as of this encounter Progress Notes * Erica Brandon MD - 03/05/2025 11:30 AM EDT SUBJECTIVE: Amos Wolfe is a 49 y.o. male who presents for chronic disease management. Denies recent illness, ER visit, or hospitalization. Acute Concerns: Nausea and vomiting in the morning after taking morning medication Chronic Conditions and Plans: Alcohol Use 02/24/24 for alcohol intox and elev BG 04/05/24 for alcohol intox and SI He has a therapist at [facility] and is prescribed meds there. He takes his Lexapro and Wellbutrin most days. He declines to quantify number of drinks in a sitting, does not consider it binge or blackout. He does not drink every day. Depression/SI Dr. Washington at [facility] 09/28/23 ER for SI, denies currently. DM2 A1C 10.7, gluc 274 A1C 9.9 by [employer] home visit denies symptoms of [place], blurry vision, abdominal pain, fever, nausea, dysuria. Does have polyuria and polydipsia 06/13/2024 podiatry note, Dr Pizano Awaiting optometry appointment for ROSA On Metformin 1000mg BID, Januvia 50mg and Glipizide XL 5mg HLD Is on Lipitor, due for recheck of lipids Overweight Likely due to diet Lung mass 12/06/[address] shows 2 years of stable pulmonary nodules x 2. Health Maintenance STI screening- 08/2023 normal Imms- Hep B, PCV 20, Flu, COVID. 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 Respiratory: Negative. Cardiovascular: Negative. Gastrointestinal: Negative. Musculoskeletal: Negative. Skin: Negative. OBJECTIVE: Vitals: 03/05/25 1050 BP: 122/78 BP Location: Left arm Patient Position: Sitting BP Cuff Size: Adult Pulse: 78 Resp: 20 Temp: 98.2 ??F (36.8 ??C) TempSrc: Oral Weight: 190 lb 9.6 oz (86.5 kg) Height: 5' 10 (1.778 m) Physical Exam Vitals and nursing note reviewed. Constitutional: Appearance: Normal appearance. He is normal weight. HENT: Head: Normocephalic and atraumatic. Right Ear: Tympanic membrane, ear canal and external ear normal. Left Ear: Tympanic membrane, ear canal and external ear normal. Nose: Nose normal. Mouth/Throat: Mouth: Mucous membranes are moist. Pharynx: Oropharynx is clear. Eyes: Extraocular Movements: Extraocular movements intact. Conjunctiva/sclera: Conjunctivae normal. Pupils: Pupils are equal, round, and reactive to light. Cardiovascular: Rate and Rhythm: Normal rate and regular rhythm. Pulses: Normal pulses. Dorsalis pedis pulses are 2+ on the right side and 2+ on the left side. Posterior tibial pulses are 2+ on the right side and 2+ on the left side. Heart sounds: Normal heart sounds. Pulmonary: Effort: Pulmonary effort is normal. Breath sounds: Normal breath sounds. Abdominal: General: Abdomen is flat. Bowel sounds are normal. There is no distension. Palpations: Abdomen is soft. Musculoskeletal: General: Normal range of motion. Cervical back: Normal range of motion and neck supple. Right foot: Normal range of motion. No deformity. Left foot: Normal range of motion. No deformity. Feet: Right foot: Protective Sensation: 6 sites tested. 6 sites sensed. Skin integrity: Skin integrity normal. Toenail Condition: Right toenails are long. Left foot: Protective Sensation: 6 sites tested. 6 sites sensed. Skin integrity: Skin integrity normal. Toenail Condition: Left toenails are long. Skin: General: Skin is warm and dry. Capillary Refill: Capillary refill takes less than 2 seconds. Neurological: General: No focal deficit present. Mental Status: He is alert and oriented to person, place, and time. Psychiatric: Mood and Affect: Mood normal. Behavior: Behavior normal. ASSESSMENT/PLAN Problem List Items Addressed This Visit Mixed anxiety and depressive disorder - Primary Type 2 diabetes mellitus with hyperglycemia, without long-term current use of insulin (HCC) Current Assessment & Plan Current A1c: 10.9; continue Metformin, stop Farxiga and Sitagliptin (not sure he is taking them as he is vomiting) Start Mounjaro 2.5mg weekly Refer to CDTM for med mgmt, discussion on insulin BMP: Lab Results Component Value Date CREATININE 0.85 11/01/2023 CREATININE 1.09 09/13/2020 K 4.2 11/01/2023 MICROALBUR 5.0 11/01/2023 Microalbumin: ordered today Foot Exam: Complete at follow up Eye Exam: Discuss at follow up Lipid panel: ordered today ASCVD: The ASCVD Risk score (Derrick ENAMORADO, et al., 2019) failed to calculate for the following reasons: The valid total cholesterol range is 130 to 320 mg/dL Statin: Yes, on for TG 300 and DM2, advised lifestyle, diet changes ASA: Yes JAYASHREE/ARB: Yes Encouraged regular aerobic exercise for improved glycemic control Encouraged daily foot checks Encouraged lean protein snacks and to avoid foods high in sugar and simple carbohydrates Treatment Goals: A1c goal: <7% FBG goal: <130 2 hour post prandial goal: <180 Relevant Medications aspirin 81 MG chewable tablet Tirzepatide (Mounjaro) 2.5 MG/0.5ML solution auto-injector metFORMIN (Glucophage) 1000 MG tablet Other Relevant Orders POCT Glucose (Completed) POCT Hgb A1c (Completed) Lipid Panel, Standard Albumin, Random Urine W/Creatinine Comprehensive Metabolic Panel Hypertension Follow Up: 4 months or sooner prn This note was drafted using Ambient (AI) technology. The patient/patient's guardian has been informed and has consented to the use of this technology: Yes [1] History reviewed. No pertinent surgical history. documented in this encounter Miscellaneous Notes * Assessment & Plan Note - Erica Brandon MD - 03/05/2025 11:34 AM EDT Associated Problem(s): Type 2 diabetes mellitus with hyperglycemia, without long-term current use of insulin (HCC) Current A1c: 10.9; continue Metformin, stop Farxiga and Sitagliptin (not sure he is taking them as he is vomiting) Start Mounjaro 2.5mg weekly Refer to CDTM for med mgmt, discussion on insulin BMP: Lab Results Component Value Date CREATININE 0.85 11/01/2023 CREATININE 1.09 09/13/2020 K 4.2 11/01/2023 MICROALBUR 5.0 11/01/2023 Microalbumin: ordered today Foot Exam: Complete at follow up Eye Exam: Discuss at follow up Lipid panel: ordered today ASCVD: The ASCVD Risk score (Derrick ENAMORADO, et al., 2019) failed to calculate for the following reasons: The valid total cholesterol range is 130 to 320 mg/dL Statin: Yes, on for TG 300 and DM2, advised lifestyle, diet changes ASA: Yes JAYASHREE/ARB: Yes Encouraged regular aerobic exercise for improved glycemic control Encouraged daily foot checks Encouraged lean protein snacks and to avoid foods high in sugar and simple carbohydrates Treatment Goals: A1c goal: <7% FBG goal: <130 2 hour post prandial goal: <180 documented in this encounter Plan of Treatment Upcoming Encounters Date Type Department Care Team (Late st Contact Info) Description 03/28/2025 2:00 PM EST Medication Management [facility] [address] [place], [place] [phone] Mariama Hair PharmD [address] [place], [place] [phone] Scheduled Orders Name Type Priority Associated Diagnoses Orde r Schedule Lipid Panel, Standard Lab Routine Type 2 diabetes mellitus with hyperglycemia, without long-term current use of insulin (HCC) Expected: 03/05/2025 (Approximate), Expires: 03/05/2026 Albumin, Random Urine W/Creatinine Lab Routine Type 2 diabetes mellitus with hyperglycemia, without long-term current use of insulin (HCC) Expected: 03/05/2025 (Approximate), Expires: 03/05/2026 Comprehensive Metabolic Panel Lab Routine Type 2 diabetes mellitus with hyperglycemia, without long-term current use of insulin (HCC) Expected: 03/05/2025 (Approximate), Expires: 03/05/2026 documented as of this encounter Procedures Procedure Name Priority Date/Time Associated Diagnosis Comments POCT GLYCATED HEMOGLOBIN, TOTAL Routine 03/05/2025 11:03 AM EDT Type 2 diabetes mellitus with hyperglycemia, without long-term current use of insulin (HCC) POCT GLUCOSE Routine 03/05/2025 11:01 AM EDT Type 2 diabetes mellitus with hyperglycemia, without long-term current use of insulin (HCC) documented in this encounter Results * (ABNORMAL) POCT Hgb A1c (03/05/2025 11:03 AM EDT) Hemoglobin A1C 10.7(A) 4.0 - 5.7 % Blood 03/05/2025 11:0 3 AM EDT Erica Brandon MD POINT OF CARE TEST ENTER/EDIT ORDERABLES Final Result * (ABNORMAL) POCT Glucose (03/05/2025 11:01 AM EDT) Glucose Blood, POC 274(A) 60 - 200 mg/dL Blood Capillary blood specimen / Unknown 03/05/2025 11:01 AM EDT Erica Brandon MD POINT OF CARE TEST ENTER/EDIT ORDERABLES Final Result documented in this encounter Visit Diagnoses Diagnosis Mixed anxiety and depressive disorder- Primary Dysthymic disorder Type 2 diabetes mellitus with hyperglycemia, without long-term current use of insulin (HCC) Primary hypertension Unspecified essential hypertension documented in this encounter Additional Health Concerns Assessment Noted Time PHQ-9 Depression Total Score: 4 03/05/20 25 11:00 AM EDT documented as of this encounter Care Teams Funeral Home Associate Relationship Specialty Start Date End Date Erica Brandon MD [address] [place] [address] PCP - General Family Medicine 07/22/22 Mariama Hair PharmD [address] [place] [address] Pharmacist Internal Medicine 09/26/24 documented as of this encounter
--- OUTSIDE RECORDS SUMMARY | 2025-03-05 13:56 | XMS_ITS | Encounter Summary ---
Author Organization [employer] Address [address] [place] [address] 7[address] [place] [address] Care Team Providers Care Macerator Operator Name Role Phone Erica Brandon MD Primary Care Provider [phone] Mariama Hair PharmD Unavailable [phone] Reason for Visit * Reason Onset Date Comments Appointment Request 08/22/2023 Encounter Details Date Type Department Care Team ([facility] Contact Info) Description 08/22/2023 Telephone [facility] [address] [place] [phone] Erica Brandon MD [address] [place] [phone] Appointment Request Social History Tobacco Use Types Packs/Day Years Used Date Smoking Tobacco: Never Assessed Sex and Gender Information Value Date Recorded Sex Assigned at Male 03/22/2022 10:22 AM EDT Legal Sex Male 10:22 AM EDT Gender Identity Male 05/21/2024 8:26 AM EST Sexual Orientation Choose not to disclose 2021 10:22 AM EDT documented as of this encounter Miscellaneous Notes * Telephone Encounter - Traci Jackson - 08/22/2023 2:39 PM EDT Tc from pt requesting appt with PCP, no concerns at the moment just a check up. documented in this encounter Plan of Treatment Upcoming Encounters Date Type Department Care Team (Late Contact Info) Description 03/28/2025 2:00 PM EST Medication Management [address] [phone] Mariama Hair PharmD [address] [place] [address] documented as of this encounter Visit Diagnoses Not on filedocumented in this encounter Care Teams Macerator Operator Relationship Specialty Start Date End Date Erica Brandon MD [address] [place], [place] [phone] PCP - General Family Medicine 07/22/22 Mariama Hair, PamD [address] [place] [phone] Pharmacist Internal Medicine 09/26/24 documented as of this encounter
--- OUTSIDE RECORDS SUMMARY | 2025-03-05 13:56 | XMS_ITS | Encounter Summary ---
Author Organization [employer] Address [address] [facility] 7t [place] [address] Care Team Providers Care Promotions Firm Accounts Manager Name Role Phone Erica Brandon MD Primary Care Provider [phone] Mariama Hair PharmD Unavailable [phone] Encounter Details Date Type Department Care Team (Late st Contact Info) Description 10/15/2022 Abstract [facility] [address] [place] [phone] Erica Brandon MD [address] [place] [address] Social History Tobacco Use Types Packs/Day Years [...] Description 03/28/2025 2:00 PM EST Medication Management [facility] [address] [place] [address] Mariama Hair, PharmD [address] [place] [address] documented as of this encounter Visit Diagnoses Not on filedocumented in this encounter Care Teams Promotions Firm Accounts Manager Relationship Specialty Start Date End Date Erica Brandon MD [address] [place] [phone] PCP - General Family Medicine 07/22/22 Mariama Hair, Destiny [address] [place] [phone] Pharmacist Internal Medicine 09/26/24 documented as of this encounter
--- OUTSIDE RECORDS SUMMARY | 2025-03-05 13:56 | XMS_ITS | Encounter Summary ---
Author Organization [employer] Address [address] [place] [address] 7[address] [place] [address] Care Team Providers Care Cryptographer Name Role Phone Rajeev Vieira Primary Care Provider Erica Morris MD Primary Care Provider [phone] Mariama Hair PharmD Unavailable [phone] Encounter Details Date Type Department Care Team (Late st Contact Info) Description 05/31/2022 Orders Only [facility] [address] [place] [phone] Christianne Bhandari, PIERRE Social History Tobacco Use Types Packs/Day Years [...] Description 03/28/2025 2:00 PM EST Medication Management [facility] [address] [place] [phone] Mariama Hair, PharmD [address] [place] [address] documented as of this encounter Visit Diagnoses Not on filedocumented in this encounter Care Teams Cryptographer Relationship Specialty Start Date End Date Rajeev Vieira FNP PCP - General Family Medicine 04/21/22 07/21/22 Erica Brandon MD [address] [place] [address] PCP - General Family Medicine 07/22/22 Mariama Hair, Destiny [address] [place] [address] Pharmacist Internal Medicine 09/26/24 documented as of this encounter
--- OUTSIDE RECORDS SUMMARY | 2025-03-05 13:56 | XMS_ITS | Encounter Summary ---
Author Organization [employer] Address [address] [facility] 7t [place] [address] Care Team Providers Care Fuel Retrofitting Technician Name Role Phone Erica Brandon MD Primary Care Provider Mariama Hair PharmD Unavailable Encounter Details Date Type Department Care Team (Late st Contact Info) Description 10/14/2022 Abstract [facility] [address] [place] [phone] Erica Brandon MD [address] [place] [address] Social History Tobacco Use Types Packs/Day Years [...] Description 03/28/2025 2:00 PM EST Medication Management [facility] [address] [place] [address] Mariama Hair, PharmD [address] [place] [address] documented as of this encounter Visit Diagnoses Not on filedocumented in this encounter Care Teams Fuel Retrofitting Technician Relationship Specialty Start Date End Date Erica Brandon MD [address] [place] [phone] PCP - General Family Medicine 07/22/22 Mariama aHir, Destiny [address] [place] [phone] Pharmacist Internal Medicine 09/26/24 documented as of this encounter
--- OUTSIDE RECORDS SUMMARY | 2025-03-05 13:56 | XMS_ITS | Clinical Summary ---
Author Organization [address] [facility] Address [address] [place] [address] Phone Care Team Providers Care Rock Crusher Operator Name Role Phone Erica Brandon MD Primary Care Provider [phone] Allergies No known active allergies Medications atorvastatin (LIPITOR) 20 mg tablet Take 1 tablet (20 mg total) by mouth 1 (one) time each day. Active blood sugar diagnostic (DhinganaTouch Verio test strips) test strip 5 Active OneTouch Ultra2 Meter [facility] USE DIRECTED TO CHECK BLOOD [...] CRUSH, CHEW, OR SPLIT. 4 Active lancets (DhinganaTouch Delica Plus Lancet) 33 gauge USE ONE LANCET VIA SKIN ROUTE TO TEST BLOOD SUGARS 3 TIMES DAILY 4 Active lisinopriL (PRINIVIL,ZEST RIL) 5 mg tablet Take 1 tablet (5 mg total) by mouth daily. 4 Active metFORMIN (GLUCOPHAGE) 1,000 mg tablet TAKE 1 TABLET (1000 MG) BY MOUTH WITH BREAKFAST AND WITH EVENING MEAL Active sildenafiL (VIAGRA) 100 mg tablet TAKE 1/2 TABLET BY MOUTH EVERY DAY NEEDED APPROXIMATELY 1 HOUR BEFORE SEXUAL ACTIVITY NEEDED. Active Januvia 50 mg tablet Take 1 tablet (50 mg total) by mouth daily. 4 12/30/20 25 Active Social History Tobacco Use Types Packs/Day [...] Health Maintenance Due Date Last Done Comments Colorectal Cancer Screening: Colonoscopy 1976 Diabetes: Annual GFR (Glomerular Filtration Rate) 1976 Diabetes: Annual Foot Exam 1986 Diabetes: Annual Retina Eye Exam 1986 Hepatitis B Vaccines (1 of 3 - 19+ 3-dose series) 1995 Pneumococcal Vaccine: Pediatrics (0 to 5 Years) and At-Risk Patients (6 to 49 Years) (2 of 2 - PCV) 12/03/2015 12/02/2014 Medicare Annual Wellness Visit 03/23/2024 Social Influencers of Health Screening 03/23/2024 Depression Screening 05/23/2024 Diabetes: Annual Urine Albumin-Creatinine Ratio (uACR) 06/13/2024 Diabetes: Blood Sugar Contro l Test (HGBA1C) 11/19/2024 05/21/2024 COVID-19 Vaccine (1 - 2023-2 5 season) 2025 Influenza Vaccine (#1) 2025 Cholesterol Screening (Lipid Panel) 10/31/2028 11/01/2023 DTaP,Tdap,and Td Vaccines (4 - Td or Tdap) 07/19/2033 07/19/2023, 02/27/2015, 04/06/2013 RSV Immunization Adult Patients (1 - 1-dose 75+ series) 2051 HIV Screening Completed 11/01/2023 Hepatitis C Screening [...] complete this topic Insurance [place]ICA[place] - [place] MEDICARE [facility] Member Subscriber Plan / Payer (Ef fective 2023-Present) Name:AMOS WOLFE Relation to Subscriber:Self Name:Amos Wolfe Payer ID:[id number] Group ID:[id number] Type:Not on file Address: [address] [place] [address] Care Teams Rock Crusher Operator Relationship Specialty Start Date End Date Erica Brandon MD [address] [place] [address] PCP - General [employer] Math Teacher 08/03/24
--- OUTSIDE RECORDS SUMMARY | 2025-03-05 13:56 | XMS_ITS | Encounter Summary ---
Author Organization [employer] Address [address] [place] [address] Care Team Providers Care Ice Cream Shop Associate Name Role Phone Erica Brandon MD Primary Care Provider [phone] Mariama Hair PharmD Unavailable [phone] Reason for Visit * Reason Onset Date Comments Chart Prep 03/04/2025 Encounter Details Date Type Department Care Team ([facility] st Contact Info) Description 03/04/2025 Telephone [facility] [address] [place], [place] [phone] Erica Brandon MD [address] [place], [place] [phone] Chart Prep Social History Tobacco Use Types Packs/Day Years Used Date Smoking Tobacco: Never Passive Smoke Exposure: Never Smokeless Tobacco: Never Comments:Quit 2012 Alcohol Use Standard Drinks/Week Comments [...] encounter Miscellaneous Notes * Telephone Encounter - Marquita Solis [place] - 03/04/2025 3:45 PM EDT Chart Prep Labs: not done Images: not applicable Referrals: appointment pending Vaccines due: Covid, Flu, PCV20, and Hep B Screenings: colonoscopy and foot exam Overdue care gaps: A1c, Glucose, SDOH, PHQ-9, MARILEE-7, and Oral health screening documented in this encounter Plan of Treatment Upcoming Encounters Date Type Department Care Team (Late st Contact Info) Description 03/28/2025 2:00 PM EST Medication Management [facility] [address] [place] [phone] Mariama Hair PharmD [address] [place] [address] documented as of this encounter Visit Diagnoses Not on filedocumented in this encounter Additional Health Concerns Assessment Noted Time PHQ-9 Depression Total Score: 6 05/21/20 24 1:39 PM EST documented as of this encounter Care Teams Ice Cream Shop Associate Relationship Specialty Start Date End Date Erica Brandon MD [address] [place] [id number] PCP - General Family Medicine 07/22/22 Mariama Hair PharmD [address] [place] [phone] Pharmacist Internal Medicine 09/26/24 documented as of this encounter
--- OUTSIDE RECORDS SUMMARY | 2025-03-05 13:56 | XMS_ITS | Encounter Summary ---
Author Organization [employer] Address [address] [place] [address] Care Team Providers Care Harp Repairer Name Role Phone Erica Brandon MD Primary Care Provider [phone] Mariama Hair PharmD Unavailable [phone] Encounter Details Date Type Department Care Team (Latest Contact Info) Description 03/05/2025 Travel Social History Tobacco Use Types Packs/Day Years [...] is your housing situation today? I have malenaroyal carrasco 10/21/[address] you [...] AM EDT documented as of this encounter Functional Status * Over the past 2 weeks, how often have you been bothered by any of the following problems? Question Answer Date of Assessment Author Patient Health Questionnaire -2 Score 2 03/05/2025 11:00 AM EDT Luciana Starks [place] * Little interest or pleasure in doing things Answer Date of Assessment Author Several days 03/05/2025 11:00 AM EDT Luciana Starks [place] * Feeling down, depressed, or hopeless Answer Date of Assessment Author Several days 03/05/2025 11:00 AM EDT Luciana Starks MA * Trouble falling or staying asleep, or sleeping too much Answer Date of Assessment Author Several days 03/05/2025 11:00 AM EDT Luciana Starks [place] * Feeling tired or having little [...] Not difficult at all 03/05/2025 11:00 AM Luciana Srivastava [place] * Over the last 2 weeks, [...] to sit still 1 03/05/2025 11:00 AM EDT Luciana Starks MA Becoming easily annoyed or irritable 1 03/05/2025 11:00 AM EDT Luciana Starks MA Feeling afraid as if somethi ng awful might happen 0 03/05/2025 11:00 AM EDT Luciana Starks MA MARILEE-7 Total Score 6 03/05/2025 11:00 AM EDT Luciana Starks [place] documented as of this encounter Plan of Treatment Upcoming Encounters Date Type Department Care Team (Late st Contact Info) Description 03/28/2025 2:00 PM EST Medication Management [facility] [address] [place] [address] Mariama Hair PharmD [address] [place] [address] documented as of this encounter Visit Diagnoses Not on filedocumented in this encounter Additional Health Concerns Assessment Noted Time PHQ-9 Depression Total Score: 4 03/05/20 11:00 AM EDT documented as of this encounter Care Teams Harp Repairer Relationship Specialty Start Date End Date Erica Brandon MD [address] [place] [phone] PCP - General Family Medicine 07/22/22 Mariama Hair PharmD [address] [place] [phone] Pharmacist Internal Medicine 09/26/24 documented as of this encounter
--- OUTSIDE RECORDS SUMMARY | 2025-03-05 13:56 | XMS_ITS | Encounter Summary ---
Author Organization [employer] Address [address] [facility] [address] [place] [address] Care Team Providers Care Seat Cover Cutter Name Role Phone Erica Brandon MD Primary Care Provider [phone] Mariama Hair PharmD Unavailable Reason for Visit * Reason Comments Med Change Request Encounter Details Date Type Department Care Team ([facility] Contact Info) Description 03/05/2025 Refill [facility] [address] [place], [place] [phone] Erica Brandon MD [address] [place], [place] [phone] Social History Tobacco Use Types Packs/Day Years [...] 11:00 AM Luciana Sharif [place] * Trouble falling or staying asleep, [...] co ntrol worrying 1 03/05/2025 11:00 AM EDT Luciana Starks [place] Worrying too much about diff erent things 1 03/05/2025 11:00 AM EDT Luciana Starks MA Trouble relaxing 1 03/05/2025 11:00 AM EDT Luciana Starks MA Being so restless that it is [...] Description 03/28/2025 2:00 PM EST Medication Management [facility] [address] [place] [address] Mariama Hair PharmD [address] [place] [address] documented as of this encounter Visit Diagnoses Not on filedocumented in this encounter Additional Health Concerns Assessment Noted Time PHQ-9 Depression Total Score: 4 03/05/20 25 11:00 AM EDT documented as of this encounter Care Teams Seat Cover Cutter Relationship Specialty Start Date End Date Erica Brandon MD [address] [place] [id number] PCP - General Family Medicine 07/22/22 Mariama Hair PharmD [address] [place] [address] Pharmacist Internal Medicine 09/26/24 documented as of this encounter
--- OUTSIDE RECORDS SUMMARY | 2025-03-05 13:56 | XMS_ITS | Encounter Summary ---
Author Organization [employer] Address [address] [place] [address] Care Team Providers Care Metal Burrer Name Role Phone Erica Brandon MD Primary Care Provider [phone] Mariama Hair PharmD Unavailable Encounter Details Date Type Department Care Team (Late st Contact Info) Description 09/25/2024 Orders Only [facility] [address] [place], [place] [phone] Erica Brandon MD [address] [place], [place] [phone] Primary hypertension (Primary Dx) Social History Tobacco Use Types Packs/Day Years Used Date Smoking Tobacco: Never Smokeless Tobacco: Never Comments:Quit 2012 Alcohol [...] Answer Date Recorded Patient Health Questionnaire-9 Score 6 05/21/2024 Patient Health Questionnaire-9 Score 6 05/21/2024 Last PHQ-9: Questionnaire Data Not on file [...] Date Recorded Patient Health Questionnaire-2 Score 2 05/21/2024 Sex and Gender Information Value Date Recorded [...] Description 03/28/2025 2:00 PM EST Medication Management [facility] [address] [place], [place] [phone] Mariama Hair, PharmD [address] [place] [address] documented as of this encounter Visit Diagnoses Diagnosis Primary hypertension- Primary Unspecified essential hypertension documented in this encounter Additional Health Concerns Assessment Noted Time PHQ-9 Depression Total Score: 6 05/21/20 24 1:39 PM EST documented as of this encounter Care Teams Metal Burrer Relationship Specialty Start Date End Date Erica Brandon MD [address] [place] [address] PCP - General Family Medicine 07/22/22 Mairama Hair PharmD [address] [place] [address] Pharmacist Internal Medicine 09/26/24 documented as of this encounter
--- OUTSIDE RECORDS SUMMARY | 2025-03-05 13:56 | XMS_ITS | Clinical Summary ---
Author Organization [employer] Address [address] [place] [address] Care Team Providers Care Graduate Fellow Name Role Phone Erica Brandon MD Primary Care Provider [phone] Mariama Hair PharmD Unavailable [phone] Allergies No known active allergies Medications * This document contains information received from the source organization and may not represent a complete record from that organization. Blood Glucose Monitoring Suppl (ONE TOUCH ULTRA 2) w/Device kitIndications: Type 2 diabetes mellitus without complication, unspecified whether buttermaker insulin use USE DIRECTED TO CHECK BLOOD SUGAR THREE TIMES A DAY 1 kit 024 Active escitalopram (Lexapro) 20 MG tabletIndicatio ns:Suicidal ideation,Mixed anxiety and depressive disorder Take 1 tablet (20 mg) by mouth Once per day. 90 tablet 3 025 Active lisinopril 5 MG tabletIndicatio ns:Elevated blood pressure reading in office without diagnosis of hypertension Take 1 tablet (5 mg) by mouth Once per day. 90 tablet 3 025 2025 Active glipiZIDE XL (Glucotrol XL) 5 MG 24 hr tabletIndicatio ns:Type 2 diabetes mellitus with hyperglycemia, without long-term current use of insulin (HCC) Take 1 tablet (5 mg) by mouth Once per day. Do not crush, chew, or split. 90 tablet 3 025 2025 Active buPROPion XL (Wellbutrin XL) 150 MG 24 hr tabletIndicatio ns:Suicidal ideation,Mixed anxiety and depressive disorder Take 1 tablet (150 mg) by mouth in the morning. Do not crush, chew, or split. 90 tablet 3 Active glucose blood (OneTouch Ultra Test) test stripIndication s:Type 2 diabetes mellitus with hyperglycemia, without long-term current use of insulin ([facility]) Use to test BG twice daily (fasting & 2 hours post any meal) as directed 100 each 11 025 2025 Active OneTouch Delica Lancets 33G miscIndications :Type 2 diabetes mellitus with hyperglycemia, without long-term current use of insulin ([facility]) Use to test BG twice daily (fasting & 2 hours post any meal) as directed 100 each 11 Active atorvastatin (Lipitor) 20 MG tablet TAKE 1 TABLET (20 MG) BY MOUTH ONCE PER DAY. 90 tablet 3 Active Blood Pressure kitIndications: Primary hypertension Use to check BP daily as directed 1 kit Active sildenafil (Viagra) 100 MG tabletIndicatio ns:Erectile dysfunction, unspecified erectile dysfunction type TAKE 1/2 TABLET BY MOUTH EVERY DAY NEEDED APPROXIMATELY 1 HOUR BEFORE SEXUAL ACTIVITY NEEDED. 30 tablet 1 Active cyclobenzaprine (Flexeril) 10 MG tabletIndicatio ns:Acute pain of left shoulder Take 0.5 tablets (5 mg) by mouth 3 times daily for 10 days. 15 tablet Active aspirin 81 MG chewable tabletIndicatio ns:Type 2 diabetes mellitus with hyperglycemia, without long-term current use of insulin ([facility]) Chew 1 tablet (81 mg) Once per day. 90 tablet 3 025 2025 Active Tirzepatide (Mounjaro) 2.5 MG/0.5ML solution auto-injector Inject 2.5 mg under the skin 1 (one) time per week. 2 mL 3 Active metFORMIN (Glucophage) 1000 MG tablet Take 1 tablet (1,000 mg) by mouth with breakfast and with evening meal. 180 tablet 3 025 2025 Active aspirin 81 MG chewable tabletIndicatio ns:Type 2 diabetes mellitus with hyperglycemia, without long-term current use of insulin ([facility]) Chew 1 tablet (81 mg) Once per day. 90 tablet 3 025 2024 Discontinued(R eorder (will not trigger notification to Pharmacy)) SITagliptin-met FORMIN ER (Janumet XR) 50-1000 MG per 24 hr tabletIndicatio ns:Type 2 diabetes mellitus with hyperglycemia, without long-term current use of insulin (HCC) Take 2 tablets by mouth once daily with PM meal. 180 tablet 3 025 2024 Discontinued(R eorder (will not trigger notification to Pharmacy)) dapagliflozin (Farxiga) 5 MGIndications:T ype 2 diabetes mellitus with hyperglycemia, without long-term current use of insulin (HCC) Take 1 tablet (5 mg) by mouth Once per day. 90 tablet 025 2024 Discontinued(S cuong effects) SITagliptin-met FORMIN ER (Janumet XR) 50-1000 MG per 24 hr tabletIndicatio ns:Type 2 diabetes mellitus with hyperglycemia, without long-term current use of insulin (HCC) Take 2 tablets by mouth once daily with PM meal. 180 tablet 3 025 2024 Discontinued(S cuong effects) Active Problems Problem Noted Date Diagnosed Date Acute pain of left shoulder 12/13/2024 Hypertension 09/25/2024 Alcoholic intoxication without complication 04/24 Assessment & Plan (08/20/2024 9:39 PM EDT): Offered AUD meds, pt declines Assessment & Plan (05/21/2024 3:48 PM EST): Declines need for referral for alcohol related services Suicidal ideation 10/31/2023 Assessment & Plan (11/03/2023 2:38 PM EDT): Denies concerns currently Type 2 diabetes mellitus wit h hyperglycemia, without long-term current use of insulin 05/18/2021 Assessment & Plan (03/05/2025 11:34 AM EDT): Current A1c: 10.9; continue Metformin, stop Farxiga [...] <130 2 hour post prandial goal: <180 Assessment & Plan (08/20/2024 9:41 PM EDT): Current A1c: 10.6, Take Metformin 1000mg BID Continue Januvia to 50mg and Glipizide XL 5mg daily Refer to CD[facility] for med mgmt, discussion [...] <130 2 hour post prandial goal: <180 Assessment & Plan (05/21/2024 3:48 PM EST): Current A1c: 11.2, Take Metformin 1000mg BID Increase Januvia to 50mg and Glipizide XL 5mg daily BMP: Lab Results Component Value Date CREATININE 0.85 11/01/2023 CREATININE 1.09 09/13/2020 K 4.2 11/01/2023 MICROALBUR 5.0 11/01/2023 Microalbumin: ordered today Foot Exam: Complete at follow up Eye Exam: Discuss at follow up Lipid panel: ordered today ASCVD: Calculate pending updated labs Statin: Yes, on for TG 300 and DM2, advised lifestyle, diet changes ASA: No JAYASHREE/ARB: Yes Encouraged regular aerobic exercise for improved glycemic control Encouraged daily foot checks Encouraged lean protein snacks and to avoid foods high in sugar and simple carbohydrates Treatment Goals: A1c goal: <7% FBG goal: <130 2 hour post prandial goal: <180 Assessment & Plan (02/01/2024 3:52 PM EDT): Current A1c: 10.5, restart Metformin 1000mg BID, he declined insulin in clinic for blood glucose of 500. Add Januvia 25mg and Glipizide 2.5mg daily BMP: Lab Results Component Value Date CREATININE 0.85 11/01/2023 CREATININE 1.09 09/13/2020 K 4.2 11/01/2023 MICROALBUR 5.0 11/01/2023 Microalbumin: ordered today Foot Exam: Complete at follow up Eye Exam: Discuss at follow up Lipid panel: oredered today ASCVD: Calculate pending updated labs Statin: Yes, ordered today for TG 300 and DM2, advised lifestyle, diet changes ASA: No JAYASHREE/ARB: No Encouraged regular aerobic exercise for improved glycemic control Encouraged daily foot checks Encouraged lean protein snacks and to avoid foods high in sugar and simple carbohydrates Treatment Goals: A1c goal: <7% FBG goal: <130 2 hour post prandial goal: <180 Assessment & Plan (11/03/2023 2:43 PM EDT): Current A1c: 10.5, restart Metformin 1000mg BID, he declined insulin in clinic for blood glucose of 500 BMP: ordered today Microalbumin: ordered today Foot Exam: Complete at follow up Eye Exam: Discuss at follow up Lipid panel: oredered today ASCVD: Calculate pending updated labs Statin: Yes, ordered today for TG 300 and DM2, advised lifestyle, diet changes ASA: No JAYASHREE/ARB: No Encouraged regular aerobic exercise for improved glycemic control Encouraged daily foot checks Encouraged lean protein snacks and to avoid foods high in sugar and simple carbohydrates Treatment Goals: A1c goal: <7% FBG goal: <130 2 hour post prandial goal: <180 Mixed anxiety and depressive disorder 02/21/2017 Assessment & Plan (11/03/2023 2:38 PM EDT): Denies concerns currently Lung mass 12/15/2012 Assessment & Plan (11/03/2023 2:37 PM EDT): Seen in 2014, stable on two CT scans, no further monitoring warranted Backache 11/15/2012 Resolved Problems Problem Noted Date Diagnosed Date Resolved Date Type 2 diabetes mellitus wit hout complication, without long-term current use of insulin 08/20/2024 08/20/2024 Elevated blood pressure read ing in office without diagnosis of hypertension 02/01/20242024 Assessment & Plan (08/20/2024 9:36 PM EDT): On Lisinopril 5mg for BP help and renal protection Does not monitor BP at home Will have nurse visit in one month, to titrate Lisinopril to 10mg if still >140/90 at nurse visit Assessment & Plan (05/21/2024 3:46 PM EST): On Lisinopril 5mg for BP help and renal protection Does not monitor BP at home Will have nurse visit in one month, to titrate Lisinopril to 10mg if still >140/90 at nurse visit Assessment & Plan (02/01/2024 3:50 PM EDT): Start Lisinopril for BP help and renal protection Followup in 3 months for repeat measurements Encounters Date Type Department Care Team Description 03/05/2025 11:30 AM EDT Office Visit [facility] [address] [place] [address] Erica Brandon MD Mixed anxiety and depressive disorder (Primary Dx); Type 2 diabetes mellitus with hyperglycemia, without long-term current use of insulin (HCC); Primary hypertension 03/05/2025 Refill [facility] [address] [place] [address] Erica Brandon MD 03/05/2025 Travel 03/04/2025 Telephone [facility] [address] [place] [address] Erica Brandon MD Chart Prep 12/13/2024 11:15 AM EDT Office Visit [facility] [address] [place] [address] Marcella Celeste MD Acute pain of left shoulder 12/13/2024 Travel 12/07/2024 Telephone [facility] [address] [place] [address] Erica Brandon MD ER Follow-up 12/04/2024 Telephone [facility] [address] [place] [address] Mariama Hair, PharmD from Last 3 Months Immunizations Immunization Administration Dates Next Due Pneumococcal Polysaccharide PPSV23 12/02/2014 Td (adult), 5 Lf tetanus tox oid, preservative free, adsorbed 02/27/2015 Tdap 07/19/2023,04/06/2013 Social History Tobacco Use Types Packs/Day Years [...] your housing situation today? I have malena luna 10/21/[address] you li [...] not to disclose 2021 10:22 AM EDT Last Filed Vital Signs Vital Sign Reading Time Taken Comments Blood Pressure 122/78 03/05/2025 10:50 AM EDT Pulse 78 03/05/2025 10:50 AM EDT Temperature 36.8 C (98.2 F) 03/05/2025 10:50 AM EDT Respiratory Rate 20 03/05/2025 10:50 AM EDT Oxygen Saturation 99% 12/13/2024 11:22 AM EDT Inhaled Oxygen Concentration - - Weight 86.5 kg (190 lb 9.6 oz) 03/05/2025 10:50 AM EDT Height 177.8 cm (5' 10 ) 03/05/2025 10:50 AM EDT Body Mass Index 27.35 03/05/2025 10:50 AM EDT Plan of Treatment Upcoming Encounters Date Type Department Care Team (Late st Contact Info) Description 03/28/2025 2:00 PM EST Medication Management [facility] [address], [place] [phone] Mariama Hair, PharmD [address], [place] [phone] Health Maintenance Due Date Last Done Comments CT Colonography 1976 FIT DNA/Cologuard 1976 FIT 1976 FOBT 1976 Sigmoidoscopy 1976 Hepatitis B Vaccines (1 of 3 - 19+ 3-dose series) 1995 Pneumococcal Vaccine: Pediatrics (0 to 5 Years) and At-Risk Patients (6 to 49) Years (2 of 2 - PCV) 12/03/2015 12/02/2014 Colonoscopy 09/24/2023 Colorectal Cancer Screening 09/24/2023 SDOH Screening 10/20/2024 10/21/2023 Diabetes: Urine Protein Screening 10/31/2024 11/01/2023 Lipid Panel 10/31/2024 11/01/2023 COVID-19 Vaccine ( season) 2025 Influenza Vaccine (#1) 2025 Diabetes: Hemoglobin A1C 06/05/2025 025, 10/30/2024, 08/17/2024, Additional history exists Disability Screening 08/17/2025 08/17/2024 Family Planning (PISQ) 08/20/2025 08/20/2024 Alcohol/Substance Use Screening 12/13/2025 12/13/2024 Depression Screening 03/05/2026 03/05/2025, 03/05/20 25 Diabetes: Foot Exam 03/05/2026 03/05/2025, 03/05/2025, 03/05/2025, Additional history exists Tobacco Screening 03/05/2026 03/05/2025 Zoster Vaccines (1 of 2) 2026 Eye Exam 09/19/2026 09/19/2024, 08/23, 09/19/2024, Additional history exists DTaP/Tdap/Td Vaccines (4 - Td or Tdap) 07/19/2033 07/19/2023, 02/27/2015, 04/06/2013 RSV Patients and Patients Aged 60 years or older (1 - 1-dose 75+ series) 2051 HIV Screening Completed 11/01/2023, 09/13/2020 Hepatitis C Screening Completed 11/01/2023 HIB Vaccines [...] patient's age to complete this topic Meningococcal Vaccine Aged Out No quentin kathryn eligible based on patient's age to complete this topic RSV under 20 months Aged Out No longe r eligible based on patient's age to complete this topic Rotavirus Vaccines Aged Out No longer eligible based on patient's age to complete this topic Procedures Procedure Name Priority Date/Time Associated Diagnosis Comments POCT GLYCATED HEMOGLOBIN, TOTAL Routine 03/05/2025 11:03 AM EDT Type 2 diabetes mellitus with hyperglycemia, without long-term current use of insulin (HCC) POCT GLUCOSE Routine 03/05/2025 11:01 AM EDT Type 2 diabetes mellitus with hyperglycemia, without long-term current use of insulin (HCC) HEPATITIS C AB W/REFL TO HCV RNA, QN, PCR Routine 11/01/2023 10:22 AM EDT Screening examination for STI HIV 1/2 ANTIGEN/ANTIBODY, FOURTH GENERATION W/RFL Routine 11/01/2023 10:22 AM EDT Screening examination for STI ALBUMIN, RANDOM URINE W/CREATININE Routine 11/01/2023 10:22 AM EDT Type 2 diabetes mellitus without complication, unspecified whether half-way insulin use ([facility]) LIPID PANEL, STANDARD Routine 11/01/2023 10:22 AM EDT Type 2 diabetes mellitus without complication, unspecified whether half-way insulin use ([facility]) from Last 3 Months or Most Recently Relevant to Health Maintenance Results * (ABNORMAL) POCT Hgb A1c (03/05/2025 11:03 AM EDT) Hemoglobin A1C 10.7(A) 4.0 - 5.7 % Blood 03/05/2025 11:0 3 AM EDT us Erica Brandon MD POINT OF CARE TEST ENTER/EDIT ORDERABLES Final Result * (ABNORMAL) POCT Glucose (03/05/2025 11:01 AM EDT) Glucose Blood, POC 274(A) 60 - 200 mg/dL Blood Capillary blood specimen / Unknown 03/05/2025 11:01 AM EDT us Erica Brandon MD POINT OF CARE TEST ENTER/EDIT ORDERABLES Final Result * Albumin, Random Urine W/Creatinine (11/01/2023 10:22 AM EDT) Creatinine, Urine 43.90 mg/dL [facility] Microalbumin Urine 5.0 mg/L [facility] Microalbum Creatinine Ratio Ur 11.3 <30 ug/mg cr [facility] Comment:Albumin/Creatinine R atio Reference Ranges: Normal: < 30 ug/mg creatinine Microalbuminuria: 30 - 300 ug/mg creatinineClinical Albuminuria: > 300 ug/mg creatinine Urine (Urine, Random) 11/01/2023 10:22 AM EDT 11/01/2023 11:14 AM EDT us Erica Brandon MD LAB URINE ORDERABLES Final Res ult [facility] [address] [place] [phone] * Hepatitis C Antibody with Reflex to HCV, RNA, Quantitative, Real-Time PCR (11/01/2023 10:22 AM EDT) Hepatitis C Antibody Nonreactive Nonreactive [facility] Comment:Antibodies to HCV no t detected; does not exclude early acuteHCV infection. Blood Venous blood specimen / Unknown 11/01/2023 10:22 AM EDT 11/01/2023 11:11 AM EDT us Erica Brandon MD LAB BLOOD ORDERABLES Final Res ult Performing Organization Address [facility] de Phone Number [facility] [address] [place] [phone] * HIV-1/2 Antigen and Antibodies, Fourth Generation, with Reflexes (11/01/2023 10:22 AM EDT) HIV AB/AG Nonreactive Nonreactive [facility] Comment:HIV-1 p24 Ag and/or HIV-1/HIV-2 Ab not detected.A test result that is nonreactive does not exclude thepossibility of exposure to or infection with HIV-1 and/orHIV-2. Nonreactive results in this assay for individualswith prior exposure to HIV-1 and/or HIV-2 may be due toantigen and antibody levels that are below the limit ofdetection of this assay.The Real Time Winenity HIV Ag/Ab Combo assay result andsupplemental assay results should be interpreted inconjunction with the patient's clinical presentation,history and other laboratory results. If the results areinconsistent with clinical evidence, additional testing issuggested to confirm the result. Blood Venous blood specimen / Unknown 11/01/2023 10:22 AM EDT 11/01/2023 11:11 AM EDT us Erica Brandon MD LAB BLOOD ORDERABLES Final Res ult Performing Organization Address [facility]/State/ZIP Co de Phone Number [facility] [address] [place] [phone] * (ABNORMAL) Lipid Panel, Standard (11/01/2023 10:22 AM EDT) Triglycerides 454(H) <150 mg/dL [facility] Comment:Desirable Triglyceri de: less than 150 mg/dLBorderline High Triglyceride 150-199 mg/dLHigh Triglyceride: 200-499 mg/dLVery High Triglyceride: greater than or equal to 5OO mg/dL Cholesterol 347(H) <200 mg/dL [facility] Comment:Desirable Cholestero l: less than 200 mg/dLBorderline High Cholesterol: 200-239 mg/dLHigh Cholesterol: greater than 239 mg/dL LDL Cholesterol Calculated TNP <100 mg/dL [facility] Comment:Unable to calculate the LDL. The formula of Friedwald,Rodriges, and Allyn is only valid if the triglycerides areless than 400 mg/dl. HDL Cholesterol 46 >40 mg/dL [facility] Comment:Desirable HDL: great er than 40 mg/dL Note: This HDL assay may give artificially low results in patients with liver disease. Blood Venous blood specimen / Unknown 11/01/2023 10:22 AM EDT 11/01/2023 11:11 AM EDT us Erica Brandon MD LAB BLOOD ORDERABLES Final Res ult [facility] [address] [place] [phone] from Last 3 Months or Most Recently Relevant to Health Maintenance Insurance [facility] [employer] < [address] [place] [id number] Care Teams Graduate Fellow Relationship Specialty Start Date End Date Erica Brandon MD [address] [place] [phone] PCP - General Family Medicine 07/22/22 Mariama Hair PharmD [address] [place] [address] Pharmacist Internal Medicine 09/26/24
[2025-03-05 14:04] LABS: Microalbum/Creatinine Ratio Ur 46.8 ug/mg cr (<30)
[2025-03-05 14:09] LABS: Alanine Aminotransferase 33 U/L (0-40); Albumin Level 4.8 g/dL (3.5-5.0); Alkaline Phosphatase 68 U/L (39-117); Anion Gap 18 (12-20); Aspartate Amino Transferase 19 U/L (5-37); Blood Urea Nitrogen 10 mg/dL (9-16); Calcium 9.5 mg/dL (8.4-10.2); Carbon Dioxide 28 mmol/L (22-29); Chloride 99 mmol/L (96-108); Cholesterol 382 mg/dL (<200); Estimated Glomerular Filt Rate > 60; HDL Cholesterol 54 mg/dL (>40); Potassium 5.3 mmol/L (3.3-5.1); Sodium 140 mmol/L (135-145); Total Protein 7.6 g/dL (6.5-8.0); Triglycerides 330 mg/dL (<150)
[2025-03-05 14:29] LABS: Reflex LDLD? No
[2025-03-05 14:38] LABS: Vitamin B12 304 pg/mL (200-900)
== END 2025-03-05 11:25 | disposition home or self-care (01) ==
LOC: HO.HHCL 11:24
PROVIDERS: PCP General Practice; Visit Provider General Practice
DX: E11.65 Type 2 diabetes mellitus with hyperglycemia (principal)
CPT/HCPCS: 36415; 80053; 80061; 82043; 82248; 82570; 82607